=== PATIENT | female | born 1960 | race Caucasian/White ===

== ENCOUNTER 2023-03-02 07:18 | Outpatient (RCR) | payer OTHER, SELFPAY ==
--- NOTE | 2023-02-28 08:41 | CR1_ITS ---
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
== END 2023-03-11 09:07 | disposition home or self-care (01) ==
LOC: CR 07:18
DX: I50.22 Chronic systolic (congestive) heart failure (principal)
CPT/HCPCS: 93797; 93798

== ENCOUNTER 2023-06-19 10:45 | Outpatient (OUT) | payer OTHER, SELFPAY ==
--- OUTSIDE RECORDS SUMMARY | 2023-06-19 11:00 | XMS_ITS | CCD ---
Author Organization [facility] Care Team Providers Care Recycling Specialist Name Role Phone CARMEN EVANS Admitting Unavailable CARMEN EVANS Attending Unavailable Carmen Evans Unavailable Carmen Evans DO Primary Care Provider Emanuel Ledbetter MD Unavailable [phone] Carmen Evans DO Primary Care Provider [phone] Emanuel Ledbetter MD Unavailable Carmen Evans DO Primary Care Provider Emanuel Ledbetter MD Unavailable GRETCHEN Casiano Attending Provider Bev Casiano Attending Unavailable Bev Casiano Admitting Unavailable EMANUEL LEDBETTER Attending Unavailable EMANUEL LEDBETTER Referring Unavailable CARMEN EVANS Primary Care Unavailable EMANUEL LEDBETTER Referring Unavailable CARMEN EVANS Primary Care Unavailable EMANUEL LEDBETTER Referring Unavailable CARMEN EVANS Primary Care Unavailable EMANUEL LEDBETTER Attending Unavailable EMANUEL LEDBETTER Referring Unavailable CARMEN EVANS Primary Care Unavailable GERAIS-SONIDO, LUANNE Admitting LUANNE Medina Attending CARMEN Sweet Primary Care Unavailable EMANUEL LEDBETTER Referring Unavailable CARMEN EVANS Primary Care Unavailable EMANUEL LEDBETTER Referring Unavailable CARMEN EVANS Primary Care Unavailable EMANUEL LEDBETTER Referring Unavailable CARMEN EVANS Primary Care Unavailable EMANUEL LEDBETTER Referring Unavailable CARMEN EVANS Primary Care Unavailable EMANUEL LEDBETTER Referring Unavailable CARMEN EVANS Primary Care Unavailable EMANUEL LEDBETTER Attending Unavailable CARMEN EVANS Primary Care Unavailable LUANNE BANKS Attending EMANUEL Rosenthal Referring Unavailable CARMEN EVANS Primary Care Unavailable EMANUEL LEDBETTER Referring Unavailable CARMEN EVANS Primary Care Unavailable EMANUEL LEDBETTER Referring Unavailable CARMEN EVANS Primary Care Unavailable Allergies Allergy Classification Reported Allergen(s) Allergy Type Date of Onset Reaction(s) Facility (4 sources) Lisinopril Drug Allergy COUGH [employer] Other (9 sources) Angiotensin-con verting enzyme inhibitor agent; Translations: [LUISA INHIBITORS] Propensity to adverse reactions 6 Cough [facility] (1 source) Lisinopril Drug Allergy 4 [facility] Repository Medications Current Medications Medication Drug Class(es) Dates Sig (Normalized) Sig (Original) amoxicillin 875 mg / clavulanate 125 mg oral tablet (6 sources) Penicillin-class Antibacterial Start: 08-01-2021 take 1 tablet by mouth twice daily at mealtime Amoxicillin-Pot Clavulanate 875-125 MG 1 tablet Orally bid with food for 10 day(s) Jan, Active Fish Oils (4 sources) CO-Q 10 [place]-3 Fish Oil Active perflutren lipid microspheres 1.3 mL in NaCl (PF) 0.9% 10 mL injection (DEFINITY) (9 sources) Start: 07-03-2022 End: 10-02-2023 perflutren lipid microspheres 1.3 mL in NaCl (PF) 0.9% 10 mL injection (DEFINITY) Start: 08-10-2020 End: 11-09-2021 perflutren lipid microsphere s 1.3 mL in NaCl (PF) 0.9% 10 mL injection (DEFINITY) Start: 08-10-2020 End: 11-09-2021 perflutren lipid microsphere s 1.3 mL in NaCl (PF) 0.9% 10 mL injection (DEFINITY) Red Yeast Rice (4 sources) Red Yeast Rice A ctive 125 ml sodium chloride 9 mg/ ml prefilled syringe (9 sources) Start: 07-03-2022 End: 10-02-2023 sodium chloride 0.9 % (flush ) 10 mL (BD POSIFLUSH) Start: 08-10-2020 End: 11-09-2021 sodium chloride 0.9 % (flush ) 10 mL (BD POSIFLUSH) ubidecarenone 100 mg oral ca psule (2 sources) Start: 03-07-2019 Coenzyme Q10 ( Q-Sorb Co Q-10) 100 mg Capsule Active 50 MG PO Daily March 07, 2019 1:00am Vitamin D (4 sources) Vitamin D Active Completed/Discontinued Medications Medication Drug Class(es) Dates Sig (Normalized) Sig (Original) ascorbic acid 1000 mg extended release oral tablet (12 sources) Vitamin C Start: 03-07-2019 End: 06-05-2023 take 1 tablet by mouth once daily Ascorbic Acid (Vitamin C) (C Complex) 1,000 mg Tablet Extended Release Discontinued 1000 MG PO Daily March 07, 2019 1:00am June 05, 2023 1:20pm End: 06-14-2023 take 1 tablet by mouth once daily, then take 1 tablet by mouth once daily ascorbic acid (VITAMIN C ORAL) Take 1,000 mg by mouth once daily. Pt takes vitamin c complex 1000 mg one tablet daily by mouth. 0 06/14/2023 Discontinued (Discontinued by Patient) Comment on above: Take 1,000 mg by navi th once daily. Pt takes vitamin c complex 1000 mg one tablet daily by mouth. aspirin 81 mg delayed release oral tablet (4 sources) Platelet Aggregation Inhibitor, Nonsteroidal Anti-inflammatory Drug End: 4 take 1 tablet by mouth once daily aspirin, enteric coated (ASPIRIN, ENTERIC COATED) 81 mg EC tablet Take 81 mg by mouth once daily. 0 06/14/2023 Discontinued Comment on above: Take 81 mg by mouth once daily. biotin 10 mg oral capsule (4 sources) Start: 9 End: 4 take 1 capsule by mouth once daily Biotin (Robert Biotin) 10,000 mcg Capsule Discontinued 27000 MCG PO Daily March 07, 2019 1:00am June 05, 2023 1:20pm Start: 03-07-2019 End: 03-07-2019 Biotin (Robert Biotin) 10,000 mcg Capsule Discontinued March 07, 2019 1:00am March 07, 2019 5:32pm calcium carbonate 600 mg / cholecalciferol 0.01 mg oral tablet (2 sources) Vitamin D Start: 03-07-2019 End: 06-05-2023 take 1 tablet by mouth once daily Calcium Carbonate-Vit D3-Min (Calcium 600 + Minerals) 600 mg calcium- 400 unit Tablet Discontinued 1 TAB PO Daily March 07, 2019 1:00am June 05, 2023 1:20pm Calcium Carbonate / vitamin D3 (5 sources) End: 02-15-2023 calcium carbonate/vitamin D3 (CALCIUM 600 + D,3, ORAL) Take by mouth once daily. Pt takes one daily by mouth. 0 02/15/2023 Discontinued (Discontinued by Patient) calcium carbonat e/vitamin D3 (CALCIUM 600 + D,3, ORAL) Take by mouth once daily. Pt takes one daily by mouth. 0 Active Comment on above: Take by mouth once d aily. Pt takes one daily by mouth. cefTRIAXone (4 sources) Cephalosporin Antibacterial Start: 9 Rocephin 500 mg July, 1 g cephalexin 500 mg oral capsule (2 sources) Cephalosporin Antibacterial Start: 9 End: 4 take 500 mg by mouth every eight hours Cephalexin Discontinued 500 MG PO Q8H 15 5 March 10, 2019 1:00am June 05, 2023 1:20pm FLAXSEED OIL ORAL (5 sources) End: 3 FLAXSEED OIL ORAL Take by mouth once daily. 0 02/15/2023 Discontinued (Discontinued by Patient) FLAXSEED OIL ORA L Take by mouth once daily. 0 Active Comment on above: Take by mouth once d aily. fluorouracil 50 mg/ml topical cream (1 source) Nucleoside Metabolic Inhibitor End: 06-14-2023 Fluorouracil (EFUDEX) 5 % cream Apply to affected area two times a day. 0 06/14/2023 Discontinued Comment on above: Apply to affected ar ea two times a day. FOREIGN MEDICATION (10 sources) End: 02-15-2023 FOREIGN MEDICATION once daily. Pt takes robert B-100 timed release one daily by mouth 0 02/15/2023 Discontinued (Discontinued by Patient) End: 02-15-2023 FOREIGN MEDICATION 50 mg onc e daily. Pt takes Q-Sorb CO Q 10 50 mg By mouth daily 0 02/15/2023 Discontinued (Discontinued by Patient) FOREIGN MEDICATI ON once daily. Pt takes robert B-100 timed release one daily by mouth 0 Active FOREIGN MEDICATI ON 50 mg once daily. Pt takes Q-Sorb CO Q 10 50 mg By mouth daily 0 Active Comment on above: once daily. Pt takes robert B-100 timed release one daily by mouth 50 mg once daily. Pt takes Q-Sorb CO Q 10 50 mg By mouth daily lecithin 1200 mg oral capsule (5 sources) End: 3 take 1200 mg by mouth once daily LECITHIN ORAL Take 1,200 mg by mouth once daily. 0 02/15/2023 Discontinued (Discontinued by Patient) Comment on above: Take 1,200 mg by navi th once daily. Lecithin Ultra (2 sources) Start: 9 End: 4 take 1200 mg by mouth once daily Lecithin Ultra Discontinued 1200 MG PO Daily March 07, 2019 1:00am June 05, 2023 1:21pm linseed oil 1000 mg oral capsule (2 sources) Start: 9 End: 4 take 1000 mg by mouth once daily Flaxseed Oil Discontinued 1000 MG PO Daily March 07, 2019 1:00am June 05, 2023 1:21pm losartan potassium 25 mg oral tablet (17 sources) Angiotensin 2 Receptor Zeferino Start: 9 End: 3 take 1 tablet by mouth once daily losartan (COZAAR) 25 mg tablet TAKE 1 TABLET BY MOUTH EVERY DAY 90 tablet 3 11/07/2022 Active Comment on above: TAKE 1 TABLET BY NAVI TH EVERY DAY Take 1 tablet by navi th once daily. 24 hr metoprolol succinate 50 mg extended release oral tablet (17 sources) beta-Adrenergic Zeferino Start: 4 take 1 tablet by mouth twice daily metoprolol succinate ER (TOPROL XL) 50 mg 24 hr tablet Take 1 tablet by mouth two times a day. 180 tablet 3 06/14/2023 Active Start: 03-07-2019 End: 06-14-2023 take 1 tablet by mouth once daily metoprolol succinate ER (TOPROL XL) 50 mg 24 hr tablet TAKE 1 TABLET BY MOUTH EVERY DAY 90 tablet 3 10/18/2022 06/14/2023 Discontinued Comment on above: TAKE 1 TABLET BY NAVI TH EVERY DAY Take 1 tablet by navi th two times a day. Taedwbbclkmn-Fvd-G nicholas-Fa-Vit K (Multi For Her) 18 mg iron-600 mcg-40 mcg Capsule (2 sources) Start: 03-07-2019 End: 06-05-2023 take 1 capsule by mouth once daily Zedgyrfnhxgd-Zgv-Wdlz- Fa-Vit K (Multi For Her) 18 mg iron-600 mcg-40 mcg Capsule Discontinued 1 CAP PO Daily March 07, 2019 1:00am June 05, 2023 1:21pm multivitamin/iron/ folic acid (SENTRY ORAL) (5 sources) End: 02-15-2023 multivitamin/iron/foli c acid (SENTRY ORAL) Take by mouth once daily. Pt takes Sentry multivitamin vitamin one by mouth daily. 0 02/15/2023 Discontinued (Discontinued by Patient) multivitamin/iro n/folic acid (SENTRY ORAL) Take by mouth once daily. Pt takes Sentry multivitamin vitamin one by mouth daily. 0 Active Comment on above: Take by mouth once d aily. Pt takes Sentry multivitamin vitamin one by mouth daily. nitroglycerin 0.4 mg sublingual tablet (4 sources) Nitrate Vasodilator Start: 02-16-20 23 nitroglycerin sublingual (NITROQUICK) 0.4 mg SL tablet Dissolve 1 tablet under the tongue as needed for chest pain. If no pain relief call 911. 45 tablet 2 02/15/2023 Active Comment on above: Dissolve 1 tablet un gonzalo the tongue as needed for chest pain. If no pain relief call 911. [place] 7-Dhw-Psm-Fish Oil (Fish Oil) 1,000 mg (120 mg-180 mg) Capsule (2 sources) Start: 03-07-20 End: 06-05-19 24 take 1 capsule by mouth once daily [place] 2-Bcs-Gkx-Fish Oil (Fish Oil) 1,000 mg (120 mg-180 mg) Capsule Discontinued 1000 MG PO Daily March 07, 2019 1:00am June 05, 2023 1:21pm red yeast rice 600 mg / ubidecarenone 60 mg oral capsule (4 sources) take 1 capsule by mouth once daily ubidecarenone/red yeast rice (CO Q10-RED YEAST RICE) 60-600 mg cap Take 1 capsule by mouth once daily. 0 Active Comment on above: Take 1 capsule by [facility] once daily. rosuvastatin calcium 20 mg oral tablet (7 sources) HMG-CoA Reductase Inhibitor Start: 07-04-19 take 1 tablet by mouth once daily rosuvastatin (CRESTOR) 20 mg tablet Take 1 tablet by mouth once daily. 90 tablet 3 07/03/2022 Active Comment on above: [facility]. Selenium (2 sources) Start: 03-07-20 End: 06-05-19 take 200 ug by mouth once daily Selenium Discontinued 200 MCG PO Daily March 07, 2019 1:00am June 05, 2023 1:21pm selenium 200 mcg cap (5 sources) End: 02-16-20 take 1 capsule by mouth once daily selenium 200 mcg cap Take by mouth once daily. 0 02/15/2023 Discontinued (Discontinued by Patient) take 1 capsule by mouth once yayo ly selenium 200 mcg cap Take by mouth once daily. 0 Active Comment on above: Take by mouth once d aily. vitamin b12 1 mg extended release oral tablet (7 sources) Vitamin B12 Start: 03-07-2019 End: 06-05-2023 take 1 tablet by mouth once daily Cyanocobalamin (Vitamin B-12) (Vitamin B-12) 1,000 mcg Tablet Extended Release Discontinued 1000 MCG PO Daily March 07, 2019 1:00am June 05, 2023 1:21pm End: 02-15-2023 take 1 tablet by mouth once daily cyanocobalamin (VITAMIN B-12) 1,000 mcg tab Take 1,000 mcg by mouth once daily. 0 02/15/2023 Discontinued (Discontinued by Patient) Comment on above: Take 1,000 mcg by mo [facility] once daily. Vitamin C 1000 MG (2 sources) take 1 tablet by mouth once daily Vitamin C 1000 MG 1 tablet Orally Once a day Not-Taking vitamin e 180 mg oral capsule (2 sources) Start: 03-07-2019 End: 06-05-2023 take 400 [IU] by mouth once daily Vitamin E Discontinued 400 UNIT PO Daily March 07, 2019 1:00am June 05, 2023 1:21pm VITAMIN E ORAL (5 sources) End: 02-15-2023 take 400 [IU] by mouth once daily VITAMIN E ORAL Take 400 Units by mouth once daily. 0 02/15/2023 Discontinued (Discontinued by Patient) take 400 [IU] by mouth once sarath y VITAMIN E ORAL Take 400 Units by mouth once daily. 0 Active Comment on above: Take 400 Units by mo uth once daily. Problems Active Problems Problem Classification Problem Date Documented Da te Episodic/Chronic Cardiac dysrhythmias (3 sources) Multiple premature ventricular complexes; Translations: [Ventricular premature depolarization] 02-15-2023 Chronic Congestive heart failure; nonhypertensive (14 sources) Congestive heart failure; Translations: [Heart failure, unspecified] Onset: 03-24-2005 01-15-2017 Chronic Disorders of lipid metabolism (9 sources) Hyperlipidemia; Translations: [Hyperlipidemia, unspecified] Onset: 08-01-2021 Resolved: 08-01-2021 Chronic Esophageal disorders (4 sources) Acid reflux; Translations: [Gastro-esophageal reflux disease without esophagitis] Chronic Genitourinary symptoms and ill-defined conditions (1 source) Dysuria; Translations: [Dysuria] Onset: 06-05-2023 Episodic Nonspecific chest pain (1 source) Precordial pain; Translations: [Precordial pain] 02-15-2023 Episodic Other gastrointestinal disorders (4 sources) Dysphagia; Translations: [Dysphagia, unspecified] Episodic Other liver diseases (4 sources) Steatosis of liver; Translations: [Fatty (change of) liver, not elsewhere classified] Chronic Other liver diseases (1 source) Fatty (change of) liver, not elsewhere classified Onset: 08-01-2021 Resolved: 08-01-2021 Chronic Daaynara-; endo-; and myocarditis; cardiomyopathy (except that caused by tuberculosis or sexually transmitted disease) (12 sources) Cardiomyopathy, unspecified; Translations: [Cardiomyopathy] Onset: 02-12-2019 Resolved: 08-01-2021 Chronic Residual codes; unclassified (1 source) Other specified health status; Translations: [Other specified conditions influencing health status] 06-14-2023 Episodic Spondylosis; intervertebral disc disorders; other back problems (4 sources) Degeneration of cervical intervertebral disc; Translations: [Other cervical disc degeneration, unspecified cervical region] Chronic Past or Other Problems Problem Classification Problem Date Documented Date Episodic/Chronic Other lower respiratory disease (1 source) Shortness of breath; Translations: [SOB (shortness of breath)] Onset: 02-15-2023 Episodic Other screening for suspected conditions (not mental disorders or infectious disease) (1 source) Encounter for screening for cardiovascular disorders; Translations: [Encounter for screening for cardiovascular disorders] Onset: 02-15-2023 Episodic Skin and subcutaneous tissue infections (1 source) Cutaneous abscess, unspecified Onset: 08-01-2021 Resolved: 08-01-2021 Episodic Results Test Name Value Interpretation Reference Range Facility [facility] 06-14-2023 CNOV Office Visit (CARD C HF ANJALI) RICHIE HOPPER ([id number]) 1960 F Date Time Provider Department 06/14/23 11:45 AM EMANUEL LEDBETTER CARD CHF ANJALI During your visit today, we recorded the following information about you: Pulse Blood pressure Weight Height 88/minute 111/65 78.2 kg 1.689 m Emanuel Ledbetter MD 06/14/2023 5:19 PM Signed Heart and Vascular [facility] SECTION OF HEART FAILURE and CARDIAC TRANSPLANT MEDICINE OUTPATIENT VISIT DATE June 14, 2023 OUTPATIENT VISIT TYPE Established Patient PRIMARY CARE PHYSICIAN: Carmen Evans [address] [place] [address] CHIEF COMPLAINT: HF f/u NURSING INTAKE (Patient?s concerns and/or recent hospitalizations/ER visits): HF Nursing Assessment: Interim Hospitalizations and/or ER visits:02/16/2023 [facility] W/POSS PCI Chest Pain: no Skipping or irregular heartbeats: no Shortness of breath at rest: no Shortness of breath with activity: no Cough: no Waking up in the middle of the night gasping for air: no Lightheadedness or dizziness: no Feeling like you are going to pass out: no Actually passing out: no Poor energy level: yes Unintentional weight gain: no Unintentional weight loss: no Swelling in your legs,feet, abdomen: no Filling up quickly when you eat: no HISTORY OF PRESENT ILLNESS: Doing ok PAST MEDICAL HISTORY Diagnosis Date Bundle branch block, unspecified left bundle branch block Cardiomyopathy, nonischemic (HCC) 09/09/2004 Dyslipidemia 04/05/2015 Other primary cardiomyopathies Cardiomyopathy PAST SURGICAL HISTORY Procedure Laterality Date TOTAL ABDOMINAL HYSTERECT W/WO RMVL TUBE OVARY Hysterectomy, LEAH SOCIAL HISTORY Social History Tobacco Use Smoking status: Never Smokeless tobacco: Never Substance Use Topics Alcohol use: Yes Comment: twice per month Drug use: Never No family history on file. ALLERGIES: ALLERGIES Allergen Reactions Luisa Inhibitors Cough CURRENT MEDICATIONS: ubidecarenone/red yeast rice (CO Q10-RED YEAST RICE) 60-600 mg capTake 1 capsule by mouth once daily.Disp: Rfl: aspirin, enteric coated (ASPIRIN, ENTERIC COATED) 81 mg EC tabletTake 81 mg by mouth once daily.Disp: Rfl: nitroglycerin sublingual (NITROQUICK) 0.4 mg SL tabletDissolve 1 tablet under the tongue as needed for chest pain. If no pain relief call 911.Disp: 45 tabletRfl: 2 losartan (COZAAR) 25 mg tabletTAKE 1 TABLET BY MOUTH EVERY DAYDisp: 90 tabletRfl: 3 metoprolol succinate ER (TOPROL XL) 50 mg 24 hr tabletTAKE 1 TABLET BY MOUTH EVERY DAYDisp: 90 tabletRfl: 3 rosuvastatin (CRESTOR) 20 mg tabletTake 1 tablet by mouth once daily.Disp: 90 tabletRfl: 3 Fluorouracil (EFUDEX) 5 % creamApply to affected area two times a day.Disp: Rfl: (Patient not taking: Reported on 06/14/2023) REVIEW OF SYSTEMS: ROS HEART FAILURE PATIENT ENTERED DATA: 06/13/2023 KCCQ-12 Scores Physical Limitation Score 100 (Class I Heart Failure ) Symptom Frequency Score 79.17 (Class II Heart Failure ) Quality of Life Score 75 (Class II Heart Failure ) Social Limitation Score 91.67 (Class I Heart Failure) Overall Summary Score 86.46 (Class I Heart Failure ) 06/13/2023 PHQ-9 Score 6 06/13/2023 PROMIS Global Health - (T-Scores - the mean of general population = 50. Five points is a clinically meaningful difference.) Physical T-Score 47.7 Mental T-Score 53.3 PHYSICAL EXAMINATION: BP 111/65 (BP Site: Left Arm) Pulse 88 Ht 168.9 cm (5' 6.5 ) Wt 78.2 kg (172 lb 8 oz) SpO2 98% BMI 27.43 kg/m? BP 111/74 (BP Site: Left Arm) Pulse 69 Ht 170.2 cm (5' 7 ) Wt 81.5 kg (179 lb 11.2 oz) SpO2 97% BMI 28.14 kg/m? which is 7 lbs less than last visit. General appearance:Healthy appearing female breathing comfortable. Skin: No rashes or lesions. Head: Normal Eyes: Anicteric sclera. Neck: No JVD. Normal carotid upstroke. No carotid bruit. Cardiac: PMI laterally displaced. No right ventricular heave. No thrill. RRR with normal S1S2. No murmur,no S3, S4 Lungs: clear to auscultation, No wheezing or rhonchi. Abdomen: Flat, soft, non-tender. No hepatosplenomegaly. Extremities: No cyanosis, clubbing,edema Neuro: grossly intact. Labs on 12/20/18: Na 141, 4.2, BUN 11, Cr 0.84, AST 29, ALT 51, Alk phos 71, Tbili 0.6, TP 8.2, Alb 4.1, TC 220, HDL 39, Trig 80, LDL 165 Component Latest Ref Rng AND Units 08/10/2020 07/03/2022 02/14/2023 Protein, Total 6.3 - 8.0 g/dL 7.5 7.1 7.3 Albumin 3.9 - 4.9 g/dL 4.8 4.3 4.5 Calcium 8.5 - 10.2 mg/dL 9.4 9.3 9.9 Bilirubin, Total 0.2 - 1.3 mg/dL 0.6 0.5 0.6 Alkaline Phosphatase 34 - 123 U/L 78 66 73 AST 13 - 35 U/L 35 55 (H) 25 Glucose 74 - 99 mg/dL 78 86 104 (H) BUN 7 - 21 mg/dL 11 10 16 Creatinine 0.58 - 0.96 mg/dL 0.78 0.74 0.87 Sodium 136 - 144 mmol/L 140 138 144 Potassium 3.7 - 5.1 mmol/L 3. (more content not included)... Normal [facility] ECHOon 06-14-2023 Echocardiography Echocardiography Report: Transthoracic Echo [facility] [id number] Date of service: 06/14/2023 10:29:30 AM SALES ENGINEER Ordering physician: EMANUEL LEDBETTER Indication: CHF Technologist: Maranda Mckeon and Tamika Byrnes [facility] Interpreting physician: Salvatore Bowers DO PATIENT: Name: MRS. RICHIE HOPPER : 1960 Age: 63 years Gender: F Primary rhythm: sinus. Height: 170.20 cm BSA: 1.96 m Weight: 81.51 kg BMI: 28.1 kg/m Heart rate 77 bpm Blood pressure 111/65 mmHg Color Doppler was utilized to interrogate the cardiac valves assessed and spectral Doppler was utilized to determine the flow velocities and pressure gradients reported in this exam. MEASUREMENTS: Value Indexed Normal Max aortic dimension 3.5 cm Ao < 3.8 Left atrial volume 65 ml (biplane A-L) 33 ml/m Shlomo <= 34 LV ID (diastole) 5.9 cm (2D) 2.99 cm/m LV ID (systole) 5.2 cm (2D) 2.67 cm/m IVS, leaflet tips 1.1 cm (2D) Posterior wall thickness 0.9 cm (2D) Left ventricular mass 240 g (2D) 122 g/m LV stroke volume 46 ml (2D biplane) LV end diastolic volume 117 ml (2D biplane) 59.8 ml/m 29<=EDVi<62 LV end systolic volume 71 ml (2D biplane) 36.2 ml/m Ejection Fraction 39 % (2D biplane) EF > 54 FINDINGS: LEFT VENTRICLE The left ventricle is normal in size. Left ventricular systolic function is moderately decreased regionally. Grade I left ventricular diastolic dysfunction. Wall Motion: The entire septum, apical anterior segment, apical inferior segment, and apex are severely hypokinetic. The inferior wall is mildly hypokinetic. All remaining scored segments are normal. Wall Thickness: All scored segments are normal. RIGHT VENTRICLE The right ventricle is normal in size. Right ventricular systolic function is normal. RV systolic tissue Doppler velocity is 9.0 cm/s. Tricuspid annular displacement is 1.6 cm. Estimated right ventricular systolic pressure is not reported due to an insufficient tricuspid regurgitation signal. Estimated right atrial pressure is 3 mmHg based on IVC assessment. LEFT ATRIUM The left atrial cavity is normal in size. RIGHT ATRIUM The right atrial cavity is normal in size. Inferior Vena Cava: The inferior vena cava appears normal measuring 1.2 cm. The vessel decreases greater than 50 percent with inspiration. MITRAL VALVE The mitral valve leaflets are structurally normal. There is mild (1+) mitral valve regurgitation. There is mild thickening. TRICUSPID VALVE The tricuspid valve leaflets are structurally normal. There is trace tricuspid valve regurgitation. AORTIC VALVE The aortic valve cusps are structurally normal. There is trace aortic valve regurgitation. Tricuspid aortic valve. PULMONIC VALVE The pulmonic valve cusps are structurally normal. There is trace pulmonic valve regurgitation. AORTA The visualized aorta is normal in size. Measurements - Sinus: 3.5 cm. Mid ascending aorta 2.7 cm. PULMONARY ARTERIES The pulmonary arteries are unseen or not interrogated. INTERATRIAL SEPTUM There is no evidence of intracardiac shunting as detected by Doppler. INTERVENTRICULAR SEPTUM There is no flow through the interventricular septum as detected by Doppler. PERICARDIUM There is no pericardial effusion. There is an epicardial fat pad. CONCLUSIONS: - Exam indication: CHF - The left ventricle is normal in size. Left ventricular systolic function is moderately decreased. EF = 39 5% (2D biplane) Grade I left ventricular diastolic dysfunction. The abnormal regional wall motion pattern in conjunction with normal regional wall thickness is consistent with a LBBB abnormal conduction delay and LV intra ventricular mechanical dyssynchrony. LV strain not reported due to poor tracking. - The right ventricle is normal in size. Right ventricular systolic function is normal. - There are no significant valvular abnormalities. - Exam was compared with the prior echocardiographic exam performed on 07/03/2022. There is no significant change. * * * Final * * * [employer] : [id number] Normal [facility] Urine Cultureon 06-05-2023 Bacteria identified Cx Nom (U) 15,000 colonies/ml mixed bacterial skin contaminants 1 Day PERFORMED BY: [id number] [id number] PATHOLOGIST [employer] GLORIA ALMEIDA M.D. Normal St. [facility] Comment on above: Performed By: #### C UU #### [address] [place] [address] [facility] Vick 03-06-2023 CNPN Telephone (CARD [facility] ANJALI) RICHIE HOPPER ([id number]) 1960 F Date Time Provider Department 03/06/23 EMANUEL LEDBETTER CARD [facility] ANJALI During your visit today, we recorded the following information about you: Marcus FátimaKriss 03/06/2023 2:17 PM Signed Patient has a cold/flu x 2 days and wants to know what she can take. Please call her at [phone]. Thank you, kriss Allergies As of Date: 03/06/2023 Noted Allergy Reaction LUISA INHIBITORS 03/17/2005 3 - Cough Date Reviewed: 02/16/2023 Reviewed by: Lauren Holt, RN - Fully Assessed Reason for Visit: Follow Up [171] Prescriptions as of 03/06/2023 - ubidecarenone/red yeast rice (CO Q10-RED YEAST RICE) 60-600 mg cap Take 1 capsule by mouth once daily. - aspirin, enteric coated (ASPIRIN, ENTERIC COATED) 81 mg EC tablet Take 81 mg by mouth once daily. - nitroglycerin sublingual (NITROQUICK) 0.4 mg SL tablet Dissolve 1 tablet under the tongue as needed for chest pain. If no pain relief call 911. - losartan (COZAAR) 25 mg tablet TAKE 1 TABLET BY MOUTH EVERY DAY - metoprolol succinate ER (TOPROL XL) 50 mg 24 hr tablet TAKE 1 TABLET BY MOUTH EVERY DAY - rosuvastatin (CRESTOR) 20 mg tablet Take 1 tablet by mouth once daily. - ascorbic acid (VITAMIN C ORAL) Take 1,000 mg by mouth once daily. Pt takes vitamin c complex 1000 mg one tablet daily by mouth. Facility-Administered Medications as of 03/06/2023 - perflutren lipid microspheres 1.3 mL in NaCl (PF) 0.9% 10 mL injection (DEFINITY) - sodium chloride 0.9 % (flush) 10 mL (BD POSIFLUSH) Problem List As Of Date 03/06/2023 Noted Resolved Cardiomyopathy, nonischemic (HCC) [I42.8] CHF (congestive heart failure) (HCC) [I50.9] 03/24/2005 Encounter Status:Closed by SANTOS BLOUNT on 03/06/23 Normal [facility] CARD CATH DIAGNOSTICon 02-16 CARD CATH DIAGNOSTIC Site Id: [id number] Lab #: [id number] HVI Fancy Packer 2 Study Date: 02/16/2023 Start Time: 02/16/2023 11:33:29 AM End Time: Physician Name Debra Priest M.D., M.D. Nursing/Tech Nitesh Swan R.N., A. R.N. + + PATIENT INFORMATION + + Name: MRS. RICHIE HOPPER : 1960 Age: 63 years Gender: F Height: 67 in / 170 cm Weight: 179.70 lb / 81.51 kg BMI: 28.20 kg/m BSA: 1.93 m + ---------+ CLINICAL HISTORY/INDICATION(s) + ---------+ Re-evaluation of know cardiomyopathy with change in clinical status or on cardiac exam or to guide therapy; AUC score = 7. CAD Presentation: Symptoms Likely to be Ischemic Angina Classification (within 2 weeks): CCS II Heart Failure: NYHA Class III Richie Hopper is a 63 yoF with PMH HLD presenting for C +/- PCI for investigation of cardiomyopathy and exertional chest pain. Access Point Sheath Size Hemostasis Method Right Radial Artery 6F Short Radial TR band + + DIAGNOSTIC FINDINGS + + Coronary Anatomy: Right Dominant Injection Site(s): Coronary Artery and Aorta LMT: _ The LMT is normal. Additional Comment: Very short LMT gives rise to the LAD and LCx. LAD: _ The LAD has mild luminal irregularities. Additional Comment: The LAD is a large caliber vessel that supplies one primary diagonal branch before wrapping around the apex. There are mild luminal irregularities seen in the mid LAD and diagonal arteries. LCX: _ The Circumflex is normal. Additional Comment: The LCx is a large caliber vessel that supplies a large OM and LPL branche and then continues in the AV groove to supply more dimunitive LPL branches. RAMUS: _ Ramus Status: Not Applicable. RCA: _ RCA is normal. Additional Comment: The RCA is a medium caliber vessel that supplies a few small acute marginal branches before contributing to a PDA. + + HEMODYNAMICS + + + + IMPRESSION/PLAN + + Impression: - Mild luminal irregularities in the LAD; no obstructive coronary artery disease seen Recommended Treatment: Medical Therapy. Plan: - Ongoing treatment of heart failure - Ongoing workup for chest discomfort; no epicardial disease to explain symptoms + + ADVERSE OUTCOME(s)/COMPLICATIO N(s) + + None + ---------+ PROCEDURAL & TECHNICAL DETAILS + ---------+ PROCEDURE SEQUENCE: Time Procedure Performed 02/16/2023 11:55:47 AM Left Heart Cath PROCEDURE DETAILS: Contrast: Contrast Type Omnipaque 150ml Blood Loss: < 30ml Specimen: No Specimen Obtained RADIATION: Procedure performed under Fluoroscopic Guidance Total Dose Dose Area Product Total Exposure Time 251.77 mGy 18.56 Gy*cm 322.00 sec + + MEDICAL HISTORY + + Left Ventricle EF: 36 on 02/15/2023 by Echo. Physician Intra Service Procedure Start Time: 02/16/2023 11:47:58 AM Attending Physician Presence Attestation: Electronically submitted by: Luanne Greenfield MD On: 02/16/2023 at 2:26:17 PM Final CC [facility] Image : [id number] SISUID See Link below for Image Normal [facility] CNOVon 02-15-2023 CNOV Office Visit (JUNITO Castañeda HF ANJALI) RICHIE HOPPER ([id number]) 1960 F Date Time Provider Department 02/15/23 11:45 AM EMANUEL LEDBETTER CHF ANJALI During your visit today, we recorded the following information about you: Pulse Blood pressure Weight Height 69/minute 111/74 81.5 kg 1.702 m Emanuel Ledbetter MD 02/15/2023 5:05 PM Signed Heart and Vascular [facility] SECTION OF HEART FAILURE and CARDIAC TRANSPLANT MEDICINE OUTPATIENT VISIT DATE February 15, 2023 OUTPATIENT VISIT TYPE Established Patient PRIMARY CARE PHYSICIAN: Carmen Evans [address] [place] [address] CHIEF COMPLAINT: CP NURSING INTAKE (Patient?s concerns and/or recent hospitalizations/ER visits): HF Nursing Assessment: Interim Hospitalizations and/or ER visits:no Chest Pain: yes, last had tightness and made sick to stomach Skipping or irregular heartbeats: yes Shortness of breath at rest: no Shortness of breath with activity: no Cough: no Waking up in the middle of the night gasping for air: no Lightheadedness or dizziness: no Feeling like you are going to pass out: no Actually passing out: no Poor energy level: yes Unintentional weight gain: no Unintentional weight loss: no Swelling in your legs,feet, abdomen: no Filling up quickly when you eat: yes HISTORY OF PRESENT ILLNESS: Has had progressive shortness of breath and chest tightness much worse in last few months PAST MEDICAL HISTORY Diagnosis Date Bundle branch block, unspecified left bundle branch block Cardiomyopathy, nonischemic (HCC) 09/09/2004 Dyslipidemia 04/05/2015 Other primary cardiomyopathies Cardiomyopathy PAST SURGICAL HISTORY Procedure Laterality Date TOTAL ABDOM HYSTERECTOMY Hysterectomy, LEAH SOCIAL HISTORY Social History Tobacco Use Smoking status: Never Smokeless tobacco: Never Substance Use Topics Alcohol use: Yes Comment: twice per month Drug use: Not Currently No family history on file. ALLERGIES: ALLERGIES Allergen Reactions Luisa Inhibitors Cough CURRENT MEDICATIONS: ubidecarenone/red yeast rice (CO Q10-RED YEAST RICE) 60-600 mg capTake 1 capsule by mouth once daily.Disp: Rfl: aspirin, enteric coated (ASPIRIN, ENTERIC COATED) 81 mg EC tabletTake 81 mg by mouth once daily.Disp: Rfl: losartan (COZAAR) 25 mg tabletTAKE 1 TABLET BY MOUTH EVERY DAYDisp: 90 tabletRfl: 3 metoprolol succinate ER (TOPROL XL) 50 mg 24 hr tabletTAKE 1 TABLET BY MOUTH EVERY DAYDisp: 90 tabletRfl: 3 rosuvastatin (CRESTOR) 20 mg tabletTake 1 tablet by mouth once daily.Disp: 90 tabletRfl: 3 ascorbic acid (VITAMIN C ORAL)Take 1,000 mg by mouth once daily. Pt takes vitamin c complex 1000 mg one tablet daily by mouth.Disp: Rfl: REVIEW OF SYSTEMS: ROS HEART FAILURE PATIENT ENTERED DATA: No flowsheet data found. No flowsheet data found. No flowsheet data found. PHYSICAL EXAMINATION: BP 111/74 (BP Site: Left Arm) Pulse 69 Ht 170.2 cm (5' 7 ) Wt 81.5 kg (179 lb 11.2 oz) SpO2 97% BMI 28.14 kg/m? which is 7 lbs less than last visit. General appearance:Healthy appearing female breathing comfortable. Skin: No rashes or lesions. Head: Normal Eyes: Anicteric sclera. Neck: No JVD. Normal carotid upstroke. No carotid bruit. Cardiac: PMI laterally displaced. No right ventricular heave. No thrill. RRR with normal S1S2. No murmur,no S3, S4 Lungs: clear to auscultation, No wheezing or rhonchi. Abdomen: Flat, soft, non-tender. No hepatosplenomegaly. Extremities: No cyanosis, clubbing,edema Neuro: grossly intact. Labs on 12/20/18: Na 141, 4.2, BUN 11, Cr 0.84, AST 29, ALT 51, Alk phos 71, Tbili 0.6, TP 8.2, Alb 4.1, TC 220, HDL 39, Trig 80, LDL 165 Component Latest Ref Rng AND Units 08/10/2020 07/03/2022 02/14/2023 Protein, Total 6.3 - 8.0 g/dL 7.5 7.1 7.3 Albumin 3.9 - 4.9 g/dL 4.8 4.3 4.5 Calcium 8.5 - 10.2 mg/dL 9.4 9.3 9.9 Bilirubin, Total 0.2 - 1.3 mg/dL 0.6 0.5 0.6 Alkaline Phosphatase 34 - 123 U/L 78 66 73 AST 13 - 35 U/L 35 55 (H) 25 Glucose 74 - 99 mg/dL 78 86 104 (H) BUN 7 - 21 mg/dL 11 10 16 Creatinine 0.58 - 0.96 mg/dL 0.78 0.74 0.87 Sodium 136 - 144 mmol/L 140 138 144 Potassium 3.7 - 5.1 mmol/L 3.7 4.8 Chloride 97 - 105 mmol/L 104 105 108 (H) CO2 22 - 30 mmol/L 26 22 29 Anion Gap 9 - 18 mmol/L 10 11 7 (L) ALT 7 - 38 U/L 58 (H) 59 (H) 32 eGFR- >60 eGFR-All Other Races . >60 eGFR >=60 mL/min/1.73mA? 92 75 WBC 3.70 - 11.00 k/uL 6.83 6.60 6.74 RBC 3.90 - 5.20 m/uL 4.40 4.49 4.52 Hemoglobin 11.5 - 15.5 g/dL 13.9 13.9 14.3 Hematocrit 36.0 - 46.0 % 42.8 43.5 42.2 MCV 80.0 - 100.0 fL 97.3 96.9 93.4 MCH 26.0 - 34.0 pg 31.6 31.0 31.6 MCHC 30.5 - 36.0 g/dL 32.5 32.0 33.9 RDW-CV 11.5 - 15.0 % 12.6 12.5 12.4 Platelet Count 150 - 400 k/uL 240 160 226 MPV 9.0 - 12.7 fL (more content not included)... Normal [facility] CNPNon 02-15-2023 CNPN Telephone ([email or web address].comN) RICHIE HOPPER ([id number]) 1960 F Date Time Provider Department 02/15/23 LUANNE BANKS During your visit today, we recorded the following information about you: Debbie Salguero RN 02/15/2023 3:15 PM Signed CARDIOVASCULAR LAB INSTRUCTIONS: Readiness to Learn: Cognitive Ability: Alert and oriented Motivation To Learn: Interested Family/Significant Other Support: High - Very involved in pt care Instruction Provided To: Patient and family member Patient Learns Best By: Individual Instruction Factors Affecting Learning: None Physical Limitations Affecting Learning: None Learning Response: Procedure: Left Heart Diagnostic Pre procedure education topics: Arrival time/NPO Status/Medications/Tra joaquim Instructions/Restricti ons Patient/Family Response Evaluation: Verbalizes understanding Follow Up Plan and Medication: As directed by physician Instruction/Supplement al Material Given: Cardiac catheterization instructions, procedure information, hospital information, hotel information. Instructed By Nanda Salguero RN, RN. In Department of CARDIOLOGY. Allergies As of Date: 02/15/2023 Noted Allergy Reaction LUISA INHIBITORS 03/17/2005 3 - Cough Date Reviewed: 02/15/2023 Reviewed by: Cheryl Butler Ma - Fully Assessed Reason for Visit: Patient Education [91] Prescriptions as of 02/15/2023 - ubidecarenone/red yeast rice (CO Q10-RED YEAST RICE) 60-600 mg cap Take 1 capsule by mouth once daily. - aspirin, enteric coated (ASPIRIN, ENTERIC COATED) 81 mg EC tablet Take 81 mg by mouth once daily. - nitroglycerin sublingual (NITROQUICK) 0.4 mg SL tablet Dissolve 1 tablet under the tongue as needed for chest pain. If no pain relief call 911. - losartan (COZAAR) 25 mg tablet TAKE 1 TABLET BY MOUTH EVERY DAY - metoprolol succinate ER (TOPROL XL) 50 mg 24 hr tablet TAKE 1 TABLET BY MOUTH EVERY DAY - rosuvastatin (CRESTOR) 20 mg tablet Take 1 tablet by mouth once daily. - ascorbic acid (VITAMIN C ORAL) Take 1,000 mg by mouth once daily. Pt takes vitamin c complex 1000 mg one tablet daily by mouth. Facility-Administered Medications as of 02/15/2023 - perflutren lipid microspheres 1.3 mL in NaCl (PF) 0.9% 10 mL injection (DEFINITY) - sodium chloride 0.9 % (flush) 10 mL (BD POSIFLUSH) Problem List As Of Date 02/15/2023 Noted Resolved Cardiomyopathy, nonischemic (HCC) [I42.8] CHF (congestive heart failure) (HCC) [I50.9] 03/24/2005 Encounter Status:Closed by DEBBIE SALGUERO RN on 02/15/23 [facility] ECHOon 02-15-2023 Echocardiography Echocardiography Report: Transthoracic Echo [facility] J1-5 Date of service: 02/15/2023 7:58:30 AM [employer]ES ENGINE[employer] Ordering physician: EMANUEL LEDBETTER Indication: Diastolic CHF Technologist: Deandra Love Fellow: Caitlyn Coronado MD Interpreting physician: Tom Paz MD PATIENT: Name: MRS. RICHIE HOPPER : 1960 Age: 63 years Gender: F Primary rhythm: sinus. Height: 168.90 cm BSA: 1.99 m Weight: 84.64 kg BMI: 29.7 kg/m Heart rate 69 bpm Blood pressure 135/85 mmHg Technically difficult exam due to body habitus. Color Doppler was utilized to interrogate the cardiac valves assessed and spectral Doppler was utilized to determine the flow velocities and pressure gradients reported in this exam. Myocardial strain analysis was performed in this exam to aid in the assessment of cardiac function. MEASUREMENTS: Value Indexed Normal Max aortic dimension 3.4 cm Ao < 3.8 Left atrial volume 66 ml (biplane A-L) 33 ml/m Shlomo <= 34 Global peak long strain -9.8 % LV stroke volume 39 ml (2D biplane) LV end diastolic volume 108 ml (2D biplane) 54.4 ml/m 29<=EDVi<62 LV end systolic volume 69 ml (2D biplane) 34.6 ml/m Ejection Fraction 36 % (2D biplane) EF > 54 FINDINGS: LEFT VENTRICLE The left ventricle is normal in size. Left ventricular systolic function is moderately decreased. Global LV myocardial strain is abnormal. Grade I left ventricular diastolic dysfunction. Mitral annular lateral E/e': 6.9. Mitral annular septal E/e': 15.0. Wall Motion: The mid inferoseptal segment is dyskinetic. The entire anterior septum and basal inferoseptal segment are severely hypokinetic. The entire anterior wall, entire lateral wall, entire inferior wall, and apex are mildly hypokinetic. RIGHT VENTRICLE The right ventricle is normal in size. Right ventricular systolic function is normal globally. RV systolic tissue Doppler velocity is 10.9 cm/s. Tricuspid annular displacement is 1.5 cm. Estimated right ventricular systolic pressure is not reported due to an insufficient tricuspid regurgitation signal. Estimated right atrial pressure is 3 mmHg based on IVC assessment. LEFT ATRIUM The left atrial cavity is normal in size. RIGHT ATRIUM The right atrial cavity is normal in size. Inferior Vena Cava: The inferior vena cava appears normal measuring 1.7 cm. The vessel decreases greater than 50 percent with inspiration. MITRAL VALVE The mitral valve leaflets are structurally normal. There is trace (trace - 1+) mitral valve regurgitation. The pressure half time is 62 msec. The peak mitral E/A ratio is 0.67. The average mitral E/e' ratio is 10.9. The mitral flow deceleration time is 214 msec. TRICUSPID VALVE The tricuspid valve leaflets are structurally normal. There is trace tricuspid valve regurgitation. The hepatic venous pattern showed normal systolic flow. AORTIC VALVE The aortic valve cusps are structurally normal. There is trace aortic valve regurgitation. Tricuspid aortic valve. PULMONIC VALVE The pulmonic valve was not seen or not interrogated. There is trace pulmonic valve regurgitation. AORTA The visualized aorta is normal in size. Measurements - Mid ascending aorta 3.4 cm. INTERATRIAL SEPTUM There is no evidence of intracardiac shunting as detected by Doppler. INTERVENTRICULAR SEPTUM There is abnormal motion of the interventricular septum. There is no flow through the interventricular septum as detected by Doppler. PERICARDIUM There is no pericardial effusion. CONCLUSIONS: - Technically difficult exam due to body habitus. - Exam indication: Diastolic CHF - The abnormal regional wall motion pattern in conjunction with normal regional wall thickness is consistent with a LBBB abnormal conduction delay. - The left ventricle is normal in size. Left ventricular systolic function is moderately decreased. EF = 36 5% (2D biplane) Grade I left ventricular diastolic dysfunction. - The right ventricle is normal in size. Right ventricular systolic function is normal. - AV morphology difficult to visualize but likely tricuspid. - Exam was compared with the prior echocardiographic exam performed on 07/03/2022. Left ventricular function appears worse today, focal dyskinesis of inferoseptal segment more apparent today. * * * Final * * * [facility] : [id number] Normal [facility] CARDIAC PERF STRESS/PHARM on 02-15-2023 NM CARDIAC PERF STRESS/PHARM * * *Final Report* * * DATE OF EXAM: Feb 15 2023 11:34AM [facility] 0006 - NM CARDIAC PERF STRESS/PHARM / PROCEDURE REASON: Encounter for screening for cardiovascular disorders * * * * Physician Interpretation * * * * Stress [employer] Report: [facility] NORI-2 Date of service: 02/15/2023 9:49:58 AM Supervising physician: Sebastian Norris MD PATIENT: Name: MRS. RICHIE HOPPER Age: 63 years Gender: F The supervising physician was in the department and immediately available. * * * Final * * * ------ PATIENT: Name: MRS. RICHIE HOPPER Age: 63 years Gender: F CONCLUSIONS: 1. SPECT Perfusion Study: Abnormal. 2. There is no scintigraphic evidence for inducible ischemia. 3. There is a moderate (10-20%) fixed perfusion defect in the LAD territory. 4. Left ventricle is moderately dilated. The left ventricle systolic function is moderately decreased. 5. Right ventricle is normal in size. The right ventricle systolic function is normal. 6. Poor quality study due to artifact. 7. This is an intermediate risk scan. Gated Stress FBP Gated Rest FBP LVEF % 36 36 Prior Study Comparison No prior nuclear cardiology exam available for comparison. Nuclear Med Report:1-Day Gated SPECT Myocardial Perfusion with Regadenoson Stress: Myocardial perfusion imaging was performed at rest 30 minutes following the IV injection of the radiotracer. The patient received 0.4 mg of regadenoson, via rapid IV push, immediately followed by radiotracer IV. Gated post stress tomographic imaging was performed 30 to 60 minutes later. See administered radiotracer and doses below. [facility] Date of service: 02/15/2023 9:49:58 AM Ordering Physician: EMANUEL LEDBETTER. Requesting Physician: EMANUEL LEDBETTER Indication: CP - ECG uniterpretable OR unable to exercise Interpreting physician: Sebastian Norris MD Height: 166.37 cm BSA: 1.98 m? Weight: 84.60 kg BMI: 30.6 kg/m? Imaging Protocol Limitation Reason Diaphragmatic attenuation, Low count statistics and Breast attenuation. CT Dose-Length Product(DLP): 18.0 mGy * cm. CT Dose Reduction Employed: Yes. Exam Type: Rest Stress Radiopharm: Tc-99m Tetrofosmin Tc-99m Tetrofosmin Dosage(mCi): 11.9 32.1 Atten Correction: performed performed Stress Agent: Regadenoson 0.4mg Supply provided from [facility] Resting Blood Press: 132/82 mmHg Image Quality The overall study imaging quality was deemed to be poor. The following technical issues were noted: Diaphragmatic attenuation, Low count statistics and Breast attenuation. FINDINGS: Left Ventricle Wall Motion: Stress IR:3D - The apex is akinetic. The entire anterior wall, entire lateral wall, entire septum, and entire inferior wall are hypokinetic. Rest IR:3D:SC - Gated Stress FBP - Reversibility - Gated Rest FBP - Stress IR:3D Gated Stress FBP Gated Rest FBP LVEF: 36 % 36 % ED Volume: 143 ml 144 ml ES Volume: 92 ml 92 ml Perfusion Findings Stress IR:3D - Summed Score=13 There is a severe perfusion defect in the apex. There is a moderate perfusion defect in the mid inferoseptal segment, apical septal segment, apical anterior segment, and apical inferior segment. There is a mild perfusion defect in the apical lateral segment and mid anterior segment. All remaining scored segments show normal perfusion. Rest IR:3D:SC - Summed Score=13 There is a severe perfusion defect in the apex. There is a moderate perfusion defect in the mid inferoseptal segment, apical septal segment, apical anterior segment, and apical inferior segment. There is a mild perfusion defect in the apical lateral segment and mid anterior segment. All remaining scored segments show normal perfusion. Stress IR:3D Rest IR:3D:SC Summed Score=13 Summed Score=13 LEFT VENTRICLE The left ventricle is moderately dilated. Left ventricular systolic function is moderately decreased. Abnormal septal motion due to Left Bundle Branch Block. Right Ventricle The right ventricle is normal in size. Right ventricle systolic function is normal. Stress Test Findings: There is no scintigraphic evidence for inducible ischemia. * * * Final * * * ------ [facility] Report: [facility] Date of service: 02/15/2023 9:49:58 AM [facility] interpreting physician: Sebastian Norris MD PATIENT: Name: MRS. RICHIE HOPPER Age: 63 years Gender: F 1. Incidental Findings from limited non-diagnostic CTAC: - No distinct coronary calcifications. * * * Final * * * (more content not included)... Normal [facility] CBC panel Auto (Bld)on 02-14 Erythrocyte distribution width (RBC) [Ratio] 12.4 % Normal 11.5-15.0 [facility] Comment on above: Order Comment: Speci men Type: BLOOD SPECIMENOrdering Facility: [facility] Address: [address] [place] [address] Performed By: #### 5 8410-2 ####[facility] LABCLIA [id number] [place] [address] Hematocrit (Bld) [Volume fraction] 42.2 % Normal 36.0-46.0 [facility] Comment on above: Order Comment: Speci men Type: BLOOD SPECIMENOrdering Facility: [facility] Address: [address] [place] [address] Performed By: #### 5 8410-2 ####[facility] LABCLIA [id number] [place] [address] Hemoglobin (Bld) [Mass/Vol] 14.3 g/dL Normal 11.5-15.5 [facility] Comment on above: Order Comment: Speci men Type: BLOOD SPECIMENOrdering Facility: [facility] Address: [address] [place] [address] Performed By: #### 5 8410-2 ####[facility] LABIA [id number] [place] [address] MCH (RBC) [Entitic mass] 31.6 pg Normal 26.0-34.0 [facility] Comment on above: Order Comment: Speci men Type: BLOOD SPECIMENOrdering Facility: [facility] Address: [address] [place] [address] Performed By: #### 5 8410-2 ####[facility] LABCLIA [id number] [place] [address] MCHC (RBC) [Mass/Vol] 33.9 g/dL Normal 30.5-36.0 [facility] Comment on above: Order Comment: Speci men Type: BLOOD SPECIMENOrdering Facility: [facility] Address: [address] [place] [address] Performed By: #### 5 8410-2 ####[facility] LABCLIA [id number] [place] [address] MCV (RBC) [Entitic vol] 93.4 fL Normal 80.0-100.0 [facility] Comment on above: Order Comment: Speci men Type: BLOOD SPECIMENOrdering Facility: [facility] Address: [address] [place] [address] Performed By: #### 5 8410-2 ####[facility] LABCLIA [id number] [place] [address] Nucleated RBC (Bld) [#/Vol] 10*3/uL Normal <0.01 [facility] Comment on above: Order Comment: Speci men Type: BLOOD SPECIMENOrdering Facility: [facility] Address: [address] [place] [address] Performed By: #### 5 8410-2 ####[facility] LABCLIA [id number] [place] [address] Platelet mean volume (Bld) [Entitic vol] 9.6 fL Normal 9.0-12.7 [facility] Comment on above: Order Comment: Speci men Type: BLOOD SPECIMENOrdering Facility: [facility] Address: [address] [place] [address] Performed By: #### 5 8410-2 ####[facility] LABCLIA [id number] [place] [address] Platelets (Bld) [#/Vol] 226 10*3/uL Normal 150-400 [facility] Comment on above: Order Comment: Speci men Type: BLOOD SPECIMENOrdering Facility: [facility] [facility] Address: [address] [place] [address] Performed By: #### 5 8410-2 ####[facility] LABCLIA [id number] [place] [address] RBC (Bld) [#/Vol] 4.52 10*6/uL Normal 3.90-5.20 [facility] Comment on above: Order Comment: Speci men Type: BLOOD SPECIMENOrdering Facility: [facility] Address: [address] [place] [address] Performed By: #### 5 8410-2 ####[facility] LABIA [id number] [place] [address] WBC (Bld) [#/Vol] 6.74 10*3/uL Normal 3.70-11.00 [facility] Comment on above: Order Comment: Speci men Type: BLOOD SPECIMENOrdering Facility: [facility] Address: [address] [place] [address] Performed By: #### 5 8410-2 ####[facility] LABIA [id number] [place] [address] Comprehensive metabolic 2000 panelon 02-14-2023 Albumin [Mass/Vol] 4.5 g/dL Normal 3.9-4.9 [facility] Comment on above: Order Comment: Speci men Type: BLOOD SPECIMENOrdering Facility: [facility] Address: [address] [place] [address] Performed By: #### 2 4323-8 ####[facility] LABIA [id number] [place] [address] ALP [Catalytic activity/Vol] 73 U/L Normal 34-123 [facility] Comment on above: Order Comment: Speci men Type: BLOOD SPECIMENOrdering Facility: [facility] Address: [address] [place] [address] Performed By: #### 2 4323-8 ####[facility] LABCLIA [id number] [place] [address] ALT [Catalytic activity/Vol] 32 U/L Normal 7-38 [facility] Comment on above: Order Comment: Speci men Type: BLOOD SPECIMENOrdering Facility: [facility] Address: [address] [place] [address] Performed By: #### 2 4323-8 ####[facility] LABCLIA [id number] [place] [address] Anion gap [Moles/Vol] 7 mmol/L Low 9-18 [facility] Comment on above: Order Comment: Speci men Type: BLOOD SPECIMENOrdering Facility: [facility] Address: [address] [place] [address] Performed By: #### 2 4323-8 ####[facility] LABCLIA [id number] [place] [address] AST [Catalytic activity/Vol] 25 U/L Normal 13-35 [facility] Comment on above: Order Comment: Speci men Type: BLOOD SPECIMENOrdering Facility: [facility] Address: [address] [place] [address] Performed By: #### 2 4323-8 ####[facility] LABCLIA [id number] [place] [address] Bilirubin [Mass/Vol] 0.6 mg/dL Normal 0.2-1.3 [facility] Comment on above: Order Comment: Speci men Type: BLOOD SPECIMENOrdering Facility: [facility] Address: [address] [place] [address] Performed By: #### 2 4323-8 ####[facility] LABCLIA [id number] [place] [address] Calcium [Mass/Vol] 9.9 mg/dL Normal 8.5-10.2 [facility] Comment on above: Order Comment: Speci men Type: BLOOD SPECIMENOrdering Facility: [facility] Address: [address] [place] [address] Performed By: #### 2 4323-8 ####[facility] LABCLIA [id number] [place] [address] Chloride [Moles/Vol] 108 mmol/L High 97-105 [facility] Comment on above: Order Comment: Speci men Type: BLOOD SPECIMENOrdering Facility: [facility] Address: [address] [place] [address] Performed By: #### 2 4323-8 ####[facility] LABCLIA [id number] [place] [address] CO2 [Moles/Vol] 29 mmol/L Normal 22-30 [facility] Comment on above: Order Comment: Speci men Type: BLOOD SPECIMENOrdering Facility: [facility] Address: [address] [place] [address] Performed By: #### 2 4323-8 ####[facility] LABCLIA [id number] [place] [address] Creatinine [Mass/Vol] 0.87 mg/dL Normal 0.58-0.96 [facility] Comment on above: Order Comment: Speci men Type: BLOOD SPECIMENOrdering Facility: [facility] Address: [address] [place] [address] Performed By: #### 2 4323-8 ####[facility] LABCLIA [id number] [place] [address] Creatinine and Glomerular filtration rate.predicted panel (S/P/Bld) 75 mL/min/1.73m??? Normal >=60 [facility] Comment on above: Order Comment: Speci men Type: BLOOD SPECIMENOrdering Facility: [facility] Address: [address] [place] [address] Result Comment: Delilah mated Glomerular Filtration Rate (eGFR) is calculated using the 2020 CKD-EPI creatinine equation. This equation utilizes serum creatinine, sex, and age as parameters. The creatinine assay has traceable calibration to isotope dilution-mass spectrometry. Refer to KDIGO guidelines for clinical interpretation. In patients with unstable renal function, e.g. those with acute kidney injury, the eGFR may not accurately reflect actual GFR. Performed By: #### 2 4323-8 ####[facility] LABCLIA [id number] [place] [address] Glucose [Mass/Vol] 104 mg/dL High 74-99 [facility] Comment on above: Order Comment: Pat dumont Type: BLOOD SPECIMENOrdering Facility: [facility] Address: [address] [place] [address] Result Comment: The [place] Diabetes [employer] (ADA) provides guidance for cutoff values for fasting glucose and random glucose. The ADA defines fasting as no caloric intake for at least 8 hours. Fasting plasma glucose results between 100 to 125 mg/dL indicate increased risk for diabetes (prediabetes). Fasting plasma glucose results greater than or equal to 126 mg/dL meet the criteria for diagnosis of diabetes. In the absence of unequivocal hyperglycemia, results should be confirmed by repeat testing. In a patient with classic symptoms of hyperglycemia or hyperglycemic crisis, random plasma glucose results greater than or equal to 200 mg/dL meet the criteria for diagnosis of diabetes. Reference: Standards of Medical Care in Diabetes 2016, [place] [employer]. Diabetes Care. 2016.39(Suppl 1). Performed By: #### 2 4323-8 ####[facility] LABCLIA [id number] [place] [address] Potassium [Moles/Vol] 4.8 mmol/L Normal 3.7-5.1 [facility] Comment on above: Order Comment: Pat dumont Type: BLOOD SPECIMENOrdering Facility: [facility] Address: [address] [place] [address] Performed By: #### 2 4323-8 ####[facility] LABCLIA [id number] [place] [address] Protein [Mass/Vol] 7.3 g/dL Normal 6.3-8.0 [facility] Comment on above: Order Comment: Pat dumont Type: BLOOD SPECIMENOrdering Facility: [facility] Address: [address] [place] [address] Performed By: #### 2 4323-8 ####[facility] LABCLIA [id number] [place] [address] Sodium [Moles/Vol] 144 mmol/L Normal 136-144 [facility] Comment on above: Order Comment: Speci men Type: BLOOD SPECIMENOrdering Facility: [facility] Address: [address] [place] [address] Performed By: #### 2 4323-8 ####[facility] LABCLIA [id number] [place] [address] Urea nitrogen [Mass/Vol] 16 mg/dL Normal 7-21 [facility] Comment on above: Order Comment: Speci men Type: BLOOD SPECIMENOrdering Facility: [facility] Address: [address] [place] [address] Performed By: #### 2 4323-8 ####[facility] LABCLIA [id number] [place] [address] NT-proBNP [facility] 02-14 Natriuretic peptide.B prohormone N-Terminal [Mass/Vol] 181 pg/mL High <125 [facility] Comment on above: Order Comment: Speci men Type: BLOOD SPECIMENOrdering Facility: [facility] Address: [address] [place] [address] Performed By: #### 3 3762-6 ####[facility] LABCLIA [id number] [facility] [id number] [id number] [place] CBC panel Auto (Bld)on 07-03 Erythrocyte distribution width (RBC) [Ratio] 12.5 % Normal 11.5-15.0 [facility] Comment on above: Order Comment: Speci men Type: BLOOD SPECIMENOrdering Facility: [facility] Address: [address] [place] [id number] Performed By: #### 5 8410-2 ####[facility] LABCLIA [id number] [address] [place] Hematocrit (Bld) [Volume fraction] 43.5 % Normal 36.0-46.0 [facility] Comment on above: Order Comment: Speci men Type: BLOOD SPECIMENOrdering Facility: [facility] Address: [address] [place] [address] Performed By: #### 5 8410-2 ####[facility] LABIA [id number] [address] [place] Hemoglobin (Bld) [Mass/Vol] 13.9 g/dL Normal 11.5-15.5 [facility] Comment on above: Order Comment: Speci men Type: BLOOD SPECIMENOrdering Facility: [facility] Address: [address] [place] [address] Performed By: #### 5 8410-2 ####[facility] LABIA [id number] [address] STATES OF [facility] MCH (RBC) [Entitic mass] 31.0 pg Normal 26.0-34.0 [facility] Comment on above: Order Comment: Speci men Type: BLOOD SPECIMENOrdering Facility: [facility] Address: [address] [place] [address] Performed By: #### 5 8410-2 ####[facility] LABIA [id number] [place] [address] [place] MCHC (RBC) [Mass/Vol] 32.0 g/dL Normal 30.5-36.0 [facility] Comment on above: Order Comment: Speci men Type: BLOOD SPECIMENOrdering Facility: [facility] Address: [address] [place], [place] [address] Performed By: #### 5 8410-2 ####[facility] LABCLIA [id number] [place] [address] [place] MCV (RBC) [Entitic vol] 96.9 fL Normal 80.0-100.0 [facility] Comment on above: Order Comment: Speci men Type: BLOOD SPECIMENOrdering Facility: [facility] Address: [address] Performed By: #### 5 8410-2 ####[facility] LABIA [id number] [place] [address] [place] Nucleated RBC (Bld) [#/Vol] 10*3/uL Normal <0.01 [facility] Comment on above: Order Comment: Speci men Type: BLOOD SPECIMENOrdering Facility: [facility] Address: [address] Performed By: #### 5 8410-2 ####[facility] LABIA [id number] [place] [address] [place] Platelet mean volume (Bld) [Entitic vol] 10.9 fL Normal 9.0-12.7 [facility] Comment on above: Order Comment: Speci men Type: BLOOD SPECIMENOrdering Facility: [facility] Address: [address] [place], [place] [address] Performed By: #### 5 8410-2 ####[facility] LABIA [id number] [place] [address] [place] Platelets (Bld) [#/Vol] 160 10*3/uL Normal 150-400 [facility] Comment on above: Order Comment: Speci men Type: BLOOD SPECIMENOrdering Facility: [facility] Address: [address] [place] [address] Performed By: #### 5 8410-2 ####[facility] LABIA [id number] [place] [address] [place] RBC (Bld) [#/Vol] 4.49 10*6/uL Normal 3.90-5.20 [facility] Comment on above: Order Comment: Speci men Type: BLOOD SPECIMENOrdering Facility: [facility] Address: [address] [place] [address] Performed By: #### 5 8410-2 ####[facility] LABIA [id number] [place] [address] [place] WBC (Bld) [#/Vol] 6.60 10*3/uL Normal 3.70-11.00 [facility] Comment on above: Order Comment: Speci men Type: BLOOD SPECIMENOrdering Facility: [facility] Address: [place] [address] Performed By: #### 5 8410-2 ####[facility] LABIA [id number] [address] [place] CNOVon 07-03-2022 CNOV Office Visit (JUNITO Castañeda HF ANJALI) RICHIE HOPPER ([id number]) 1960 F Date Time Provider Department 07/03/22 2:15 PM EMANUEL LEDBETTER CHF ANJALI During your visit today, we recorded the following information about you: Pulse Blood pressure Weight Height 72/minute 135/85 84.6 kg 1.689 m Emanuel Ledbetter MD 07/03/2022 5:14 PM Signed [facility] SECTION OF HEART FAILURE and CARDIAC TRANSPLANT MEDICINE OUTPATIENT VISIT DATE July 03, 2022 OUTPATIENT VISIT TYPE Established Patient PRIMARY CARE PHYSICIAN: Carmen Evans [address] [place] [address] CHIEF COMPLAINT: HF F/u NURSING INTAKE (Patient?s concerns and/or recent hospitalizations/ER visits): HF Nursing Assessment: Interim Hospitalizations and/or ER visits: no Chest Pain: no Skipping or irregular heartbeats: yes Shortness of breath at rest: no Shortness of breath with activity: some, if starting off walking too fast, able to walk for an hour Cough: occasional cough Waking up in the middle of the night gasping for air: no Lightheadedness or dizziness: no Feeling like you are going to pass out: no Actually passing out: no Poor energy level: yes, super tired. 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 Had some palpitations which she thought may have been due to poor sleep. PAST MEDICAL HISTORY Diagnosis Date Bundle branch block, unspecified left bundle branch block Cardiomyopathy, nonischemic (HCC) 09/09/2004 Dyslipidemia 04/05/2015 Other primary cardiomyopathies Cardiomyopathy PAST SURGICAL HISTORY Procedure Laterality Date TOTAL ABDOM HYSTERECTOMY Hysterectomy, LEAH SOCIAL HISTORY Social History Tobacco Use Smoking status: Never Smokeless tobacco: Never Substance Use Topics Alcohol use: Yes Comment: twice per month Drug use: Not Currently No family history on file. ALLERGIES: ALLERGIES Allergen Reactions Luisa Inhibitors Cough CURRENT MEDICATIONS: losartan (COZAAR) 25 mg tabletTAKE 1 TABLET BY MOUTH EVERY DAYDisp: 90 tabletRfl: 3 metoprolol succinate ER (TOPROL XL) 50 mg 24 hr tabletTAKE 1 TABLET BY MOUTH EVERY DAYDisp: 90 tabletRfl: 3 VITAMIN E ORALTake 400 Units by mouth once daily.Disp: Rfl: selenium 200 mcg capTake by mouth once daily.Disp: Rfl: LECITHIN ORALTake 1,200 mg by mouth once daily.Disp: Rfl: cyanocobalamin (VITAMIN B-12) 1,000 mcg tabTake 1,000 mcg by mouth once daily.Disp: Rfl: FOREIGN MEDICATIONonce daily. Pt takes robert B-100 timed release one daily by mouthDisp: Rfl: ascorbic acid (VITAMIN C ORAL)Take 1,000 mg by mouth once daily. Pt takes vitamin c complex 1000 mg one tablet daily by mouth.Disp: Rfl: FOREIGN [id number] mg once daily. Pt takes Q-Sorb CO Q 10 50 mg By mouth dailyDisp: Rfl: FLAXSEED OIL ORALTake by mouth once daily.Disp: Rfl: calcium carbonate/vitamin D3 (CALCIUM 600 + D,3, ORAL)Take by mouth once daily. Pt takes one daily by mouth.Disp: Rfl: multivitamin/iron/foli c acid (SENTRY ORAL)Take by mouth once daily. Pt takes Sentry multivitamin vitamin one by mouth daily.Disp: Rfl: REVIEW OF SYSTEMS: ROS HEART FAILURE PATIENT ENTERED DATA: No flowsheet data found. No flowsheet data found. No flowsheet data found. PHYSICAL EXAMINATION: BP 135/85 (BP Site: Left Arm, BP Position: Sitting, BP Cuff Size: Regular Adult) Pulse 72 Ht 168.9 cm (5' 6.5 ) Wt 84.6 kg (186 lb 9.6 oz) SpO2 95% BMI 29.67 kg/m? BP 123/72 (BP Site: Left Arm) Pulse (!) 56 Ht 168.9 cm (5' 6.5 ) which is 1 lbs more than last visit. General appearance:Healthy appearing female breathing comfortable. Skin: No rashes or lesions. Head: Normal Eyes: Anicteric sclera. Neck: No JVD. Normal carotid upstroke. No carotid bruit. Cardiac: PMI laterally displaced. No right ventricular heave. No thrill. RRR with normal S1S2. No murmur,no S3, S4 Lungs: clear to auscultation, No wheezing or rhonchi. Abdomen: Flat, soft, non-tender. No hepatosplenomegaly. Extremities: No cyanosis, clubbing,edema Neuro: grossly intact. Labs on 12/20/18: Na 141, 4.2, BUN 11, Cr 0.84, AST 29, ALT 51, Alk phos 71, Tbili 0.6, TP 8.2, Alb 4.1, TC 220, HDL 39, Trig 80, LDL 165 Component Latest Ref Rng AND Units 08/10/2020 07/03/2022 Protein, Total 6.3 - 8.0 g/dL 7.5 7.1 Albumin 3.9 - 4.9 g/dL 4.8 4.3 Calcium 8.5 - 10.2 mg/dL 9.4 9.3 Bilirubin, Total 0.2 - 1.3 mg/dL 0.6 0.5 Alkaline Phosphatase 34 - 123 U/L 78 66 AST 13 - 35 U/L 35 55 (H) Glucose 74 - 99 mg/dL 78 86 BUN 7 - 21 mg/dL 11 10 Creatinine 0.58 - 0.96 mg/dL 0.78 0.74 Sodium 136 - (more content not included)... Normal [facility] Comprehensive metabolic 2000 panelon 07-03-2022 Albumin [Mass/Vol] 4.3 g/dL Normal 3.9-4.9 [facility] Comment on above: Order Comment: Speci men Type: BLOOD SPECIMENOrdering Facility: [facility] Address: [address] [place] [address] Performed By: #### 2 4323-8, LIPNF ####[facility] LABCLIA [id number] [place] [address] [place] ALP [Catalytic activity/Vol] 66 U/L Normal 34-123 [facility] Comment on above: Order Comment: Speci men Type: BLOOD SPECIMENOrdering Facility: [facility] Address: [address] [place] [address] Performed By: #### 2 4323-8, LIPNF ####[facility] LABIA [id number] [address] [place] ALT [Catalytic activity/Vol] 59 U/L High 7-38 [facility] Comment on above: Order Comment: Speci men Type: BLOOD SPECIMENOrdering Facility: [facility] Address: [address] [place] [address] Result Comment: Resu lts may be falsely increased due to interference from hemolysis. Suggest reorder as clinically indicated. Performed By: #### 2 4323-8, LIPNF ####[facility] LABCLIA [id number] [place] [address] [place] Anion gap [Moles/Vol] 11 mmol/L Normal 9-18 [facility] Comment on above: Order Comment: Speci men Type: BLOOD SPECIMENOrdering Facility: [facility] Address: [address] [place] [address] Performed By: #### 2 4323-8, LIPNF ####[facility] LABCLIA [id number] [place] [address] [place] AST [Catalytic activity/Vol] 55 U/L High 13-35 [facility] Comment on above: Order Comment: Speci men Type: BLOOD SPECIMENOrdering Facility: [facility] Address: [address] [place] [address] Result Comment: Resu lts may be falsely increased due to interference from hemolysis. Suggest reorder as clinically indicated. Performed By: #### 2 4323-8, LIPNF ####[facility] LABCLIA [id number] [place] [address] [place] Bilirubin [Mass/Vol] 0.5 mg/dL Normal 0.2-1.3 [facility] Comment on above: Order Comment: Speci men Type: BLOOD SPECIMENOrdering Facility: [facility] Address: [address] [place] [address] Performed By: #### 2 4323-8, LIPNF ####[facility] LABCLIA [id number] [place] [address] [place] Calcium [Mass/Vol] 9.3 mg/dL Normal 8.5-10.2 [facility] Comment on above: Order Comment: Speci men Type: BLOOD SPECIMENOrdering Facility: [facility] Address: [address] [place] [address] Performed By: #### 2 4323-8, LIPNF ####[facility] LABCLIA [id number] [place] [address] [place] Chloride [Moles/Vol] 105 mmol/L Normal 97-105 [facility] Comment on above: Order Comment: Speci men Type: BLOOD SPECIMENOrdering Facility: [facility] Address: [address] [place] [address] Performed By: #### 2 4323-8, LIPNF ####[facility] LABCLIA [id number] [place] [address] [place] CO2 [Moles/Vol] 22 mmol/L Normal 22-30 [facility] Comment on above: Order Comment: Speci men Type: BLOOD SPECIMENOrdering Facility: [facility] Address: [address] [place] [address] Performed By: #### 2 4323-8, LIPNF ####[facility] LABCLIA [id number] [place] [address] [place] Creatinine [Mass/Vol] 0.74 mg/dL Normal 0.58-0.96 [facility] Comment on above: Order Comment: Speci men Type: BLOOD SPECIMENOrdering Facility: [facility] Address: [address] [place] [address] Performed By: #### 2 4323-8, LIPNF ####[facility] LABCLIA [id number] [address] STATES OF [facility] ESTIMATED GLOMERULAR FILTRATION RATE 92 mL/min/1.73m??? Normal >=60 [facility] Comment on above: Order Comment: Speci men Type: BLOOD SPECIMENOrdering Facility: [facility] Address: [address] [place] [address] Result Comment: Delilah mated Glomerular Filtration Rate (eGFR) is calculated using the 2020 CKD-EPI creatinine equation. This equation utilizes serum creatinine, sex, and age as parameters. The creatinine assay has traceable calibration to isotope dilution-mass spectrometry. Refer to KDIGO guidelines for clinical interpretation. In patients with unstable renal function, e.g. those with acute kidney injury, the eGFR may not accurately reflect actual GFR. Performed By: #### 2 4323-8, LIPNF ####[facility] LABCLIA [id number] [place] [address] [place] Glucose [Mass/Vol] 86 mg/dL Normal 74-99 [facility] Comment on above: Order Comment: Speci men Type: BLOOD SPECIMENOrdering Facility: [facility] Address: [address] [place] [address] Result Comment: The [place] Diabetes [employer] (ADA) provides guidance for cutoff values for fasting glucose and random glucose. The ADA defines fasting as no caloric intake for at least 8 hours. Fasting plasma glucose results between 100 to 125 mg/dL indicate increased risk for diabetes (prediabetes). Fasting plasma glucose results greater than or equal to 126 mg/dL meet the criteria for diagnosis of diabetes. In the absence of unequivocal hyperglycemia, results should be confirmed by repeat testing. In a patient with classic symptoms of hyperglycemia or hyperglycemic crisis, random plasma glucose results greater than or equal to 200 mg/dL meet the criteria for diagnosis of diabetes. Reference: Standards of Medical Care in Diabetes 2016, [place] [employer]. Diabetes Care. 2016.39(Suppl 1). Performed By: #### 2 4323-8, LIPNF ####[facility] LABIA [id number] [place] [address] [place] Potassium [Moles/Vol] Normal [facility] Comment on above: Order Comment: Speci men Type: BLOOD SPECIMENOrdering Facility: [facility] Address: [address] [place] [address] Result Comment: Unab le to assay due to interference from hemolysis. Suggest reorder as clinically indicated. Performed By: #### 2 4323-8, LIPNF ####[facility] LABIA [id number] [place] [address] [place] Protein [Mass/Vol] 7.1 g/dL Normal 6.3-8.0 [facility] Comment on above: Order Comment: Speci men Type: BLOOD SPECIMENOrdering Facility: [facility] Address: [address] [place] [address] Performed By: #### 2 4323-8, LIPNF ####[facility] LABIA [id number] [place] [address] [place] Sodium [Moles/Vol] 138 mmol/L Normal 136-144 [facility] Comment on above: Order Comment: Speci men Type: BLOOD SPECIMENOrdering Facility: [facility] Address: [address] [place] [address] Performed By: #### 2 4323-8, LIPNF ####[facility] LABCLIA [id number] [address] [place] Urea nitrogen [Mass/Vol] 10 mg/dL Normal 7-21 [facility] Comment on above: Order Comment: Speci men Type: BLOOD SPECIMENOrdering Facility: [facility] Address: [address] [place] [address] Performed By: #### 2 4323-8, LIPNF ####[facility] LABCLIA [id number] [address] [place] ECG COMPLETEon 07-03-2022 ECG COMPLETE Ventricular Rate : 7 2 BPM Atrial Rate : 72 BPM P-R Interval : 144 ms QRS Duration : 144 ms Q-T Interval : 438 ms QTC Calculation(Bazett) : 479 ms Calculated P Hawthorne : 24 degrees Calculated R Hawthorne : -13 degrees Calculated T Hawthorne : 148 degrees NORMAL SINUS RHYTHM COMPLETE LEFT BUNDLE BRANCH BLOCK ABNORMAL ECG Confirmed by ARUN BARFIELD MD ([id number]) on 07/04/2022 12:58:06 PM NAME : RICHIE HOPPER PID : [id number] : 1960 Gender : Female Race : ORD : [id number] Procedure Date : Jul 03 2022 12:54:33 Edit Date : Jul 04 2022 12:58:07 Diagnosis: NORMAL SINUS RHYTHM COMPLETE LEFT BUNDLE BRANCH BLOCK ABNORMAL ECG Confirmed by ARUN BARFIELD MD ([id number]) on 07/04/2022 12:58:06 PM Test Reason : Location : 314 : J14 J1-4 Overread By : ARUN BARFIELD MD Edited By : ARUN BARFIELD MD Referred By : EMANUEL LEDBETTER Acquired by : MELIZA LOPEZ [facility] ECHOon 07-03-2022 Echocardiography Echocardiography Report: Transthoracic Echo [facility] J35 Date of service: 07/03/2022 3:47:48 PM 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 RICHIE HOPPER : 1960 Age: 62 years Gender: F Primary rhythm: sinus. Secondary rhythm: LBBB. Height: 168.90 cm BSA: 1.99 m Weight: 84.01 kg BMI: 29.4 kg/m Heart rate 67 bpm Blood pressure 133/65 mmHg Color Doppler was utilized to interrogate the cardiac valves assessed and spectral Doppler was utilized to determine the flow velocities and pressure gradients reported in this exam. MEASUREMENTS: Value Indexed Normal Max aortic dimension 3.1 cm Ao < 3.8 Left atrial volume 58 ml (biplane A-L) 29 ml/m Shlomo <= 34 LV ID (diastole) 4.8 cm (2D) 2.41 cm/m LV ID (systole) 4.0 cm (2D) 2.03 cm/m IVS, leaflet tips 0.8 cm (2D) Posterior wall thickness 0.9 cm (2D) Left ventricular mass 139 g (2D) 70 g/m LV stroke volume 67 ml (3D) LV end diastolic volume 141 ml (3D) 71.0 ml/m EDVi<=71 LV end systolic volume 74 ml (3D) 37.3 ml/m Ejection Fraction 48 % (3D) EF > 54 FINDINGS: LEFT VENTRICLE The left ventricle is dilated. Left ventricular systolic function is mildly decreased. Normal left ventricular diastolic function. Mitral annular lateral E/e': 7.9. Mitral annular septal E/e': 11.0. Wall Motion: The mid inferoseptal segment and apical septal segment are severely hypokinetic. The entire anterior wall, entire lateral wall, anterior septum, entire inferior wall, basal inferoseptal segment, and apex are mildly hypokinetic. 3D data was obtained and analyzed to provide quantitative left ventricle measurements and assist with ventricular assessment. RIGHT VENTRICLE The right ventricle is normal in size. Right ventricular systolic function is normal. RV systolic tissue Doppler velocity is 10.0 cm/s. Tricuspid annular displacement is 1.8 cm. Estimated right ventricular systolic pressure is 26 mmHg consistent with normal pulmonary artery pressures. Estimated right atrial pressure is 3 mmHg based on IVC assessment. LEFT ATRIUM The left atrial cavity is normal in size. RIGHT ATRIUM The right atrial cavity is normal in size. Inferior Vena Cava: The inferior vena cava appears normal measuring 1.5 cm. The vessel decreases greater than 50 percent with inspiration. MITRAL VALVE There is mild (1+) mitral valve regurgitation. There is mild thickening. The pressure half time is 67 msec. The peak mitral E/A ratio is 0.62. The average mitral E/e' ratio is 9.4. The mitral flow deceleration time is 230 msec. TRICUSPID VALVE The tricuspid valve leaflets are structurally normal. There is trace (trace - 1+) tricuspid valve regurgitation. The hepatic venous pattern showed normal systolic flow. AORTIC VALVE There is trace aortic valve regurgitation. Tricuspid aortic valve. There is mild thickening. The peak gradient is 7 mmHg (peak velocity = 128.4 cm/s). PULMONIC VALVE The pulmonic valve cusps are structurally normal. There is trace pulmonic valve regurgitation. AORTA The visualized aorta is normal in size. Measurements - Mid ascending aorta 3.1 cm. Mid arch 2.6 cm. INTERATRIAL SEPTUM There is no evidence of intracardiac shunting as detected by Doppler. INTERVENTRICULAR SEPTUM There is no flow through the interventricular septum as detected by Doppler. PERICARDIUM There is no pericardial effusion. There is an epicardial fat pad. CONCLUSIONS: - Exam indication: Diastolic CHF - The left ventricle is dilated. Left ventricular systolic function is mildly decreased. EF = 48 5% (3D) Normal left ventricular diastolic function. - The right ventricle is normal in size. Right ventricular systolic function is normal. - Exam was compared with the prior echocardiographic exam performed on 06/17/2018. There is no significant change. * * * Final * * * [employer] [facility] : [id number] [id number] Normal [facility] LIPID PANEL, NONFASTINGon Cholesterol [Mass/Vol] 249 mg/dL High <200 [facility] Comment on above: Order Comment: Speci men Type: BLOOD SPECIMENOrdering Facility: [facility] Address: [facility] [place] [address] Result Comment: <200 mg/dL, Desirable 200-239 mg/dL, Borderline high >239 mg/dL, High Performed By: #### 2 4323-8, LIPNF ####[facility] LABCLIA [id number] [address] OF [facility] HDL CHOLESTEROL, NF 43 mg/dL Normal >39 [facility] Comment on above: Order Comment: Pat julia Type: BLOOD SPECIMENOrdering Facility: [facility] Address: [address] [address] Result Comment: 40-5 9 mg/dL, Acceptable >59 mg/dL, High: Negative risk factor for coronary heart disease <40 mg/dL, Low: Positive risk factor for coronary heart disease Performed By: #### 2 4323-8, LIPNF ####[facility] LABCLIA [id number] [address] LDL CHOLESTEROL, NF 178 mg/dL High <100 [facility] Comment on above: Order Comment: Pat [facility] Type: BLOOD SPECIMENOrdering Facility: [facility] Address: [address] [address] Result Comment: <100 mg/dL, Optimal 100-129 mg/dL, Near optimal/above optimal 130-159 mg/dL, Borderline high 160-189 mg/dL, High >189 mg/dL, Very high Secondary prevention optimal LDL Cholesterol levels are recommended to be < 70 mg/dL Performed By: #### 2 4323-8, LIPNF ####[facility] LABCLIA [id number] [address] OF [facility] LDL/HDL RATIO, NF 4.14 mg/dL High <2.54 [facility] Comment on above: Order Comment: Stuartvickie [facility] Type: BLOOD SPECIMENOrdering Facility: [facility] Address: [address] [address] Result Comment: Skylar lee: 1. National Cholesterol Education Program ATP III Guideline At-A-Glance Quick Desk Reference: National Heart, Lung, and Blood [place]. National Institutes of Health. 2001: NIH Publication No. 01-3305. 2. An International Atherosclerosis Society position paper: global recommendations for the management of dyslipidemia: executive summary, Atherosclerosis. 2014: 232(2):410-413. Performed By: #### 2 4323-8, LIPNF ####[facility] LABCLIA [id number] [place] [address] [place] NON HDL CHOL, NF 206 mg/dL High <130 [facility] Comment on above: Order Comment: Speci men Type: BLOOD SPECIMENOrdering Facility: [facility] Address: [address] [place] [address] Result Comment: <130 mg/dL, Optimal 130-159 mg/dL, Near optimal/above optimal 160-189 mg/dL, Borderline high 190-219 mg/dL, High >219 mg/dL, Very high Secondary prevention optimal non HDL Cholesterol levels are recommended to be <100 mg/dL Performed By: #### 2 4323-8, LIPNF ####[facility] LABCLIA [id number] [place] [address] [place] T CHOL/HDL RATIO NF 5.79 mg/dL High <5.10 [facility] Comment on above: Order Comment: Speci men Type: BLOOD SPECIMENOrdering Facility: [facility] Address: [address] [address] Performed By: #### 2 4323-8, LIPNF ####[facility] LABCLIA [id number] [place] [address] [place] TRIGLYCERIDES, NF 138 mg/dL Normal <150 [facility] Comment on above: Order Comment: Speci men Type: BLOOD SPECIMENOrdering Facility: [facility] Address: [address] [address] Result Comment: <150 mg/dL, Normal 150-199 mg/dL, Borderline high 200-499 mg/dL, High >499 mg/dL, Very high Performed By: #### 2 4323-8, LIPNF ####[facility] LABCLIA [id number] [place] [address] [place] VLDL CHOLESTEROL, NF 28 mg/dL Normal <30 [facility] Comment on above: Order Comment: Speci men Type: BLOOD SPECIMENOrdering Facility: [facility] Address: [address] [id number] Performed By: #### 2 4323-8, LIPNF ####[facility] LABCLIA [id number] [facility] [id number] [address] [place] Vital Signs Date Time Vital Sign Value Performing Clinician Facility 06-14-2023 11:52-0400 Body height 168.9 cm Emanuel Ledbetter MD Work Phone: [facility] 06-14-2023 11:52-0400 Body weight 78.25 kg Emanuel Ledbetter MD Work Phone: [facility] 06-14-2023 11:52-0400 Diastolic blood pressure 65 mm[Hg] Emanuel Ledbetter MD Work Phone: [facility] 06-14-2023 11:52-0400 Heart rate 88 /min Emanuel Ledbetter MD Work Phone: [facility] 06-14-2023 11:52-0400 SaO2% (BldA) [Mass fraction] 98 % Emanuel Ledbetter MD Work Phone: [facility] 06-14-2023 11:52-0400 Systolic blood pressure 111 mm[Hg] Emanuel Ledbetter MD Work Phone: [facility] 06-05-2023 13:16-0400 Body height 168.91 cm [facility] 06-05-2023 13:16-0400 Body mass index (BMI) [Ratio] 28.5 kg/m2 [facility] 06-05-2023 13:16-0400 Body temperature 98 [degF] [facility] 06-05-2023 13:16-0400 Body weight 81.36 kg [facility] 06-05-2023 13:16-0400 Respiratory rate 18 /min [facility] 06-05-2023 13:16-0400 SaO2% (BldA) [Mass fraction] 98 % [facility] 02-15-2023 12:26-0500 Body height 170.2 cm Emanuel Ledbetter MD Work Phone: [facility] 02-15-2023 12:26-0500 Body weight 81.51 kg Emanuel Ledbetter MD Work Phone: [facility] 02-15-2023 12:26-0500 Diastolic blood pressure 74 mm[Hg] Emanuel Ledbetter MD Work Phone: [facility] 02-15-2023 12:26-0500 Heart rate 69 /min Emanuel Ledbetter MD Work Phone: [facility] 02-15-2023 12:26-0500 SaO2% (BldA) [Mass fraction] 97 % Emanuel Ledbetter MD Work Phone: [facility] 02-15-2023 12:26-0500 Systolic blood pressure 111 mm[Hg] Emanuel Ledbetter MD Work Phone: [facility] 07-03-2022 14:28-0400 Body height 168.9 cm Emanuel Ledbetter MD Work Phone: [facility] 07-03-2022 14:28-0400 Body weight 84.64 kg Emanuel Ledbetter MD Work Phone: [facility] 07-03-2022 14:28-0400 Diastolic blood pressure 85 mm[Hg] Emanuel Ledbetter MD Work Phone: [facility] 07-03-2022 14:28-0400 Heart rate 72 /min Emanuel Ledbetter MD Work Phone: [facility] 07-03-2022 14:28-0400 SaO2% (BldA) [Mass fraction] 95 % Emanuel Ledbetter MD Work Phone: [facility] 07-03-2022 14:28-0400 Systolic blood pressure 135 mm[Hg] Emanuel Ledbetter MD Work Phone: [facility] 08-01-2021 17:20-0400 Body height 168.91 cm Carmen Evans Other [employer] Other 08-01-2021 17:20-0400 Body mass index (BMI) [Ratio] 29.73 kg/m2 Carmen Evans Other [employer] Other 08-01-2021 17:20-0400 Body temperature 96.6 [degF] Carmen Evans Other [employer] Other 08-01-2021 17:20-0400 Body weight 84.82 kg Carmen Evans Other [employer] Other 08-01-2021 17:20-0400 Diastolic blood pressure 72 mm[Hg] Carmen Lizetteguille Other [employer] Other 08-01-2021 17:20-0400 SaO2% (BldA) [Mass fraction] 96 % Carmen Evans Other [employer] Other 08-01-2021 17:20-0400 Systolic blood pressure 106 mm[Hg] Carmen Evans Other [employer] Other Encounters Encounter Date Encounter Type Care Provider Facility Start: 06-14-2023 End: 06-14-2023 ambulatory EMANUEL LEDBETTER Facility:[facility] Start: 06-14-2023 End: 06-14-2023 Patient encounter procedure Emanuel Ledbetter MD Work Phone: Cardiology Comment on above: Chronic systolic (co ngestive) heart failure (HCC) (Primary Dx); PVC (premature ventricular contraction); Hyperlipidemia LDL goal <70; Cardiomyopathy, nonischemic (HCC); Complex medical condition Start: 06-05-2023 End: 06-05-2023 ambulatory Bev Casiano Facility:[facility] Start: 06-05-2023 End: 06-05-2023 Departed Referred TRANSFER IRON OPERATOR Bev Casiano Work Phone: [facility] [place] Work Phone: Start: 06-05-2023 End: 06-05-2023 ambulatory [facility] Work Phone: Start: 06-05-2023 End: 06-05-2023 Patient encounter procedure Pending Sale To [facility] Work Phone: Start: 02-16-2023 End: 02-16-2023 ambulatory [facility] Work Phone: Cardiology Comment on above: Holter Monitor Appli cation Start: 02-15-2023 Telephone encounter Luanne Banks MD Work Phone: Cardiology Comment on above: Patient Education Start: 02-15-2023 End: 02-15-2023 Patient encounter procedure Emanuel Ledbetter MD Work Phone: Cardiology Comment on above: Chronic systolic (co ngestive) heart failure (HCC) (Primary Dx); Precordial pain; PVC (premature ventricular contraction); Hyperlipidemia LDL goal <70 Start: 02-15-2023 End: 02-15-2023 ambulatory EMANUEL LEDBETTER Facility:[facility] Start: 02-14-2023 End: 02-14-2023 ambulatory EMANUEL LEDBETTER Facility:[facility] Start: 02-12-2023 End: 02-12-2023 ambulatory Carmen Evans Other [employer] Other Start: 02-12-2023 Telephone encounter Carmen Evans [facility] [place] Start: 11-04-2022 Refill Emanuel Ledbetter MD Work Phone: Cardiology Comment on above: Refill Request Start: 10-18-2022 Refill Emanuel Ledbetter MD Work Phone: Cardiology Comment on above: Refill Request Start: 07-03-2022 End: 07-03-2022 ambulatory EMANUEL LEDBETTER Facility:[facility] Start: 07-03-2022 End: 07-04-2022 ambulatory EMANUEL LEDBETTER Facility:[facility] Start: 07-03-2022 End: 07-03-2022 Patient encounter procedure Emanuel Ledbetter MD Work Phone: Cardiology Comment on above: Hyperlipidemia LDL g oal <70 (Primary Dx); Cardiomyopathy, nonischemic (HCC); Chronic systolic (congestive) heart failure (HCC) Start: 01-27-2022 End: 01-27-2022 ambulatory Carmen Evans Other [employer] Other Start: 01-27-2022 Telephone encounter Carmen Evans [facility] Start: 10-10-2021 Refill Emanuel Ledbetter MD Work Phone: Cardiology Comment on above: Refill Request Start: 08-16-2021 End: 08-16-2021 ambulatory Carmen Evans Other [employer] Other Start: 08-16-2021 Telephone encounter Carmen Evans [facility] Start: 08-01-2021 End: 08-01-2021 ambulatory Carmen Evans Other [employer] Other Start: 08-01-2021 Office outpatient vi sit 15 minutes Carmen Evans [facility] Start: 04-19-2019 Patient encounter procedure CARMEN EVANS Facility:[facility]1 Procedures Date Procedure Procedure Detail Performing Clinician Start: 07-03-2022 Lipid 1996 panel - S vikas or Plasma Luanne Banks MD Work Phone: Plan of Treatment Date Care Activity Detail Author Start: 07-04-2027 Lipid 1996 panel - S vikas or Plasma Lipid Screening [facility] Start: 07-04-2027 Lipid panel Lipid Screening [facility] Start: 07-04-2027 LIPID SCREEN LIPID SCREEN [facility] Start: 02-14-2026 Diabetes Screening Diabetes Screenin g [facility] Start: 08-10-2025 LIPID SCREEN LIPID SCREEN [facility] Start: 07-03-2025 DIABETES SCREEN DIABETES SCREEN [facility] Start: 11-11-2023 Influenza vaccination Influenz a Vaccine (Season Ended) [facility] Start: 08-11-2023 DIABETES SCREEN DIABETES SCREEN [facility] Start: 06-06-2023 Bacteria identified in Urine by Culture [facility] Start: 06-05-2023 Bacteria identified in Urine by Culture [facility] Start: 03-12-2023 Behavioral Health Screening Behavioral Health Screening [facility] Start: 11-10-2022 Covid-19 Vaccine ( season) Covid-19 Vaccine () [facility] Start: 11-10-2022 Influenza vaccination [facility] Start: 07-03-2022 End: 09-02-2022 Comprehensive metabolic 2000 panel - Serum or Plasma COMP METABOLIC PANEL Lab STAT Hyperlipidemia LDL goal <70 Expected: 07/03/2022, Expires: 09/02/2022 [facility] Work Phone: Comment on above: Expected: 07/03/2022 , Expires: 09/02/2022 Start: 07-03-2022 End: 09-02-2022 Lipid 1996 panel - Serum or Plasma LIPID PANEL BASIC Lab Routine Hyperlipidemia LDL goal <70 Expected: 07/03/2022, Expires: 09/02/2022 [facility] Work Phone: Comment on above: Expected: 07/03/2022 , Expires: 09/02/2022 Start: 03-12-2022 DEPRESSION ASSESSMENT DEPRESSION ASS ESSMENT [facility] Start: 11-10-2021 Influenza vaccination INFLUENZA (#1) [facility] Start: 2020 RSV Vaccine (1 - 1-d ose 60+ series) RSV Vaccine (1 - 1-dose 60+ series) [facility] Start: 03-18-2019 Screening for malign ant neoplasm of breast Mammogram Screening [facility] Start: 02-03-2010 SHINGRIX VACCINE (1 of 2) MARADIAGA GRIX VACCINE (1 of 2) [facility] Start: 02-03-2005 COLOGUARD (FIT-DNA) COLOGUARD (FIT-D NA) [facility] Start: 02-03-2005 Colonoscopy COLONOSCOPY [facility] Start: 02-03-2005 COLORECTAL CANCER SCREENING COLORECTAL CANCER SCREENING [facility] Start: 02-03-[address] COLONOGRAPHY [facility] Start: 02-03-2005 FECAL OCCULT BLOOD FECAL OCCULT BLOO D [facility] Start: 02-03-2005 Screening for malign ant neoplasm of colon [facility] Start: 02-03-2005 SIGMOIDOSCOPY SIGMOIDOSCOPY [facility] Start: 2000 Mammography [facility] Start: 02-03-1990 HPV TESTING HPV TESTING [facility] Start: 02-03-1990 Screening for malign ant neoplasm of cervix HPV Testing [facility] Start: 02-03-1981 PAP TESTING PAP TESTING [facility] Start: 02-03-1981 Screening for malign ant neoplasm of cervix Pap Testing [facility] Start: 02-03-1979 Urine microalbumin profile [facility] Start: 02-03-1978 ANNUAL PCP TEAM CONSTRUCTION PROJECT ASSISTANT AYUSH DISEASE VISIT ANNUAL PCP TEAM CHRONIC DISEASE VISIT [facility] Start: 02-03-1978 HEPATITIS C SCREENING HEPATITIS C [facility] Start: 02-03-1978 Hepatitis C screening Hepatitis C [facility] Start: 02-03-1978 HIV SCREENING HIV SCREENING [facility] Start: 02-03-1978 HIV screening HIV Screening [facility] Start: 1972 Adult depression scr eening assessment DEPRESSION SCREENING [facility] Start: 02-03-1966 PNEUMOCOCCAL (1 - PCV) PNEUMOCOCCAL (1 - PCV) [facility] Start: 02-03-1966 Pneumococcal vaccination [facility] Start: 1960 COVID-19 VACCINE (#1) COVID-19 VACCI NE (#1) [facility] End: 06-13-2024 ECG COMPLETE ECG COMPLETE ECG Routine Chronic systolic (congestive) heart failure (HCC) 1 Occurrences starting 06/14/2023 until 06/13/2024 [facility] Work Phone: Comment on above: 1 Occurrences starti ng 06/14/2023 until 06/13/2024 End: 02-16-2024 Echocardiography ECHO Cardiology Routine Chronic systolic (congestive) heart failure (HCC) 1 Occurrences starting 02/15/2023 until 02/16/2024 [facility] Work Phone: Comment on above: 1 Occurrences starti ng 02/15/2023 until 02/16/2024 End: 06-13-2024 Echocardiography ECHO Cardiology Routine Chronic systolic (congestive) heart failure (HCC) 1 Occurrences starting 06/14/2023 until 06/13/2024 [facility] Work Phone: Comment on above: 1 Occurrences starti ng 06/14/2023 until 06/13/2024 End: 02-16-2024 HOLTER MONITOR 48 HOUR HOLTER MONITOR 48 HOUR ECG Routine PVC (premature ventricular contraction) 1 Occurrences starting 02/15/2023 until 02/16/2024 [facility] Work Phone: Comment on above: 1 Occurrences starti ng 02/15/2023 until 02/16/2024 [facility] Immunizations Immunization Date Immunization Notes Care Provider Marci degroot NEGATED: Highlighted row has not occurred!12-20-2018 influenza, seasonal, injectable Patient Objection Carmen Evans Other [employer] Other Payers Date Payer Category Payer Private Health Insurance [id number] 2012 Private Health Insurance [facility] [employer] CHO[employer] PLUS [id number] 2012-Present [phone] [address] [address] [place] [address] O [id number] 2012 Private Health Insurance [facility] U[employer] CHOICE PLUS [id number] 2012-Present [phone] [address] [address] [place] [address] O [id number] 1960 Unknown [id number] 1959 Self-pay Unknown [id number] Social History Date Type Detail Facility Start: 02-12-2019 End: 02-15-2023 Sex Assigned At [facility] Start: 02-12-2019 End: 06-14-2023 Tobacco smoking status NHIS Never smoked tobacco [facility] Start: 02-12-2019 End: 06-14-2023 Alcohol intake Current drinker of alcohol (finding) [facility] Start: 1960 Sex Assigned At Not on file [facility] Start: 02-12-2019 End: 06-14-2023 Tobacco use and exposure Smokeless tobacco non-user [facility] Start: 02-12-2019 End: 02-15-2023 History of Social function [facility] National Score (1-10 0), lower number is lower risk 60 [facility] Start: 1960 Sex Assigned At Female [facility] Clinical Notes 08-07-2013 to 06-14-2023 Emanuel Ledbetter MD - 06/14/2023 11:45 AM Sandy Bal - 02/16/2023 4:24 PM ESTTelevilma Encounter - Debbie Salguero RN - 02/15/2023 3:15 PM Emanuel Abebe MD - 02/15/2023 12:04 PM EST Note Date & Type Note Facility 06-14-2023 Note HNO ID: [id number] Author: EMANUEL LEDBETTER MD Service: ? Author Type: Physician Type: Progress Notes Filed: 06/14/2023 17:19 Note Text: Heart and Vascular [place] [facility] SECTION OF HEART FAILURE and CARDIAC TRANSPLANT MEDICINE OUTPATIENT VISIT DATE June 14, 2023 OUTPATIENT VISIT TYPE Established Patient PRIMARY CARE PHYSICIAN: Carmen Evans [address] [place] [address] CHIEF COMPLAINT: HF f/u NURSING INTAKE (Patient?s concerns and/or recent hospitalizations/ER visits): HF Nursing Assessment: Interim Hospitalizations and/or ER visits:02/16/2023 [facility] W/POSS PCI Chest Pain: no Skipping or irregular heartbeats: no Shortness of breath at rest: no Shortness of breath with activity: no Cough: no Waking up in the middle of the night gasping for air: no Lightheadedness or dizziness: no Feeling like you are going to pass out: no Actually passing out: no Poor energy level: yes Unintentional weight gain: no Unintentional weight loss: no Swelling in your legs,feet, abdomen: no Filling up quickly when you eat: no HISTORY OF PRESENT ILLNESS: Doing ok PAST MEDICAL HISTORY Diagnosis Date Bundle branch block, unspecified left bundle branch block Cardiomyopathy, nonischemic (HCC) 09/09/2004 Dyslipidemia 04/05/2015 Other primary cardiomyopathies Cardiomyopathy PAST SURGICAL HISTORY Procedure Laterality Date TOTAL ABDOMINAL HYSTERECT W/WO RMVL TUBE OVARY Hysterectomy, LEAH SOCIAL HISTORY Social History Tobacco Use Smoking status: Never Smokeless tobacco: Never Substance Use Topics Alcohol use: Yes Comment: twice per month Drug use: Never No family history on file. ALLERGIES: ALLERGIES Allergen Reactions Luisa Inhibitors Cough CURRENT MEDICATIONS: ubidecarenone/red yeast rice (CO Q10-RED YEAST RICE) 60-600 mg capTake 1 capsule by mouth once daily.Disp: Rfl: aspirin, enteric coated (ASPIRIN, ENTERIC COATED) 81 mg EC tabletTake 81 mg by mouth once daily.Disp: Rfl: nitroglycerin sublingual (NITROQUICK) 0.4 mg SL tabletDissolve 1 tablet under the tongue as needed for chest pain. If no pain relief call 911.Disp: 45 tabletRfl: 2 losartan (COZAAR) 25 mg tabletTAKE 1 TABLET BY MOUTH EVERY DAYDisp: 90 tabletRfl: 3 metoprolol succinate ER (TOPROL XL) 50 mg 24 hr tabletTAKE 1 TABLET BY MOUTH EVERY DAYDisp: 90 tabletRfl: 3 rosuvastatin (CRESTOR) 20 mg tabletTake 1 tablet by mouth once daily.Disp: 90 tabletRfl: 3 Fluorouracil (EFUDEX) 5 % creamApply to affected area two times a day.Disp: Rfl: (Patient not taking: Reported on 06/14/2023) REVIEW OF SYSTEMS: ROS HEART FAILURE PATIENT ENTERED DATA: 06/13/2023 KCCQ-12 Scores Physical Limitation Score 100 (Class I Heart Failure ) Symptom Frequency Score 79.17 (Class II Heart Failure ) Quality of Life Score 75 (Class II Heart Failure ) Social Limitation Score 91.67 (Class I Heart Failure) Overall Summary Score 86.46 (Class I Heart Failure ) 06/13/2023 PHQ-9 Score 6 06/13/2023 PROMIS Global Health - (T-Scores - the mean of general population = 50. Five points is a clinically meaningful difference.) Physical T-Score 47.7 Mental T-Score 53.3 PHYSICAL EXAMINATION: BP 111/65 (BP Site: Left Arm) Pulse 88 Ht 168.9 cm (5' 6.5 ) Wt 78.2 kg (172 lb 8 oz) SpO2 98% BMI 27.43 kg/m? BP 111/74 (BP Site: Left Arm) Pulse 69 Ht 170.2 cm (5' 7 ) Wt 81.5 kg (179 lb 11.2 oz) SpO2 97% BMI 28.14 kg/m? which is 7 lbs less than last visit. General appearance:Healthy appearing female breathing comfortable. Skin: No rashes or lesions. Head: Normal Eyes: Anicteric sclera. Neck: No JVD. Normal carotid upstroke. No carotid bruit. Cardiac: PMI laterally displaced. No right ventricular heave. No thrill. RRR with normal S1S2. No murmur,no S3, S4 Lungs: clear to auscultation, No wheezing or rhonchi. Abdomen: Flat, soft, non-tender. No hepatosplenomegaly. Extremities: No cyanosis, clubbing,edema Neuro: grossly intact. Labs on 12/20/18: Na 141, 4.2, BUN 11, Cr 0.84, AST 29, ALT 51, Alk phos 71, Tbili 0.6, TP 8.2, Alb 4.1, TC 220, HDL 39, Trig 80, LDL 165 Component Latest Ref Rng AND Units 08/10/2020 07/03/2022 02/14/2023 Protein, Total 6.3 - 8.0 g/dL 7.5 7.1 7.3 Albumin 3.9 - 4.9 g/dL 4.8 4.3 4.5 Calcium 8.5 - 10.2 mg/dL 9.4 9.3 9.9 Bilirubin, Total 0.2 - 1.3 mg/dL 0.6 0.5 0.6 Alkaline Phosphatase 34 - 123 U/L 78 66 73 AST 13 - 35 U/L 35 55 (H) 25 Glucose 74 - 99 mg/dL 78 86 104 (H) BUN 7 - 21 mg/dL 11 10 16 Creatinine 0.58 - 0.96 mg/dL 0.78 0.74 0.87 Sodium 136 - 144 mmol/L 140 138 144 Potassium 3.7 - 5.1 mmol/L 3.7 4.8 Chloride 97 - 105 mmol/L 104 105 108 (H) CO2 22 - 30 mmol/L 26 22 29 Anion Gap 9 - 18 mmol/L 10 11 7 (L) ALT 7 - 38 U/L 58 (H) 59 (H) 32 eGFR- >60 eGFR-All Other Races . >60 eGFR >=60 mL/min/1.73mA? 92 75 WBC 3.70 - 11.00 k/uL 6.83 6.60 6.7 (more content not included)... [facility] 06-14-2023 History of Presen t illness Narrative Images from the original note were not included. Heart and Vascular [facility] SECTION OF HEART FAILURE and CARDIAC TRANSPLANT MEDICINE OUTPATIENT VISIT DATE June 14, 2023 OUTPATIENT VISIT TYPE Established Patient PRIMARY CARE PHYSICIAN: Carmen Evans [address] [place] [address] CHIEF COMPLAINT: HF f/u NURSING INTAKE (Patient s concerns and/or recent hospitalizations/ER visits): HF Nursing Assessment: Interim Hospitalizations and/or ER visits:02/16/2023 [facility] W/POSS PCI Chest Pain: no Skipping or irregular heartbeats: no Shortness of breath at rest: no Shortness of breath with activity: no Cough: no Waking up in the middle of the night gasping for air: no Lightheadedness or dizziness: no Feeling like you are going to pass out: no Actually passing out: no Poor energy level: yes Unintentional weight gain: no Unintentional weight loss: no Swelling in your legs,feet, abdomen: no Filling up quickly when you eat: no HISTORY OF PRESENT ILLNESS: Doing ok PAST MEDICAL HISTORY Diagnosis Date Bundle branch block, unspecified left bundle branch block Cardiomyopathy, nonischemic (HCC) 09/09/2004 Dyslipidemia 04/05/2015 Other primary cardiomyopathies Cardiomyopathy PAST SURGICAL HISTORY Procedure Laterality Date TOTAL ABDOMINAL HYSTERECT W/WO RMVL TUBE OVARY Hysterectomy, LEAH SOCIAL HISTORY Social History Tobacco Use Smoking status: Never Smokeless tobacco: Never Substance Use Topics Alcohol use: Yes Comment: twice per month Drug use: Never No family history on file. ALLERGIES: ALLERGIES Allergen Reactions Luisa Inhibitors Cough CURRENT MEDICATIONS: ubidecarenone/red yeast rice (CO Q10-RED YEAST RICE) 60-600 mg cap^Take 1 capsule by mouth once daily.^Disp: ^Rfl: aspirin, enteric coated (ASPIRIN, ENTERIC COATED) 81 mg EC tablet^Take 81 mg by mouth once daily.^Disp: ^Rfl: nitroglycerin sublingual (NITROQUICK) 0.4 mg SL tablet^Dissolve 1 tablet under the tongue as needed for chest pain. If no pain relief call 911.^Disp: 45 tablet^Rfl: 2 losartan (COZAAR) 25 mg tablet^TAKE 1 TABLET BY MOUTH EVERY DAY^Disp: 90 tablet^Rfl: 3 metoprolol succinate ER (TOPROL XL) 50 mg 24 hr tablet^TAKE 1 TABLET BY MOUTH EVERY DAY^Disp: 90 tablet^Rfl: 3 rosuvastatin (CRESTOR) 20 mg tablet^Take 1 tablet by mouth once daily.^Disp: 90 tablet^Rfl: 3 Fluorouracil (EFUDEX) 5 % cream^Apply to affected area two times a day.^Disp: ^Rfl: (Patient not taking: Reported on 06/14/2023) REVIEW OF SYSTEMS: ROS HEART FAILURE PATIENT ENTERED DATA: 06/13/2023 KCCQ-12 Scores Physical Limitation Score 100 (Class I Heart Failure ) Symptom Frequency Score 79.17 (Class II Heart Failure ) Quality of Life Score 75 (Class II Heart Failure ) Social Limitation Score 91.67 (Class I Heart Failure) Overall Summary Score 86.46 (Class I Heart Failure ) 06/13/2023 PHQ-9 Score 6 06/13/2023 PROMIS Global Health - (T-Scores - the mean of general population = 50. Five points is a clinically meaningful difference.) Physical T-Score 47.7 Mental T-Score 53.3 PHYSICAL EXAMINATION: BP 111/65 (BP Site: Left Arm) Pulse 88 Ht 168.9 cm (5' 6.5 ) Wt 78.2 kg (172 lb 8 oz) SpO2 98% BMI 27.43 kg/m BP 111/74 (BP Site: Left Arm) Pulse 69 Ht 170.2 cm (5' 7 ) Wt 81.5 kg (179 lb 11.2 oz) SpO2 97% BMI 28.14 kg/m which is 7 lbs less than last visit. General appearance:Healthy appearing female breathing comfortable. Skin: No rashes or lesions. Head: Normal Eyes: Anicteric sclera. Neck: No JVD. Normal carotid upstroke. No carotid bruit. Cardiac: PMI laterally displaced. No right ventricular heave. No thrill. RRR with normal S1S2. No murmur,no S3, S4 Lungs: clear to auscultation, No wheezing or rhonchi. Abdomen: Flat, soft, non-tender. No hepatosplenomegaly. Extremities: No cyanosis, clubbing,edema Neuro: grossly intact. Labs on 12/20/18: Na 141, 4.2, BUN 11, Cr 0.84, AST 29, ALT 51, Alk phos 71, Tbili 0.6, TP 8.2, Alb 4.1, TC 220, HDL 39, Trig 80, LDL 165 Component Latest Ref Rng & Units 08/10/2020 07/03/2022 02/14/2023 Protein, Total 6.3 - 8.0 g/dL 7.5 7.1 7.3 Albumin 3.9 - 4.9 g/dL 4.8 4.3 4.5 Calcium 8.5 - 10.2 mg/dL 9.4 9.3 9.9 Bilirubin, Total 0.2 - 1.3 mg/dL 0.6 0.5 0.6 Alkaline Phosphatase 34 - 123 U/L 78 66 73 AST 13 - 35 U/L 35 55 (H) 25 Glucose 74 - 99 mg/dL 78 86 104 (H) BUN 7 - 21 mg/dL 11 10 16 Creatinine 0.58 - 0.96 mg/dL 0.78 0.74 0.87 Sodium 136 - 144 mmol/L 140 138 144 Potassium 3.7 - 5.1 mmol/L 3.7 4.8 Chloride 97 - 105 mmol/L 104 105 108 (H) CO2 22 - 30 mmol/L 26 22 29 Anion Gap 9 - 18 mmol/L 10 11 7 (L) ALT 7 - 38 U/L 58 (H) 59 (H) 32 eGFR- >60 eGFR-All Other Races . >60 eGFR >=60 mL/min/1.73m 92 75 WBC 3.70 - 11.00 k/uL 6.83 6.60 6.74 RBC 3.90 - 5.20 m/uL 4.40 4.49 4.52 Hemoglobin 11.5 - 15.5 g/dL 13.9 13.9 14.3 Hematocrit 36.0 - 46.0 % 42.8 43.5 42.2 MCV 80.0 - 100.0 fL 97.3 96.9 93.4 MCH 26.0 - 34.0 pg 31.6 31.0 31.6 MCHC 30.5 - 36.0 g/dL 32.5 32.0 33.9 RDW-CV 11.5 - 15.0 % 12.6 12.5 12.4 Platelet Count 150 - 400 k/uL 240 160 226 MPV 9.0 - 12.7 fL 9.9 10.9 9.6 Absolute nRBC <0.01 k/uL <0.01 <0.01 <0.01 Total Cholesterol, Nonfasting <200 mg/dL 214 (H) 249 (H) Triglycerides, Nonfasting <150 mg/dL 107 138 HDL Cholesterol, Nonfasting >39 mg/dL 41 43 LDL Cholesterol, Nonfasting <100 mg/dL 152 (H) 178 (H) Non HDL Cholesterol, Nonfasting <130 mg/dL 173 (H) 206 (H) VLDL Cholesterol, Nonfasting <30 mg/dL 21 28 Total Chol/HDL Ratio, Nonfasting <5.10 mg/dL 5.22 (H) 5.79 (H) LDL/HDL Ratio, Nonfasting <2.54 mg/dL 3.71 (H) 4.14 (H) TSH 0.270 - 4.200 uU/mL 3.050 NT Pro BNP <125 pg/mL 181 (H) Catheterization 02/16/23: No significant CAD Holter 03/31/23:Underlying sinus rhythm/sinus arrhythmia with IVCD; frequent supraventricular ectopic beats were present. Periods of sinus tachycardia were present(11%). PAC burden is 16%. Heart rates maybe skewed due to excessive supraventricular ectopic beats. Maximum HR 132 bpm. Minimum HR 132 bpm. Average HR 79 bpm. Frequent supraventricular ectopy was seen as singles,couplets,triplet. Rare ventricular ectopy was seen as singles,and bigeminal cycles. Patient event marker/ Diary were activated; noted symptoms of (Fluttering,felt stronger beats,heart pound); correlated with sinus rhythm,sinus arrhythmia,tachycardia,SVE,PVC. Scanned on 02/21/2023.[place] [employer] [employer]. ECG today: Diagnosis: NORMAL SINUS RHYTHM COMPLETE LEFT BUNDLE BRANCH BLOCK ABNORMAL ECG QRS 144 ms Echocardiogram 04/05/15: The left ventricle is mildly dilated. LVEF = 49 5% (2D biplane) Echo 02/15/17: LVEF = 55 5% (2D biplane). Echo 06/17/18: LVEF = 50 5% (3D) Echo 07/03/22 The left ventricle is dilated. LVEF = 48 5% (3D) Echo 02/15/23: he left ventricle is normal in size. LVEF = 36 5% (2D biplane) Echo today: left ventricle is normal in size. LVEF = 39 5% (2D biplane) Grade I left ventricular diastolic dysfunction. The abnormal regional wall motion pattern in conjunction with normal regional wall thickness is consistent with a LBBB abnormal conduction delay and LV intra ventricular mechanical dyssynchrony. LV strain not reported due to poor tracking. - The right ventricle is normal in size. Right ventricular systolic function is normal. There are no significant valvular abnormalities. - Exam was compared with the prior echocardiographic exam performed on 07/03/2022. There is no significant change. IMPRESSION: 63 yo women who was diagnosed in September 2004 with a non-ischemic cardiomyopathy (LVEF 40%) when she was noted to have an irregular rhythm (+PVC's) during a routine physical examination. + LBBB since at least 2005. Holter notable for about 8% PACs. Over the years she had remained stable with intermittent palpitations and improvement in her LVEF to 55% on B-zeferino. Had slight decline in LVEF in June 2022. Due to chest pain she had LHC with no significant coronary artery disease. Holter showed higher frequency of PAC but not PVC. LBBB can lead to worsening cardiomyopathy and QRS is 144 ms. Is this the cause? Less likely since QRS is not >150 ms but still could contribute. Also was on topical Fluorouracil which is deemed safer than IV but cannot rule out. Currently euvolemic on examination. NYHA class II, stage B PLAN: 1. Increase Metoprol Succinate 50 mg one tablet twice daily 2 STOP usage of fluorouracil cream and aspirin 3. No other changes in medication but if dizzy, please reduce losartan to 1/2 tablet (12.5 mg daily) and can stop (but prefer you just reduce medication) 4. Follow-up with me in 3 mo with echo and ECG Emanuel M Hsich, MD June 14, 2023 1:04 PM CC: CARMEN EVANS documented in this encounter [facility] 02-16-2023 Note HNO ID: [id number] Author: Sandy Flower Service: ? Author Type: ? Type: Progress Notes Filed: 02/16/2023 4:24 PM Note Text: HOLTER MONITOR APPLICATION Patient Name: Richie Hopper [facility] Number: [id number] Chest is cleansed with alcohol Skin prep applied Electrodes place on chest and stress loops secured with tape Fresh battery inserted in monitor Holter monitor secured to patient with waist or shoulder straps Patient instructed 1.) Diary documentation 2.) Usage of event button 3.) Maintenance and care of monitor 4.) Safety issues with monitor 5.) Return unit in 24 hours or 48 hours 6.) Call with problems [phone] OR [phone] Patient expresses good verbal understanding of instructions Sandy Costa [facility] 02-16-2023 History of Presen t illness Narrative HOLTER MONITOR APPLICATION Patient Name: Richie Hopper [facility] Number: [id number] Chest is cleansed with alcohol Skin prep applied Electrodes place on chest and stress loops secured with tape Fresh battery inserted in monitor Holter monitor secured to patient with waist or shoulder straps Patient instructed 1.) Diary documentation 2.) Usage of event button 3.) Maintenance and care of monitor 4.) Safety issues with monitor 5.) Return unit in 24 hours or 48 hours 6.) Call with problems [phone] OR [phone] Patient expresses good verbal understanding of instructions Sandy Costa documented in this encounter [facility] 02-16-2023 Note Education (CARDM[facility]) RICHIE HOPPER ([id number]) 1960 F Date Time Provider Department 02/16/23 7:00 AM ARRHYTHMIA MONITORING LAB [facility] Reason for Visit: Holter Monitor Application [261] Visit Diagnosis:PVC (premature ventricular contraction) [I49.3] Order(s):HOLTER MONITOR 48 HOUR [[id number]] Order #: [id number] During your visit today, we recorded the following information about you: Allergies As of Date: 02/16/2023 Noted Allergy Reaction LUISA INHIBITORS 03/17/2005 3 - Cough Date Reviewed: 02/16/2023 Reviewed by: Lauren Holt RN - Fully Assessed Prescriptions as of 02/16/2023 - ubidecarenone/red yeast rice (CO Q10-RED YEAST RICE) 60-600 mg cap Take 1 capsule by mouth once daily. - aspirin, enteric coated (ASPIRIN, ENTERIC COATED) 81 mg EC tablet Take 81 mg by mouth once daily. - nitroglycerin sublingual (NITROQUICK) 0.4 mg SL tablet Dissolve 1 tablet under the tongue as needed for chest pain. If no pain relief call 911. - losartan (COZAAR) 25 mg tablet TAKE 1 TABLET BY MOUTH EVERY DAY - metoprolol succinate ER (TOPROL XL) 50 mg 24 hr tablet TAKE 1 TABLET BY MOUTH EVERY DAY - rosuvastatin (CRESTOR) 20 mg tablet Take 1 tablet by mouth once daily. - ascorbic acid (VITAMIN C ORAL) Take 1,000 mg by mouth once daily. Pt takes vitamin c complex 1000 mg one tablet daily by mouth. Facility-Administered Medications as of 02/16/2023 - perflutren lipid microspheres 1.3 mL in NaCl (PF) 0.9% 10 mL injection (DEFINITY) - sodium chloride 0.9 % (flush) 10 mL (BD POSIFLUSH) Encounter Status:Closed by SANDY FLOWER on 02/16/23 [facility] 02-15-2023 Miscellaneous Notes CARDIOVASCULAR LAB INSTRUCTIONS: Readiness to Learn: Cognitive Ability: Alert and oriented Motivation To Learn: Interested Family/Significant Other Support: High - Very involved in pt care Instruction Provided To: Patient and family member Patient Learns Best By: Individual Instruction Factors Affecting Learning: None Physical Limitations Affecting Learning: None Learning Response: Procedure: Left Heart Diagnostic Pre procedure education topics: Arrival time/NPO Status/Medications/Travel Instructions/Restrictions Patient/Family Response Evaluation: Verbalizes understanding Follow Up Plan and Medication: As directed by physician Instruction/Supplemental Material Given: Cardiac catheterization instructions, procedure information, hospital information, hotel information. Instructed By Nanda Salguero RN, RN. In Department of CARDIOLOGY. documented in this encounter [facility] 02-15-2023 Note HNO ID: [id number] Author: Emanuel Ledbetter MD Service: ? Author Type: Physician Type: Progress Notes Filed: 02/15/2023 5:05 PM Note Text: Heart and Vascular [facility] SECTION OF HEART FAILURE and CARDIAC TRANSPLANT MEDICINE OUTPATIENT VISIT DATE February 15, 2023 OUTPATIENT VISIT TYPE Established Patient PRIMARY CARE PHYSICIAN: Carmen Evans [address] [place] [address] CHIEF COMPLAINT: CP NURSING INTAKE (Patient?s concerns and/or recent hospitalizations/ER visits): HF Nursing Assessment: Interim Hospitalizations and/or ER visits:no Chest Pain: yes, last had tightness and made sick to stomach Skipping or irregular heartbeats: yes Shortness of breath at rest: no Shortness of breath with activity: no Cough: no Waking up in the middle of the night gasping for air: no Lightheadedness or dizziness: no Feeling like you are going to pass out: no Actually passing out: no Poor energy level: yes Unintentional weight gain: no Unintentional weight loss: no Swelling in your legs,feet, abdomen: no Filling up quickly when you eat: yes HISTORY OF PRESENT ILLNESS: Has had progressive shortness of breath and chest tightness much worse in last few months PAST MEDICAL HISTORY Diagnosis Date Bundle branch block, unspecified left bundle branch block Cardiomyopathy, nonischemic (HCC) 09/09/2004 Dyslipidemia 04/05/2015 Other primary cardiomyopathies Cardiomyopathy PAST SURGICAL HISTORY Procedure Laterality Date TOTAL ABDOM HYSTERECTOMY Hysterectomy, LEAH SOCIAL HISTORY Social History Tobacco Use Smoking status: Never Smokeless tobacco: Never Substance Use Topics Alcohol use: Yes Comment: twice per month Drug use: Not Currently No family history on file. ALLERGIES: ALLERGIES Allergen Reactions Luisa Inhibitors Cough CURRENT MEDICATIONS: ubidecarenone/red yeast rice (CO Q10-RED YEAST RICE) 60-600 mg capTake 1 capsule by mouth once daily.Disp: Rfl: aspirin, enteric coated (ASPIRIN, ENTERIC COATED) 81 mg EC tabletTake 81 mg by mouth once daily.Disp: Rfl: losartan (COZAAR) 25 mg tabletTAKE 1 TABLET BY MOUTH EVERY DAYDisp: 90 tabletRfl: 3 metoprolol succinate ER (TOPROL XL) 50 mg 24 hr tabletTAKE 1 TABLET BY MOUTH EVERY DAYDisp: 90 tabletRfl: 3 rosuvastatin (CRESTOR) 20 mg tabletTake 1 tablet by mouth once daily.Disp: 90 tabletRfl: 3 ascorbic acid (VITAMIN C ORAL)Take 1,000 mg by mouth once daily. Pt takes vitamin c complex 1000 mg one tablet daily by mouth.Disp: Rfl: REVIEW OF SYSTEMS: ROS HEART FAILURE PATIENT ENTERED DATA: No flowsheet data found. No flowsheet data found. No flowsheet data found. PHYSICAL EXAMINATION: BP 111/74 (BP Site: Left Arm) Pulse 69 Ht 170.2 cm (5' 7 ) Wt 81.5 kg (179 lb 11.2 oz) SpO2 97% BMI 28.14 kg/m? which is 7 lbs less than last visit. General appearance:Healthy appearing female breathing comfortable. Skin: No rashes or lesions. Head: Normal Eyes: Anicteric sclera. Neck: No JVD. Normal carotid upstroke. No carotid bruit. Cardiac: PMI laterally displaced. No right ventricular heave. No thrill. RRR with normal S1S2. No murmur,no S3, S4 Lungs: clear to auscultation, No wheezing or rhonchi. Abdomen: Flat, soft, non-tender. No hepatosplenomegaly. Extremities: No cyanosis, clubbing,edema Neuro: grossly intact. Labs on 12/20/18: Na 141, 4.2, BUN 11, Cr 0.84, AST 29, ALT 51, Alk phos 71, Tbili 0.6, TP 8.2, Alb 4.1, TC 220, HDL 39, Trig 80, LDL 165 Component Latest Ref Rng AND Units 08/10/2020 07/03/2022 02/14/2023 Protein, Total 6.3 - 8.0 g/dL 7.5 7.1 7.3 Albumin 3.9 - 4.9 g/dL 4.8 4.3 4.5 Calcium 8.5 - 10.2 mg/dL 9.4 9.3 9.9 Bilirubin, Total 0.2 - 1.3 mg/dL 0.6 0.5 0.6 Alkaline Phosphatase 34 - 123 U/L 78 66 73 AST 13 - 35 U/L 35 55 (H) 25 Glucose 74 - 99 mg/dL 78 86 104 (H) BUN 7 - 21 mg/dL 11 10 16 Creatinine 0.58 - 0.96 mg/dL 0.78 0.74 0.87 Sodium 136 - 144 mmol/L 140 138 144 Potassium 3.7 - 5.1 mmol/L 3.7 4.8 Chloride 97 - 105 mmol/L 104 105 108 (H) CO2 22 - 30 mmol/L 26 22 29 Anion Gap 9 - 18 mmol/L 10 11 7 (L) ALT 7 - 38 U/L 58 (H) 59 (H) 32 eGFR- >60 eGFR-All Other Races . >60 eGFR >=60 mL/min/1.73mA? 92 75 WBC 3.70 - 11.00 k/uL 6.83 6.60 6.74 RBC 3.90 - 5.20 m/uL 4.40 4.49 4.52 Hemoglobin 11.5 - 15.5 g/dL 13.9 13.9 14.3 Hematocrit 36.0 - 46.0 % 42.8 43.5 42.2 MCV 80.0 - 100.0 fL 97.3 96.9 93.4 MCH 26.0 - 34.0 pg 31.6 31.0 31.6 MCHC 30.5 - 36.0 g/dL 32.5 32.0 33.9 RDW-CV 11.5 - 15.0 % 12.6 12.5 12.4 Platelet Count 150 - 400 k/uL 240 160 226 MPV 9.0 - 12.7 fL 9.9 10.9 9.6 Absolute nRBC <0.01 k/uL <0.01 <0.01 <0.01 Total Cholesterol, Nonfasting <200 mg/dL 214 (H) 249 (H) Triglycerides, Nonfasting <150 mg/dL 107 138 HDL Cholesterol, Nonfasting >39 mg/dL 41 43 LDL Cholesterol, Nonfasting <100 mg/dL 152 (H) 178 (H) Non H (more content not included)... [facility] 02-15-2023 History of Presen t illness Narrative Images from the original note were not included. Heart and Vascular [facility] SECTION OF HEART FAILURE and CARDIAC TRANSPLANT MEDICINE OUTPATIENT VISIT DATE February 15, 2023 OUTPATIENT VISIT TYPE Established Patient PRIMARY CARE PHYSICIAN: Carmen Evans [address] [place] [address] CHIEF COMPLAINT: CP NURSING INTAKE (Patient s concerns and/or recent hospitalizations/ER visits): HF Nursing Assessment: Interim Hospitalizations and/or ER visits:no Chest Pain: yes, last had tightness and made sick to stomach Skipping or irregular heartbeats: yes Shortness of breath at rest: no Shortness of breath with activity: no Cough: no Waking up in the middle of the night gasping for air: no Lightheadedness or dizziness: no Feeling like you are going to pass out: no Actually passing out: no Poor energy level: yes Unintentional weight gain: no Unintentional weight loss: no Swelling in your legs,feet, abdomen: no Filling up quickly when you eat: yes HISTORY OF PRESENT ILLNESS: Has had progressive shortness of breath and chest tightness much worse in last few months PAST MEDICAL HISTORY Diagnosis Date Bundle branch block, unspecified left bundle branch block Cardiomyopathy, nonischemic (HCC) 09/09/2004 Dyslipidemia 04/05/2015 Other primary cardiomyopathies Cardiomyopathy PAST SURGICAL HISTORY Procedure Laterality Date TOTAL ABDOM HYSTERECTOMY Hysterectomy, LEAH SOCIAL HISTORY Social History Tobacco Use Smoking status: Never Smokeless tobacco: Never Substance Use Topics Alcohol use: Yes Comment: twice per month Drug use: Not Currently No family history on file. ALLERGIES: ALLERGIES Allergen Reactions Luisa Inhibitors Cough CURRENT MEDICATIONS: ubidecarenone/red yeast rice (CO Q10-RED YEAST RICE) 60-600 mg cap^Take 1 capsule by mouth once daily.^Disp: ^Rfl: aspirin, enteric coated (ASPIRIN, ENTERIC COATED) 81 mg EC tablet^Take 81 mg by mouth once daily.^Disp: ^Rfl: losartan (COZAAR) 25 mg tablet^TAKE 1 TABLET BY MOUTH EVERY DAY^Disp: 90 tablet^Rfl: 3 metoprolol succinate ER (TOPROL XL) 50 mg 24 hr tablet^TAKE 1 TABLET BY MOUTH EVERY DAY^Disp: 90 tablet^Rfl: 3 rosuvastatin (CRESTOR) 20 mg tablet^Take 1 tablet by mouth once daily.^Disp: 90 tablet^Rfl: 3 ascorbic acid (VITAMIN C ORAL)^Take 1,000 mg by mouth once daily. Pt takes vitamin c complex 1000 mg one tablet daily by mouth.^Disp: ^Rfl: REVIEW OF SYSTEMS: ROS HEART FAILURE PATIENT ENTERED DATA: No flowsheet data found. No flowsheet data found. No flowsheet data found. PHYSICAL EXAMINATION: BP 111/74 (BP Site: Left Arm) Pulse 69 Ht 170.2 cm (5' 7 ) Wt 81.5 kg (179 lb 11.2 oz) SpO2 97% BMI 28.14 kg/m which is 7 lbs less than last visit. General appearance:Healthy appearing female breathing comfortable. Skin: No rashes or lesions. Head: Normal Eyes: Anicteric sclera. Neck: No JVD. Normal carotid upstroke. No carotid bruit. Cardiac: PMI laterally displaced. No right ventricular heave. No thrill. RRR with normal S1S2. No murmur,no S3, S4 Lungs: clear to auscultation, No wheezing or rhonchi. Abdomen: Flat, soft, non-tender. No hepatosplenomegaly. Extremities: No cyanosis, clubbing,edema Neuro: grossly intact. Labs on 12/20/18: Na 141, 4.2, BUN 11, Cr 0.84, AST 29, ALT 51, Alk phos 71, Tbili 0.6, TP 8.2, Alb 4.1, TC 220, HDL 39, Trig 80, LDL 165 Component Latest Ref Rng & Units 08/10/2020 07/03/2022 02/14/2023 Protein, Total 6.3 - 8.0 g/dL 7.5 7.1 7.3 Albumin 3.9 - 4.9 g/dL 4.8 4.3 4.5 Calcium 8.5 - 10.2 mg/dL 9.4 9.3 9.9 Bilirubin, Total 0.2 - 1.3 mg/dL 0.6 0.5 0.6 Alkaline Phosphatase 34 - 123 U/L 78 66 73 AST 13 - 35 U/L 35 55 (H) 25 Glucose 74 - 99 mg/dL 78 86 104 (H) BUN 7 - 21 mg/dL 11 10 16 Creatinine 0.58 - 0.96 mg/dL 0.78 0.74 0.87 Sodium 136 - 144 mmol/L 140 138 144 Potassium 3.7 - 5.1 mmol/L 3.7 4.8 Chloride 97 - 105 mmol/L 104 105 108 (H) CO2 22 - 30 mmol/L 26 22 29 Anion Gap 9 - 18 mmol/L 10 11 7 (L) ALT 7 - 38 U/L 58 (H) 59 (H) 32 eGFR- >60 eGFR-All Other Races . >60 eGFR >=60 mL/min/1.73m 92 75 WBC 3.70 - 11.00 k/uL 6.83 6.60 6.74 RBC 3.90 - 5.20 m/uL 4.40 4.49 4.52 Hemoglobin 11.5 - 15.5 g/dL 13.9 13.9 14.3 Hematocrit 36.0 - 46.0 % 42.8 43.5 42.2 MCV 80.0 - 100.0 fL 97.3 96.9 93.4 MCH 26.0 - 34.0 pg 31.6 31.0 31.6 MCHC 30.5 - 36.0 g/dL 32.5 32.0 33.9 RDW-CV 11.5 - 15.0 % 12.6 12.5 12.4 Platelet Count 150 - 400 k/uL 240 160 226 MPV 9.0 - 12.7 fL 9.9 10.9 9.6 Absolute nRBC <0.01 k/uL <0.01 <0.01 <0.01 Total Cholesterol, Nonfasting <200 mg/dL 214 (H) 249 (H) Triglycerides, Nonfasting <150 mg/dL 107 138 HDL Cholesterol, Nonfasting >39 mg/dL 41 43 LDL Cholesterol, Nonfasting <100 mg/dL 152 (H) 178 (H) Non HDL Cholesterol, Nonfasting <130 mg/dL 173 (H) 206 (H) VLDL Cholesterol, Nonfasting <30 mg/dL 21 28 Total Chol/HDL Ratio, Nonfasting <5.10 mg/dL 5.22 (H) 5.79 (H) LDL/HDL Ratio, Nonfasting <2.54 mg/dL 3.71 (H) 4.14 (H) TSH 0.270 - 4.200 uU/mL 3.050 NT Pro BNP <125 pg/mL 181 (H) ECG today: Diagnosis: NORMAL SINUS RHYTHM COMPLETE LEFT BUNDLE BRANCH BLOCK ABNORMAL ECG Echocardiogram 04/05/15: The left ventricle is mildly dilated. LVEF = 49 5% (2D biplane) Echo 02/15/17: LVEF = 55 5% (2D biplane). Echo 06/17/18: LVEF = 50 5% (3D) Echo 07/03/22 The left ventricle is dilated. LVEF = 48 5% (3D) Echo today: he left ventricle is normal in size. LVEF = 36 5% (2D biplane) Grade I left ventricular diastolic dysfunction. The right ventricle is normal in size. Right ventricular systolic function is normal. - AV morphology difficult to visualize but likely tricuspid. - Exam was compared with the prior echocardiographic exam performed on 07/03/2022. Left ventricular function appears worse today, focal dyskinesis of inferoseptal segment more apparent today. IMPRESSION: 63 yo women who was diagnosed in September 2004 with a non-ischemic cardiomyopathy (LVEF 40%) when she was noted to have an irregular rhythm (+PVC's) during a routine physical examination. + LBBB since at least 2005. Holter notable for about 8% PACs. Over the years she had remained stable with intermittent palpitations and improvement in her LVEF to 55% on B-zeferino. Had slight decline in LVEF in June 2022 and here today for chest pain with minimal exertion. No significant shortness of breath. Palpitations present but unchanged. Echo today with significant decline in LVEF, abnormal stress test in LAD distribution but of poor quality due to GI uptake of tracer. Given known family history of coronary artery disease, will need to schedule LHC and reassess PVC burden with holter. Euvolemic on examination. Blood pressure low normal limiting uptitration of medication so interventional therapy is best if tests are abnormal. Patient did start an aspirin daily. NYHA class II, stage B PLAN: 1. Cardiac catheterization 2 Holter 3. Follow-up with me in 3 mo Emanuel Ledbetter MD February 15, 2023 12:58 PM CC: CARMEN EVANS documented in this encounter [facility] 02-15-2023 Note HNO ID: [id number] Author: Juliana Lozano RN Service: Radiology Author Type: Registered Nurse Type: Progress Notes Filed: 02/15/2023 10:45 AM Note Text: RADIOLOGY SERVICE PROGRESS NOTE SERVICE DATE: 02/15/2023 SERVICE TIME: 10:44 AM PATIENT IDENTITY VERIFICATION COMPLETED USING TWO (2) STANDARD IDENTIFIERS: Name and Date of confirmed by patient verbally and Name and Date of confirmed by identification band PATIENT GENDER DATA: female ALLERGIES: Reviewed and unchanged MEDICATIONS REVIEWED BY: Sandblaster Paint Sprayer PROCEDURE TYPE: NM STRESS: 0.4 mg of Lexiscan was administered IV at 1044 by Juliana Lozano RN. Reversal agent used: None. IV SITE: Ambulatory: A Saline lock was inserted per protocol POST EXAM PIV STATUS: Discontinued PATIENT DISCHARGED TO: Ambulatory patient, left NM department area. A Diagnostic radioactive procedure has taken place, with no further precautions necessary other than routine body substance precautions. More information regarding radiation safety can be found using this link: [email or web address] [email or web address] SIGNATURE: Juliana Lozano RN PATIENT NAME: Richie Hopper DATE: February 15, 2023 TIME: 10:44 AM PAGER/CONTACT #: [phone] [facility] 02-15-2023 Note HNO ID: [id number] Author: Mo Renteria Nuclear Tech Service: Nuclear Medicine Author Type: Web Development Director Type: Progress Notes Filed: 02/15/2023 10:44 AM Note Text: RADIOLOGY SERVICE PROGRESS NOTE SERVICE DATE: 02/15/2023 SERVICE TIME: 9:22 AM PATIENT IDENTITY VERIFICATION COMPLETED USING TWO (2) STANDARD IDENTIFIERS: Name and Date of confirmed by patient verbally FALL SCREENING: Has the patient had 2 falls in the last year or 1 fall with injury or currently using an Ambulatory Assistive Device (Walker, Cane, Wheelchair, Crutches, etc.)? No PATIENT GENDER DATA: .female : No ALLERGIES: Reviewed and unchanged MEDICATIONS REVIEWED: Yes IV SITE: Ambulatory: A peripheral IV was started in the Right antecubital site with a Angio cath: 22 gauge. POST EXAM PIV STATUS: Discontinued PROCEDURE TYPE: NM Stress: 11.9mCi Is54x-Bmuvrix was administered IV for Rest Imaging at 0921 by RT Demetria(R). 32.1 mCi Iv19m-Urswgeb was administered IV for Stress Imaging at 1044 by Mo Renteria [facility]. PATIENT DISCHARGED TO: Ambulatory patient, left NM department area. A Diagnostic radioactive procedure has taken place, with no further precautions necessary other than routine body substance precautions. More information regarding radiation safety can be found using this link: [email or web address] [email or web address] SIGNATURE: RT Demetria(R) PATIENT NAME: Richie Hopper DATE: February 15, 2023 TIME: 9:22 AM PAGER/CONTACT #: [phone] [facility] 07-03-2022 Note HNO ID: [id number] Author: Emanuel Ledbetter MD Service: ? Author Type: Physician Type: Progress Notes Filed: 07/03/2022 5:14 PM Note Text: Heart [facility] [place] [facility] SECTION OF HEART FAILURE and CARDIAC TRANSPLANT MEDICINE OUTPATIENT VISIT DATE July 03, 2022 OUTPATIENT VISIT TYPE Established Patient PRIMARY CARE PHYSICIAN: Carmen Evans [address] [place] [address] CHIEF COMPLAINT: HF F/u NURSING INTAKE (Patient?s concerns and/or recent hospitalizations/ER visits): HF Nursing Assessment: Interim Hospitalizations and/or ER visits: no Chest Pain: no Skipping or irregular heartbeats: yes Shortness of breath at rest: no Shortness of breath with activity: some, if starting off walking too fast, able to walk for an hour Cough: occasional cough Waking up in the middle of the night gasping for air: no Lightheadedness or dizziness: no Feeling like you are going to pass out: no Actually passing out: no Poor energy level: yes, super tired. 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 Had some palpitations which she thought may have been due to poor sleep. PAST MEDICAL HISTORY Diagnosis Date Bundle branch block, unspecified left bundle branch block Cardiomyopathy, nonischemic (HCC) 09/09/2004 Dyslipidemia 04/05/2015 Other primary cardiomyopathies Cardiomyopathy PAST SURGICAL HISTORY Procedure Laterality Date TOTAL ABDOM HYSTERECTOMY Hysterectomy, LEAH SOCIAL HISTORY Social History Tobacco Use Smoking status: Never Smokeless tobacco: Never Substance Use Topics Alcohol use: Yes Comment: twice per month Drug use: Not Currently No family history on file. ALLERGIES: ALLERGIES Allergen Reactions Luisa Inhibitors Cough CURRENT MEDICATIONS: losartan (COZAAR) 25 mg tabletTAKE 1 TABLET BY MOUTH EVERY DAYDisp: 90 tabletRfl: 3 metoprolol succinate ER (TOPROL XL) 50 mg 24 hr tabletTAKE 1 TABLET BY MOUTH EVERY DAYDisp: 90 tabletRfl: 3 VITAMIN E ORALTake 400 Units by mouth once daily.Disp: Rfl: selenium 200 mcg capTake by mouth once daily.Disp: Rfl: LECITHIN ORALTake 1,200 mg by mouth once daily.Disp: Rfl: cyanocobalamin (VITAMIN B-12) 1,000 mcg tabTake 1,000 mcg by mouth once daily.Disp: Rfl: FOREIGN MEDICATIONonce daily. Pt takes robert B-100 timed release one daily by mouthDisp: Rfl: ascorbic acid (VITAMIN C ORAL)Take 1,000 mg by mouth once daily. Pt takes vitamin c complex 1000 mg one tablet daily by mouth.Disp: Rfl: FOREIGN [id number] mg once daily. Pt takes Q-Sorb CO Q 10 50 mg By mouth dailyDisp: Rfl: FLAXSEED OIL ORALTake by mouth once daily.Disp: Rfl: calcium carbonate/vitamin D3 (CALCIUM 600 + D,3, ORAL)Take by mouth once daily. Pt takes one daily by mouth.Disp: Rfl: multivitamin/iron/folic acid (SENTRY ORAL)Take by mouth once daily. Pt takes Sentry multivitamin vitamin one by mouth daily.Disp: Rfl: REVIEW OF SYSTEMS: ROS HEART FAILURE PATIENT ENTERED DATA: No flowsheet data found. No flowsheet data found. No flowsheet data found. PHYSICAL EXAMINATION: BP 135/85 (BP Site: Left Arm, BP Position: Sitting, BP Cuff Size: Regular Adult) Pulse 72 Ht 168.9 cm (5' 6.5 ) Wt 84.6 kg (186 lb 9.6 oz) SpO2 95% BMI 29.67 kg/m? BP 123/72 (BP Site: Left Arm) Pulse (!) 56 Ht 168.9 cm (5' 6.5 ) which is 1 lbs more than last visit. General appearance:Healthy appearing female breathing comfortable. Skin: No rashes or lesions. Head: Normal Eyes: Anicteric sclera. Neck: No JVD. Normal carotid upstroke. No carotid bruit. Cardiac: PMI laterally displaced. No right ventricular heave. No thrill. RRR with normal S1S2. No murmur,no S3, S4 Lungs: clear to auscultation, No wheezing or rhonchi. Abdomen: Flat, soft, non-tender. No hepatosplenomegaly. Extremities: No cyanosis, clubbing,edema Neuro: grossly intact. Labs on 12/20/18: Na 141, 4.2, BUN 11, Cr 0.84, AST 29, ALT 51, Alk phos 71, Tbili 0.6, TP 8.2, Alb 4.1, TC 220, HDL 39, Trig 80, LDL 165 Component Latest Ref Rng AND Units 08/10/2020 07/03/2022 Protein, Total 6.3 - 8.0 g/dL 7.5 7.1 Albumin 3.9 - 4.9 g/dL 4.8 4.3 Calcium 8.5 - 10.2 mg/dL 9.4 9.3 Bilirubin, Total 0.2 - 1.3 mg/dL 0.6 0.5 Alkaline Phosphatase 34 - 123 U/L 78 66 AST 13 - 35 U/L 35 55 (H) Glucose 74 - 99 mg/dL 78 86 BUN 7 - 21 mg/dL 11 10 Creatinine 0.58 - 0.96 mg/dL 0.78 0.74 Sodium 136 - 144 mmol/L 140 138 Potassium 3.7 Chloride 97 - 105 mmol/L 104 105 CO2 22 - 30 mmol/L 26 22 Anion Gap 9 - 18 mmol/L 10 11 ALT 7 - 38 U/L 58 (H) 59 (H) eGFR- >60 eGFR-All Other Races . >60 eGFR >=60 mL/min/1.73mA? 92 WBC 3.70 - 11.00 k/uL 6. (more content not included)... [facility] 07-03-2022 History of Presen t illness Narrative Images from the original note were not included. [facility] [place] [facility] SECTION OF HEART FAILURE and CARDIAC TRANSPLANT MEDICINE OUTPATIENT VISIT DATE July 03, 2022 OUTPATIENT VISIT TYPE Established Patient PRIMARY CARE PHYSICIAN: Carmen Evans [address] [place] [address] CHIEF COMPLAINT: HF F/u NURSING INTAKE (Patient s concerns and/or recent hospitalizations/ER visits): HF Nursing Assessment: Interim Hospitalizations and/or ER visits: no Chest Pain: no Skipping or irregular heartbeats: yes Shortness of breath at rest: no Shortness of breath with activity: some, if starting off walking too fast, able to walk for an hour Cough: occasional cough Waking up in the middle of the night gasping for air: no Lightheadedness or dizziness: no Feeling like you are going to pass out: no Actually passing out: no Poor energy level: yes, super tired. 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 Had some palpitations which she thought may have been due to poor sleep. PAST MEDICAL HISTORY Diagnosis Date Bundle branch block, unspecified left bundle branch block Cardiomyopathy, nonischemic (HCC) 09/09/2004 Dyslipidemia 04/05/2015 Other primary cardiomyopathies Cardiomyopathy PAST SURGICAL HISTORY Procedure Laterality Date TOTAL ABDOM HYSTERECTOMY Hysterectomy, LEAH SOCIAL HISTORY Social History Tobacco Use Smoking status: Never Smokeless tobacco: Never Substance Use Topics Alcohol use: Yes Comment: twice per month Drug use: Not Currently No family history on file. ALLERGIES: ALLERGIES Allergen Reactions Luisa Inhibitors Cough CURRENT MEDICATIONS: losartan (COZAAR) 25 mg tablet^TAKE 1 TABLET BY MOUTH EVERY DAY^Disp: 90 tablet^Rfl: 3 metoprolol succinate ER (TOPROL XL) 50 mg 24 hr tablet^TAKE 1 TABLET BY MOUTH EVERY DAY^Disp: 90 tablet^Rfl: 3 VITAMIN E ORAL^Take 400 Units by mouth once daily.^Disp: ^Rfl: selenium 200 mcg cap^Take by mouth once daily.^Disp: ^Rfl: LECITHIN ORAL^Take 1,200 mg by mouth once daily.^Disp: ^Rfl: cyanocobalamin (VITAMIN B-12) 1,000 mcg tab^Take 1,000 mcg by mouth once daily.^Disp: ^Rfl: FOREIGN MEDICATION^once daily. Pt takes robert B-100 timed release one daily by mouth^Disp: ^Rfl: ascorbic acid (VITAMIN C ORAL)^Take 1,000 mg by mouth once daily. Pt takes vitamin c complex 1000 mg one tablet daily by mouth.^Disp: ^Rfl: FOREIGN MEDICATION^50 mg once daily. Pt takes Q-Sorb CO Q 10 50 mg By mouth daily^Disp: ^Rfl: FLAXSEED OIL ORAL^Take by mouth once daily.^Disp: ^Rfl: calcium carbonate/vitamin D3 (CALCIUM 600 + D,3, ORAL)^Take by mouth once daily. Pt takes one daily by mouth.^Disp: ^Rfl: multivitamin/iron/folic acid (SENTRY ORAL)^Take by mouth once daily. Pt takes Sentry multivitamin vitamin one by mouth daily.^Disp: ^Rfl: REVIEW OF SYSTEMS: ROS HEART FAILURE PATIENT ENTERED DATA: No flowsheet data found. No flowsheet data found. No flowsheet data found. PHYSICAL EXAMINATION: BP 135/85 (BP Site: Left Arm, BP Position: Sitting, BP Cuff Size: Regular Adult) Pulse 72 Ht 168.9 cm (5' 6.5 ) Wt 84.6 kg (186 lb 9.6 oz) SpO2 95% BMI 29.67 kg/m BP 123/72 (BP Site: Left Arm) Pulse (!) 56 Ht 168.9 cm (5' 6.5 ) which is 1 lbs more than last visit. General appearance:Healthy appearing female breathing comfortable. Skin: No rashes or lesions. Head: Normal Eyes: Anicteric sclera. Neck: No JVD. Normal carotid upstroke. No carotid bruit. Cardiac: PMI laterally displaced. No right ventricular heave. No thrill. RRR with normal S1S2. No murmur,no S3, S4 Lungs: clear to auscultation, No wheezing or rhonchi. Abdomen: Flat, soft, non-tender. No hepatosplenomegaly. Extremities: No cyanosis, clubbing,edema Neuro: grossly intact. Labs on 12/20/18: Na 141, 4.2, BUN 11, Cr 0.84, AST 29, ALT 51, Alk phos 71, Tbili 0.6, TP 8.2, Alb 4.1, TC 220, HDL 39, Trig 80, LDL 165 Component Latest Ref Rng & Units 08/10/2020 07/03/2022 Protein, Total 6.3 - 8.0 g/dL 7.5 7.1 Albumin 3.9 - 4.9 g/dL 4.8 4.3 Calcium 8.5 - 10.2 mg/dL 9.4 9.3 Bilirubin, Total 0.2 - 1.3 mg/dL 0.6 0.5 Alkaline Phosphatase 34 - 123 U/L 78 66 AST 13 - 35 U/L 35 55 (H) Glucose 74 - 99 mg/dL 78 86 BUN 7 - 21 mg/dL 11 10 Creatinine 0.58 - 0.96 mg/dL 0.78 0.74 Sodium 136 - 144 mmol/L 140 138 Potassium 3.7 Chloride 97 - 105 mmol/L 104 105 CO2 22 - 30 mmol/L 26 22 Anion Gap 9 - 18 mmol/L 10 11 ALT 7 - 38 U/L 58 (H) 59 (H) eGFR- >60 eGFR-All Other Races . >60 eGFR >=60 mL/min/1.73m 92 WBC 3.70 - 11.00 k/uL 6.83 6.60 RBC 3.90 - 5.20 m/uL 4.40 4.49 Hemoglobin 11.5 - 15.5 g/dL 13.9 13.9 Hematocrit 36.0 - 46.0 % 42.8 43.5 MCV 80.0 - 100.0 fL 97.3 96.9 MCH 26.0 - 34.0 pg 31.6 31.0 MCHC 30.5 - 36.0 g/dL 32.5 32.0 RDW-CV 11.5 - 15.0 % 12.6 12.5 Platelet Count 150 - 400 k/uL 240 160 MPV 9.0 - 12.7 fL 9.9 10.9 Absolute nRBC <0.01 k/uL <0.01 <0.01 Total Cholesterol, Nonfasting <200 mg/dL 214 (H) 249 (H) Triglycerides, Nonfasting <150 mg/dL 107 138 HDL Cholesterol, Nonfasting >39 mg/dL 41 43 LDL Cholesterol, Nonfasting <100 mg/dL 152 (H) 178 (H) Non HDL Cholesterol, Nonfasting <130 mg/dL 173 (H) 206 (H) VLDL Cholesterol, Nonfasting <30 mg/dL 21 28 Total Chol/HDL Ratio, Nonfasting <5.10 mg/dL 5.22 (H) 5.79 (H) LDL/HDL Ratio, Nonfasting <2.54 mg/dL 3.71 (H) 4.14 (H) TSH 0.270 - 4.200 uU/mL 3.050 ECG today: Diagnosis: NORMAL SINUS RHYTHM COMPLETE LEFT BUNDLE BRANCH BLOCK ABNORMAL ECG Echocardiogram 04/05/15: The left ventricle is mildly dilated. LVEF = 49 5% (2D biplane) Echo 02/15/17: LVEF = 55 5% (2D biplane). Echo 06/17/18: LVEF = 50 5% (3D) IMPRESSION: 60 yo women who was diagnosed in September 2004 with a non-ischemic cardiomyopathy (LVEF 40%) when she was noted to have an irregular rhythm (+PVC's) during a routine physical examination. + LBBB since at least 2005. Holter notable for about 8% PACs. Over the years she has remained stable with intermittent palpitations. She was not able to increase B-zeferino to prevent them because of hypotension. Other medical issue is hyperlipidemia which has gotten worse. She is NYHA class I, stage B PLAN: 1. Begin Crestor 20 mg daily. Otherwise continue current medications 2 Echo pending. 3. Follow-up with me in 6 mo for repeat lipid testing 4. weight loss counseling (2 lbs/mo) needed with low cholesterol diet to reduce cholesterol more. Emanuel Ledbetter MD July 03, 2022 4:48 PM CC: CARMEN EVANS Addendum: Echo today: The left ventricle is dilated. LVEF = 48 5% (3D) Normal left ventricular diastolic function. The right ventricle is normal in size. Right ventricular systolic function is normal. Exam was compared with the prior CC echocardiographic exam performed on 06/17/2018. There is no significant change. Emanuel Ledbetter MD July 03, 2022 5:13 PM documented in this encounter [facility] 08-01-2021 Evaluation note Encounter Date Diagnosis Assessment Notes July, Abscess (ICD-10 - L02.91) Yesterday she was able to express pus out of the area. Today the area is firm and she was not able to express anything else out. On exam I did advise her that she will need to be treated with an antibiotic. If this does not resolve then we may need to refer her to a general surgeon to have this removed. Guidance is given on how to take the medication. She should take the medication with plenty of food. She may get loose stools but if she develops severe diarrhea stop the medication and let me know. Avoid squeezing the area. She can use warm paper towel compresses and apply to the area until they turn cold as often as she would like throughout the day. She is to keep me posted with how she is doing. July, Cardiomyopathy, unspecified (ICD-10 - I42.9) She voices that she needs to schedule an appointment to see Dr. Ledbetter. Usually Dr. Ledbetter will order lab when she goes for evaluation. She has an order to do an echocardiogram done but does not know if the order is still good. She has not been exercising because her walking shameka moved away, so she is unsure if her exercise tolerance has changed. She is going to call and make an appointment to be seen by Dr. Ledbetter. July, Hyperlipidemia (ICD-10 - E78.5) She has recently restarted Red Yeast Rice which she had been told by Dr. Ledbetter was a good product to use to help lower the cholesterol. July, Fatty infiltration of liver (ICD-10 - K76.0) We discussed her seeing Dr. Thao to have a FibroSure scan done to evaluate fatty liver further. She voices that when her deductible is met for the year she will consider seeing Dr. Thao, she will call me for a referral once her deductible is met. Until then I encouraged her to cut out processed foods. Avoid processed sugars, sweets, high fructose corn syrup and carbs. Eat a low carb diet. Work on weight loss. Eat more dark green vegetables and proteins. [employer] Other [id number] History general Narrative - Reported* Type Description Date Medical History HEART-CARDIAL MYOPATHY Medical History Refuses Colonoscopy 08-07-13 Surgical History hysterectomy 2001 Surgical History colonoscopy [facility] [place] [place] [address] [place] cleared left ear 2015 Surgical History Hemorrhoidectomy 02/2019 [employer] Other Evaluation noteNo [employer] Other evalubzuky note* Diagnosis Hyperlipidemia LDL goal <70- Primary Other and unspecified hyperlipidemia Cardiomyopathy, nonischemic (HCC) Other primary cardiomyopathies Chronic systolic (congestive) heart failure (HCC) documented in this encounter [facility] note* Diagnosis Chronic systolic (congestive) heart failure (HCC)- Primary Precordial pain PVC (premature ventricular contraction) Other premature beats Hyperlipidemia LDL goal <70 Other and unspecified hyperlipidemia documented in this encounter [facility] note* Diagnosis PVC (premature ventricular contraction) Other premature beats documented in this encounter [facility] noteNo assessment information [facility] Work Phone: Evaluation note* Diagnosis Chronic systolic (congestive) heart failure (HCC)- Primary PVC (premature ventricular contraction) Other premature beats Hyperlipidemia LDL goal <70 Other and unspecified hyperlipidemia Cardiomyopathy, nonischemic (HCC) Other primary cardiomyopathies Complex medical condition documented in this encounter [facility] for referral (narrative)* Outpatient Procedure (Routine) - Pending Review Specialty Diagnoses / Procedures Referred By Contac t Referred To [facility] Diagnoses Chronic systolic (congestive) heart failure (HCC) Procedures ECHO ECHO TTC R-T 2D W/WOM-MODE COMPL SPEC&COLR D Emanuel Ledbetter MD [address] [place] [address] [facility] [place] [address] [place] [address] Referral ID Status Reason Start Date Expiration Date Visits Requested Visits Authorized [id number] Pending Review Auto-Generat ed Referral 02/15/2023 02/15/2024 1 1 * Transition of Care (Routine) - Ref Not Required Specialty Diagnoses / Procedures Referred By Contac t Referred To Contact Procedures CARDIOVASCULAR MEDICINE OP FOLLOW UP APPT ORDER Emanuel Ledbetter MD [address] [place] [address] Referral ID Status Reason Start Date Expiration Date Visits Requested Visits Authorized [id number] Ref Not Required PCP Requested Referral 05/17/2023 02/15/2024 1 1 [facility] for referral (narrative)* Outpatient Procedure (Routine) - Pending Review Specialty Diagnoses / Procedures Referred By Contac t Referred To Contact [facility] [place] Diagnoses Chronic systolic (congestive) heart failure (HCC) Procedures ECHO ECHO TTHRC R-T 2D W/WOM-MODE COMPL SPEC&COLR D Emanuel Ledbetter MD [address] [place] [address] [facility] [address] [address] Referral ID Status Reason Start Date Expiration Date Visits Requested Visits Authorized [id number] Pending Review Auto-Generat ed Referral 06/14/2023 06/13/2024 1 1 * Outpatient Procedure (Routine) - Authorized Specialty Diagnoses / Procedures Referred By Contac t Referred To Contact [facility] [place] Diagnoses Chronic systolic (congestive) heart failure (HCC) Procedures ECG COMPLETE ECG ROUTINE ECG W/LEAST 12 LDS W/I&R Emanuel Ledbetter MD [address] [place] [address] [facility] [address] [address] Referral ID Status Reason Start Date Expiration Date Visits Requested Visits Authorized [id number] Authorized Auto-Generat ed Referral 06/14/2023 06/13/2024 1 1 * Transition of Care (Routine) - Ref Not Required Specialty Diagnoses / Procedures Referred By Indy alfredo Referred To Contact [facility] [place] Procedures CARDIOVASCULAR MEDICINE OP FOLLOW UP APPT ORDER Emanuel Ledbetter MD [address] [place] [address] [facility] [address] [address] Referral ID Status Reason Start Date Expiration Date Visits Requested Visits Authorized [id number] Ref Not Required PCP Requested Referral 09/13/2023 06/13/2024 1 1 [facility] Summary Purpose Family History No Family History Records Found Relationship Condition Age at Onset Recorded Date/T bayron Not Specified Pulmonary emphysema Unknown brother Coronary artery disease Unknown History of coronary artery bypass surgery Unknown brother Heart disease Unknown Rheumatoid arthritis Unknown father Unknown Not Specified Unknown sister Rheumatoid arthritis Unknown Advance Directives No Advanced Directives Records Found Advance Directive Response Recorded Date/ Time Advance Directives No February 12:17pm Chief Complaint and Reason for Visit Chief Complaint Poss uti Chief Complaint Poss uti Dysuria r30.0 Additional Source Comments INFORMATION SOURCE (unrecogn ized section and content) DATE CREATED AUTHOR 12/23/2019 [facility] DATE CREATED AUTHOR AUTHOR'S ORGANIZ ATION 06/07/2023 [facility] DATE CREATED AUTHOR AUTHOR'S ORGANIZ ATION 06/15/2023 [facility] REASON FOR VISIT (unrecogniz ed section and content) Reason Comments Refill Request Reason Comments Follow Up Reason Comments Patient Education Reason Comments Follow Up Reason Comments Holter Monitor Application Specialty Diagnoses / Procedures Referred By Indy alfredo Referred To Contact Diagnoses Combined systolic and diastolic heart failure, unspecified HF chronicity (HCC) LHC W/POSS PCI Procedures CATH PLMT L HRT & ARTS W/NJX & ANGIO IMG S&I PRQ TRLUML CORONARY STENT W/ANGIO ONE ART/BRNCH CORONARY ANGIO W CATH PLACE W IMAGE INJECT & INTERP W LT HEART CATH W INJECT LT VENTRGRAPHY INSERT INTRACORONARY STENT-PER MAJOR VESSEL OR BRANCH [facility] [employer] [address] [place] [address] Referral ID Status Reason Start Date Expiration Date Visits Re quested Visits Authorized [id number] 1 1 Reason Comments Follow Up Source Comments (unrecognize d section and content) In the event this informatio n is protected by the Federal Confidentiality of Alcohol and Drug Abuse Patient Records regulations: The Federal rules restrict any use of the information to criminally investigate or prosecute any alcohol or drug abuse patient.[facility] the event this information is protected by the Federal Confidentiality of Alcohol and Drug Abuse Patient Records regulations: The Federal rules restrict any use of the information to criminally investigate or prosecute any alcohol or drug abuse patient.[facility] the event this information is protected by the Federal Confidentiality of Alcohol and Drug Abuse Patient Records regulations: The Federal rules restrict any use of the information to criminally investigate or prosecute any alcohol or drug abuse patient.[facility] the event this information is protected by the Federal Confidentiality of Alcohol and Drug Abuse Patient Records regulations: The Federal rules restrict any use of the information to criminally investigate or prosecute any alcohol or drug abuse patient.[facility] the event this information is protected by the Federal Confidentiality of Alcohol and Drug Abuse Patient Records regulations: The Federal rules restrict any use of the information to criminally investigate or prosecute any alcohol or drug abuse patient.[facility] the event this information is protected by the Federal Confidentiality of Alcohol and Drug Abuse Patient Records regulations: The Federal rules restrict any use of the information to criminally investigate or prosecute any alcohol or drug abuse patient.[facility] the event this information is protected by the Federal Confidentiality of Alcohol and Drug Abuse Patient Records regulations: The Federal rules restrict any use of the information to criminally investigate or prosecute any alcohol or drug abuse patient.[facility] the event this information is protected by the Federal Confidentiality of Alcohol and Drug Abuse Patient Records regulations: The Federal rules restrict any use of the information to criminally investigate or prosecute any alcohol or drug abuse patient.[facility] Teams (unrecognized sec tion and content) Recycling Specialist Relationship Specialty Start Date End Date Carmen Evans, DO [address] [place] [address] PCP - General 03/17/05 Emanuel Ledbetter MD [address] [place], [place] [id number] Primary Staff Physician Cardiology 05/28/18 Recycling Specialist Relationship Specialty Start Date End Date Carmen Evans DO [address] [place] [address] PCP - General 03/17/05 Emanuel Ledbetter MD [address] [place], [place] [id number] Primary Staff Physician Cardiology 05/28/18 Recycling Specialist Relationship Specialty Start Date End Date Carmen Evans DO [address] [place] [address] PCP - General 03/17/05 Emanuel Ledbetter MD [address] [place], [place] [id number] Primary Staff Physician Cardiology 05/28/18 Recycling Specialist Relationship Specialty Start Date End Date Carmen Evans DO [address] [place] [address] PCP - General 03/17/05 Emanuel Ledbetter MD [address] [place] [address] Primary Staff Physician Cardiology 05/28/18 Team Status: Active Member Role Status Dates Carmen Evans DO Primary Care Provider Active Team Status: Inactive Member Role Status Dates Carmen Evans DO Primary Care Provider Active S tart: June 05, 2023 End: June 05, 2023 Bev Casiano APRN Attending Provider Active Start: June 05, 2023 End: June 05, 2023 Team Status: Inactive Member Role Status Dates Bev Casiano APRN Attending Provider Active Start: June 05, 2023 End: June 05, 2023 Recycling Specialist Relationship Specialty Start Date End Date Carmen Evans DO [address] [place] [id number] PCP - General 03/17/05 Emanuel Ledbetter MD [address] [place] [address] Primary Staff Physician Cardiology 05/28/18 Goals (unrecognized section and content) Goals may be documented in a n alternate section FOR RECORDS PERTAINING TO PATIENTS WHO ARE OR HAVE BEEN ENROLLED IN A CHEMICAL DEPENDENCY/SUBSTANCEABUSE PROGRAM, SOME INFORMATION MAY BE OMITTED. This clinical summary was aggregated from multiple sources. Caution should be exercised in using it in the provision of clinical care. This summary normalizes information from multiple sources, and as a consequence, information in this document may materially change the coding, format and clinical context of patient data. In addition, data may be omitted in some cases. CLINICAL DECISIONS SHOULD BE BASED ON THE PRIMARY CLINICAL RECORDS. [employer] [facility]. provides no warranty or guarantee of the accuracy or completeness of information in this document.
[2023-06-19 11:42] LABS: Hematocrit 39.2 % (36.0-48.0); Hemoglobin 12.5 g/dL (12.0-16.0); Mean Corpuscular HGB Conc 31.9 g/dL (29.9-35.2); Mean Corpuscular Hemoglobin 30.9 pg (26.7-34.0); Mean Corpuscular Volume 96.8 fL (81.0-99.0); Mean Platelet Volume 10.4 fL (9.5-13.5); Platelet Count 192 10^3/uL (150-450); Red Blood Count 4.05 10^6/uL (4.20-5.40); Red Cell Distribution Width 13.3 % (11.0-15.0); White Blood Count 7.7 10^3/uL (4.0-11.0)
[2023-06-19 12:51] LABS: Atypical Lymphocytes Abs Man 0.15; Band Neutrophils Absolute 0.2 10^3/uL (0.0-0.3); Eosinophils Absolute Manual 0.23 10^3/uL (0.00-0.70); Lymphocytes Absolute Manual 3.77 10^3/uL (1.20-3.80); Monocytes Absolute Manual 0.38 10^3/uL (0.30-0.80); Myelocytes Absolute Manual 0.07; Segmented Neut Absolute Manual 2.84 10^3/uL (1.4-6.5)
[2023-06-19 13:26] LABS: Alanine Aminotransferase 54 U/L (14-59); Albumin Globulin Ratio 0.7; Albumin Level 2.9 g/dL (3.4-5.0); Alkaline Phosphatase 75 U/L (46-116); Anion Gap 11.8; Aspartate Amino Transferase 43 U/L (15-37); BUN Creatinine Ratio 11.3; Bilirubin Total 0.6 mg/dL (0.2-1.0); Calcium 8.6 mg/dL (8.5-10.1); Carbon Dioxide 28.4 mmol/L (21.0-32.0); Chloride 102 mmol/L (98-107); Chol HDL Ratio 7.2; Cholesterol 143 mg/dL (<=200); Estimated GFR (African America >60 (>=60); Estimated GFR (Non-African Ame 52 (>=60); Globulin 3.9 g/dL; Glucose 109 mg/dL (74-106); HDL Cholesterol 20 mg/dL (40-60); Potassium 4.2 mmol/L (3.5-5.1); Sodium 138 mmol/L (136-145); Total Protein 6.8 g/dL (6.4-8.2); Triglycerides 221 mg/dL (<=150); VLDL CHOLESTEROL 44.2 mg/dL
== END 2023-06-19 10:46 | disposition home or self-care (01) ==
LOC: LAB 10:49
PROVIDERS: PCP Family Medicine; Visit Provider Family Medicine
DX: Z00.00 Encounter for general adult medical examination without abnormal findings (principal)
CPT/HCPCS: 36415; 80053; 80061; 84443; 85007; 85027

== ENCOUNTER 2023-06-20 07:30 | Emergency (ER) | payer OTHER, SELFPAY ==
[2023-06-20] VITALS (9 sets, daily range): BP systolic 96–109; BP diastolic 51–67; PULSE 90–117; TEMP 37.3; O2SAT 91–95; BMI 28.4
--- OUTSIDE RECORDS SUMMARY | 2023-06-20 07:42 | XMS_ITS | CCD ---
Author Organization [facility] Care Team Providers Care Siebel Solution Architect Name Role Phone CARMEN EVANS Admitting Unavailable CARMEN EVANS Attending Unavailable Carmen Evans Unavailable Carmen Evans DO Primary Care Provider Emanuel Ledbetter MD Unavailable [phone] Carmen Evans DO Primary Care Provider Emanuel Ledbetter MD Unavailable [phone] Carmen Evans DO Primary Care Provider Emanuel Ledbetter MD Unavailable GRETCHEN Casiano Attending Provider [phone] Bev Casiano Attending Unavailable Bev Casiano Admitting Unavailable EMANUEL LEDBETTER Attending Unavailable EMANUEL LEDBETTER Referring Unavailable CARMEN EVANS Primary Care Unavailable EMANUEL LEDBETTER Referring Unavailable CARMEN EVANS Primary Care Unavailable EMANUEL LEDBETTER Referring Unavailable CARMEN EVANS Primary Care Unavailable EMANUEL LEDBETTER Attending Unavailable EMANUEL LEDBETTER Referring Unavailable CARMEN EVANS Primary Care Unavailable GERAIS-SONIDO, LUANNE Admitting UnaLUANNE Keenan Attending CARMEN Sweet Primary Care Unavailable EMANUEL [...] Facility (4 sources) Lisinopril Drug Allergy [employer] Other (9 sources) Angiotensin-con verting enzyme inhibitor agent; Translations: [LUISA INHIBITORS] Propensity to adverse reactions 6 [facility] (1 source) Lisinopril Drug Allergy 4 [facility] Repository Medications Current Medications Medication Drug Class(es) Dates Sig (Normalized) Sig (Original) amoxicillin 875 mg / clavulanate 125 mg oral tablet (6 sources) Penicillin-class Antibacterial Start: 08-01-2021 take 1 tablet by mouth twice daily at mealtime Amoxicillin-Pot Clavulanate 875-125 MG 1 tablet Orally bid with food for 10 day(s) Jan, Active Fish Oils (4 sources) CO-Q 10 [place]-3 Fish Oil Active perflutren lipid microspheres 1.3 [...] Biotin (Robert Biotin) 10,000 mcg Capsule Discontinued 71575 MCG PO Daily March 07, 2019 1:00am [...] by navi th two times a day. Sdazcgmuvntb-Lci-O nicholas-Fa-Vit K (Multi For Her) 18 mg iron-600 mcg-40 mcg Capsule (2 sources) Start: 03-07-2019 End: 06-05-2023 take 1 capsule by mouth once daily Semqogsbfqhc-Fes-Vppd- Fa-Vit K (Multi For Her) 18 mg [...] pain. If no pain relief call 911. [place] 0-Wun-Vme-Fish Oil (Fish Oil) 1,000 mg (120 mg-180 mg) Capsule (2 sources) Start: 03-07-20 End: 06-05-19 24 take 1 capsule by mouth once daily [place] 3-[employer]td-Fish Oil (Fish Oil) 1,000 mg (120 mg-180 [...] Comment on above: Take 1 capsule by [facility] once daily. rosuvastatin calcium 20 mg oral tablet (7 sources) HMG-CoA Reductase Inhibitor Start: 07-04-19 take 1 tablet by mouth once daily rosuvastatin (CRESTOR) 20 mg tablet Take 1 tablet by mouth once daily. 90 tablet 3 07/03/2022 Active Comment on above: [facility] Selenium (2 sources) Start: [...] on above: Take 1,000 mcg by mo [facility] once daily. Vitamin C 1000 MG (2 [...] elsewhere classified Onset: 08-01-2021 Resolved: 08-01-2021 Chronic Dayanara-; endo-; and myocarditis; cardiomyopathy (except that caused [...] Test Name Value Interpretation Reference Range Facility [facility] 06-14-2023 CNOV Office Visit (CARD C HF ANJALI) RICHIE HOPPER ([id number]) 1960 F Date Time Provider Department 06/14/23 11:45 AM EMANUEL LEDBETTER CARD CHF ANJALI During your visit today, we recorded the following information about you: Pulse Blood pressure Weight Height 88/minute 111/65 78.2 kg 1.689 m Emanuel Ledbetter MD 06/14/2023 5:19 PM Signed [facility] SECTION OF HEART FAILURE and CARDIAC TRANSPLANT MEDICINE OUTPATIENT VISIT DATE June 14, 2023 OUTPATIENT VISIT TYPE Established Patient PRIMARY CARE PHYSICIAN: Carmen Evans [address] [place] [address] CHIEF COMPLAINT: HF f/u NURSING INTAKE (Patient?s concerns and/or recent hospitalizations/ER visits): HF Nursing Assessment: Interim Hospitalizations and/or ER visits:02/16/2023 [facility] W/POSS PCI Chest Pain: no Skipping or [...] mmol/L 3. (more content not included)... Normal [facility] ECHOon 06-14-2023 Echocardiography Echocardiography Report: Transthoracic Echo [facility] J1-5 Date of service: 06/14/2023 10:29:30 AM SCIENCE TAXONOMIST Ordering physician: EMANUEL LEDBETTER Indication: CHF Technologist: Maranda Mckeon and Tamika Byrnes RUST Interpreting physician: Salvatore Bowers DO PATIENT: Name: [...] * * * Final * * * AddressHealth Medical Image : [id number] sSISUID Normal [facility] Urine Cultureon 06-05-2023 Bacteria identified Cx Nom (U) 15,000 colonies/ml mixed bacterial skin contaminants 1 Day PERFORMED BY: [address] [address] PATHOLOGIST ROADSIDE MECHANIC GLORIA ALMEIDA M.D. Normal [facility] Comment on above: Performed By: #### C UU #### [address] [place] [address] [facility] Vick 03-06-2023 CNPN Telephone (CARD [facility] ANJALI) RICHIE HOPPER ([id number]) 1960 F Date Time Provider Department 03/06/23 EMANUEL LEDBETTER CARD [facility] ANJALI During your visit today, we recorded the following information about you: Marcus FátimaKriss 03/06/2023 2:17 PM Signed Patient has a cold/flu x 2 days and wants to know what she can take. Please call her at [phone]. Thank you, kriss Allergies As of Date: [...] Status:Closed by SANTOS BLOUNT on 03/06/23 Normal [facility] CARD CATH DIAGNOSTICon 02-16 CARD CATH DIAGNOSTIC Site Id: [facility] Lab #: [id number] [place] 2 Study Date: 02/16/2023 Start Time: 02/16/2023 [...] On: 02/16/2023 at 2:26:17 PM Final CC AddressHealth Medical Image : [id number] SISUID See Link below for Image Normal [facility] CNOVon 02-15-2023 CNOV Office Visit (JUNITO Castañeda HF ANJALI) RICHIE HOPPER ([id number]) 1960 F Date Time Provider Department 02/15/23 11:45 AM EMANUEL LEDBETTER CHF ANJALI During your visit today, we recorded the following information about you: Pulse Blood pressure Weight Height 69/minute 111/74 81.5 kg 1.702 m Emanuel Ledbetter MD 02/15/2023 5:05 PM Signed [facility] SECTION OF HEART FAILURE and CARDIAC TRANSPLANT MEDICINE OUTPATIENT VISIT DATE February 15, 2023 OUTPATIENT VISIT TYPE Established Patient PRIMARY CARE PHYSICIAN: Carmen Evans [address] [place] [address] CHIEF COMPLAINT: CP NURSING INTAKE (Patient?s concerns [...] 12.7 fL (more content not included)... Normal [facility] CNPNon 02-15-2023 CNPN Telephone (CATskyrockitN) RICHIE HOPPER ([id number]) 1960 F Date Time Provider Department 02/15/23 [...] Status:Closed by DEBBIE SALGUERO RN on 02/15/23 [facility] ECHOon 02-15-2023 Echocardiography Echocardiography Report: Transthoracic Echo [facility] J1-5 Date of service: 02/15/2023 7:58:30 AM SCIENCE TAXONOMIST Ordering physician: EMANUEL LEDBETTER Indication: Diastolic CHF [...] * * * Final * * * AddressHealth Medical Image : [id number] sSISUID Normal [facility] CARDIAC PERF STRESS/PHARM on 02-15-2023 NM CARDIAC PERF STRESS/PHARM * * *Final Report* * * DATE OF EXAM: Feb 15 2023 11:34AM [facility] 0006 - NM CARDIAC PERF STRESS/PHARM / PROCEDURE REASON: Encounter for screening for cardiovascular disorders * * * * Physician Interpretation * * * * Stress Radiator Repairer Report: [facility] NORI-2 Date of service: 02/15/2023 9:49:58 [...] later. See administered radiotracer and doses below. [facility] Date of service: 02/15/2023 9:49:58 AM [...] * * Final * * * ------ [facility] Report: [facility] Date of service: 02/15/2023 9:49:58 AM [facility] interpreting physician: Sebastian Norris MD PATIENT: Name: MRS. RICHIE HOPPER Age: 63 years Gender: F 1. Incidental Findings from limited non-diagnostic CTAC: - No distinct coronary calcifications. * * * Final * * * (more content not included)... Normal [facility] CBC panel Auto (Bld)on 02-14 Erythrocyte distribution width (RBC) [Ratio] 12.4 % Normal 11.5-15.0 [facility] Comment on above: Order Comment: Speci men Type: BLOOD SPECIMENOrdering Facility: [facility] Address: [address] [place] [address] Performed By: #### 5 8410-2 ####[facility] LABCLIA [id number] [place] [address] Hematocrit (Bld) [Volume fraction] 42.2 % Normal 36.0-46.0 [facility] Comment on above: Order Comment: Speci men Type: BLOOD SPECIMENOrdering Facility: [facility] Address: [address] [place] [address] Performed By: #### 5 8410-2 ####[facility] LABCLIA [id number] [place] [address] Hemoglobin (Bld) [Mass/Vol] 14.3 g/dL Normal 11.5-15.5 [facility] Comment on above: Order Comment: Speci men Type: BLOOD SPECIMENOrdering Facility: [facility] Address: [address] [place] [address] Performed By: #### 5 8410-2 ####[facility] LABIA [id number] [place] [address] MCH (RBC) [Entitic mass] 31.6 pg Normal 26.0-34.0 [facility] Comment on above: Order Comment: Speci men Type: BLOOD SPECIMENOrdering Facility: [facility] Address: [address] [place] [address] Performed By: #### 5 8410-2 ####[facility] LABCLIA [id number] [place] [address] MCHC (RBC) [Mass/Vol] 33.9 g/dL Normal 30.5-36.0 [facility] Comment on above: Order Comment: Speci men Type: BLOOD SPECIMENOrdering Facility: [facility] Address: [address] [place] [address] Performed By: #### 5 8410-2 ####[facility] LABCLIA [id number] [place] [address] MCV (RBC) [Entitic vol] 93.4 fL Normal 80.0-100.0 [facility] Comment on above: Order Comment: Speci men Type: BLOOD SPECIMENOrdering Facility: [facility] Address: [address] [place] [address] Performed By: #### 5 8410-2 ####[facility] LABCLIA [id number] [place] [address] Nucleated RBC (Bld) [#/Vol] 10*3/uL Normal <0.01 [facility] Comment on above: Order Comment: Speci men Type: BLOOD SPECIMENOrdering Facility: [facility] Address: [address] [place] [address] Performed By: #### 5 8410-2 ####[facility] LABCLIA [id number] [place] [address] Platelet mean volume (Bld) [Entitic vol] 9.6 fL Normal 9.0-12.7 [facility] Comment on above: Order Comment: Speci men Type: BLOOD SPECIMENOrdering Facility: [facility] Address: [address] [place] [address] Performed By: #### 5 8410-2 ####[facility] LABCLIA [id number] [place] [address] Platelets (Bld) [#/Vol] 226 10*3/uL Normal 150-400 [facility] Comment on above: Order Comment: Speci men Type: BLOOD SPECIMENOrdering Facility: [facility] Address: [address] [place] [address] Performed By: #### 5 8410-2 ####[facility] LABCLIA [id number] [place] [address] RBC (Bld) [#/Vol] 4.52 10*6/uL Normal 3.90-5.20 [facility] Comment on above: Order Comment: Speci men Type: BLOOD SPECIMENOrdering Facility: [facility] Address: [address] [place] [address] Performed By: #### 5 8410-2 ####[facility] LABIA [id number] [place] [address] WBC (Bld) [#/Vol] 6.74 10*3/uL Normal 3.70-11.00 [facility] Comment on above: Order Comment: Speci men Type: BLOOD SPECIMENOrdering Facility: [facility] Address: [address] [place] [address] Performed By: #### 5 8410-2 ####[facility] LABIA [id number] [place] [address] Comprehensive metabolic 2000 panelon 02-14-2023 Albumin [Mass/Vol] 4.5 g/dL Normal 3.9-4.9 [facility] Comment on above: Order Comment: Speci men Type: BLOOD SPECIMENOrdering Facility: [facility] Address: [address] [place] [address] Performed By: #### 2 4323-8 ####[facility] LABIA [id number] [place] [address] ALP [Catalytic activity/Vol] 73 U/L Normal 34-123 [facility] Comment on above: Order Comment: Speci men Type: BLOOD SPECIMENOrdering Facility: [facility] Address: [address] [place] [address] Performed By: #### 2 4323-8 ####[facility] LABCLIA [id number] [place] [address] ALT [Catalytic activity/Vol] 32 U/L Normal 7-38 [facility] Comment on above: Order Comment: Speci men Type: BLOOD SPECIMENOrdering Facility: [facility] Address: [address] [place] [address] Performed By: #### 2 4323-8 ####[facility] LABCLIA [id number] [place] [address] Anion gap [Moles/Vol] 7 mmol/L Low 9-18 [facility] Comment on above: Order Comment: Speci men Type: BLOOD SPECIMENOrdering Facility: [facility] Address: [address] [place] [address] Performed By: #### 2 4323-8 ####[facility] LABCLIA [id number] [place] [address] AST [Catalytic activity/Vol] 25 U/L Normal 13-35 [facility] Comment on above: Order Comment: Speci men Type: BLOOD SPECIMENOrdering Facility: [facility] Address: [address] [place] [address] Performed By: #### 2 4323-8 ####[facility] LABCLIA [id number] [place] [address] Bilirubin [Mass/Vol] 0.6 mg/dL Normal 0.2-1.3 [facility] Comment on above: Order Comment: Speci men Type: BLOOD SPECIMENOrdering Facility: [facility] Address: [address] [place] [address] Performed By: #### 2 4323-8 ####[facility] LABCLIA [id number] [place] [address] Calcium [Mass/Vol] 9.9 mg/dL Normal 8.5-10.2 [facility] Comment on above: Order Comment: Speci men Type: BLOOD SPECIMENOrdering Facility: [facility] Address: [address] [place] [address] Performed By: #### 2 4323-8 ####[facility] LABCLIA [id number] [place] [address] Chloride [Moles/Vol] 108 mmol/L High 97-105 [facility] Comment on above: Order Comment: Speci men Type: BLOOD SPECIMENOrdering Facility: [facility] Address: [address] [place] [address] Performed By: #### 2 4323-8 ####[facility] LABCLIA [id number] [place] [address] CO2 [Moles/Vol] 29 mmol/L Normal 22-30 [facility] Comment on above: Order Comment: Speci men Type: BLOOD SPECIMENOrdering Facility: [facility] Address: [address] [place] [address] Performed By: #### 2 4323-8 ####[facility] LABCLIA [id number] [place] [address] Creatinine [Mass/Vol] 0.87 mg/dL Normal 0.58-0.96 [facility] Comment on above: Order Comment: Speci men Type: BLOOD SPECIMENOrdering Facility: [facility] Address: [address] [place] [address] Performed By: #### 2 4323-8 ####[facility] LABCLIA [id number] [place] [address] Creatinine and Glomerular filtration rate.predicted panel (S/P/Bld) 75 mL/min/1.73m??? Normal >=60 [facility] Comment on above: Order Comment: Speci men Type: BLOOD SPECIMENOrdering Facility: [facility] Address: [address] [place] [address] Result Comment: Delilah mated Glomerular Filtration Rate [...] actual GFR. Performed By: #### 2 4323-8 ####[facility] LABCLIA [id number] [place] [address] Glucose [Mass/Vol] 104 mg/dL High 74-99 [facility] Comment on above: Order Comment: Pat dumont Type: BLOOD SPECIMENOrdering Facility: [facility] Address: [address] [place] [address] Result Comment: The [place] Diabetes Association (ADA) provides guidance for cutoff [...] Standards of Medical Care in Diabetes 2016, [place] [employer]. Diabetes Care. 2016.39(Suppl 1). Performed By: #### 2 4323-8 ####[facility] LABCLIA [id number] [place] [address] Potassium [Moles/Vol] 4.8 mmol/L Normal 3.7-5.1 [facility] Comment on above: Order Comment: Pat dumont Type: BLOOD SPECIMENOrdering Facility: [facility] Address: [address] [place] [address] Performed By: #### 2 4323-8 ####[facility] LABCLIA [id number] [place] [address] Protein [Mass/Vol] 7.3 g/dL Normal 6.3-8.0 [facility] Comment on above: Order Comment: Pat dumont Type: BLOOD SPECIMENOrdering Facility: [facility] Address: [address] [place] [address] Performed By: #### 2 4323-8 ####[facility] LABCLIA [id number] [place] [address] Sodium [Moles/Vol] 144 mmol/L Normal 136-144 [facility] Comment on above: Order Comment: Speci men Type: BLOOD SPECIMENOrdering Facility: [facility] Address: [address] [place] [address] Performed By: #### 2 4323-8 ####[facility] LABCLIA [id number] [place] [address] Urea nitrogen [Mass/Vol] 16 mg/dL Normal 7-21 [facility] Comment on above: Order Comment: Speci men Type: BLOOD SPECIMENOrdering Facility: [facility] Address: [address] [place] [address] Performed By: #### 2 4323-8 ####[facility] LABCLIA [id number] [place] [address] NT-proBNP [facility] 02-14 Natriuretic peptide.B prohormone N-Terminal [Mass/Vol] 181 pg/mL High <125 [facility] Comment on above: Order Comment: Speci men Type: BLOOD SPECIMENOrdering Facility: [facility] Address: [address] [place] [address] Performed By: #### 3 3762-6 ####[facility] LABCLIA [id number] [facility] [id number] [id number] [place] CBC panel Auto (Bld)on 07-03 Erythrocyte distribution width (RBC) [Ratio] 12.5 % Normal 11.5-15.0 [facility] Comment on above: Order Comment: Speci men Type: BLOOD SPECIMENOrdering Facility: [facility] Address: [address] [place] [id number] Performed By: #### 5 8410-2 ####[facility] LABCLIA [id number] [address] [place] Hematocrit (Bld) [Volume fraction] 43.5 % Normal 36.0-46.0 [facility] Comment on above: Order Comment: Speci men Type: BLOOD SPECIMENOrdering Facility: [facility] Address: [address] [place] [address] Performed By: #### 5 8410-2 ####[facility] LABIA [id number] [address] [place] Hemoglobin (Bld) [Mass/Vol] 13.9 g/dL Normal 11.5-15.5 [facility] Comment on above: Order Comment: Speci men Type: BLOOD SPECIMENOrdering Facility: [facility] Address: [address] [place] [address] Performed By: #### 5 8410-2 ####[facility] LABIA [id number] [address] [place] OF [place] [facility] MCH (RBC) [Entitic mass] 31.0 pg Normal 26.0-34.0 [facility] Comment on above: Order Comment: Speci men Type: BLOOD SPECIMENOrdering Facility: [facility] Address: [address] [place] [address] Performed By: #### 5 8410-2 ####[facility] LABIA [id number] [place] [address] [place] MCHC (RBC) [Mass/Vol] 32.0 g/dL Normal 30.5-36.0 [facility] Comment on above: Order Comment: Speci men Type: BLOOD SPECIMENOrdering Facility: [facility] Address: [address] [place], [place] [address] Performed By: #### 5 8410-2 ####[facility] LABCLIA [id number] [place] [address] [place] MCV (RBC) [Entitic vol] 96.9 fL Normal 80.0-100.0 [facility] Comment on above: Order Comment: Speci men Type: BLOOD SPECIMENOrdering Facility: [facility] Address: [address] Performed By: #### 5 8410-2 ####[facility] LABIA [id number] [place] [address] [place] Nucleated RBC (Bld) [#/Vol] 10*3/uL Normal <0.01 [facility] Comment on above: Order Comment: Speci men Type: BLOOD SPECIMENOrdering Facility: [facility] Address: [address] Performed By: #### 5 8410-2 ####[facility] LABIA [id number] [place] [address] [place] Platelet mean volume (Bld) [Entitic vol] 10.9 fL Normal 9.0-12.7 [facility] Comment on above: Order Comment: Speci men Type: BLOOD SPECIMENOrdering Facility: [facility] Address: [address] [place], [place] [address] Performed By: #### 5 8410-2 ####[facility] LABIA [id number] [place] [address] [place] Platelets (Bld) [#/Vol] 160 10*3/uL Normal 150-400 [facility] Comment on above: Order Comment: Speci men Type: BLOOD SPECIMENOrdering Facility: [facility] Address: [address] [place] [address] Performed By: #### 5 8410-2 ####[facility] LABIA [id number] [place] [address] [place] RBC (Bld) [#/Vol] 4.49 10*6/uL Normal 3.90-5.20 [facility] Comment on above: Order Comment: Speci men Type: BLOOD SPECIMENOrdering Facility: [facility] Address: [address] [place] [address] Performed By: #### 5 8410-2 ####[facility] LABIA [id number] [place] [address] [place] WBC (Bld) [#/Vol] 6.60 10*3/uL Normal 3.70-11.00 [facility] Comment on above: Order Comment: Speci men Type: BLOOD SPECIMENOrdering Facility: [facility] Address: [place] [address] Performed By: #### 5 8410-2 ####[facility] LABIA [id number] [address] [place] CNOVon 07-03-2022 CNOV Office Visit (JUNITO Castañeda HF ANJALI) RICHIE HOPPER ([id number]) 1960 F Date Time Provider Department 07/03/22 2:15 PM EMANUEL LEDBETTER CHF ANJALI During your visit today, we recorded the following information about you: Pulse Blood pressure Weight Height 72/minute 135/85 84.6 kg 1.689 m Emanuel Ledbetter MD 07/03/2022 5:14 PM Signed [facility] SECTION OF HEART FAILURE and CARDIAC TRANSPLANT MEDICINE OUTPATIENT VISIT DATE July 03, 2022 OUTPATIENT VISIT TYPE Established Patient PRIMARY CARE PHYSICIAN: Carmen Evans [address] [place] [address] CHIEF COMPLAINT: HF F/u NURSING INTAKE (Patient?s [...] level: yes, super tired. Happened when medication foreman/project manager changed Unintentional weight gain: fluctuates 3 lbs [...] one tablet daily by mouth.Disp: Rfl: FOREIGN [id number] mg once daily. Pt takes Q-Sorb CO [...] 136 - (more content not included)... Normal [facility] Comprehensive metabolic 2000 panelon 07-03-2022 Albumin [Mass/Vol] 4.3 g/dL Normal 3.9-4.9 [facility] Comment on above: Order Comment: Speci men Type: BLOOD SPECIMENOrdering Facility: [facility] Address: [address] [place] [address] Performed By: #### 2 4323-8, LIPNF ####[facility] LABCLIA [id number] [place] [address] [place] ALP [Catalytic activity/Vol] 66 U/L Normal 34-123 [facility] Comment on above: Order Comment: Speci men Type: BLOOD SPECIMENOrdering Facility: [facility] Address: [address] [place], [place] [address] Performed By: #### 2 4323-8, LIPNF ####[facility] LABIA [id number] [address] [place] ALT [Catalytic activity/Vol] 59 U/L High 7-38 [facility] Comment on above: Order Comment: Speci men Type: BLOOD SPECIMENOrdering Facility: [facility] Address: [address] [place] [address] Result Comment: Resu lts may be falsely increased due to interference from hemolysis. Suggest reorder as clinically indicated. Performed By: #### 2 4323-8, LIPNF ####[facility] LABCLIA [id number] [place] [address] [place] Anion gap [Moles/Vol] 11 mmol/L Normal 9-18 [facility] Comment on above: Order Comment: Speci men Type: BLOOD SPECIMENOrdering Facility: [facility] Address: [address] [place] [address] Performed By: #### 2 4323-8, LIPNF ####[facility] LABCLIA [id number] [place] [address] [place] AST [Catalytic activity/Vol] 55 U/L High 13-35 [facility] Comment on above: Order Comment: Speci men Type: BLOOD SPECIMENOrdering Facility: [facility] Address: [address] [place] [address] Result Comment: Resu lts may be falsely increased due to interference from hemolysis. Suggest reorder as clinically indicated. Performed By: #### 2 4323-8, LIPNF ####[facility] LABCLIA [id number] [place] [address] [place] Bilirubin [Mass/Vol] 0.5 mg/dL Normal 0.2-1.3 [facility] Comment on above: Order Comment: Speci men Type: BLOOD SPECIMENOrdering Facility: [facility] Address: [address] [place] [address] Performed By: #### 2 4323-8, LIPNF ####[facility] LABCLIA [id number] [place] [address] [place] Calcium [Mass/Vol] 9.3 mg/dL Normal 8.5-10.2 [facility] Comment on above: Order Comment: Speci men Type: BLOOD SPECIMENOrdering Facility: [facility] Address: [address] [place] [address] Performed By: #### 2 4323-8, LIPNF ####[facility] LABCLIA [id number] [place] [address] [place] Chloride [Moles/Vol] 105 mmol/L Normal 97-105 [facility] Comment on above: Order Comment: Speci men Type: BLOOD SPECIMENOrdering Facility: [facility] Address: [address] [place] [address] Performed By: #### 2 4323-8, LIPNF ####[facility] LABCLIA [id number] [place] [address] [place] CO2 [Moles/Vol] 22 mmol/L Normal 22-30 [facility] Comment on above: Order Comment: Speci men Type: BLOOD SPECIMENOrdering Facility: [facility] Address: [address] [address] Performed By: #### 2 4323-8, LIPNF ####[facility] LABCLIA [id number] [place] [address] [place] Creatinine [Mass/Vol] 0.74 mg/dL Normal 0.58-0.96 [facility] Comment on above: Order Comment: Speci men Type: BLOOD SPECIMENOrdering Facility: [facility] Address: [address] [place] [address] Performed By: #### 2 4323-8, LIPNF ####[facility] LABCLIA [id number] [address] STATES OF [facility] ESTIMATED GLOMERULAR FILTRATION RATE 92 mL/min/1.73m??? Normal >=60 [facility] Comment on above: Order Comment: Speci men Type: BLOOD SPECIMENOrdering Facility: [facility] Address: [address] [place] [address] Result Comment: Delilah mated Glomerular Filtration Rate [...] GFR. Performed By: #### 2 4323-8, LIPNF ####[facility] LABCLIA [id number] [place] [address] [place] Glucose [Mass/Vol] 86 mg/dL Normal 74-99 [facility] Comment on above: Order Comment: Speci men Type: BLOOD SPECIMENOrdering Facility: [facility] Address: [address] [place] [address] Result Comment: The [place] Diabetes Association (ADA) provides guidance for cutoff [...] Standards of Medical Care in Diabetes 2016, [place] [employer] Association. Diabetes Care. 2016.39(Suppl 1). Performed By: #### 2 4323-8, LIPNF ####[facility] LABIA [id number] [place] [address] [place] Potassium [Moles/Vol] Normal [facility] Comment on above: Order Comment: Speci men Type: BLOOD SPECIMENOrdering Facility: [facility] Address: [address] [address] Result Comment: Unab le to assay due to interference from hemolysis. Suggest reorder as clinically indicated. Performed By: #### 2 4323-8, LIPNF ####[facility] LABIA [id number] [place] [address] [place] Protein [Mass/Vol] 7.1 g/dL Normal 6.3-8.0 [facility] Comment on above: Order Comment: Speci men Type: BLOOD SPECIMENOrdering Facility: [facility] Address: [address] [address] Performed By: #### 2 4323-8, LIPNF ####[facility] LABIA [id number] [place] [address] [place] Sodium [Moles/Vol] 138 mmol/L Normal 136-144 [facility] Comment on above: Order Comment: Speci men Type: BLOOD SPECIMENOrdering Facility: [facility] Address: [address] [address] Performed By: #### 2 4323-8, LIPNF ####[facility] LABCLIA [id number] [address] [place] Urea nitrogen [Mass/Vol] 10 mg/dL Normal 7-21 [facility] Comment on above: Order Comment: Speci men Type: BLOOD SPECIMENOrdering Facility: [facility] Address: [address] [place] [address] Performed By: #### 2 4323-8, LIPNF ####[facility] LABCLIA [id number] [address] [place] ECG COMPLETEon 07-03-2022 ECG COMPLETE Ventricular Rate : 7 2 BPM Atrial Rate : 72 BPM P-R Interval : 144 ms QRS Duration : 144 ms Q-T Interval : 438 ms QTC Calculation(Bazett) : 479 ms Calculated P [place] : 24 degrees Calculated R [place] : -13 degrees Calculated T [place] : 148 degrees NORMAL SINUS RHYTHM COMPLETE LEFT BUNDLE BRANCH BLOCK ABNORMAL ECG Confirmed by ARUN ABRFIELD MD ([id number]) on 07/04/2022 12:58:06 PM NAME : RICHIE HOPPER PID : [id number] : 1960 Gender : Female Race : ORD : [id number] Procedure Date : Jul 03 2022 12:54:33 Edit Date : Jul 04 2022 12:58:07 Diagnosis: NORMAL SINUS RHYTHM COMPLETE LEFT BUNDLE BRANCH BLOCK ABNORMAL ECG Confirmed by ARUN BARFIELD MD ([id number]) on 07/04/2022 12:58:06 PM Test Reason : Location : 314 : J14 J1-4 Overread By : ARUN BARFIELD MD Edited By : ARUN BARFIELD MD Referred By : EMANUEL LEDBETTER Acquired by : MELIZA LOPEZ [facility] ECHOon 07-03-2022 Echocardiography Echocardiography Report: Transthoracic Echo [facility] J35 Date of service: 07/03/2022 3:47:48 PM SCIENCE TAXONOMIST Ordering physician: EMANUEL LEDBETTER Indication: Diastolic CHF Technologist: Cheryl Reynolds RUST Interpreting physician: Yasmin Calvillo MD PATIENT: Name: [...] * * * Final * * * [facility] : [id number] Normal [facility] LIPID PANEL, NONFASTINGon Cholesterol [Mass/Vol] 249 mg/dL High <200 [facility] Comment on above: Order Comment: Speci men Type: BLOOD SPECIMENOrdering Facility: [facility] Address: [facility] [place] [address] Result Comment: <200 mg/dL, Desirable 200-239 mg/dL, Borderline high >239 mg/dL, High Performed By: #### 2 4323-8, LIPNF ####[facility] LABCLIA [id number] [address] OF [facility] HDL CHOLESTEROL, NF 43 mg/dL Normal >39 [facility] Comment on above: Order Comment: Pat julia Type: BLOOD SPECIMENOrdering Facility: [facility] Address: [address] [address] Result Comment: 40-5 9 mg/dL, Acceptable >59 mg/dL, High: Negative risk factor for coronary heart disease <40 mg/dL, Low: Positive risk factor for coronary heart disease Performed By: #### 2 4323-8, LIPNF ####[facility] LABCLIA [id number] [address] LDL CHOLESTEROL, NF 178 mg/dL High <100 [facility] Comment on above: Order Comment: Pat [facility] Type: BLOOD SPECIMENOrdering Facility: [facility] Address: [address] [address] Result Comment: <100 mg/dL, Optimal 100-129 mg/dL, Near optimal/above optimal 130-159 mg/dL, Borderline high 160-189 mg/dL, High >189 mg/dL, Very high Secondary prevention optimal LDL Cholesterol levels are recommended to be < 70 mg/dL Performed By: #### 2 4323-8, LIPNF ####[facility] LABCLIA [id number] [address] OF [facility] LDL/HDL RATIO, NF 4.14 mg/dL High <2.54 [facility] Comment on above: Order Comment: [facility] Type: BLOOD SPECIMENOrdering Facility: [facility] Address: [address] [address] Result Comment: Skylar lee: 1. National Cholesterol Education Program ATP III Guideline At-A-Glance Quick Desk Reference: National Heart, Lung, and Blood [place]. National Institutes of Health. 2001: NIH Publication No. 01-3305. 2. An International Atherosclerosis Society position paper: global recommendations for the management of dyslipidemia: executive summary, Atherosclerosis. 2014: 232(2):410-413. Performed By: #### 2 4323-8, LIPNF ####[facility] LABCLIA [id number] [place] [address] [place] NON HDL CHOL, NF 206 mg/dL High <130 [facility] Comment on above: Order Comment: Speci men Type: BLOOD SPECIMENOrdering Facility: [facility] Address: [address] [place] [address] Result Comment: <130 mg/dL, Optimal 130-159 mg/dL, Near optimal/above optimal 160-189 mg/dL, Borderline high 190-219 mg/dL, High >219 mg/dL, Very high Secondary prevention optimal non HDL Cholesterol levels are recommended to be <100 mg/dL Performed By: #### 2 4323-8, LIPNF ####[facility] LABCLIA [id number] [place] [address] [place] T CHOL/HDL RATIO NF 5.79 mg/dL High <5.10 [facility] Comment on above: Order Comment: Speci men Type: BLOOD SPECIMENOrdering Facility: [facility] Address: [address] [address] Performed By: #### 2 4323-8, LIPNF ####[facility] LABCLIA [id number] [place] [address] [place] TRIGLYCERIDES, NF 138 mg/dL Normal <150 [facility] Comment on above: Order Comment: Speci men Type: BLOOD SPECIMENOrdering Facility: [facility] Address: [address] [address] Result Comment: <150 mg/dL, Normal 150-199 mg/dL, Borderline high 200-499 mg/dL, High >499 mg/dL, Very high Performed By: #### 2 4323-8, LIPNF ####[facility] LABCLIA [id number] [place] [address] [place] VLDL CHOLESTEROL, NF 28 mg/dL Normal <30 [facility] Comment on above: Order Comment: Speci men Type: BLOOD SPECIMENOrdering Facility: [facility] Address: [address] [id number] Performed By: #### 2 4323-8, LIPNF ####[facility] LABCLIA [id number] [facility] [id number] [address] [place] Vital Signs Date Time Vital Sign Value Performing Clinician Facility 06-14-2023 11:52-0400 Body height 168.9 cm Emanuel Ledbetter MD Work Phone: [facility] 06-14-2023 11:52-0400 Body weight 78.25 kg Emanuel Ledbetter MD Work Phone: [facility] 06-14-2023 11:52-0400 Diastolic blood pressure 65 mm[Hg] Emanuel Ledbetter MD Work Phone: [facility] 06-14-2023 11:52-0400 Heart rate 88 /min Emanuel Ledbetter MD Work Phone: [facility] 06-14-2023 11:52-0400 SaO2% (BldA) [Mass fraction] 98 % Emanuel Ledbetter MD Work Phone: [facility] 06-14-2023 11:52-0400 Systolic blood pressure 111 mm[Hg] Emanuel Ledbetter MD Work Phone: [facility] 06-05-2023 13:16-0400 Body height 168.91 cm [facility] 06-05-2023 13:16-0400 Body mass index (BMI) [Ratio] 28.5 kg/m2 [facility] 06-05-2023 13:16-0400 Body temperature 98 [degF] [facility] 06-05-2023 13:16-0400 Body weight 81.36 kg [facility] 06-05-2023 13:16-0400 Respiratory rate 18 /min [facility] 06-05-2023 13:16-0400 SaO2% (BldA) [Mass fraction] 98 % [facility] 02-15-2023 12:26-0500 Body height 170.2 cm Emanuel Ledbetter MD Work Phone: [facility] 02-15-2023 12:26-0500 Body weight 81.51 kg Emanuel Ledbetter MD Work Phone: [facility] 02-15-2023 12:26-0500 Diastolic blood pressure 74 mm[Hg] Emanuel Ledbetter MD Work Phone: [facility] 02-15-2023 12:26-0500 Heart rate 69 /min Emanuel Ledbetter MD Work Phone: [facility] 02-15-2023 12:26-0500 SaO2% (BldA) [Mass fraction] 97 % Emanuel Ledbetter MD Work Phone: [facility] 02-15-2023 12:26-0500 Systolic blood pressure 111 mm[Hg] Emanuel Ledbetter MD Work Phone: [facility] 07-03-2022 14:28-0400 Body height 168.9 cm Emanuel Ledbetter MD Work Phone: [facility] 07-03-2022 14:28-0400 Body weight 84.64 kg Emanuel Ledbetter MD Work Phone: [facility] 07-03-2022 14:28-0400 Diastolic blood pressure 85 mm[Hg] Emanuel Ledbetter MD Work Phone: [facility] 07-03-2022 14:28-0400 Heart rate 72 /min Emanuel Ledbetter MD Work Phone: [facility] 07-03-2022 14:28-0400 SaO2% (BldA) [Mass fraction] 95 % Emanuel Ledbetter MD Work Phone: [facility] 07-03-2022 14:28-0400 Systolic blood pressure 135 mm[Hg] Emanuel Ledbetter MD Work Phone: [facility] 08-01-2021 17:20-0400 Body height 168.91 cm Carmen Evans Other [employer] Other 08-01-2021 17:20-0400 Body mass index (BMI) [Ratio] 29.73 kg/m2 Carmen Evans Other [employer] Other 08-01-2021 17:20-0400 Body temperature 96.6 [degF] Carmen Evans Other [employer] Other 08-01-2021 17:20-0400 Body weight 84.82 kg Carmen Evans Other [employer] Other 08-01-2021 17:20-0400 Diastolic blood pressure 72 mm[Hg] Carmen Lizetteguille Other [employer] Other 08-01-2021 17:20-0400 SaO2% (BldA) [Mass fraction] 96 % Carmen Evans Other [employer] Other 08-01-2021 17:20-0400 Systolic blood pressure 106 mm[Hg] Carmen Evans Other [employer] Other Encounters Encounter Date Encounter Type Care Provider Facility Start: 06-14-2023 End: 06-14-2023 ambulatory EMANUEL LEDBETTER Facility:[facility] Start: 06-14-2023 End: 06-14-2023 Patient encounter procedure Emanuel Ledbetter MD Work Phone: Cardiology Comment on above: Chronic systolic (co ngestive) heart failure (HCC) (Primary Dx); PVC (premature ventricular contraction); Hyperlipidemia LDL goal <70; Cardiomyopathy, nonischemic (HCC); Complex medical condition Start: 06-05-2023 End: 06-05-2023 ambulatory Bev Casiano Facility:[facility] Start: 06-05-2023 End: 06-05-2023 Departed Referred DIP UNIT OPERATOR Bev Casiano Work Phone: [facility] [place] Work Phone: Start: 06-05-2023 End: 06-05-2023 ambulatory [facility] Work Phone: Start: 06-05-2023 End: 06-05-2023 Patient encounter procedure [facility] Work Phone: Start: 02-16-2023 [...] Start: 02-15-2023 End: 02-15-2023 ambulatory EMANUEL LEDBETTER Facility:[facility] Start: 02-14-2023 End: 02-14-2023 ambulatory EMANUEL LEDBETTER Facility:[facility] Start: 02-12-2023 End: 02-12-2023 ambulatory Carmen Evans Other [employer] Other Start: 02-12-2023 Telephone encounter Carmen Evans [facility] [place] Start: 11-04-2022 Refill Emanuel Ledbetter MD Work Phone: Cardiology Comment on above: Refill Request Start: 10-18-2022 Refill Emanuel Ledbetter MD Work Phone: Cardiology Comment on above: Refill Request Start: 07-03-2022 End: 07-03-2022 ambulatory EMANUEL LEDBETTER Facility:[facility] Start: 07-03-2022 End: 07-04-2022 ambulatory EMANUEL LEDBETTER Facility:[facility] Start: 07-03-2022 End: 07-03-2022 Patient encounter procedure Emanuel Ledbetter MD Work Phone: Cardiology Comment on above: Hyperlipidemia LDL g oal <70 (Primary Dx); Cardiomyopathy, nonischemic (HCC); Chronic systolic (congestive) heart failure (HCC) Start: 01-27-2022 End: 01-27-2022 ambulatory Carmen Evans Other [employer] Other Start: 01-27-2022 Telephone encounter Carmen Evans [facility] Start: 10-10-2021 Refill Emanuel Ledbetter MD Work Phone: Cardiology Comment on above: Refill Request Start: 08-16-2021 End: 08-16-2021 ambulatory Carmen Evans Other [employer] Other Start: 08-16-2021 Telephone encounter Carmen Evans [facility] Start: 08-01-2021 End: 08-01-2021 ambulatory Carmen Evans Other [employer] Other Start: 08-01-2021 Office outpatient vi sit 15 minutes Carmen Evans [facility] Start: 04-19-2019 Patient encounter procedure CARMEN EVANS Facility:[facility] Procedures Date Procedure Procedure Detail Performing Clinician Start: 07-03-2022 Lipid 1996 panel - S vikas or Plasma Luanne Banks MD Work Phone: Plan of Treatment Date Care Activity Detail Author Start: 07-04-2027 Lipid 1996 panel - S vikas or Plasma Lipid Screening [facility] Start: 07-04-2027 Lipid panel Lipid Screening [facility] Start: 07-04-2027 LIPID SCREEN LIPID SCREEN [facility] Start: 02-14-2026 Diabetes Screening Diabetes Screenin g [facility] Start: 08-10-2025 LIPID SCREEN LIPID SCREEN [facility] Start: 07-03-2025 DIABETES SCREEN DIABETES SCREEN [facility] Start: 11-11-2023 Influenza vaccination Influenz a Vaccine (Season Ended) [facility] Start: 08-11-2023 DIABETES SCREEN DIABETES SCREEN [facility] Start: 06-06-2023 Bacteria identified in Urine by Culture [facility] Start: 06-05-2023 Bacteria identified in Urine by Culture [facility] Start: 03-12-2023 Behavioral Health Screening Behavioral Health Screening [facility] Start: 11-10-2022 Covid-19 Vaccine ( season) Covid-19 Vaccine () [facility] Start: 11-10-2022 Influenza vaccination C [facility] Start: 07-03-2022 End: 09-02-2022 Comprehensive metabolic 2000 panel - Serum or Plasma COMP METABOLIC PANEL Lab STAT Hyperlipidemia LDL goal <70 Expected: 07/03/2022, Expires: 09/02/2022 [facility] Work Phone: Comment on above: Expected: 07/03/2022 , Expires: 09/02/2022 Start: 07-03-2022 End: 09-02-2022 Lipid 1996 panel - Serum or Plasma LIPID PANEL BASIC Lab Routine Hyperlipidemia LDL goal <70 Expected: 07/03/2022, Expires: 09/02/2022 [facility] Work Phone: Comment on above: Expected: 07/03/2022 , Expires: 09/02/2022 Start: 03-12-2022 DEPRESSION ASSESSMENT DEPRESSION ASS ESSMENT [facility] Start: 11-10-2021 Influenza vaccination INFLUENZA (#1) [facility] Start: 2020 RSV Vaccine (1 - 1-d ose 60+ series) RSV Vaccine (1 - 1-dose 60+ series) [facility] Start: 03-18-2019 Screening for malign ant neoplasm of breast Mammogram Screening [facility] Start: 02-03-2010 SHINGRIX VACCINE (1 of 2) MARADIAGA GRIX VACCINE (1 of 2) [facility] Start: 02-03-2005 COLOGUARD (FIT-DNA) COLOGUARD (FIT-D NA) [facility] Start: 02-03-2005 Colonoscopy COLONOSCOPY [facility] Start: 02-03-2005 COLORECTAL CANCER SCREENING COLORECTAL CANCER SCREENING [facility] Start: 02-03-[address] COLONOGRAPHY [facility] Start: 02-03-2005 FECAL OCCULT BLOOD FECAL OCCULT BLOO D [facility] Start: 02-03-2005 Screening for malign ant neoplasm of colon [facility] Start: 02-03-2005 SIGMOIDOSCOPY SIGMOIDOSCOPY [facility] Start: 2000 Mammography [facility] Start: 02-03-1990 HPV TESTING HPV TESTING [facility] Start: 02-03-1990 Screening for malign ant neoplasm of cervix HPV Testing [facility] Start: 02-03-1981 PAP TESTING PAP TESTING [facility] Start: 02-03-1981 Screening for malign ant neoplasm of cervix Pap Testing [facility] Start: 02-03-1979 Urine microalbumin profile [facility] Start: 02-03-1978 ANNUAL PCP TEAM [employer] ATTENDANT AYUSH DISEASE VISIT ANNUAL PCP TEAM CHRONIC DISEASE VISIT [facility] Start: 02-03-1978 HEPATITIS C SCREENING HEPATITIS C [facility] Start: 02-03-1978 Hepatitis C screening Hepatitis C [facility] Start: 02-03-1978 HIV SCREENING HIV SCREENING [facility] Start: 02-03-1978 HIV screening HIV Screening [facility] Start: 1972 Adult depression scr eening assessment DEPRESSION SCREENING [facility] Start: 02-03-1966 PNEUMOCOCCAL (1 - PCV) PNEUMOCOCCAL (1 - PCV) [facility] Start: 02-03-1966 Pneumococcal vaccination [facility] Start: 1960 COVID-19 VACCINE (#1) COVID-19 VACCI NE (#1) [facility] End: 06-13-2024 ECG COMPLETE ECG COMPLETE ECG Routine Chronic systolic (congestive) heart failure (HCC) 1 Occurrences starting 06/14/2023 until 06/13/2024 [facility] Work Phone: Comment on above: 1 Occurrences starti ng 06/14/2023 until 06/13/2024 End: 02-16-2024 Echocardiography ECHO Cardiology Routine Chronic systolic (congestive) heart failure (HCC) 1 Occurrences starting 02/15/2023 until 02/16/2024 [facility] Work Phone: Comment on above: 1 Occurrences starti ng 02/15/2023 until 02/16/2024 End: 06-13-2024 Echocardiography ECHO Cardiology Routine Chronic systolic (congestive) heart failure (HCC) 1 Occurrences starting 06/14/2023 until 06/13/2024 [facility] Work Phone: Comment on above: 1 Occurrences starti ng 06/14/2023 until 06/13/2024 End: 02-16-2024 HOLTER MONITOR 48 HOUR HOLTER MONITOR 48 HOUR ECG Routine PVC (premature ventricular contraction) 1 Occurrences starting 02/15/2023 until 02/16/2024 [facility] Work Phone: Comment on above: 1 Occurrences starti ng 02/15/2023 until 02/16/2024 [facility] Immunizations Immunization Date Immunization Notes Care Provider Marci degroot NEGATED: Highlighted row has not occurred!12-20-2018 influenza, seasonal, injectable Patient Objection Carmen Evans Other [employer] Other Payers Date Payer Category Payer Private Health Insurance [id number] 2012 Private Health Insurance [facility] [employer] CHOICE PLUS [id number] 2012-Present [phone] [address] [address] [place] [address] O [id number] 2012 Private Health Insurance [facility] [employer] CHOICE PLUS [id number] 2012-Present [phone] [address] [address] [place] [address] O [id number] 1960 Unknown [id number] 1959 Self-pay Unknown [id number] Social History Date Type Detail Facility Start: 02-12-2019 End: 02-15-2023 Sex Assigned At [facility] Start: 02-12-2019 End: 06-14-2023 Tobacco smoking status NHIS Never smoked tobacco [facility] Start: 02-12-2019 End: 06-14-2023 Alcohol intake Current drinker of alcohol (finding) [facility] Start: 1960 Sex Assigned At Not on file [facility] Start: 02-12-2019 End: 06-14-2023 Tobacco use and exposure Smokeless tobacco non-user [facility] Start: 02-12-2019 End: 02-15-2023 History of Social function [facility] National Score (1-10 0), lower number is lower risk 60 [facility] Start: 1960 Sex Assigned At Female C [facility] Clinical Notes 08-07-2013 to 06-14-2023 Emanuel Ledbetter MD - 06/14/2023 11:45 AM Sandy Bal - 02/16/2023 4:24 PM ESTTelevilma Encounter - Debbie Salguero RN - 02/15/2023 3:15 PM Emanuel Abebe MD - 02/15/2023 12:04 PM EST Note Date & Type Note Facility 06-14-2023 Note HNO ID: [id number] Author: EMANUEL LEDBETTER MD Service: ? Author Type: Physician Type: Progress Notes Filed: 06/14/2023 17:19 Note Text: [facility] SECTION OF HEART FAILURE and CARDIAC TRANSPLANT MEDICINE OUTPATIENT VISIT DATE June 14, 2023 OUTPATIENT VISIT TYPE Established Patient PRIMARY CARE PHYSICIAN: Carmen Evans [address] [place] [address] CHIEF COMPLAINT: HF f/u NURSING INTAKE (Patient?s [...] 6.83 6.60 6.7 (more content not included)... [facility] 06-14-2023 History of Presen t illness Narrative Images from the original note were not included. [facility] SECTION OF HEART FAILURE and CARDIAC TRANSPLANT MEDICINE OUTPATIENT VISIT DATE June 14, 2023 OUTPATIENT VISIT TYPE Established Patient PRIMARY CARE PHYSICIAN: Carmen Evans [address] [place] [address] CHIEF COMPLAINT: HF f/u NURSING INTAKE (Patient s concerns and/or recent hospitalizations/ER visits): HF Nursing Assessment: Interim Hospitalizations and/or ER visits:02/16/2023 [facility] W/POSS PCI Chest Pain: no Skipping or [...] sinus rhythm,sinus arrhythmia,tachycardia,SVE,PVC. Scanned on 02/21/2023.Rome [employer]. ECG today: Diagnosis: NORMAL SINUS RHYTHM COMPLETE [...] CC: CARMEN EVANS documented in this encounter [facility] 02-16-2023 Note HNO ID: [id number] Author: Sandy Flower Service: ? Author Type: ? Type: Progress Notes Filed: 02/16/2023 4:24 PM Note Text: HOLTER MONITOR APPLICATION Patient Name: Richie Hopper [facility] Number: [id number] Chest is cleansed with alcohol Skin prep [...] or 48 hours 6.) Call with problems [phone] OR Ext.[phone] Patient expresses good verbal understanding of instructions Sandy Costa [facility] 02-16-2023 History of Presen t illness Narrative HOLTER MONITOR APPLICATION Patient Name: Richie Hopper [facility] Number: [id number] Chest is cleansed with alcohol Skin prep [...] or 48 hours 6.) Call with problems [phone] OR [phone] Patient expresses good verbal understanding of instructions Sandy Costa documented in this encounter [facility] 02-16-2023 Note Education (CARDMN) RICHIE HOPPER ([id number]) 1960 F Date Time Provider Department 02/16/23 7:00 AM ARRHYTHMIA MONITORING LAB CARDMN Reason for Visit: Holter Monitor Application [261] Visit Diagnosis:PVC (premature ventricular contraction) [I49.3] Order(s):HOLTER MONITOR 48 HOUR [0614372] Order #: [id number] During your visit today, we recorded the [...] Encounter Status:Closed by SANDY FLOWER on 02/16/23 [facility] 02-15-2023 Miscellaneous Notes CARDIOVASCULAR LAB INSTRUCTIONS: Readiness [...] Department of CARDIOLOGY. documented in this encounter [facility] 02-15-2023 Note HNO ID: [id number] Author: Emanuel Ledbetter MD Service: ? Author Type: Physician Type: Progress Notes Filed: 02/15/2023 5:05 PM Note Text: [facility] SECTION OF HEART FAILURE and CARDIAC TRANSPLANT MEDICINE OUTPATIENT VISIT DATE February 15, 2023 OUTPATIENT VISIT TYPE Established Patient PRIMARY CARE PHYSICIAN: Carmen Evans [address] [place] [address] CHIEF COMPLAINT: CP NURSING INTAKE (Patient?s concerns [...] (H) Non H (more content not included)... [facility] 02-15-2023 History of Presen t illness Narrative Images from the original note were not included. [facility] SECTION OF HEART FAILURE and CARDIAC TRANSPLANT MEDICINE OUTPATIENT VISIT DATE February 15, 2023 OUTPATIENT VISIT TYPE Established Patient PRIMARY CARE PHYSICIAN: Carmen Evans [address] [place] [address] CHIEF COMPLAINT: CP NURSING INTAKE (Patient s [...] CC: CARMEN EVANS documented in this encounter [facility] 02-15-2023 Note HNO ID: [id number] Author: Juliana Lozano RN Service: Radiology Author [...] ALLERGIES: Reviewed and unchanged MEDICATIONS REVIEWED BY: Horticultural Farmworker PROCEDURE TYPE: NM STRESS: 0.4 mg of [...] 15, 2023 TIME: 10:44 AM PAGER/CONTACT #: [phone] [facility] 02-15-2023 Note HNO ID: [id number] Author: Mo Renteria Nuclear Tech Service: Nuclear Medicine Author Type: Housekeeping Lead Type: Progress Notes Filed: 02/15/2023 10:44 AM [...] STATUS: Discontinued PROCEDURE TYPE: NM Stress: 11.9mCi [id number] was administered IV for Rest Imaging at 0921 by RT Demetria(R). 32.1 mCi [id number] was administered IV for Stress Imaging at 1044 by Mo Renteria [facility]. PATIENT DISCHARGED TO: Ambulatory patient, left NM department area. A Diagnostic radioactive procedure has taken place, with no further precautions necessary other than routine body substance precautions. More information regarding radiation safety can be found using this link: [email or web address] [email or web address] SIGNATURE: RT Demetria(R) PATIENT NAME: Richie Hopper DATE: February 15, 2023 TIME: 9:22 AM PAGER/CONTACT #: [phone] [facility] 07-03-2022 Note HNO ID: [id number] Author: Emanuel Ledbetter MD Service: ? Author Type: Physician Type: Progress Notes Filed: 07/03/2022 5:14 PM Note Text: [facility] SECTION OF HEART FAILURE and CARDIAC TRANSPLANT MEDICINE OUTPATIENT VISIT DATE July 03, 2022 OUTPATIENT VISIT TYPE Established Patient PRIMARY CARE PHYSICIAN: Carmen Evans [address] [place] [address] CHIEF COMPLAINT: HF F/u NURSING INTAKE (Patient?s [...] level: yes, super tired. Happened when medication foreman/project manager changed Unintentional weight gain: fluctuates 3 lbs [...] one tablet daily by mouth.Disp: Rfl: FOREIGN [id number] mg once daily. Pt takes Q-Sorb CO [...] 11.00 k/uL 6. (more content not included)... [facility] 07-03-2022 History of Presen t illness Narrative Images from the original note were not included. [facility] SECTION OF HEART FAILURE and CARDIAC TRANSPLANT MEDICINE OUTPATIENT VISIT DATE July 03, 2022 OUTPATIENT VISIT TYPE Established Patient PRIMARY CARE PHYSICIAN: Carmen Evans [address] [place] [address] CHIEF COMPLAINT: HF F/u NURSING INTAKE (Patient [...] level: yes, super tired. Happened when medication foreman/project manager changed Unintentional weight gain: fluctuates 3 lbs [...] 2022 5:13 PM documented in this encounter [facility] 08-01-2021 Evaluation note Encounter Date Diagnosis Assessment [...] Eat more dark green vegetables and proteins. [employer] Other [id number] History general Narrative - Reported* Type Description Date Medical History HEART-CARDIAL MYOPATHY Medical History Refuses Colonoscopy 08-07-13 Surgical History hysterectomy 2001 Surgical History colonoscopy [facility] [address] [place] cleared left ear 2015 Surgical History Hemorrhoidectomy 02/2019 [employer] Other Evaluation noteNo InformationNort FeedHenry Other evalujbcjk note* Diagnosis Hyperlipidemia LDL goal <70- Primary Other and unspecified hyperlipidemia Cardiomyopathy, nonischemic (HCC) Other primary cardiomyopathies Chronic systolic (congestive) heart failure (HCC) documented in this encounter [facility] note* Diagnosis Chronic systolic (congestive) heart failure (HCC)- Primary Precordial pain PVC (premature ventricular contraction) Other premature beats Hyperlipidemia LDL goal <70 Other and unspecified hyperlipidemia documented in this encounter [facility] note* Diagnosis PVC (premature ventricular contraction) Other premature beats documented in this encounter [facility] noteNo assessment information [facility] Work Phone: Evaluation note* Diagnosis Chronic systolic (congestive) heart failure (HCC)- Primary PVC (premature ventricular contraction) Other premature beats Hyperlipidemia LDL goal <70 Other and unspecified hyperlipidemia Cardiomyopathy, nonischemic (HCC) Other primary cardiomyopathies Complex medical condition documented in this encounter [facility] for referral (narrative)* Outpatient Procedure (Routine) - Pending Review Specialty Diagnoses / Procedures Referred By Contac t Referred To [facility] Diagnoses Chronic systolic (congestive) heart failure (HCC) Procedures ECHO ECHO TTC R-T 2D W/WOM-MODE COMPL SPEC&COLR D Emanuel Ledbetter MD [address] [place] [address] [facility] [address] [place] [address] Referral ID Status Reason Start Date Expiration Date Visits Requested Visits Authorized [id number] Pending Review Auto-Generat ed Referral 02/15/2023 02/15/2024 1 1 * Transition of Care (Routine) - Ref Not Required Specialty Diagnoses / Procedures Referred By Contac t Referred To Contact Procedures CARDIOVASCULAR MEDICINE OP FOLLOW UP APPT ORDER Emanuel Ledbetter MD [address] [place] [address] Referral ID Status Reason Start Date Expiration Date Visits Requested Visits Authorized [id number] Ref Not Required PCP Requested Referral 05/17/2023 02/15/2024 1 1 [facility] for referral (narrative)* Outpatient Procedure (Routine) - Pending Review Specialty Diagnoses / Procedures Referred By Contac t Referred To Contact [facility] Diagnoses Chronic systolic (congestive) heart failure (HCC) Procedures ECHO ECHO TTHRC R-T 2D W/WOM-MODE COMPL SPEC&COLR D Emanuel Ledbetter MD [address] [place] [address] [facility] [address] [address] Referral ID Status Reason Start Date Expiration Date Visits Requested Visits Authorized [id number] Pending Review Auto-Generat ed Referral 06/14/2023 06/13/2024 1 1 * Outpatient Procedure (Routine) - Authorized Specialty Diagnoses / Procedures Referred By Contac t Referred To Contact [facility] Diagnoses Chronic systolic (congestive) heart failure (HCC) Procedures ECG COMPLETE ECG ROUTINE ECG W/LEAST 12 LDS W/I&R Emanuel Ledbetter MD [address] [place] [address] [facility] [address] [address] Referral ID Status Reason Start Date Expiration Date Visits Requested Visits Authorized [id number] Authorized Auto-Generat ed Referral 06/14/2023 06/13/2024 1 1 * Transition of Care (Routine) - Ref Not Required Specialty Diagnoses / Procedures Referred By Indy alfredo Referred To Contact [facility] Procedures CARDIOVASCULAR MEDICINE OP FOLLOW UP APPT ORDER Emanuel Ledbetter MD [address] [place] [address] [facility] [address] [address] Referral ID Status Reason Start Date Expiration Date Visits Requested Visits Authorized [id number] Ref Not Required PCP Requested Referral 09/13/2023 06/13/2024 1 1 [facility] Summary Purpose Family History No Family History [...] and content) DATE CREATED AUTHOR 12/23/2019 [facility] DATE CREATED AUTHOR AUTHOR'S ORGANIZ ATION 06/07/2023 [facility] DATE CREATED AUTHOR AUTHOR'S ORGANIZ ATION 06/15/2023 [facility] REASON FOR VISIT (unrecogniz ed section and [...] INSERT INTRACORONARY STENT-PER MAJOR VESSEL OR BRANCH [facility] [employer] [address] [place] [address] Referral ID Status Reason Start Date Expiration Date Visits Re quested Visits Authorized [id number] 1 1 Reason Comments Follow Up Source Comments (unrecognize d section and content) In the event this informatio n is protected by the Federal Confidentiality of Alcohol and Drug Abuse Patient Records regulations: The Federal rules restrict any use of the information to criminally investigate or prosecute any alcohol or drug abuse patient.[facility] the event this information is protected by the Federal Confidentiality of Alcohol and Drug Abuse Patient Records regulations: The Federal rules restrict any use of the information to criminally investigate or prosecute any alcohol or drug abuse patient.[facility] the event this information is protected by the Federal Confidentiality of Alcohol and Drug Abuse Patient Records regulations: The Federal rules restrict any use of the information to criminally investigate or prosecute any alcohol or drug abuse patient.[facility] the event this information is protected by the Federal Confidentiality of Alcohol and Drug Abuse Patient Records regulations: The Federal rules restrict any use of the information to criminally investigate or prosecute any alcohol or drug abuse patient.[facility] the event this information is protected by the Federal Confidentiality of Alcohol and Drug Abuse Patient Records regulations: The Federal rules restrict any use of the information to criminally investigate or prosecute any alcohol or drug abuse patient.[facility] the event this information is protected by the Federal Confidentiality of Alcohol and Drug Abuse Patient Records regulations: The Federal rules restrict any use of the information to criminally investigate or prosecute any alcohol or drug abuse patient.[facility] the event this information is protected by the Federal Confidentiality of Alcohol and Drug Abuse Patient Records regulations: The Federal rules restrict any use of the information to criminally investigate or prosecute any alcohol or drug abuse patient.[facility] the event this information is protected by the Federal Confidentiality of Alcohol and Drug Abuse Patient Records regulations: The Federal rules restrict any use of the information to criminally investigate or prosecute any alcohol or drug abuse patient.[facility] Teams (unrecognized sec tion and content) [employer] Relationship Specialty Start Date End Date Carmen Evans, DO [address] [place] [address] PCP - General 03/17/05 Emanuel Ledbetter MD [address] [place], [place] [id number] Primary Staff Physician Cardiology 05/28/18 [employer] Relationship Specialty Start Date End Date Carmen Evans DO [address] [place] [address] PCP - General 03/17/05 Emanuel Ledbetter MD [address] [place], [place] [id number] Primary Staff Physician Cardiology 05/28/18 [employer] Relationship Specialty Start Date End Date Carmen Evans DO [address] [place] [address] PCP - General 03/17/05 Emanuel Ledbetter MD [address] [place], [place] [id number] Primary Staff Physician Cardiology 05/28/18 [employer] Relationship Specialty Start Date End Date Carmen Evans DO [address] [place] [address] PCP - General 03/17/05 Emanuel Ledbetter MD [address] [place] [address] Primary Staff Physician Cardiology 05/28/18 Team Status: [...] June 05, 2023 End: June 05, 2023 [employer] Relationship Specialty Start Date End Date Carmen Evans DO [address] [place] [id number] PCP - General 03/17/05 Emanuel Ledbetter MD [address] [place] [address] Primary Staff Physician Cardiology 05/28/18 Goals (unrecognized [...] BE BASED ON THE PRIMARY CLINICAL RECORDS. [employer] [facility]. provides no warranty or guarantee of the accuracy or completeness of information in this document.
--- NOTE | 2023-06-20 07:52 | ED.GENADUL1 ---
HPI HPI - General Adult General Chief complaint: Chest Pain Stated complaint: CHEST PAIN Time Seen by Provider: 06/20/23 07:41 Source: patient Mode of arrival: walk-in Limitations: no limitations History of Present Illness HPI narrative: Patient is a 63-year-old female who is presenting to the ER today with chief complaint of coming in complaining of left upper shoulder pain rating down the left upper lateral aspect of her arm. Patient had some mild shortness of breath going up and down the stairs today. Patient says she woke up this morning around 3-3 30 this morning having the pain, has been constant. Patient has been on antibiotics for urinary tract infection for the past 3 days, Macrobid. Patient said that she gave a urine sample over 2 weeks ago at urgent care, initially they told her the urine was negative, culture is negative, then they called on Sunday and told her it was positive and she needed an antibiotic. Patient has not seen Dr. Evans in the past week, her PCP. Patient's client advisor is at the [facility] in [place]. Patient has no heavy chest tightness, pressure. No fever or chills. Patient says that overall she does not feel good, she is relating it to the urinary tract infection. Patient had a echocardiogram last week in [place], stating that her ejection fraction is back again around the 30s. Patient said this happened approximate 18 to 20 years ago, her ejection fraction was in the 30s, for unknown reason. It corrected itself, and now it is lower again. Patient was told by the client advisor that she does not be any type of aspirin or antibiotic. Patient has no other acute complaints at this time. Patient has no abdominal pain, nausea, vomiting, diarrhea. No recent traveling. No hormone therapy that she takes, no smoking. No history of DVT or PE. All systems are negative except as noted/marked. All systems reviewed and otherwise negative. Nurses note and vital signs reviewed and patient is not hypoxic. General: The patient appears well and in no apparent distress. Patient is resting comfortably on cart. Patient is not toxic, lethargic, or listless Skin: Warm, dry, no pallor noted. There is no rash noted. No petechiae, purpura. Head: Normocephalic, atraumatic Eye: Normal conjunctiva, no drainage, EOMI. PERRL Ears, Nose, Mouth, and Throat: oral mucosa is moist. Nares patent. Mouth without vesicles. Cardiovascular: Regular Rate and Rhythm, no murmur, gallop, rub Respiratory: Patient is in no distress, no accessory muscle use, lungs are clear to auscultation, no wheezing, rales or rhonchi Back: non-tender, no CVA tenderness bilaterally to percussion. No CT LS midline pain GI: no tenderness to palpation, no masses appreciated. No rebound, guarding, or rigidity noted. No distention Musculoskeletal: Patient has full range of motion of all of the extremities, no motor, sensory, or focal neurological deficits. With range of motion of her left shoulder, she will slightly feel more ache through left upper shoulder, left upper arm, lateral aspect ache with range of motion, but no severe pain. Neurological: A&O x4, normal speech Psychiatric: Cooperative Related Data Home Medications ?Medication ?Instructions ?Recorded ?Confirmed losartan 25 mg tablet 25 mg PO DAILY 06/20/23 06/20/23 metoprolol succinate 50 mg 50 mg PO DAILY 06/20/23 06/20/23 tablet,extended release 24 hr nitroglycerin 0.4 mg sublingual 0.4 mg sublingual Q5M 06/20/23 06/20/23 tablet Allergies Allergy/AdvReac Type Severity Reaction Status Date / Time lisinopril Allergy Mild Rash Verified 06/20/23 07:42 Opioid HPI Opioid Management Most Recent Opioid Data: Last Pain Scale 7 06/20/23 08:01 Last ED Pain Assessment 06/20/23 08:01 [facility] Medical History (Updated 06/20/23 @ 11:50 by Aleks Damon MD) Hypertension ?I10 - Essential (primary) hypertension (ICD-10) Exam Constitutional Vital Signs, click to edit/add: Last Vital Signs Temp 99.1 F 06/20/23 07:45 Pulse 90 06/20/23 09:30 Resp 15 06/20/23 07:45 BP 109/67 06/20/23 09:30 Pulse Ox 95 06/20/23 09:30 O2 Del Method Room Air 06/20/23 08:01 Course Vital Signs Vital signs: Vital Signs Pulse Rate 117 H 06/20/23 07:38 Temperature 99.1 F 06/20/23 07:45 Pulse Rate 90 06/20/23 09:30 Respiratory Rate 15 06/20/23 07:45 Blood Pressure 109/67 06/20/23 09:30 Pulse Oximetry 95 06/20/23 09:30 Oxygen Delivery Method Room Air 06/20/23 08:01 Medical Decision Making MDM Narrative Medical decision making narrative: 1150 lengthy amount of time 7-10min was done at discharge with education with patient and son-in-law at bedside. CT report was discussed at length, including groundglass infiltrate, shared decision making of treating atypical pneumonia versus pulmonary edema versus groundglass infiltrate with no acute etiology. Education on hepatic steatosis was done as well. Urine shows no acute infection, Patient has been on Macrobid for 3 days, she will continue Macrobid for 2 more days and then it was recommended that she stop taking Macrobid unless urine culture comes back with greater than 100,000 CFU of a bacteria and patient should be on additional treatment. Urine culture is pending at this time. Patient will increase fluids, patient does feel better after 1 L of IV fluid. Patient will follow-up with PCP, no other acute recommendations at this time. Shared decision making was done with patient and son-in-law at bedside, patient agrees no treatment for edema or atypical pneumonia, she will follow-up with PCP. Lab Data Labs: Lab Results 06/20/23 06/20/23 Range/Units 07:50 10:35 WBC 8.5 (4.0-11.0) 10^3/uL RBC 3.98 L (4.20-5.40) 10^6/uL Hgb 12.3 (12.0-16.0) g/dL Hct 38.3 (36.0-48.0) % MCV 96.2 (81.0-99.0) fL MCH 30.9 (26.7-34.0) pg MCHC 32.1 (29.9-35.2) g/dL RDW 13.3 (11.0-15.0) % Plt Count 198 (150-450) 10^3/uL MPV 10.4 (9.5-13.5) fL Seg Neuts % (Manual) 35.0 Band Neutrophils % 5.0 (0-5) % Lymphocytes % (Manual) 36.0 (20.5-60.0) % Atypical Lymphs % (Man) 7.0 % Monocytes % (Manual) 16.0 H (1.7-12.0) % Eosinophils % (Manual) 0.0 L (0.9-7.0) % Basophils % (Manual) 0.0 L (0.2-2.0) % Metamyelocytes % 1.0 Neutrophils # (Manual) 2.97 (1.4-6.5) 10^3/uL Band Neutrophils # 0.4 H (0.0-0.3) 10^3/uL Lymphocytes # (Manual) 3.06 (1.20-3.80) 10^3/uL Abs Atypical Lymphs Man 0.59 Monocytes # (Manual) 1.36 H (0.30-0.80) 10^3/uL Eosinophils # (Manual) 0.00 (0.00-0.70) 10^3/uL Basophils # (Manual) 0.00 (0.00-0.10) 10^3/uL Metamyelocytes # 0.08 D-Dimer 2.33 H* (<=0.59) mg/L FEU Sodium 138 (136-145) mmol/L Potassium 4.2 (3.5-5.1) mmol/L Chloride 103 (98-107) mmol/L Carbon Dioxide 27.0 (21.0-32.0) mmol/L Anion Gap 12.2 BUN 11.0 (7.0-18.0) mg/dL Creatinine 1.03 H (0.55-1.02) mg/dL Est GFR ( Amer) >60 (>=60) Est GFR (Non-Af Amer) 54 L (>=60) BUN/Creatinine Ratio 10.7 Glucose 117 H (74-106) mg/dL Calcium 8.6 (8.5-10.1) mg/dL Total Bilirubin 0.6 (0.2-1.0) mg/dL AST 44 H (15-37) U/L ALT 52 (14-59) U/L Alkaline Phosphatase 75 (46-116) U/L Troponin I High Sens 8.6 (4.0-51.3) pg/mL NT-Pro-B Natriuret Pep 224.0 (<=900.0) pg/mL Total Protein 6.8 (6.4-8.2) g/dL Albumin 2.9 L (3.4-5.0) g/dL Globulin 3.9 g/dL Albumin/Globulin Ratio 0.7 Lipase 42.0 (16.0-77.0) U/L Urine Color Yellow (YELLOW) Urine Clarity Clear (CLEAR) Urine pH 5.5 (5.0-9.0) Ur Specific [place] <=1.005 A (1.005-1.025) Urine Protein Negative (NEG/TRACE) mg/dL Urine Glucose (UA) Negative (NEGATIVE) mg/dL Urine Ketones Negative (NEGATIVE) mg/dL Urine Occult Blood Negative (NEGATIVE) Urine Nitrite Negative (NEGATIVE) Urine Bilirubin Negative (NEGATIVE) Urine Urobilinogen 0.2 (0.2-1.0) EU/dL Ur Leukocyte Esterase Negative (NEGATIVE) Urine RBC 0-2 (0-2) #/HPF Urine WBC None seen (NONE SEEN) #/HPF Ur Squamous Epith Cells Moderate A (NONE/RARE) #/LPF Urine Crystals None seen (None Seen) #/HPF Urine Bacteria Trace A (NONE SEEN) #/HPF Urine Casts None seen (NONE SEEN) #/LPF Urine Mucus None seen (NONE SEEN) ECG Data Attestation: I personally reviewed and interpreted this ECG as follows: (Patient EKG interpretation shows normal sinus rhythm at 99 beats a minute. Left axis deviation. Left bundle branch block noted. We have no old EKG to compare this to, but patient is aware of left bundle branch block in the past. QTc of 447. Artifact noted) Discharge Plan Discharge Stand Alone Forms: Portal Instructions Chief Complaint: Chest Pain Clinical Impression: Left shoulder pain Patient Disposition: Home, Self-Care Time of Disposition Decision: 11:49 Condition: Fair Prescriptions / Home Meds: No Action metoprolol succinate 50 mg tablet extended release 24 hr 50 mg PO DAILY losartan 25 mg tablet 25 mg PO DAILY nitroglycerin 0.4 mg tablet, sublingual 0.4 mg sublingual Q5M Print Language: Lithuanian Instructions: Non-Alcoholic Fatty Liver Disease (ED), Shoulder Pain (ED), Arm Pain (ED) Additional Instructions: Alternate Tylenol Motrin every 4 hours as needed for help with pain for the next 5 to 7 days if needed. Ice 20 minutes on, 20 minutes off, do not use heat. A copy of your CT report was given to you, fatty liver disease, groundglass infiltrates were discussed. If chest pain or shortness of breath worsens, follow-up with PCP for further outpatient testing or return back to the ER. Take 2 more days of your Macrobid, urine culture is pending. You have no signs of urinary tract infection at this time Referrals: CARMEN EVANS [Primary Care Provider] - 1 week
--- NOTE | 2023-06-20 07:58 | ECG_ITS ---
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
[2023-06-20 08:09] LABS: Hematocrit 38.3 % (36.0-48.0); Hemoglobin 12.3 g/dL (12.0-16.0); Mean Corpuscular HGB Conc 32.1 g/dL (29.9-35.2); Mean Corpuscular Hemoglobin 30.9 pg (26.7-34.0); Mean Corpuscular Volume 96.2 fL (81.0-99.0); Mean Platelet Volume 10.4 fL (9.5-13.5); Platelet Count 198 10^3/uL (150-450); Red Blood Count 3.98 10^6/uL (4.20-5.40); Red Cell Distribution Width 13.3 % (11.0-15.0); White Blood Count 8.5 10^3/uL (4.0-11.0)
[2023-06-20] MEDS: ASPIRIN 81 MG TAB.CHEW 162 MG PO (08:12)
[2023-06-20 08:24] LABS: Alanine Aminotransferase 52 U/L (14-59); Albumin Globulin Ratio 0.7; Albumin Level 2.9 g/dL (3.4-5.0); Alkaline Phosphatase 75 U/L (46-116); Anion Gap 12.2; Aspartate Amino Transferase 44 U/L (15-37); BUN Creatinine Ratio 10.7; Bilirubin Total 0.6 mg/dL (0.2-1.0); Calcium 8.6 mg/dL (8.5-10.1); Chloride 103 mmol/L (98-107); Estimated GFR (African America >60 (>=60); Estimated GFR (Non-African Ame 54 (>=60); Globulin 3.9 g/dL; Glucose 117 mg/dL (74-106); Potassium 4.2 mmol/L (3.5-5.1); Sodium 138 mmol/L (136-145); Total Protein 6.8 g/dL (6.4-8.2)
--- NOTE | 2023-06-20 08:25 | XR_ITS ---
The [address] [address] Patient Name: RICHIE HOPPER MRN: [id number] date: 1960 Sex: F Assigned Patient Location: ER Current Patient Location: Accession/Order Number: [id number] Exam Date: 06/20/2023 08:18 Report Date: 06/20/2023 08:39 At the request of: RADHA HANDLEY Procedure: XR chest 2V EXAM: XR chest 2V HISTORY: Chest pain; technologist notes state chest pain and posterior left scapular pain. COMPARISON: None. TECHNIQUE: Frontal and lateral views of the chest performed. FINDINGS: The trachea is unremarkable. There is mild prominence/magnification of the cardiac silhouette which is partially obscured. There are low lung volumes. There are linear densities at both lung bases suggesting atelectasis. There is additional patchy density at the left lung base suggesting atelectasis and/or infiltrate. There is no pleural effusion or pulmonary vascular congestion. There is no pneumothorax or acute osseous abnormality. XR/XR chest 2V IMPRESSION: There are low lung volumes. There are linear densities at both lung bases suggesting atelectasis. There is additional patchy density at the left lung base suggesting atelectasis and/or infiltrate. Electronically authenticated by: EDY TRINIDAD Date: 06/20/2023 08:39
[2023-06-20] MEDS: 0.9 % SODIUM CHLORIDE 1,000 ML 1000 ML IV (08:26)
[2023-06-20 08:32] LABS: Troponin I High Sensitivity 8.6 pg/mL (4.0-51.3)
[2023-06-20 08:34] LABS: Atypical Lymphocytes Abs Man 0.59; Band Neutrophils Absolute 0.4 10^3/uL (0.0-0.3); Lymphocytes Absolute Manual 3.06 10^3/uL (1.20-3.80); Metamyelocytes Absolute Manual 0.08; Monocytes Absolute Manual 1.36 10^3/uL (0.30-0.80); Segmented Neut Absolute Manual 2.97 10^3/uL (1.4-6.5)
[2023-06-20 08:49] LABS: D Dimer 2.33 mg/L FEU (<=0.59)
--- NOTE | 2023-06-20 08:59 | CT_ITS ---
The [address] [address] Patient Name: RICHIE HOPPER MRN: [id number] date: 1960 Sex: F Assigned Patient Location: ER Current Patient Location: ER Accession/Order Number: [id number] Exam Date: 06/20/2023 09:10 Report Date: 06/20/2023 09:54 At the request of: RADHA HANDLEY Procedure: CT angio chest EXAMINATION: CT angio chest HISTORY: cp, sob COMPARISON: No relevant comparison available. TECHNIQUE: Multi-planar CT images were created with IV contrast. Axial, Coronal, and Sagittal images. Dose reduction techniques were achieved by using automated exposure control and/or adjustment of mA and/or kV according to patient size and/or use of iterative reconstruction technique. FINDINGS: LUNGS: Mild patchy groundglass infiltrates with a mid to lower lung predominance. PLEURA: No mass, effusion, or pneumothorax. VASCULATURE: Normal postcontrast opacification of the central pulmonary arterial tree with no filling defect to suggest a pulmonary embolus AUDELIA: No mass or adenopathy. MEDIASTINUM: No mass or adenopathy. CARDIAC: No enlargement, pericardial thickening, or significant calcification. AORTA: No aneurysm or dissection. CHEST WALL: No mass or axillary adenopathy. BONES: No bone lesion or fracture. LIMITED ABDOMEN: Diffuse hypoattenuation the liver suggesting hepatic steatosis OTHER: Negative. CT/CT angio chest IMPRESSION: No central pulmonary embolic disease Groundglass attenuation of the lungs, consider pulmonary edema versus atypical pneumonia Electronically authenticated by: CARMEN GAGE Date: 06/20/2023 09:54
[2023-06-20 11:00] LABS: Bilirubin Urine NEGATIVE (NEGATIVE); Blood Urine NEGATIVE (NEGATIVE); Clarity Urine CLEAR (CLEAR); Color Urine YELLOW (YELLOW); Glucose Urine UA NEGATIVE (NEGATIVE); Ketones Urine NEGATIVE (NEGATIVE); Leukocyte Esterase Urine NEGATIVE (NEGATIVE); Nitrite Urine NEGATIVE (NEGATIVE); Protein Urine NEGATIVE (NEG/TRACE); Specific Gravity Urine <=1.005 (1.005-1.025); Urobilinogen Urine 0.2 EU/dL (0.2-1.0); pH Urine 5.5 (5.0-9.0)
[2023-06-20 11:53] LABS: Bacteria Urine TRACE #/HPF (NONE SEEN); Cast Seen? NONE SEEN #/LPF (NONE SEEN); Crystals Seen? None Seen #/HPF (None Seen); Mucus Urine NONE SEEN (NONE SEEN); RBC Urine 0-2 #/HPF (0-2); Squamous Epithelial Cell Urine MODERATE #/LPF (NONE/RARE); WBC Urine NONE SEEN #/HPF (NONE SEEN)
== END 2023-06-20 12:09 | disposition home or self-care (01) ==
PROVIDERS: Emergency Provider Emergency Medicine; PCP Family Medicine
DX: M25.512 Pain in left shoulder (principal); I10 Essential (primary) hypertension; Z79.899 Other long term (current) drug therapy; Z87.440 Personal history of urinary (tract) infections
CPT/HCPCS: 36415; 71046; 71275; 80053; 81001; 83690; 83880; 84484; 85007; 85027; 85378; 87086; 93005; 99285; Q9967

== ENCOUNTER 2023-07-04 07:13 | Outpatient (RCR) | payer OTHER, SELFPAY ==
--- NOTE | 2023-03-30 13:07 | CR1_ITS ---
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
--- NOTE | 2023-04-30 | CR1_ITS ---
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
--- NOTE | 2023-05-28 09:45 | CR1_ITS ---
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
--- NOTE | 2023-06-25 13:05 | CR1_ITS ---
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
--- NOTE | 2023-07-05 10:12 | CR1_ITS ---
The [facility] Test Date: 2023-07-05 Pat Name: RICHIE HOPPER Department: Room: - Gender: Female Digester Hand: : 1960 Requested By: CARLOS MÉNDEZ Order Number: [id number] Reading MD: CARLOS MÉNDEZ Interpretive Statements Session Date: Electronically Signed On 07-06-2023 6:59:01 EDT by CARLOS MÉNDEZ
== END 2023-07-05 10:16 | disposition home or self-care (01) ==
LOC: CR 07:13
DX: I50.22 Chronic systolic (congestive) heart failure (principal); R07.9 Chest pain, unspecified; M25.512 Pain in left shoulder; Z79.899 Other long term (current) drug therapy; Z87.440 Personal history of urinary (tract) infections; I11.0 Hypertensive heart disease with heart failure; I50.9 Heart failure, unspecified
CPT/HCPCS: 93798

== ENCOUNTER 2023-07-20 09:16 | Outpatient (OUT) | payer OTHER, SELFPAY ==
--- OUTSIDE RECORDS SUMMARY | 2023-07-20 09:32 | XMS_ITS | CCD ---
Author Organization [facility] Care Team Providers Care Jackscrew Man Name Role Phone CARMEN EVANS Admitting Unavailable CARMEN EVANS Attending Unavailable Carmen Evans Unavailable Carmen Evans DO Primary Care Provider Emanuel Ledbetter MD Unavailable [phone] Carmen Evans DO Primary Care Provider [phone] Emanuel Ledbetter MD Unavailable [phone] Carmen Evans DO Primary Care Provider Emanuel Ledbetter MD Unavailable [phone] GRETCHEN Casiano Attending Provider Bev Casiano Attending Unavailable Bev Casiano Admitting Unavailable EMANUEL LEDBETTER Attending Unavailable EMANUEL LEDBETTER Referring Unavailable CARMEN EVANS Primary Care Unavailable EMANUEL LEDBETTER Referring Unavailable CARMNE EVANS Primary Care Unavailable EMANUEL LEDBETTER Referring Unavailable CARMEN EVANS Primary Care Unavailable EMANUEL LEDBETTER Referring Unavailable EMANUEL LEDBETTER Attending Unavailable CARMEN EVANS Primary Care Unavailable SHASHI-LUANNE HEAD Admitting LAUNNE Medina Attending CARMEN Sweet Primary Care Unavailable EMANUEL LEDBETTER Referring Unavailable CARMEN EVANS Primary Care Unavailable EMANUEL LEDBETTER Referring Unavailable CARMEN EVANS Primary Care Unavailable EMANUEL LEDBETTER Referring Unavailable CARMEN EVANS Primary Care Unavailable CARMEN EVANS Primary Care Unavailable EMANUEL LEDBETTER Referring Unavailable CARMEN EVANS Primary Care Unavailable HSEMANUEL VAZQUEZ Referring Unavailable CARMEN EVANS Primary Care Unavailable EMANUEL LEDBETTER Attending Unavailable EMANUEL LEDBETTER Referring Unavailable LUANNE BANKS Attending CARMEN Sweet Primary Care Unavailable EMANUEL LEDBETTER Referring Unavailable CARMEN EVANS Primary Care Unavailable EMANUEL LEDBETTER Referring Unavailable CARMEN EVANS Primary Care Unavailable Allergies Allergy Classification Reported Allergen(s) Allergy Type Date of Onset Reaction(s) Facility (4 sources) Lisinopril Drug Allergy COUGH [employer] Other (11 sources) Angiotensin-con verting enzyme inhibitor agent; Translations: [LUISA INHIBITORS] Propensity to adverse reactions 6 Cough [facility] (1 source) Lisinopril Drug Allergy 4 [facility] Repository Medications Current Medications Medication Drug Class(es) Dates Sig (Normalized) Sig (Original) amoxicillin 875 mg / clavulanate 125 mg oral tablet (6 sources) Penicillin-class Antibacterial Start: 08-01-2021 take 1 tablet by mouth twice daily at mealtime Amoxicillin-Pot Clavulanate 875-125 MG 1 tablet Orally bid with food for 10 day(s) Jan, Active Fish Oils (4 sources) CO-Q 10 [place]-3 Fish Oil Active perflutren lipid microspheres 1.3 mL in NaCl (PF) 0.9% 10 mL injection (DEFINITY) (11 sources) Start: 07-03-2022 End: 10-02-2023 perflutren lipid [...] sodium chloride 9 mg/ ml prefilled syringe (11 sources) Start: 07-03-2022 End: 10-02-2023 sodium chloride [...] Biotin (Robert Biotin) 10,000 mcg Capsule Discontinued 24040 MCG PO Daily March 07, 2019 1:00am [...] 1:21pm losartan potassium 25 mg oral tablet (19 sources) Angiotensin 2 Receptor Zeferino Start: 9 [...] by navi th two times a day. Eptrighjqmaw-Cgz-K nicholas-Fa-Vit K (Multi For Her) 18 mg iron-600 mcg-40 mcg Capsule (2 sources) Start: 03-07-2019 End: 06-05-2023 take 1 capsule by mouth once daily Dsaoahvpexyt-Iib-Ezsj- Fa-Vit K (Multi For Her) 18 mg [...] mouth daily. nitroglycerin 0.4 mg sublingual tablet (5 sources) Nitrate Vasodilator Start: 02-16-20 23 nitroglycerin sublingual (NITROQUICK) 0.4 mg SL tablet Dissolve 1 tablet under the tongue as needed for chest pain. If no pain relief call 911. 45 tablet 2 02/15/2023 Active Comment on above: Dissolve 1 tablet un gonzalo the tongue as needed for chest pain. If no pain relief call 911. [place] 7-Gbe-Vcj-Fish Oil (Fish Oil) 1,000 mg (120 mg-180 mg) Capsule (2 sources) Start: 03-07-20 End: 06-05-19 24 take 1 capsule by mouth once daily [place] 7-Rdz-Zur-Fish Oil (Fish Oil) 1,000 mg (120 mg-180 mg) Capsule Discontinued 1000 MG PO Daily March 07, 2019 1:00am June 05, 2023 1:21pm red yeast rice 600 mg / ubidecarenone 60 mg oral capsule (5 sources) take 1 capsule by mouth once daily ubidecarenone/red yeast rice (CO Q10-RED YEAST RICE) 60-600 mg cap Take 1 capsule by mouth once daily. 0 Active Comment on above: Take [address] [facility] once daily. rosuvastatin calcium 20 mg oral tablet (9 sources) HMG-CoA Reductase Inhibitor Start: 07-04-19 take 1 tablet by mouth once daily rosuvastatin (CRESTOR) 20 mg tablet Take 1 tablet by mouth once daily. 90 tablet 3 07/03/2022 Active Comment on above: [facility]. Selenium (2 sources) Start: 03-07-20 [...] above: Take 1,000 mcg by mo [facility] once daily. Vitamin C 1000 MG (2 [...] depolarization] 02-15-2023 Chronic Congestive heart failure; nonhypertensive (16 sources) Congestive heart failure; Translations: [Heart failure, [...] caused by tuberculosis or sexually transmitted disease) (14 sources) Cardiomyopathy, unspecified; Translations: [Cardiomyopathy] Onset: 02-12-2019 [...] Test Name Value Interpretation Reference Range Facility [facility] 06-14-2023 CNOV Office Visit (CARD C HF ANJALI) RICHIE HOPPER ([id number]) 1960 F Date Time Provider Department 06/14/23 11:45 AM EMANUEL LEDBETTER CARD CHF ANJALI During your visit today, we recorded the following information about you: Pulse Blood pressure Weight Height 88/minute 111/65 78.2 kg 1.689 m Emanuel Ledbetter MD 06/14/2023 5:19 PM Signed Heart [facility] SECTION OF HEART FAILURE and CARDIAC TRANSPLANT MEDICINE OUTPATIENT VISIT DATE June 14, 2023 OUTPATIENT VISIT TYPE Established Patient PRIMARY CARE PHYSICIAN: Carmen Evans [address] [place] [address] CHIEF COMPLAINT: HF f/u NURSING INTAKE (Patient?s concerns and/or recent hospitalizations/ER visits): HF Nursing Assessment: Interim Hospitalizations and/or ER visits:02/16/2023 [facility] W/POSS PCI Chest Pain: no Skipping [...] mmol/L 3. (more content not included)... Normal [facility] ECHOon 06-14-2023 Echocardiography Echocardiography Report: Transthoracic Echo [facility] J1-5 Date of service: 06/14/2023 10:29:30 AM GEM PRESS OPERATOR Ordering physician: EMANUEL LEDBETTER Indication: CHF Technologist: Maranda Mckeon and Tamika Byrnes [facility] Interpreting physician: Salvatore Bowers DO PATIENT: Name: [...] * * * Final * * * [employer] Medical Image : [id number] sSISUID Normal [facility] Urine Cultureon 06-05-2023 Bacteria identified Cx Nom (U) 15,000 colonies/ml mixed bacterial skin contaminants 1 Day PERFORMED BY: [address] [address] PATHOLOGIST ANIMAL SHELTER MANAGER GLORIA ALMEIDA M.D. Normal [facility] Comment on above: Performed By: #### C UU #### [address] [place] [address] [facility] Vick 03-06-2023 CNPN Telephone (CARD [facility] ANJALI) RICHIE HOPPER ([id number]) 1960 F Date Time Provider Department 03/06/23 EMANUEL LEDBETTER CARD [facility] ANJALI During your visit today, we recorded the following information about you: Marcus FátimaKriss 03/06/2023 2:17 PM Signed Patient has a cold/flu x 2 days and wants to know what she can take. Please call her at [phone]. Thank you, kriss Allergies As of Date: [...] failure) (HCC) [I50.9] 03/24/2005 Encounter Status:Closed by ROSSANA BLOUNT on 03/06/23 [facility] CNPHailey 02-19-2023 CNPN Telephone (CARD CHF ANJALI) RICHIE HOPPER ([id number]) 1960 F Date Time Provider Department 02/19/23 EMANUEL LEDBETTER CARD CHF ANJALI During your visit today, we recorded the following information about you: Damaris Cuellar 02/19/2023 3:11 PM Signed February 19, 2023 Name: Richie Hopper Patient Contact Number: [phone] (home) [phone] (cell) Date of last office visit: 02/15/2023 Reason For Call: Pt called stating that she has done a lot of test. She is ready to start exercising again, She want to know if Dr. Ledbetter could order cardiac rehab for her so that it can be monitored. Physician: Emanuel Ledbetter MD Patient was informed that non-urgent calls may be returned within the next three business days. Yes Damaris Cuellar Allergies As of Date: 02/19/2023 Noted Allergy Reaction LUISA INHIBITORS 03/17/2005 3 - Cough Date Reviewed: 02/16/2023 Reviewed by: Lauren Holt, CHRISSIE - Fully Assessed Reason for Visit: Advice Only [[id number]] Prescriptions as of 06/22/2023 - metoprolol succinate ER (TOPROL XL) 50 mg 24 hr tablet Take 1 tablet by mouth two times a day. - ubidecarenone/red yeast rice (CO Q10-RED YEAST RICE) 60-600 mg cap Take 1 capsule by mouth once daily. - nitroglycerin sublingual (NITROQUICK) 0.4 mg SL tablet Dissolve 1 tablet under the tongue as needed for chest pain. If no pain relief call 911. - losartan (COZAAR) 25 mg tablet TAKE 1 TABLET BY MOUTH EVERY DAY - rosuvastatin (CRESTOR) 20 mg tablet Take 1 tablet by mouth once daily. Facility-Administered Medications as of 06/22/2023 - perflutren lipid microspheres 1.3 mL in NaCl (PF) 0.9% 10 mL injection (DEFINITY) - sodium chloride 0.9 % (flush) 10 mL (BD POSIFLUSH) Problem List As Of Date 02/19/2023 Noted Resolved Cardiomyopathy, nonischemic (HCC) [I42.8] CHF (congestive heart failure) (HCC) [I50.9] 03/24/2005 Encounter Status:Closed by DAMARIS CUELLAR on 06/22/23 Normal [facility] CARD CATH DIAGNOSTICon 02-16 CARD CATH DIAGNOSTIC Site Id: [facility] Lab #: [id number] HVI Dip [place] 2 Study Date: 02/16/2023 Start Time: 02/16/2023 11:33:29 AM End Time: Physician Name Debra Priest M.D., M.D. Nursing/Nitesh Che R.N., A. R.N. + + PATIENT INFORMATION [...] On: 02/16/2023 at 2:26:17 PM Final CC [employer] Medical Image : [id number] SISUID See Link below for Image Normal [facility] CNOVon 02-15-2023 CNOV Office Visit (JUNITO KOCH MAI) RICHIE HOPPER ([id number]) 1960 F Date Time Provider Department 02/15/23 11:45 AM EMANUEL LEDBETTER MAI During your visit today, we recorded the following information about you: Pulse Blood pressure Weight Height 69/minute 111/74 81.5 kg 1.702 m Emanuel Ledbetter MD 02/15/2023 5:05 PM Signed Heart [facility] SECTION OF HEART FAILURE and CARDIAC TRANSPLANT MEDICINE OUTPATIENT VISIT DATE February 15, 2023 OUTPATIENT VISIT TYPE Established Patient PRIMARY CARE PHYSICIAN: Carmen Evans [address] [place] [address] CHIEF COMPLAINT: CP NURSING INTAKE (Patient?s concerns [...] 12.7 fL (more content not included)... Normal [facility] IRCHIE HOPPER ([id number]) 1960 F Date Time Provider Department 02/15/23 LUANNE BANKS During your visit today, we recorded the following information about you: Debbie Salguero, CHRISSIE 02/15/2023 3:15 PM Signed CARDIOVASCULAR LAB INSTRUCTIONS: [...] Cough Date Reviewed: 02/15/2023 Reviewed by: Cheryl Cuellar Ma - Fully Assessed Reason for Visit: [...] Status:Closed by DEBBIE SALGUERO RN on 02/15/23 [facility] ECHOon 02-15-2023 Echocardiography Echocardiography Report: Transthoracic Echo [facility] J1-5 Date of service: 02/15/2023 7:58:30 AM GEM PRESS OPERATOR Ordering physician: EMANUEL LEDBETTER Indication: Diastolic CHF [...] * * * Final * * * [employer] Medical Image : [id number] sSISUID Normal [facility] CARDIAC PERF STRESS/PHARM on 02-15-2023 NM CARDIAC PERF STRESS/PHARM * * *Final Report* * * DATE OF EXAM: Feb 15 2023 11:34AM N 0006 - NM CARDIAC PERF STRESS/PHARM / PROCEDURE REASON: Encounter for screening for cardiovascular disorders * * * * Physician Interpretation * * * * Stress Automatic Glove Turner And Former Report: [facility] NORI-2 Date of service: [...] * * Final * * * ------ NM CTAC Report: [facility] Date of service: 02/15/2023 9:49:58 AM CTAC interpreting physician: Sebastian Norris MD PATIENT: Name: MRS. RICHIE HOPPER Age: 63 years Gender: F 1. Incidental Findings from limited non-diagnostic CTAC: - No distinct coronary calcifications. * * * Final * * * (more content not included)... Normal [facility] CBC panel Auto (Bld)on 02-14 Erythrocyte distribution width (RBC) [Ratio] 12.4 % Normal 11.5-15.0 [facility] Comment on above: Order Comment: Pat dumont Type: BLOOD SPECIMENOrdering Facility: [facility] Address: [address] [place] [address] Performed By: #### 5 8410-2 ####[facility] LABCLIA [id number] [place] [address] Hematocrit (Bld) [Volume fraction] 42.2 % Normal 36.0-46.0 [facility] Comment on above: Order Comment: Pat dumont Type: BLOOD SPECIMENOrdering Facility: [facility] Address: [address] [place] [address] Performed By: #### 5 8410-2 ####[facility] LABCLIA [id number] [place] [address] Hemoglobin (Bld) [Mass/Vol] 14.3 g/dL Normal 11.5-15.5 [facility] Comment on above: Order Comment: Pat dumont Type: BLOOD SPECIMENOrdering Facility: [facility] Address: [address] [place] [address] Performed By: #### 5 8410-2 ####[facility] LABCLIA [id number] [place] [address] MCH (RBC) [Entitic mass] 31.6 pg Normal 26.0-34.0 [facility] Comment on above: Order Comment: Speci men Type: BLOOD SPECIMENOrdering Facility: [facility] Address: [address] [place] [address] Performed By: #### 5 8410-2 ####[facility] LABCLIA [id number] [place] [address] MCHC (RBC) [Mass/Vol] 33.9 g/dL Normal 30.5-36.0 [facility] Comment on above: Order Comment: Speci men Type: BLOOD SPECIMENOrdering Facility: [facility] Address: [address] [place] [address] Performed By: #### 5 8410-2 ####[facility] LABCLIA [id number] [place] [address] MCV (RBC) [Entitic vol] 93.4 fL Normal 80.0-100.0 [facility] Comment on above: Order Comment: Speci men Type: BLOOD SPECIMENOrdering Facility: [facility] Address: [address] [place] [address] Performed By: #### 5 8410-2 ####[facility] LABCLIA [id number] [place] [address] Nucleated RBC (Bld) [#/Vol] 10*3/uL Normal <0.01 [facility] Comment on above: Order Comment: Speci men Type: BLOOD SPECIMENOrdering Facility: [facility] Address: [address] [place] [address] Performed By: #### 5 8410-2 ####[facility] LABCLIA [id number] [place] [address] Platelet mean volume (Bld) [Entitic vol] 9.6 fL Normal 9.0-12.7 [facility] Comment on above: Order Comment: Speci men Type: BLOOD SPECIMENOrdering Facility: [facility] Address: [address] [place] [address] Performed By: #### 5 8410-2 ####[facility] LABCLIA [id number] [place] [address] Platelets (Bld) [#/Vol] 226 10*3/uL Normal 150-400 [facility] Comment on above: Order Comment: Speci men Type: BLOOD SPECIMENOrdering Facility: [facility] Address: [address] [place] [address] Performed By: #### 5 8410-2 ####[facility] LABCLIA [id number] [place] [address] RBC (Bld) [#/Vol] 4.52 10*6/uL Normal 3.90-5.20 [facility] Comment on above: Order Comment: Speci men Type: BLOOD SPECIMENOrdering Facility: [facility] Address: [address] [place] [address] Performed By: #### 5 8410-2 ####[facility] LABCLIA [id number] [place] [address] WBC (Bld) [#/Vol] 6.74 10*3/uL Normal 3.70-11.00 [facility] Comment on above: Order Comment: Speci men Type: BLOOD SPECIMENOrdering Facility: [facility] Address: [address] [place] [address] Performed By: #### 5 8410-2 ####[facility] LABIA [id number] [place] [address] Comprehensive metabolic 2000 panelon 02-14-2023 Albumin [Mass/Vol] 4.5 g/dL Normal 3.9-4.9 [facility] Comment on above: Order Comment: Speci men Type: BLOOD SPECIMENOrdering Facility: [facility] Address: [address] [place] [address] Performed By: #### 2 4323-8 ####[facility] LABCLIA [id number] [place] [address] ALP [Catalytic activity/Vol] 73 U/L Normal 34-123 [facility] Comment on above: Order Comment: Speci men Type: BLOOD SPECIMENOrdering Facility: [facility] Address: [address] [place] [address] Performed By: #### 2 4323-8 ####[facility] LABCLIA [id number] [place] [address] ALT [Catalytic activity/Vol] 32 U/L Normal 7-38 [facility] Comment on above: Order Comment: Speci men Type: BLOOD SPECIMENOrdering Facility: [facility] Address: [address] [place] [address] Performed By: #### 2 4323-8 ####[facility] LABCLIA [id number] [place] [address] Anion gap [Moles/Vol] 7 mmol/L Low 9-18 [facility] Comment on above: Order Comment: Speci men Type: BLOOD SPECIMENOrdering Facility: [facility] Address: [address] [place] [address] Performed By: #### 2 4323-8 ####[facility] LABCLIA [id number] [place] [address] AST [Catalytic activity/Vol] 25 U/L Normal 13-35 [facility] Comment on above: Order Comment: Speci men Type: BLOOD SPECIMENOrdering Facility: [facility] Address: [address] [place] [address] Performed By: #### 2 4323-8 ####[facility] LABCLIA [id number] [place] [address] Bilirubin [Mass/Vol] 0.6 mg/dL Normal 0.2-1.3 [facility] Comment on above: Order Comment: Speci men Type: BLOOD SPECIMENOrdering Facility: [facility] Address: [address] [place] [address] Performed By: #### 2 4323-8 ####[facility] LABCLIA [id number] [place] [address] Calcium [Mass/Vol] 9.9 mg/dL Normal 8.5-10.2 [facility] Comment on above: Order Comment: Speci men Type: BLOOD SPECIMENOrdering Facility: [facility] Address: [address] [place] [address] Performed By: #### 2 4323-8 ####[facility] LABCLIA [id number] [place] [address] Chloride [Moles/Vol] 108 mmol/L High 97-105 [facility] Comment on above: Order Comment: Speci men Type: BLOOD SPECIMENOrdering Facility: [facility] Address: [address] [place] [address] Performed By: #### 2 4323-8 ####[facility] LABCLIA [id number] [place] [address] CO2 [Moles/Vol] 29 mmol/L Normal 22-30 [facility] Comment on above: Order Comment: Speci men Type: BLOOD SPECIMENOrdering Facility: [facility] Address: [address] [place] [address] Performed By: #### 2 4323-8 ####[facility] LABCLIA [id number] [place] [address] Creatinine [Mass/Vol] 0.87 mg/dL Normal 0.58-0.96 [facility] Comment on above: Order Comment: Speci men Type: BLOOD SPECIMENOrdering Facility: [facility] Address: [address] [place] [address] Performed By: #### 2 4323-8 ####[facility] LABCLIA [id number] [place] [address] Creatinine and Glomerular filtration rate.predicted panel (S/P/Bld) 75 mL/min/1.73m??? Normal >=60 [facility] Comment on above: Order Comment: Pat dumont Type: BLOOD SPECIMENOrdering Facility: [facility] Address: [address] [place] [address] Result Comment: Delilah mated Glomerular Filtration Rate [...] actual GFR. Performed By: #### 2 4323-8 ####[facility] LABCLIA [id number] [place] [address] Glucose [Mass/Vol] 104 mg/dL High 74-99 [facility] Comment on above: Order Comment: Pat dumont Type: BLOOD SPECIMENOrdering Facility: [facility] Address: [address] [place] [address] Result Comment: The [place] Diabetes Association (ADA) provides guidance for cutoff [...] Standards of Medical Care in Diabetes 2016, [employer]. Diabetes Care. 2016.39(Suppl 1). Performed By: #### 2 4323-8 ####[facility] LABCLIA [id number] [place] [address] Potassium [Moles/Vol] 4.8 mmol/L Normal 3.7-5.1 [facility] Comment on above: Order Comment: Speci men Type: BLOOD SPECIMENOrdering Facility: [facility] Address: [address] [place] [address] Performed By: #### 2 4323-8 ####[facility] LABCLIA [id number] [place] [address] Protein [Mass/Vol] 7.3 g/dL Normal 6.3-8.0 [facility] Comment on above: Order Comment: Speci men Type: BLOOD SPECIMENOrdering Facility: [facility] Address: [address] [place] [address] Performed By: #### 2 4323-8 ####[facility] LABCLIA [id number] [place] [address] Sodium [Moles/Vol] 144 mmol/L Normal 136-144 [facility] Comment on above: Order Comment: Speci men Type: BLOOD SPECIMENOrdering Facility: [facility] Address: [address] [place] [address] Performed By: #### 2 4323-8 ####[facility] LABCLIA [id number] [place] [address] Urea nitrogen [Mass/Vol] 16 mg/dL Normal 7-21 [facility] Comment on above: Order Comment: Speci men Type: BLOOD SPECIMENOrdering Facility: [facility] Address: [address] [place] [address] Performed By: #### 2 4323-8 ####[facility] LABCLIA [id number] [place] [address] NT-proBNP [facility] 02-14 Natriuretic peptide.B prohormone N-Terminal [Mass/Vol] 181 pg/mL High <125 [facility] Comment on above: Order Comment: Speci men Type: BLOOD SPECIMENOrdering Facility: [facility] Address: [address] [place] [address] Performed By: #### 3 3762-6 ####[facility] LABCLIA [id number] [place] [id number] [facility] Vick 02-12-2023 CNPN Telephone (CARD CHF ANJALI) RICHIE HOPPER ([id number]) 1960 F Date Time Provider Department 02/12/23 EMANUEL LEDBETTER [facility] ANJALI During your visit today, we recorded the following information about you: Damaris Cuellar 02/12/2023 1:20 PM Signed February 12, 2023 Name: Richie Hopper Patient Contact Number: [phone] (home) [phone] (cell) Date of last office visit: 07/03/2022 Reason For Call: Pt called stating that she is experiencing more symptoms from Cardiomyopathy. She would like to know if Dr. Ledbetter could order more test. She is not able to walk short distance it gives her chest tightness and she throws up. Physician: Emanuel Ledbetter MD Patient was informed that non-urgent calls may be returned within the next three business days. Yes Damaris Buchanan 02/14/2023 10:24 AM Signed Spoke to patient got her schedule with for appointment. Allergies As of Date: 02/12/2023 Noted Allergy Reaction LUISA INHIBITORS 03/17/2005 3 - Cough Date Reviewed: 07/03/2022 Reviewed by: Rossana Blount, RN - Fully Assessed Reason for Visit: Advice Only [[id number]] Prescriptions as of 06/22/2023 - metoprolol succinate ER (TOPROL XL) 50 mg 24 hr tablet Take 1 tablet by mouth two times a day. - ubidecarenone/red yeast rice (CO Q10-RED YEAST RICE) 60-600 mg cap Take 1 capsule by mouth once daily. - nitroglycerin sublingual (NITROQUICK) 0.4 mg SL tablet Dissolve 1 tablet under the tongue as needed for chest pain. If no pain relief call 911. - losartan (COZAAR) 25 mg tablet TAKE 1 TABLET BY MOUTH EVERY DAY - rosuvastatin (CRESTOR) 20 mg tablet Take 1 tablet by mouth once daily. Facility-Administered Medications as of 06/22/2023 - perflutren lipid microspheres 1.3 mL in NaCl (PF) 0.9% 10 mL injection (DEFINITY) - sodium chloride 0.9 % (flush) 10 mL (BD POSIFLUSH) Problem List As Of Date 02/12/2023 Noted Resolved Cardiomyopathy, nonischemic (HCC) [I42.8] CHF (congestive heart failure) (HCC) [I50.9] 03/24/2005 Encounter Status:Closed by DAMARIS CUELLAR on 06/22/23 Normal [facility] CBC panel Auto (Bld)on 07-03 Erythrocyte distribution width (RBC) [Ratio] 12.5 % Normal 11.5-15.0 [facility] Comment on above: Order Comment: Speci men Type: BLOOD SPECIMENOrdering Facility: [facility] Address: [address] [place] [address] Performed By: #### 5 8410-2 ####[facility] LABIA [id number] [place] [address] [place] Hematocrit (Bld) [Volume fraction] 43.5 % Normal 36.0-46.0 [facility] Comment on above: Order Comment: Speci men Type: BLOOD SPECIMENOrdering Facility: [facility] Address: [address] [place] [address] Performed By: #### 5 8410-2 ####[facility] LABCLIA [id number] [place] [address] [place] Hemoglobin (Bld) [Mass/Vol] 13.9 g/dL Normal 11.5-15.5 [facility] Comment on above: Order Comment: Speci men Type: BLOOD SPECIMENOrdering Facility: [facility] Address: [address] [place] [address] Performed By: #### 5 8410-2 ####[facility] LABCLIA [id number] [place] [address] [place] MCH (RBC) [Entitic mass] 31.0 pg Normal 26.0-34.0 [facility] Comment on above: Order Comment: Speci men Type: BLOOD SPECIMENOrdering Facility: [facility] Address: [address] [place] [address] Performed By: #### 5 8410-2 ####[facility] [id number] [address] [place] [facility] MCHC (RBC) [Mass/Vol] 32.0 g/dL Normal 30.5-36.0 [facility] Comment on above: Order Comment: Speci men Type: BLOOD SPECIMENOrdering Facility: [facility] Address: [address] [place] [address] Performed By: #### 5 8410-2 ####[facility] [id number] [address] [place] MCV (RBC) [Entitic vol] 96.9 fL Normal 80.0-100.0 [facility] Comment on above: Order Comment: Speci men Type: BLOOD SPECIMENOrdering Facility: [facility] Address: [address] [place] [address] Performed By: #### 5 8410-2 ####[facility] [id number] [address] [place] Nucleated RBC (Bld) [#/Vol] 10*3/uL Normal <0.01 [facility] Comment on above: Order Comment: Speci men Type: BLOOD SPECIMENOrdering Facility: [facility] Address: [address] [place], [place] [address] Performed By: #### 5 8410-2 ####[facility] [id number] [address] [place] Platelet mean volume (Bld) [Entitic vol] 10.9 fL Normal 9.0-12.7 [facility] Comment on above: Order Comment: Speci men Type: BLOOD SPECIMENOrdering Facility: [facility] Address: [address] [place], [place] [address] Performed By: #### 5 8410-2 ####[facility] LABCLIA [id number] [place] [address] [place] Platelets (Bld) [#/Vol] 160 10*3/uL Normal 150-400 [facility] Comment on above: Order Comment: Speci men Type: BLOOD SPECIMENOrdering Facility: [facility] Address: [address] [place], [place] [address] Performed By: #### 5 8410-2 ####[facility] LABIA [id number] [place] [address] [place] RBC (Bld) [#/Vol] 4.49 10*6/uL Normal 3.90-5.20 [facility] Comment on above: Order Comment: Speci men Type: BLOOD SPECIMENOrdering Facility: [facility] Address: [address] [place], [place] [address] Performed By: #### 5 8410-2 ####[facility] LABIA [id number] [place] [address] [place] WBC (Bld) [#/Vol] 6.60 10*3/uL Normal 3.70-11.00 [facility] Comment on above: Order Comment: Speci men Type: BLOOD SPECIMENOrdering Facility: [facility] Address: [address] [place], [place] [address] Performed By: #### 5 8410-2 ####[facility] LABCLIA [id number] [place] [address] [place] CNOVon 07-03-2022 CNOV Office Visit (JUNITO KOCH MAI) RICHIE HOPPER ([id number]) 1960 F Date Time Provider Department 07/03/22 2:15 PM EMANUEL LEDBETTER CARD CHF ANJALI During your visit today, we recorded the following information about you: Pulse Blood pressure Weight Height 72/minute 135/85 84.6 kg 1.689 m Emanuel Ledbetter MD 07/03/2022 5:14 PM Signed [facility] SECTION OF HEART FAILURE and CARDIAC TRANSPLANT MEDICINE OUTPATIENT VISIT DATE July 03, 2022 OUTPATIENT VISIT TYPE Established Patient PRIMARY CARE PHYSICIAN: Carmen Evans [address] [place] [address] CHIEF COMPLAINT: HF F/u NURSING INTAKE (Patient?s [...] level: yes, super tired. Happened when medication floor covering layer changed Unintentional weight gain: fluctuates 3 lbs [...] one tablet daily by mouth.Disp: Rfl: FOREIGN GITPCOINUC72 mg once daily. Pt takes Q-Sorb CO [...] 136 - (more content not included)... Normal [facility] Comprehensive metabolic 2000 panelon 07-03-2022 Albumin [Mass/Vol] 4.3 g/dL Normal 3.9-4.9 [facility] Comment on above: Order Comment: Speci men Type: BLOOD SPECIMENOrdering Facility: [facility] Address: [address] [address] Performed By: #### 2 4323-8, LIPNF ####[facility] LABCLIA [id number] [address] [place] ALP [Catalytic activity/Vol] 66 U/L Normal 34-123 [facility] Comment on above: Order Comment: Speci men Type: BLOOD SPECIMENOrdering Facility: [facility] Address: [address] [place] [address] Performed By: #### 2 4323-8, LIPNF ####[facility] LABCLIA [id number] [place] [address] [place] ALT [Catalytic activity/Vol] 59 U/L High 7-38 [facility] Comment on above: Order Comment: Speci men Type: BLOOD SPECIMENOrdering Facility: [facility] Address: [address] [place] [address] Result Comment: Resu lts may be falsely increased due to interference from hemolysis. Suggest reorder as clinically indicated. Performed By: #### 2 4323-8, LIPNF ####[facility] LABIA [id number] [address] [place] Anion gap [Moles/Vol] 11 mmol/L Normal 9-18 [facility] Comment on above: Order Comment: Speci men Type: BLOOD SPECIMENOrdering Facility: [facility] Address: [address] [place] [address] Performed By: #### 2 4323-8, LIPNF ####[facility] LABIA [id number] [address] [place] [facility] AST [Catalytic activity/Vol] 55 U/L High 13-35 [facility] Comment on above: Order Comment: Speci men Type: BLOOD SPECIMENOrdering Facility: [facility] Address: [address] [place] [address] Result Comment: Resu lts may be falsely increased due to interference from hemolysis. Suggest reorder as clinically indicated. Performed By: #### 2 4323-8, LIPNF ####[facility] LABIA [id number] [place] [address] [place] Bilirubin [Mass/Vol] 0.5 mg/dL Normal 0.2-1.3 [facility] Comment on above: Order Comment: Speci men Type: BLOOD SPECIMENOrdering Facility: [facility] Address: [address] [place] [address] Performed By: #### 2 4323-8, LIPNF ####[facility] LABCLIA [id number] [place] [address] [place] Calcium [Mass/Vol] 9.3 mg/dL Normal 8.5-10.2 [facility] Comment on above: Order Comment: Speci men Type: BLOOD SPECIMENOrdering Facility: [facility] Address: [address] [place], [place] [address] Performed By: #### 2 4323-8, LIPNF ####[facility] LABCLIA [id number] [place] [address] [place] Chloride [Moles/Vol] 105 mmol/L Normal 97-105 [facility] Comment on above: Order Comment: Speci men Type: BLOOD SPECIMENOrdering Facility: [facility] Address: [address] [place] [address] Performed By: #### 2 4323-8, LIPNF ####[facility] LABCLIA [id number] [place] [address] [place] CO2 [Moles/Vol] 22 mmol/L Normal 22-30 [facility] Comment on above: Order Comment: Speci men Type: BLOOD SPECIMENOrdering Facility: [facility] Address: [address] [place], [place] [address] Performed By: #### 2 4323-8, LIPNF ####[facility] LABCLIA [id number] [place] [address] [place] Creatinine [Mass/Vol] 0.74 mg/dL Normal 0.58-0.96 [facility] Comment on above: Order Comment: Speci men Type: BLOOD SPECIMENOrdering Facility: [facility] Address: [address] [place], [place] [address] Performed By: #### 2 4323-8, LIPNF ####[facility] LABCLIA [id number] [place] [address] [place] ESTIMATED GLOMERULAR FILTRATION RATE 92 mL/min/1.73m??? Normal >=60 [facility] Comment on above: Order Comment: Pat dumont Type: BLOOD SPECIMENOrdering Facility: [facility] Address: [address] [place] [address] Result Comment: Delilah mated Glomerular Filtration Rate [...] actual GFR. Performed By: #### 2 4323-8, ISMAEL ####[facility] LABCLIA [id number] [place] [address] [place] Glucose [Mass/Vol] 86 mg/dL Normal 74-99 [facility] Comment on above: Order Comment: Pat dumont Type: BLOOD SPECIMENOrdering Facility: [facility] Address: [address] [place] [address] Result Comment: The [place] Diabetes Association (ADA) provides guidance for cutoff [...] Standards of Medical Care in Diabetes 2016, [place] Diabetes Association. Diabetes Care. 2016.39(Suppl 1). Performed By: #### 2 4323-8, LIPNF ####[facility] LABCLIA [id number] [place] [address] [place] Potassium [Moles/Vol] Normal [facility] Comment on above: Order Comment: Pat dumont Type: BLOOD SPECIMENOrdering Facility: [facility] Address: [address] [address] Result Comment: Unab le to assay due to interference from hemolysis. Suggest reorder as clinically indicated. Performed By: #### 2 4323-8, LIPNF ####[facility] LABCLIA [id number] [place] [address] [place] Protein [Mass/Vol] 7.1 g/dL Normal 6.3-8.0 [facility] Comment on above: Order Comment: Speci men Type: BLOOD SPECIMENOrdering Facility: [facility] Address: [address] [address] Performed By: #### 2 4323-8, LIPNF ####[facility] LABCLIA [id number] [place] [address] [place] Sodium [Moles/Vol] 138 mmol/L Normal 136-144 [facility] Comment on above: Order Comment: Speci men Type: BLOOD SPECIMENOrdering Facility: [facility] Address: [address] [address] Performed By: #### 2 4323-8, LIPNF ####[facility] LABIA [id number] [place] [address] [place] Urea nitrogen [Mass/Vol] 10 mg/dL Normal 7-21 [facility] Comment on above: Order Comment: Speci men Type: BLOOD SPECIMENOrdering Facility: [facility] Address: [address] [address] Performed By: #### 2 4323-8, LIPNF ####[facility] LABCLIA [id number] [place] [address] [place] ECG COMPLETEon 07-03-2022 ECG COMPLETE Ventricular Rate : 7 2 BPM Atrial Rate : 72 BPM P-R Interval : 144 ms QRS Duration : 144 ms Q-T Interval : 438 ms QTC Calculation(Bazett) : 479 ms Calculated P Rangely : 24 degrees Calculated R Rangely : -13 degrees Calculated T Rangely : 148 degrees NORMAL SINUS RHYTHM COMPLETE LEFT BUNDLE BRANCH BLOCK ABNORMAL ECG Confirmed by ARUN BARFIELD MD ([id number]) on 07/04/2022 12:58:06 PM NAME : RICHIE HOPPER PID : [id number] : 1960 Gender : Female Race : ORD : [id number] Procedure Date : Jul 03 2022 12:54:33 Edit Date : Jul 04 2022 12:58:07 Diagnosis: NORMAL SINUS RHYTHM COMPLETE LEFT BUNDLE BRANCH BLOCK ABNORMAL ECG Confirmed by ARUN BARFIELD MD ([id number]) on 07/04/2022 12:58:06 PM Test Reason : Location : 314 : 14 J1-4 Overread By : ARUN BARFIELD MD Edited By : ARUN BARFIELD MD Referred By : EMANUEL LEDBETTER Acquired by : MELIZA LOPEZ [facility] ECHOon 07-03-2022 Echocardiography Echocardiography Report: Transthoracic Echo [facility] J Date of service: 07/03/2022 3:47:48 PM [employer] Ordering physician: EMANUEL LEDBETTER Indication: Diastolic CHF Technologist: Cheryl Reynolds [facility] Interpreting physician: Yasmin Calvillo MD PATIENT: Name: [...] * * * Final * * * [employer] Image : [id number] [id number] Normal [facility] LIPID PANEL, NONFASTINGon Cholesterol [Mass/Vol] 249 mg/dL High <200 [facility] Comment on above: Order Comment: Pat dumont Type: BLOOD SPECIMENOrdering Facility: [facility] Address: [address] [place] [address] Result Comment: <200 mg/dL, Desirable 200-239 mg/dL, Borderline high >239 mg/dL, High Performed By: #### 2 4323-8, LIPNF ####[facility] LABCLIA [id number] [address] [place] [facility] HDL CHOLESTEROL, NF 43 mg/dL Normal >39 [facility] Comment on above: Order Comment: Pat dumont Type: BLOOD SPECIMENOrdering Facility: [facility] Address: [address] [place] [address] Result Comment: 40-5 9 mg/dL, Acceptable >59 mg/dL, High: Negative risk factor for coronary heart disease <40 mg/dL, Low: Positive risk factor for coronary heart disease Performed By: #### 2 4323-8, LIPNF ####[facility] LABCLIA [id number] [address] [place] [facility] LDL CHOLESTEROL, NF 178 mg/dL High <100 [facility] Comment on above: Order Comment: Pat dumont Type: BLOOD SPECIMENOrdering Facility: [facility] Address: [address] [place] [address] Result Comment: <100 mg/dL, Optimal 100-129 mg/dL, Near optimal/above optimal 130-159 mg/dL, Borderline high 160-189 mg/dL, High >189 mg/dL, Very high Secondary prevention optimal LDL Cholesterol levels are recommended to be < 70 mg/dL Performed By: #### 2 4323-8, LIPNF ####[facility] LABCLIA [id number] [address] LDL/HDL RATIO, NF 4.14 mg/dL High <2.54 [facility] Comment on above: Order Comment: Pat dumont Type: BLOOD SPECIMENOrdering Facility: [facility] Address: [address] [place] [address] Result Comment: Refe rence: 1. National Cholesterol Education Program ATP III Guideline At-A-Glance Quick Desk Reference: National Heart, Lung, and Blood [place]. National Institutes of Health. 2001: NIH Publication No. 01-3305. 2. An International Atherosclerosis Society position paper: global recommendations for the management of dyslipidemia: executive summary, Atherosclerosis. 2014: 232(2):410-413. Performed By: #### 2 4323-8, LIPNF ####[facility] LABCLIA [id number] [address] NON HDL CHOL, NF 206 mg/dL High <130 [facility] Comment on above: Order Comment: Pat dumont Type: BLOOD SPECIMENOrdering Facility: [facility] Address: [address] [address] Result Comment: <130 mg/dL, Optimal 130-159 mg/dL, Near optimal/above optimal 160-189 mg/dL, Borderline high 190-219 mg/dL, High >219 mg/dL, Very high Secondary prevention optimal non HDL Cholesterol levels are recommended to be <100 mg/dL Performed By: #### 2 4323-8, LIPNF ####[facility] LABCLIA [id number] [address] [facility] T CHOL/HDL RATIO NF 5.79 mg/dL High <5.10 [facility] Comment on above: Order Comment: Speci men Type: BLOOD SPECIMENOrdering Facility: [facility] Address: [address] [place] [address] Performed By: #### 2 4323-8, LIPNF ####[facility] LABCLIA [id number] [address] OF [facility] TRIGLYCERIDES, NF 138 mg/dL Normal <150 [facility] Comment on above: Order Comment: Speci men Type: BLOOD SPECIMENOrdering Facility: [facility] Address: [address] [place] [address] Result Comment: <150 mg/dL, Normal 150-199 mg/dL, Borderline high 200-499 mg/dL, High >499 mg/dL, Very high Performed By: #### 2 4323-8, LIPNF ####[facility] LABCLIA [id number] [address] STATES [facility] VLDL CHOLESTEROL, NF 28 mg/dL Normal <30 [facility] Comment on above: Order Comment: Speci men Type: BLOOD SPECIMENOrdering Facility: [facility] Address: [address] [place] [address] Performed By: #### 2 4323-8, LIPNF ####[facility] LABCLIA [id number] [address] [place] Vital Signs Date Time Vital Sign Value Performing Clinician Facility 06-14-2023 11:52-0400 Body height 168.9 cm Emanuel Ledbetter MD Work Phone: [facility] 06-14-2023 11:52-0400 Body weight 78.25 kg Emanuel Ledbetter MD Work Phone: [facility] 06-14-2023 11:52-0400 Diastolic blood pressure 65 mm[Hg] Emanuel Ledbetter MD Work Phone: [facility] 06-14-2023 11:52-0400 Heart rate 88 /min Emanuel Ledbetter MD Work Phone: [facility] 06-14-2023 11:52-0400 SaO2% (BldA) [Mass fraction] 98 % Emanuel Ledbetter MD Work Phone: [facility] 06-14-2023 11:52-0400 Systolic blood pressure 111 mm[Hg] Emanuel Ledbetter MD Work Phone: [facility] 06-05-2023 13:16-0400 Body height 168.91 cm [facility] 06-05-2023 13:16-0400 Body mass index (BMI) [Ratio] 28.5 kg/m2 [facility] 06-05-2023 13:16-0400 Body temperature 98 [degF] [facility] 06-05-2023 13:16-0400 Body weight 81.36 kg [facility] 06-05-2023 13:16-0400 Respiratory rate 18 /min [facility] 06-05-2023 13:16-0400 SaO2% (BldA) [Mass fraction] 98 % [facility] 02-15-2023 12:26-0500 Body height 170.2 cm Emanuel Ledbetter MD Work Phone: [facility] 02-15-2023 12:26-0500 Body weight 81.51 kg Emanuel Ledbetter MD Work Phone: [facility] 02-15-2023 12:26-0500 Diastolic blood pressure 74 mm[Hg] Emanuel Ledbetter MD Work Phone: [facility] 02-15-2023 12:26-0500 Heart rate 69 /min Emanuel Ledbetter MD Work Phone: [facility] 02-15-2023 12:26-0500 SaO2% (BldA) [Mass fraction] 97 % Emanuel Ledbetter MD Work Phone: [facility] 02-15-2023 12:26-0500 Systolic blood pressure 111 mm[Hg] Emanuel Ledbetter MD Work Phone: [facility] 07-03-2022 14:28-0400 Body height 168.9 cm Emanuel Ledbetter MD Work Phone: [facility] 07-03-2022 14:28-0400 Body weight 84.64 kg Emanuel Ledbetter MD Work Phone: [facility] 07-03-2022 14:28-0400 Diastolic blood pressure 85 mm[Hg] Emanuel Ledbetter MD Work Phone: [facility] 07-03-2022 14:28-0400 Heart rate 72 /min Emanuel Ledbetter MD Work Phone: [facility] 07-03-2022 14:28-0400 SaO2% (BldA) [Mass fraction] 95 % Emanuel Ledbetter MD Work Phone: [facility] 07-03-2022 14:28-0400 Systolic blood pressure 135 mm[Hg] Emanuel Ledbetter MD Work Phone: [facility] 08-01-2021 17:20-0400 Body height 168.91 cm Carmen Evans Other [employer] Other 08-01-2021 17:20-0400 Body mass index (BMI) [Ratio] 29.73 kg/m2 Carmen Evans Other [employer] Other 08-01-2021 17:20-0400 Body temperature 96.6 [degF] Carmen Evans Other [employer] Other 08-01-2021 17:20-0400 Body weight 84.82 kg Carmen Evans Other [employer] Other 08-01-2021 17:20-0400 Diastolic blood pressure 72 mm[Hg] Carmen Evans Other [employer] Other 08-01-2021 17:20-0400 SaO2% (BldA) [Mass fraction] 96 % Carmen Evans Other [employer] Other 08-01-2021 17:20-0400 Systolic blood pressure 106 mm[Hg] Carmen Evans Other [employer] Other Encounters Encounter Date Encounter Type Care Provider Facility Start: 06-14-2023 End: 06-14-2023 ambulatory EMANUEL LEDBETTER Facility:[facility] Start: 06-14-2023 End: 06-14-2023 Patient encounter procedure Emanuel Ledbetter MD Work Phone: Cardiology Comment on above: Chronic systolic (co ngestive) heart failure (HCC) (Primary Dx); PVC (premature ventricular contraction); Hyperlipidemia LDL goal <70; Cardiomyopathy, nonischemic (HCC); Complex medical condition Start: 06-05-2023 End: 06-05-2023 ambulatory Bev Casiano Facility:[facility] Start: 06-05-2023 End: 06-05-2023 Departed Referred CONCRETE MIXER Bev Casiano Work Phone: [facility] [place] Work Phone: Start: 06-05-2023 End: 06-05-2023 ambulatory [facility] Work Phone: Start: 06-05-2023 End: 06-05-2023 Patient encounter procedure [facility] Work Phone: Start: 02-19-2023 Telephone encounter Emanuel dash MD Work Phone: Cardiology Comment on above: Advice Only Start: 02-16-2023 End: 02-16-2023 ambulatory Arrhythmia Monitoring [...] goal <70 Start: 02-15-2023 End: 02-15-2023 ambulatory CARMEN EVANS Facility:[facility] Start: 02-14-2023 End: 02-14-2023 ambulatory EMANUEL LEDBETTER Facility:[facility] Start: 02-12-2023 End: 02-12-2023 ambulatory Carmen Evans Other [employer] Other Start: 02-12-2023 Telephone encounter Carmen Evans [facility] Comment on above: Advice Only Start: 11-04-2022 Refill Emanuel Ledbetter MD Work Phone: Cardiology Comment on above: Refill Request Start: 10-18-2022 Refill Emanuel Ledbetter MD Work Phone: Cardiology Comment on above: Refill Request Start: 07-03-2022 End: 07-03-2022 ambulatory EMANUEL LEDBETTER Facility:[facility] Start: 07-03-2022 End: 07-04-2022 ambulatory EMANUEL LEDBETTER Facility:[facility] Start: 07-03-2022 End: 07-03-2022 Patient encounter procedure Emanuel Ledbetter MD Work Phone: Cardiology Comment on above: Hyperlipidemia LDL g oal <70 (Primary Dx); Cardiomyopathy, nonischemic (HCC); Chronic systolic (congestive) heart failure (HCC) Start: 01-27-2022 End: 01-27-2022 ambulatory Carmen Evans Other [employer] Other Start: 01-27-2022 Telephone encounter Carmen Evans [facility] Start: 10-10-2021 Reffelix Ledbetter MD Work Phone: Cardiology Comment on above: Refill Request Start: 08-16-2021 End: 08-16-2021 ambulatory Carmen Evans Other [employer] Other Start: 08-16-2021 Telephone encounter Carmen Evans [facility] Start: 08-01-2021 End: 08-01-2021 ambulatory Carmen Evans Other [employer] Other Start: 08-01-2021 Office outpatient vi sit 15 minutes Carmen Bauerguille [facility] Start: 04-19-2019 Patient encounter procedure CARMEN EVANS Facility: Procedures Date Procedure Procedure Detail Performing Clinician Start: 07-03-2022 Lipid 1996 panel - S vikas or Plasma Luanne Banks MD Work Phone: Plan of Treatment Date Care Activity Detail Author Start: 07-04-2027 Lipid 1996 panel - S vikas or Plasma Lipid Screening [facility] Start: 07-04-2027 Lipid panel Lipid Screening [facility] Start: 07-04-2027 LIPID SCREEN LIPID SCREEN [facility] Start: 02-14-2026 Diabetes Screening Diabetes Screenin g [facility] Start: 08-10-2025 LIPID SCREEN LIPID SCREEN [facility] Start: 07-03-2025 DIABETES SCREEN DIABETES SCREEN [facility] Start: 11-11-2023 Influenza vaccination Influenz a Vaccine (Season Ended) [facility] Start: 08-11-2023 DIABETES SCREEN DIABETES SCREEN [facility] Start: 06-06-2023 Bacteria identified in Urine by [facility] Start: 06-05-2023 Bacteria identified in Urine by [facility] Start: 03-12-2023 Behavioral Health Screening Behavioral Health Screening [facility] Start: 11-10-2022 Covid-19 Vaccine ( season) Covid-19 Vaccine ( season) [facility] Start: 11-10-2022 Influenza vaccination C [facility] Start: 07-03-2022 End: 09-02-2022 Comprehensive metabolic 2000 panel - Serum or Plasma COMP METABOLIC PANEL Lab STAT Hyperlipidemia LDL goal <70 Expected: 07/03/2022, Expires: 09/02/2022 [facility] Work Phone: Comment on above: Expected: 07/03/2022 , Expires: 09/02/2022 Start: 07-03-2022 End: 09-02-2022 Lipid 1996 panel - Serum or Plasma LIPID PANEL BASIC Lab Routine Hyperlipidemia LDL goal <70 Expected: 07/03/2022, Expires: 09/02/2022 [facility] Work Phone: Comment on above: Expected: 07/03/2022 , Expires: 09/02/2022 Start: 03-12-2022 DEPRESSION ASSESSMENT DEPRESSION ASS ESSMENT [facility] Start: 11-10-2021 Influenza vaccination INFLUENZA (#1) [facility] Start: 2020 RSV Vaccine (1 - 1-d ose 60+ series) RSV Vaccine (1 - 1-dose 60+ series) [facility] Start: 03-18-2019 Screening for malign ant neoplasm of breast Mammogram Screening [facility] Start: 02-03-2010 SHINGRIX VACCINE (1 of 2) MARADIAGA GRIX VACCINE (1 of 2) [facility] Start: 02-03-2005 COLOGUARD (FIT-DNA) COLOGUARD (FIT-D NA) [facility] Start: 02-03-2005 Colonoscopy COLONOSCOPY [facility] Start: 02-03-2005 COLORECTAL CANCER SCREENING COLORECTAL CANCER SCREENING [facility] Start: 02-03-[address] COLONOGRAPHY [facility] Start: 02-03-2005 FECAL OCCULT BLOOD FECAL OCCULT BLOO D [facility] Start: 02-03-2005 Screening for malign ant neoplasm of colon [facility] Start: 02-03-2005 SIGMOIDOSCOPY SIGMOIDOSCOPY [facility] Start: 2000 Mammography [facility] Start: 02-03-1990 HPV TESTING HPV TESTING [facility] Start: 02-03-1990 Screening for malign ant neoplasm of cervix HPV Testing [facility] Start: 02-03-1981 PAP TESTING PAP TESTING [facility] Start: 02-03-1981 Screening for malign ant neoplasm of cervix Pap Testing [facility] Start: 02-03-1979 Urine microalbumin profile [facility] Start: 02-03-1978 ANNUAL PCP TEAM YOUTH LEADER AYUSH DISEASE VISIT ANNUAL PCP TEAM CHRONIC DISEASE VISIT [facility] Start: 02-03-1978 HEPATITIS C SCREENING HEPATITIS C [facility] Start: 02-03-1978 Hepatitis C screening Hepatitis C [facility] Start: 02-03-1978 HIV SCREENING HIV SCREENING [facility] Start: 02-03-1978 HIV screening HIV Screening [facility] Start: 1972 Adult depression scr eening assessment DEPRESSION SCREENING [facility] Start: 02-03-1966 PNEUMOCOCCAL (1 - PCV) PNEUMOCOCCAL (1 - PCV) [facility] Start: 02-03-1966 Pneumococcal vaccination [facility] Start: 1960 COVID-19 VACCINE (#1) COVID-19 VACCI NE (#1) [facility] End: 06-13-2024 ECG COMPLETE ECG COMPLETE ECG Routine Chronic systolic (congestive) heart failure (HCC) 1 Occurrences starting 06/14/2023 until 06/13/2024 [facility] Work Phone: Comment on above: 1 Occurrences starti ng 06/14/2023 until 06/13/2024 End: 02-16-2024 Echocardiography ECHO Cardiology Routine Chronic systolic (congestive) heart failure (HCC) 1 Occurrences starting 02/15/2023 until 02/16/2024 [facility] Work Phone: Comment on above: 1 Occurrences starti ng 02/15/2023 until 02/16/2024 End: 06-13-2024 Echocardiography ECHO Cardiology Routine Chronic systolic (congestive) heart failure (HCC) 1 Occurrences starting 06/14/2023 until 06/13/2024 [facility] Work Phone: Comment on above: 1 Occurrences starti ng 06/14/2023 until 06/13/2024 End: 02-16-2024 HOLTER MONITOR 48 HOUR HOLTER MONITOR 48 HOUR ECG Routine PVC (premature ventricular contraction) 1 Occurrences starting 02/15/2023 until 02/16/2024 [facility] Work Phone: Comment on above: 1 Occurrences starti ng 02/15/2023 until 02/16/2024 [facility] Immunizations Immunization Date Immunization Notes Care Provider Marci degroot NEGATED: Highlighted row has not occurred!12-20-2018 influenza, seasonal, injectable Patient Objection Carmen Evans Other [employer] Other Payers Date Payer Category Payer Private Health Insurance [id number] 2012 Private Health Insurance [facility] UMR CHOICE PLUS [id number] 2012-Present [phone] [address] [address] [place] [address] HMO [id number] 2012 Private Health Insurance [facility] UMR CHOICE PLUS [id number] 2012-Present [phone] [address] [address] [place] [address] HMO [id number] 1960 Unknown [id number] 1959 Self-pay Unknown [id number] Social History Date Type Detail Facility Start: 02-12-2019 End: 02-15-2023 Sex Assigned At [facility] Start: 02-12-2019 End: 06-14-2023 Tobacco smoking status NHIS Never smoked tobacco [facility] Start: 02-12-2019 End: 06-14-2023 Alcohol intake Current drinker of alcohol (finding) [facility] Start: 1960 Sex Assigned At Not on file C [facility] Start: 02-12-2019 End: 06-14-2023 Tobacco use and exposure Smokeless tobacco non-user [facility] Start: 02-12-2019 End: 02-15-2023 History of Social function [facility] National Score (1-10 0), lower number is lower risk 60 [facility] Start: 1960 Sex Assigned At Female C [facility] Clinical Notes 08-07-2013 to 06-14-2023 Emanuel Ledbetter MD - 06/14/2023 11:45 AM EDTTelephone Encounter - Damaris Cuellar - 02/19/2023 3:08 PM Keren Lewisse - 02/16/2023 4:24 PM Emanuel Abebe MD - 02/15/2023 12:04 PM EST Note Date & Type Note Facility 06-14-2023 Note HNO ID: [id number] Author: EMANUEL LEDBETTER MD Service: ? Author Type: Physician Type: Progress Notes Filed: 06/14/2023 17:19 Note Text: [facility] SECTION OF HEART FAILURE and CARDIAC TRANSPLANT MEDICINE OUTPATIENT VISIT DATE June 14, 2023 OUTPATIENT VISIT TYPE Established Patient PRIMARY CARE PHYSICIAN: Carmen Evans [address] [place] [address] CHIEF COMPLAINT: HF f/u NURSING INTAKE (Patient?s concerns and/or recent hospitalizations/ER visits): HF Nursing Assessment: Interim Hospitalizations and/or ER visits:02/16/2023 [facility] W/POSS PCI Chest Pain: no Skipping [...] 6.83 6.60 6.7 (more content not included)... [facility] 06-14-2023 History of Presen t illness Narrative Images from the original note were not included. [facility] SECTION OF HEART FAILURE and CARDIAC TRANSPLANT MEDICINE OUTPATIENT VISIT DATE June 14, 2023 OUTPATIENT VISIT TYPE Established Patient PRIMARY CARE PHYSICIAN: Carmen Evans [address] [place] [address] CHIEF COMPLAINT: HF f/u NURSING INTAKE (Patient [...] correlated with sinus rhythm,sinus arrhythmia,tachycardia,SVE,PVC. Scanned on 02/21/2023.[employer] customer insight. ECG today: Diagnosis: NORMAL SINUS RHYTHM COMPLETE [...] 3 mo with echo and ECG Emanuel Ledbetter MD June 14, 2023 1:04 PM CC: CARMEN EVANS documented in this encounter [facility] 02-19-2023 Miscellaneous Notes February 19, 2023 Name: Richie Hopper Patient Contact Number: [phone] (home) [phone] (cell) Date of last office visit: 02/15/2023 Reason For Call: Pt called stating that she has done a lot of test. She is ready to start exercising again, She want to know if Dr. Ledbetter could order cardiac rehab for her so that it can be monitored. Physician: Emanuel Ledbetter MD Patient was informed that non-urgent calls may be returned within the next three business days. Yes Damaris Cuellar documented in this encounter [facility] 02-16-2023 Note HNO ID: [id number] Author: Sandy Flower Service: ? Author Type: ? Type: Progress Notes Filed: 02/16/2023 4:24 PM Note Text: HOLTER MONITOR APPLICATION Patient Name: Richie Hopper [facility] Number: [id number] Chest is cleansed with alcohol Skin prep [...] or 48 hours 6.) Call with problems [phone] OR [phone] Patient expresses good verbal understanding of instructions Sandy Costa [facility] 02-16-2023 History of Presen t illness Narrative HOLTER MONITOR APPLICATION Patient Name: Richie Hopper [facility] Number: [id number] Chest is cleansed with alcohol Skin prep [...] or 48 hours 6.) Call with problems [phone] OR [phone] Patient expresses good verbal understanding of instructions Sandy Costa documented in this encounter [facility] 02-16-2023 Note Education (CARDMN) HOPPERRICHIE J ([id number]) 1960 F Date Time Provider Department 02/16/23 7:00 AM ARRHYTHMIA MONITORING LAB CARDMN Reason for Visit: Holter Monitor Application [261] Visit Diagnosis:PVC (premature ventricular contraction) [I49.3] Order(s):HOLTER MONITOR 48 HOUR [[id number]] Order #: [id number] During your visit today, we recorded the [...] Encounter Status:Closed by SANDY FLOWER on 02/16/23 [facility] 02-15-2023 Miscellaneous Notes CARDIOVASCULAR LAB INSTRUCTIONS: [...] Department of CARDIOLOGY. documented in this encounter [facility] 02-15-2023 Note HNO ID: [id number] Author: Emanuel Ledbetter MD Service: ? Author Type: Physician Type: Progress Notes Filed: 02/15/2023 5:05 PM Note Text: [facility] SECTION OF HEART FAILURE and CARDIAC TRANSPLANT MEDICINE OUTPATIENT VISIT DATE February 15, 2023 OUTPATIENT VISIT TYPE Established Patient PRIMARY CARE PHYSICIAN: Carmen Evans [address] [place] [address] CHIEF COMPLAINT: CP NURSING INTAKE (Patient?s concerns [...] (H) Non H (more content not included)... [facility] 02-15-2023 History of Presen t illness Narrative Images from the original note were not included. [facility] SECTION OF HEART FAILURE and CARDIAC TRANSPLANT MEDICINE OUTPATIENT VISIT DATE February 15, 2023 OUTPATIENT VISIT TYPE Established Patient PRIMARY CARE PHYSICIAN: Carmen Evans [address] [place] [address] CHIEF COMPLAINT: CP NURSING INTAKE (Patient s [...] - Exam was compared with the prior CC echocardiographic exam performed on 07/03/2022. Left ventricular [...] CC: CARMEN EVANS documented in this encounter [facility] 02-15-2023 Note HNO ID: [id number] Author: Juliana Lozano RN Service: Radiology Author [...] ALLERGIES: Reviewed and unchanged MEDICATIONS REVIEWED BY: Soil Chemist PROCEDURE TYPE: NM STRESS: 0.4 mg of [...] 15, 2023 TIME: 10:44 AM PAGER/CONTACT #: [phone] [facility] 02-15-2023 Note HNO ID: [id number] Author: Mo Renteria Nuclear Tech Service: Nuclear Medicine Author Type: Beam Builder Helper Type: Progress Notes Filed: 02/15/2023 10:44 AM [...] STATUS: Discontinued PROCEDURE TYPE: NM Stress: 11.9mCi [id number] was administered IV for Rest Imaging at 0921 by RT Demetria(R). 32.1 mCi [id number] was administered IV for Stress Imaging at 1044 by Mo Renteria [facility]. PATIENT DISCHARGED TO: Ambulatory patient, left [place] department area. A Diagnostic radioactive procedure has taken place, with no further precautions necessary other than routine body substance precautions. More information regarding radiation safety can be found using this link: [email or web address] [email or web address] SIGNATURE: RT Demetria(R) PATIENT NAME: Richie Hopper DATE: February 15, 2023 TIME: 9:22 AM PAGER/CONTACT #: [phone] [facility] 02-14-2023 Miscellaneous Notes Spoke to patient got her schedule with for appointment. February 12, 2023 Name: Richie Hopper Patient Contact Number: [phone] (home) [phone] (cell) Date of last office visit: 07/03/2022 Reason For Call: Pt called stating that she is experiencing more symptoms from Cardiomyopathy. She would like to know if Dr. Ledbetter could order more test. She is not able to walk short distance it gives her chest tightness and she throws up. Physician: Emanuel Ledbetter MD Patient was informed that non-urgent calls may be returned within the next three business days. Yes Damaris Cuellar documented in this encounter [facility] 07-03-2022 Note HNO ID: [id number] Author: Emanuel Ledbetter MD Service: ? Author Type: Physician Type: Progress Notes Filed: 07/03/2022 5:14 PM Note Text: [facility] SECTION OF HEART FAILURE and CARDIAC TRANSPLANT MEDICINE OUTPATIENT VISIT DATE July 03, 2022 OUTPATIENT VISIT TYPE Established Patient PRIMARY CARE PHYSICIAN: Carmen Evans [address] [place] [address] CHIEF COMPLAINT: HF F/u NURSING INTAKE (Patient?s [...] level: yes, super tired. Happened when medication floor covering layer changed Unintentional weight gain: fluctuates 3 lbs [...] one tablet daily by mouth.Disp: Rfl: FOREIGN [id number] mg once daily. Pt takes Q-Sorb CO [...] 11.00 k/uL 6. (more content not included)... [facility] 07-03-2022 History of Presen t illness Narrative Images from the original note were not included. [facility] SECTION OF HEART FAILURE and CARDIAC TRANSPLANT MEDICINE OUTPATIENT VISIT DATE July 03, 2022 OUTPATIENT VISIT TYPE Established Patient PRIMARY CARE PHYSICIAN: Carmen Evans [address] [place] [address] CHIEF COMPLAINT: HF F/u NURSING INTAKE (Patient [...] level: yes, super tired. Happened when medication floor covering layer changed Unintentional weight gain: fluctuates 3 lbs [...] normal. Exam was compared with the prior echocardiographic exam performed on 06/17/2018. There is no significant change. Emanuel Ledbetter MD July 03, 2022 5:13 PM documented in this encounter [facility] 08-01-2021 Evaluation note Encounter Date Diagnosis [...] Eat more dark green vegetables and proteins. [employer] Other 05-29-2014 History general Narrative - Reported* Type Description Date Medical History HEART-CARDIAL MYOPATHY Medical History Refuses Colonoscopy 08-07-13 Surgical History hysterectomy 2001 Surgical History colonoscopy [facility] [address] [place] cleared left ear 2015 Surgical History Hemorrhoidectomy 02/2019 [employer] Other Evaluation noteNo InformationNort [employer] Other Evaluation note* Diagnosis Hyperlipidemia LDL goal <70- Primary Other and unspecified hyperlipidemia Cardiomyopathy, nonischemic (HCC) Other primary cardiomyopathies Chronic systolic (congestive) heart failure (HCC) documented in this encounter [facility] note* Diagnosis Chronic systolic (congestive) heart failure (HCC)- Primary Precordial pain PVC (premature ventricular contraction) Other premature beats Hyperlipidemia LDL goal <70 Other and unspecified hyperlipidemia documented in this encounter [facility] note* Diagnosis PVC (premature ventricular contraction) Other premature beats documented in this encounter [facility] noteNo assessment information [facility] Work Phone: Evaluation note* Diagnosis Chronic systolic (congestive) heart failure (HCC)- Primary PVC (premature ventricular contraction) Other premature beats Hyperlipidemia LDL goal <70 Other and unspecified hyperlipidemia Cardiomyopathy, nonischemic (HCC) Other primary cardiomyopathies Complex medical condition documented in this encounter [facility] for referral (narrative)* Outpatient Procedure (Routine) - Pending Review Specialty Diagnoses / Procedures Referred By Contac t Referred To [facility] Diagnoses Chronic systolic (congestive) heart failure (HCC) Procedures ECHO ECHO TTHRC R-T 2D W/WOM-MODE COMPL SPEC&COLR D Emanuel Ledbetter MD [address] [place] [address] [facility] [address] [address] Referral ID Status Reason Start Date Expiration Date Visits Requested Visits Authorized [id number] Pending Review Auto-Generat ed Referral 02/15/2023 02/15/2024 1 1 * Transition of Care (Routine) - Ref Not Required Specialty Diagnoses / Procedures Referred By Contac t Referred To Contact Procedures CARDIOVASCULAR MEDICINE OP FOLLOW UP APPT ORDER Emanuel Ledbetter MD [address] [place] [address] Referral ID Status Reason Start Date Expiration Date Visits Requested Visits Authorized [id number] Ref Not Required PCP Requested Referral 05/17/2023 02/15/2024 1 1 [facility] for referral (narrative)* Outpatient Procedure (Routine) - Pending Review Specialty Diagnoses / Procedures Referred By Contac t Referred To Contact [facility] Diagnoses Chronic systolic (congestive) heart failure (HCC) Procedures ECHO ECHO TTHRC R-T 2D W/WOM-MODE COMPL SPEC&COLR Emanuel Martinez MD [address] [place] [address] [facility] [address] [address] Referral ID Status Reason Start Date Expiration Date Visits Requested Visits Authorized [id number] Pending Review Auto-Generat ed Referral 06/14/2023 06/13/2024 1 1 * Outpatient Procedure (Routine) - Authorized Specialty Diagnoses / Procedures Referred By Contac t Referred To Contact [facility] [place] Diagnoses Chronic systolic (congestive) heart failure (HCC) Procedures ECG COMPLETE ECG ROUTINE ECG W/LEAST 12 LDS W/I&R Emanuel Ledbetter MD [address] [place] [address] [address] Referral ID Status Reason Start Date Expiration Date Visits Requested Visits Authorized [id number] Authorized Auto-Generat ed Referral 06/14/2023 06/13/2024 1 1 * Transition of Care (Routine) - Ref Not Required Specialty Diagnoses / Procedures Referred By Contac t Referred To Contact [facility] Procedures CARDIOVASCULAR MEDICINE OP FOLLOW UP APPT ORDER Emanuel Ledbetter MD [address] [place] [address] [address] Referral ID Status Reason Start Date Expiration Date Visits Requested Visits Authorized [id number] Ref Not Required PCP Requested Referral 09/13/2023 06/13/2024 1 1 [facility] Summary Purpose Family History No Family [...] content) DATE CREATED AUTHOR 12/23/2019 [employer] DATE CREATED AUTHOR AUTHOR'S ORGANIZ ATION 06/07/2023 [facility] DATE CREATED AUTHOR AUTHOR'S ORGANIZ ATION 06/23/2023 [facility] REASON FOR VISIT (unrecogniz ed section and content) Reason Comments Refill Request Reason Comments Follow Up Reason Comments Patient Education Reason Comments Follow Up Reason Comments Holter Monitor Application Specialty Diagnoses / Procedures Referred By Contac t Referred To Contact Diagnoses Combined systolic and diastolic heart failure, unspecified HF chronicity (HCC) LHC W/POSS PCI Procedures CATH PLMT L HRT & ARTS W/NJX & ANGIO IMG S&I PRQ TRLUML CORONARY STENT W/ANGIO ONE ART/BRNCH CORONARY ANGIO W CATH PLACE W IMAGE INJECT & INTERP W LT HEART CATH W INJECT LT VENTRGRAPHY INSERT INTRACORONARY STENT-PER MAJOR VESSEL OR BRANCH [facility] Dip [address] [place] [address] Referral ID Status Reason Start Date Expiration Date Visits Re quested Visits Authorized [id number] 1 1 Reason Comments Follow Up Reason Comments Advice Only Source Comments (unrecognize d section and content) In the event this informatio n is protected by the Federal Confidentiality of Alcohol and Drug Abuse Patient Records regulations: The Federal rules restrict any use of the information to criminally investigate or prosecute any alcohol or drug abuse patient.[facility] the event this information is protected by the Federal Confidentiality of Alcohol and Drug Abuse Patient Records regulations: The Federal rules restrict any use of the information to criminally investigate or prosecute any alcohol or drug abuse patient.[facility] the event this information is protected by the Federal Confidentiality of Alcohol and Drug Abuse Patient Records regulations: The Federal rules restrict any use of the information to criminally investigate or prosecute any alcohol or drug abuse patient.[facility] the event this information is protected by the Federal Confidentiality of Alcohol and Drug Abuse Patient Records regulations: The Federal rules restrict any use of the information to criminally investigate or prosecute any alcohol or drug abuse patient.[facility] the event this information is protected by the Federal Confidentiality of Alcohol and Drug Abuse Patient Records regulations: The Federal rules restrict any use of the information to criminally investigate or prosecute any alcohol or drug abuse patient.[facility] the event this information is protected by the Federal Confidentiality of Alcohol and Drug Abuse Patient Records regulations: The Federal rules restrict any use of the information to criminally investigate or prosecute any alcohol or drug abuse patient.[facility] Hospital[facility] the event this information is protected by the Federal Confidentiality of Alcohol and Drug Abuse Patient Records regulations: The Federal rules restrict any use of the information to criminally investigate or prosecute any alcohol or drug abuse patient.[facility] the event this information is protected by the Federal Confidentiality of Alcohol and Drug Abuse Patient Records regulations: The Federal rules restrict any use of the information to criminally investigate or prosecute any alcohol or drug abuse patient.[facility] Hospital[facility] the event this information is protected by the Federal Confidentiality of Alcohol and Drug Abuse Patient Records regulations: The Federal rules restrict any use of the information to criminally investigate or prosecute any alcohol or drug abuse patient.[facility] Hospital[facility] the event this information is protected by the Federal Confidentiality of Alcohol and Drug Abuse Patient Records regulations: The Federal rules restrict any use of the information to criminally investigate or prosecute any alcohol or drug abuse patient.[facility] Care Teams (unrecognized sec tion and content) Jackscrew Man Relationship Specialty Start Date End Date Carmen Evans, DO [address] [place] [address] PCP - General 03/17/05 Emanuel Ledbetter MD [address] [place] [address] Primary Staff Physician Cardiology 05/28/18 Jackscrew Man Relationship Specialty Start Date End Date Carmen Evans, [address] [place] [address] PCP - General 03/17/05 Emanuel Ledbetter MD [address] [place], [place] [id number] Primary Staff Physician Cardiology 05/28/18 Jackscrew Man Relationship Specialty Start Date End Date Carmen Evans DO [address] [place] [address] PCP - General 03/17/05 Emanuel Ledbetter MD [address] [place], [place] [id number] Primary Staff Physician Cardiology 05/28/18 Jackscrew Man Relationship Specialty Start Date End Date Carmen Evans DO [address] [place] [address] PCP - General 03/17/05 Emanuel Ledbetter MD [address] [place] [address] Primary Staff Physician Cardiology 05/28/18 Team Status: [...] June 05, 2023 End: June 05, 2023 Jackscrew Man Relationship Specialty Start Date End Date Carmen Evans DO [address] [place] [id number] PCP - General 03/17/05 Emanuel Ledbetter MD [address] [place] [address] Primary Staff Physician Cardiology 05/28/18 Jackscrew Man Relationship Specialty Start Date End Date Carmen Evans DO [address] [place] [address] PCP - General 03/17/05 Emanuel Ledbetter MD [address] [place] [address] Primary Staff Physician Cardiology 05/28/18 Jackscrew Man Relationship Specialty Start Date End Date Carmen Evans DO [address] [place] [address] PCP - General 03/17/05 Emanuel Ledbetter MD [address] [place] [address] Primary Staff Physician Cardiology 05/28/18 Goals (unrecognized [...] BE BASED ON THE PRIMARY CLINICAL RECORDS. [employer] provides no warranty or guarantee of the accuracy or completeness of information in this document.
[2023-07-20 11:15] LABS: Alanine Aminotransferase 68 U/L (14-59); Albumin Globulin Ratio 0.9; Albumin Level 3.8 g/dL (3.4-5.0); Alkaline Phosphatase 79 U/L (46-116); Anion Gap 12.5; Aspartate Amino Transferase 32 U/L (15-37); BUN Creatinine Ratio 16.9; Bilirubin Total 0.5 mg/dL (0.2-1.0); Calcium 9.2 mg/dL (8.5-10.1); Carbon Dioxide 27.9 mmol/L (21.0-32.0); Chloride 106 mmol/L (98-107); Estimated GFR (African America >60 (>=60); Estimated GFR (Non-African Ame >60 (>=60); Glucose 99 mg/dL (74-106); Potassium 4.4 mmol/L (3.5-5.1); Sodium 142 mmol/L (136-145); Total Protein 7.8 g/dL (6.4-8.2)
== END 2023-07-20 09:17 | disposition home or self-care (01) ==
PROVIDERS: PCP Family Medicine; Visit Provider Family Medicine
DX: R79.89 Other specified abnormal findings of blood chemistry (principal)
CPT/HCPCS: 36415; 80053

== ENCOUNTER 2023-12-31 08:52 | Outpatient (OUT) | payer OTHER, SELFPAY ==
--- NOTE | 2023-12-31 09:10 | CT_ITS ---
The [address] [address] Patient Name: RICHIE HOPPER MRN: [id number] date: 1960 Sex: F Assigned Patient Location: CT Current Patient Location: Accession/Order Number: [id number] Exam Date: 12/31/2023 09:00 Report Date: 01/02/2024 05:41 At the request of: AMBROCIO SMITH Procedure: CT chest high res EXAMINATION: CT chest high res HISTORY: Abnormal Findings Of Lung Field COMPARISON: CTA chest 06/20/2023 TECHNIQUE: Axial images were obtained at 10 mm intervals during inspiration and expiration in the supine and prone positions. No IV contrast given. Dose reduction techniques were achieved by using automated exposure control and/or adjustment of mA and/or kV according to patient size and/or use of iterative reconstruction technique. FINDINGS: LUNGS: No infiltrates or edema. No air trapping, significant chronic interstitial changes, fibrosis. No significant bronchiectasis. PLEURA: No mass, effusion, or pneumothorax. AUDELIA: No mass or adenopathy. MEDIASTINUM: No mass or adenopathy. HEART: No significant enlargement or pericardial effusion.. Coronary arteries: AORTA: No aneurysm.. CHEST WALL: No mass or axillary adenopathy LIMITED ABDOMEN: Small cysts versus hemangioma within posterior right hepatic lobe, stable. No suspicious findings. Limited images of the upper abdomen. OTHER: Negative. CT/CT chest high res IMPRESSION: 1. Clearing of previously seen pulmonary infiltrates versus atelectasis. 2. No significant chronic interstitial changes. Electronically authenticated by: YVES TRIPP Date: 01/02/2024 05:41
--- OUTSIDE RECORDS SUMMARY | 2023-12-31 09:11 | XMS_ITS | CCD ---
Author Organization [facility] Care Team Providers Care Production Foreman Name Role Phone CARMEN EVANS Admitting Unavailable CARMEN EVANS Attending Unavailable Carmen Evans Unavailable Carmen Evans DO Primary Care Provider [phone] Emanuel Ledbetter MD Unavailable Carmen Evans DO Primary Care Provider [phone] Emanuel Ledbetter MD Unavailable Carmen Evans DO Primary Care Provider [phone] Emanuel Ledbetter MD Unavailable GRETCHEN Casiano Attending Provider [phone] Bev Casiano Attending Unavailable Bev Casiano Admitting Unavailable EMANUEL LEDBETTER Attending Unavailable EMANUEL LEDBETTER Referring Unavailable CARMEN EVANS Primary Care Unavailable EMANUEL LEDBETTER Referring Unavailable CARMEN EVANS Primary Care Unavailable EMANUEL LEDBETTER Referring Unavailable CARMEN EVANS Primary Care Unavailable EMANUEL LEDBETTER Referring Unavailable EMANUEL LEDBETTER Attending Unavailable CARMEN EVANS Primary Care Unavailable LUANNE BANKS Admitting LUANNE Medina Attending CARMEN Sweet Primary [...] Referring Unavailable CARMEN EVANS Primary Care Unavailable Carmen Evans DO Primary Care Provider [phone] Allergies Allergy Classification Reported Allergen(s) Allergy Type Date of Onset Reaction(s) Facility (4 sources) Lisinopril Drug Allergy COUGH [facility] Other (12 sources) Angiotensin-con verting enzyme inhibitor agent; Translations: [LUISA INHIBITORS] Propensity to adverse reactions 6 Cough [facility] (1 source) Lisinopril Drug Allergy 4 [facility] Repository Medications Current Medications Medication Drug Class(es) Dates Sig (Normalized) Sig (Original) amoxicillin 875 mg / clavulanate 125 mg oral tablet (6 sources) Penicillin-class Antibacterial Start: 08-01-2021 take 1 tablet by mouth twice daily at mealtime Amoxicillin-Pot Clavulanate 875-125 MG 1 tablet Orally bid with food for 10 day(s) Jan, Active Fish Oils (4 sources) CO-Q 10 [place]-3 Fish Oil Active losartan potassium 25 mg oral tablet (20 sources) Angiotensin 2 Receptor Zeferino Start: 03-07-2019 End: 11-30-2023 take 1 tablet by mouth once daily losartan (COZAAR) 25 mg tablet take 1 tablet by mouth every day 90 tablet 3 11/30/2023 Active Comment on above: TAKE 1 TABLET BY NAVI TH EVERY DAY Take 1 tablet by navi th once daily. 24 hr metoprolol succinate 50 mg extended release oral tablet (18 sources) beta-Adrenergic Zeferino Start: 06-14-2023 take 1 tablet by mouth twice daily [...] EVERY DAY Take 1 tablet by navi two times a day. nitroglycerin 0.4 mg sublingual tablet (6 sources) Nitrate Vasodilator Start: 02-15-2023 nitroglycerin sublingual (NITROQUICK) 0.4 mg SL tablet Dissolve 1 tablet under the tongue as needed for chest pain. If no pain relief call 911. 45 tablet 2 02/15/2023 Active Comment on above: Dissolve 1 tablet un gonzalo the tongue as needed for chest pain. If no pain relief call 911. perflutren lipid microspheres 1.3 mL in NaCl [...] Yeast Rice (4 sources) Red Yeast Rice Active red yeast rice 600 mg / ubidecarenone 60 mg oral capsule (6 sources) take 1 capsule by mouth once daily ubidecarenone/red yeast rice (CO Q10-RED YEAST RICE) 60-600 mg cap Take 1 capsule by mouth once daily. Active Comment on above: Take 1 capsule by mo [facility] once daily. rosuvastatin calcium 20 mg oral tablet (10 sources) HMG-CoA Reductase Inhibitor Start: 3 take 1 tablet by mouth once daily rosuvastatin (CRESTOR) 20 mg tablet Take 1 tablet by mouth once daily. 90 tablet 3 07/03/2022 Active Comment on above: Take 1 tablet by navi once daily. 125 ml sodium chloride 9 mg/ml prefilled syringe (11 sources) Start: End: sodium chloride 0.9 % (flush) 10 mL (BD POSIFLUSH) Start: 08-10-2020 End: [...] Biotin (Robert Biotin) 10,000 mcg Capsule Discontinued 36871 MCG PO Daily March 07, 2019 1:00am [...] 1200 mg oral capsule (5 sources) End: 02-15-2023 take 1200 mg by mouth once daily LECITHIN ORAL Take 1,200 mg by mouth once daily. 0 02/15/2023 Discontinued (Discontinued by Patient) Comment on above: Take 1,200 mg by navi th once daily. Lecithin Ultra (2 sources) Start: 03-07-2019 End: 06-05-2023 take 1200 mg by mouth once daily Lecithin Ultra Discontinued 1200 MG PO Daily March 07, 2019 1:00am June 05, 2023 1:21pm linseed oil 1000 mg oral capsule (2 sources) Start: 03-07-2019 End: 06-05-2023 take 1000 mg by mouth once daily Flaxseed Oil Discontinued 1000 MG PO Daily March 07, 2019 1:00am June 05, 2023 1:21pm Ixgpoppkglwf-Jpa-Ld on-Fa-Vit K (Multi For Her) 18 mg iron-600 mcg-40 mcg Capsule (2 sources) Start: 03-07-2019 End: 06-05-2023 take 1 capsule by mouth once daily Ccnxbbzzsnkh-Ccw-Usqf- Fa-Vit K (Multi For Her) 18 mg iron-600 mcg-40 mcg Capsule Discontinued 1 CAP PO Daily March 07, 2019 1:00am June 05, 2023 1:21pm multivitamin/iron/f olic acid (SENTRY ORAL) (5 sources) End: 02-15-2023 [...] Sentry multivitamin vitamin one by mouth daily. [place] 3-Lrq-Yfs-Fish Oil (Fish Oil) 1,000 mg (120 mg-180 mg) Capsule (2 sources) Start: 9 End: 4 take 1 capsule by mouth once daily [place] 9-Dxw-Ijl-Fish Oil (Fish Oil) 1,000 mg (120 mg-180 mg) Capsule Discontinued 1000 MG PO Daily March 07, 2019 1:00am June 05, 2023 1:21pm Selenium (2 sources) Start: 9 End: 4 take 200 ug by mouth once daily Selenium Discontinued 200 MCG PO Daily March 07, 2019 1:00am June 05, 2023 1:21pm selenium 200 mcg cap (5 sources) End: 3 take 1 capsule by mouth once daily [...] Comment on above: Take 1,000 mcg by [facility] once daily. Vitamin C 1000 MG (2 [...] on above: Take 400 Units by mo [facility] once daily. Problems Active Problems Problem Classification Problem Date Documented Da te Episodic/Chronic Cardiac dysrhythmias (3 sources) Multiple premature ventricular complexes; Translations: [Ventricular premature depolarization] 02-15-2023 Chronic Congestive heart failure; nonhypertensive (17 sources) Congestive heart failure; Translations: [Heart failure, [...] caused by tuberculosis or sexually transmitted disease) (15 sources) Cardiomyopathy, unspecified; Translations: [Cardiomyopathy] Onset: 02-12-2019 [...] Test Name Value Interpretation Reference Range Facility [facility] 06-14-2023 CNOV Office Visit (CARD C HF ANJALI) RICHIE HOPPER ([id number]) 1960 F Date Time Provider Department 06/14/23 11:45 AM EMANUEL LEDBETTER CARD CHF ANJALI During your visit today, we recorded the following information about you: Pulse Blood pressure Weight Height 88/minute 111/65 78.2 kg 1.689 m Emanuel Ledbetter MD 06/14/2023 5:19 PM Signed Heart and Vascular Mobile [facility] SECTION OF HEART FAILURE and CARDIAC TRANSPLANT MEDICINE OUTPATIENT VISIT DATE June 14, 2023 OUTPATIENT VISIT TYPE Established Patient PRIMARY CARE PHYSICIAN: Carmen Evans [address] [place] [address] CHIEF COMPLAINT: HF f/u NURSING INTAKE (Patient?s concerns and/or recent hospitalizations/ER visits): HF Nursing Assessment: Interim Hospitalizations and/or ER visits:02/16/2023 [facility] W/POSS PCI Chest Pain: no Skipping [...] mmol/L 3. (more content not included)... Normal [facility] ECHOon 06-14-2023 Echocardiography Echocardiography Report: Transthoracic Echo [facility] J1-5 Date of service: 06/14/2023 10:29:30 AM TRAINER Ordering physician: EMANUEL LEDBETTER Indication: CHF Technologist: Maranda Mckeon and Tamika Byrnes [facility] Interpreting physician: Salvatore Bowers DO PATIENT: [...] prior CC echocardiographic exam performed on 07/03/2022. There is no significant change. * * * Final * * * Cloud Content Medical Image : [id number] sSISUID Normal [facility] Urine Cultureon 06-05-2023 Bacteria identified Cx Nom (U) 15,000 colonies/ml mixed bacterial skin contaminants 1 Day PERFORMED BY: [address] [place] [address] PATHOLOGIST [employer] GLORIA ALMEIDA M.D. Normal [facility] Comment on above: Performed By: #### C UU #### [address] Vick 03-06-2023 CNPN Telephone (CARD [facility] ANJALI) RICHIE HOPPER ([id number]) 1960 F Date Time Provider Department 03/06/23 EMANUEL LEDBETTER CARD [facility] ANJALI During your visit today, we recorded the following information about you: Marcus FátimaKriss 03/06/2023 2:17 PM Signed Patient has a cold/flu x 2 days and wants to know what she can take. Please call her at [phone]. Thank you, kriss Allergies As of Date: 03/06/2023 Noted Allergy Reaction LUISA INHIBITORS 03/17/2005 3 - Cough Date Reviewed: 02/16/2023 Reviewed by: Lauren Holt RN - Fully Assessed Reason for Visit: [...] Encounter Status:Closed by ROSSANA BLOUNT on 03/06/23 [facility] Vick 02-19-2023 CNPN Telephone (CARD CHF ANJALI) RICHIE HOPPER ([id number]) 1960 F Date Time Provider Department 02/19/23 EMANUEL LEDBETTER CARD [facility] ANJALI During your visit today, we recorded the following information about you: Damaris Cuellar 02/19/2023 3:11 PM Signed February 19, 2023 Name: Richie Hopper Patient Contact Number: [phone] (home) [phone] (cell) Date of last office visit: 02/15/2023 [...] Fully Assessed Reason for Visit: Advice Only [[id number]] Prescriptions as of 06/22/2023 - metoprolol succinate [...] Status:Closed by DAMARIS CUELLAR on 06/22/23 Normal [facility] CARD CATH DIAGNOSTICon 02-16 CARD CATH DIAGNOSTIC Site Id: [facility] Lab #: [facility] HVI Toe Stripper 2 Study Date: 02/16/2023 Start Time: 02/16/2023 [...] On: 02/16/2023 at 2:26:17 PM Final CC [employer] Medical Image : [id number] SISUID See Link below for Image Normal [facility] CNOVon 02-15-2023 CNOV Office Visit (JUNITO KOCH MAI) RICHIE HOPPER ([id number]) 1960 F Date Time Provider Department 02/15/23 11:45 AM EMANUEL LEDBETTER MAI During your visit today, we recorded the following information about you: Pulse Blood pressure Weight Height 69/minute 111/74 81.5 kg 1.702 m Emanuel Ledbetter MD 02/15/2023 5:05 PM Signed [facility] V[facility] Mobile [facility] SECTION OF HEART FAILURE and CARDIAC TRANSPLANT MEDICINE OUTPATIENT VISIT DATE February 15, 2023 OUTPATIENT VISIT TYPE Established Patient PRIMARY CARE PHYSICIAN: Carmen Evans [address] [place] [address] CHIEF COMPLAINT: CP NURSING INTAKE (Patient?s concerns [...] 12.7 fL (more content not included)... Normal [facility] CNPNon 02-15-2023 HUSEYINN Telephone (MARIAM) RICHIE HOPPER ([id number]) 1960 F Date Time Provider Department 02/15/23 [...] hospital information, hotel information. Instructed By Nanda Salguero, RN, RN. In Department of CARDIOLOGY. Allergies [...] Status:Closed by DEBBIE SALGUERO RN on 02/15/23 Normal [facility] ECHOon 02-15-2023 Echocardiography Echocardiography Report: Transthoracic Echo [facility] J1-5 Date of service: 02/15/2023 7:58:30 AM TRAINER Ordering physician: EMANUEL LEDBETTER Indication: Diastolic CHF [...] * * * Final * * * Cloud Content Medical Image : [id number] sSISUID Normal [facility] CARDIAC PERF STRESS/PHARM on 02-15-2023 NM CARDIAC PERF STRESS/PHARM * * *Final Report* * * DATE OF EXAM: Feb 15 2023 11:34AM [facility] 0006 - NM CARDIAC PERF STRESS/PHARM / PROCEDURE REASON: Encounter for screening for cardiovascular disorders * * * * Physician Interpretation * * * * Stress Mural Artist Report: [facility] NORI-2 Date of service: 02/15/2023 9:49:58 [...] later. See administered radiotracer and doses below. [facility] Date of service: 02/15/2023 9:49:58 AM Ordering Physician: EMANUEL M HSICH. Requesting Physician: EMANUEL LEDBETTER Indication: CP - [...] * * Final * * * ------ [place] CTAC Report: [facility] Date of service: 02/15/2023 9:49:58 AM CTAC interpreting physician: Sebastian Norris MD PATIENT: Name: MRS. RICHIE HOPPER Age: 63 years Gender: F 1. Incidental Findings from limited non-diagnostic CTAC: - No distinct coronary calcifications. * * * Final * * * (more content not included)... Normal [facility] CBC panel Auto (Bld)on 02-14 Erythrocyte distribution width (RBC) [Ratio] 12.4 % Normal 11.5-15.0 [facility] Comment on above: Order Comment: Pat dumont Type: BLOOD SPECIMENOrdering Facility: [facility] Address: [address] [place] [address] Performed By: #### 5 8410-2 ####[facility] LABCLIA [id number] [place] [address] Hematocrit (Bld) [Volume fraction] 42.2 % Normal 36.0-46.0 [facility] Comment on above: Order Comment: Pat dumont Type: BLOOD SPECIMENOrdering Facility: [facility] Address: [address] [place] [address] Performed By: #### 5 8410-2 ####[facility] LABCLIA [id number] [place] [address] Hemoglobin (Bld) [Mass/Vol] 14.3 g/dL Normal 11.5-15.5 [facility] Comment on above: Order Comment: Speci men Type: BLOOD SPECIMENOrdering Facility: [facility] Address: [address] [place] [address] Performed By: #### 5 8410-2 ####[facility] LABCLIA [id number] [place] [address] MCH (RBC) [Entitic mass] 31.6 pg Normal 26.0-34.0 [facility] Comment on above: Order Comment: Speci men Type: BLOOD SPECIMENOrdering Facility: [facility] Address: [address] [place] [address] Performed By: #### 5 8410-2 ####[facility] LABIA [id number] [place] [address] MCHC (RBC) [Mass/Vol] 33.9 g/dL Normal 30.5-36.0 [facility] Comment on above: Order Comment: Speci men Type: BLOOD SPECIMENOrdering Facility: [facility] Address: [address] [place] [address] Performed By: #### 5 8410-2 ####[facility] LABIA [id number] [place] [address] MCV (RBC) [Entitic vol] 93.4 fL Normal 80.0-100.0 [facility] Comment on above: Order Comment: Speci men Type: BLOOD SPECIMENOrdering Facility: [facility] Address: [address] [place] [address] Performed By: #### 5 8410-2 ####[facility] LABCLIA [id number] [place] [address] Nucleated RBC (Bld) [#/Vol] 10*3/uL Normal <0.01 [facility] Comment on above: Order Comment: Speci men Type: BLOOD SPECIMENOrdering Facility: [facility] Address: [address] [place] [address] Performed By: #### 5 8410-2 ####[facility] LABCLIA [id number] [place] [address] Platelet mean volume (Bld) [Entitic vol] 9.6 fL Normal 9.0-12.7 [facility] Comment on above: Order Comment: Speci men Type: BLOOD SPECIMENOrdering Facility: [facility] Address: [address] [place] [address] Performed By: #### 5 8410-2 ####[facility] LABCLIA [id number] [place] [address] Platelets (Bld) [#/Vol] 226 10*3/uL Normal 150-400 [facility] Comment on above: Order Comment: Speci men Type: BLOOD SPECIMENOrdering Facility: [facility] Address: [address] [place] [address] Performed By: #### 5 8410-2 ####[facility] LABIA [id number] [place] [address] RBC (Bld) [#/Vol] 4.52 10*6/uL Normal 3.90-5.20 [facility] Comment on above: Order Comment: Speci men Type: BLOOD SPECIMENOrdering Facility: [facility] Address: [address] [place] [address] Performed By: #### 5 8410-2 ####[facility] LABCLIA [id number] [place] [address] WBC (Bld) [#/Vol] 6.74 10*3/uL Normal 3.70-11.00 [facility] Comment on above: Order Comment: Speci men Type: BLOOD SPECIMENOrdering Facility: [facility] Address: [address] [place] [address] Performed By: #### 5 8410-2 ####[facility] LABCLIA [id number] [place] [address] Comprehensive metabolic 2000 panelon 02-14-2023 Albumin [Mass/Vol] 4.5 g/dL Normal 3.9-4.9 [facility] Comment on above: Order Comment: Speci men Type: BLOOD SPECIMENOrdering Facility: [facility] Address: [address] [place] [address] Performed By: #### 2 4323-8 ####[facility] LABCLIA [id number] [place] [address] ALP [Catalytic activity/Vol] 73 U/L Normal 34-123 [facility] Comment on above: Order Comment: Speci men Type: BLOOD SPECIMENOrdering Facility: [facility] Address: [address] [place] [address] Performed By: #### 2 4323-8 ####[facility] LABCLIA [id number] [place] [address] ALT [Catalytic activity/Vol] 32 U/L Normal 7-38 [facility] Comment on above: Order Comment: Speci men Type: BLOOD SPECIMENOrdering Facility: [facility] Address: [address] [place] [address] Performed By: #### 2 4323-8 ####[facility] LABCLIA [id number] [place] [address] Anion gap [Moles/Vol] 7 mmol/L Low 9-18 [facility] Comment on above: Order Comment: Speci men Type: BLOOD SPECIMENOrdering Facility: [facility] Address: [address] [place] [address] Performed By: #### 2 4323-8 ####[facility] LABCLIA [id number] [place] [address] AST [Catalytic activity/Vol] 25 U/L Normal 13-35 [facility] Comment on above: Order Comment: Speci men Type: BLOOD SPECIMENOrdering Facility: [facility] Address: [address] [place] [address] Performed By: #### 2 4323-8 ####[facility] LABCLIA [id number] [place] [address] Bilirubin [Mass/Vol] 0.6 mg/dL Normal 0.2-1.3 [facility] Comment on above: Order Comment: Speci men Type: BLOOD SPECIMENOrdering Facility: [facility] Address: [address] [place] [address] Performed By: #### 2 4323-8 ####[facility] LABCLIA [id number] [place] [address] Calcium [Mass/Vol] 9.9 mg/dL Normal 8.5-10.2 [facility] Comment on above: Order Comment: Speci men Type: BLOOD SPECIMENOrdering Facility: [facility] Address: [address] [place] [address] Performed By: #### 2 4323-8 ####[facility] LABCLIA [id number] [place] [address] Chloride [Moles/Vol] 108 mmol/L High 97-105 [facility] Comment on above: Order Comment: Speci men Type: BLOOD SPECIMENOrdering Facility: [facility] Address: [address] [place] [address] Performed By: #### 2 4323-8 ####[facility] LABCLIA [id number] [place] [address] CO2 [Moles/Vol] 29 mmol/L Normal 22-30 [facility] Comment on above: Order Comment: Speci men Type: BLOOD SPECIMENOrdering Facility: [facility] Address: [address] [place] [address] Performed By: #### 2 4323-8 ####[facility] LABCLIA [id number] [place] [address] Creatinine [Mass/Vol] 0.87 mg/dL Normal 0.58-0.96 [facility] Comment on above: Order Comment: Speci men Type: BLOOD SPECIMENOrdering Facility: [facility] Address: [address] [place] [address] Performed By: #### 2 4323-8 ####[facility] LABCLIA [id number] [place] [address] Creatinine and Glomerular filtration rate.predicted panel (S/P/Bld) 75 mL/min/1.73m??? Normal >=60 [facility] Comment on above: Order Comment: Pat dumont Type: BLOOD SPECIMENOrdering Facility: [facility] Address: [address] [place] [address] Result Comment: Delilah mated Glomerular Filtration Rate [...] actual GFR. Performed By: #### 2 4323-8 ####[facility] LABIA [id number] [place] [address] Glucose [Mass/Vol] 104 mg/dL High 74-99 [facility] Comment on above: Order Comment: Pat dumont Type: BLOOD SPECIMENOrdering Facility: [facility] Address: [address] [place] [address] Result Comment: The [place] Diabetes Association (ADA) provides guidance for cutoff [...] Standards of Medical Care in Diabetes 2016, [place] [employer]. Diabetes Care. 2016.39(Suppl 1). Performed By: #### 2 4323-8 ####[facility] LABCLIA [id number] [place] [address] Potassium [Moles/Vol] 4.8 mmol/L Normal 3.7-5.1 [facility] Comment on above: Order Comment: Speci men Type: BLOOD SPECIMENOrdering Facility: [facility] Address: [address] [place] [address] Performed By: #### 2 4323-8 ####[facility] LABCLIA [id number] [place] [address] Protein [Mass/Vol] 7.3 g/dL Normal 6.3-8.0 [facility] Comment on above: Order Comment: Speci men Type: BLOOD SPECIMENOrdering Facility: [facility] Address: [address] [place] [address] Performed By: #### 2 4323-8 ####[facility] LABCLIA [id number] [place] [address] Sodium [Moles/Vol] 144 mmol/L Normal 136-144 [facility] Comment on above: Order Comment: Speci men Type: BLOOD SPECIMENOrdering Facility: [facility] Address: [address] [place] [address] Performed By: #### 2 4323-8 ####[facility] LABIA [id number] [place] [address] Urea nitrogen [Mass/Vol] 16 mg/dL Normal 7-21 [facility] Comment on above: Order Comment: Speci men Type: BLOOD SPECIMENOrdering Facility: [facility] Address: [address] [place] [address] Performed By: #### 2 4323-8 ####[facility] LABCLIA [id number] [place] [address] NT-proBNP [facility] 02-14 Natriuretic peptide.B prohormone N-Terminal [Mass/Vol] 181 pg/mL High <125 [facility] Comment on above: Order Comment: Speci men Type: BLOOD SPECIMENOrdering Facility: [facility] Address: [address] [place] [address] Performed By: #### 3 3762-6 ####[facility] LABHAILEY [id number] [address] [place] Vick 02-12-2023 CNPN Telephone (CARD [facility] ANJALI) RICHIE HOPPER ([id number]) 1960 F Date Time Provider Department 02/12/23 EMANUEL LEDBETTER CARD [facility] ANJALI During your visit today, we recorded the following information about you: Damaris Cuellar 02/12/2023 1:20 PM Signed February 12, 2023 Name: Richie Hopper Patient Contact Number: [phone] (home) [phone] (cell) Date of last office visit: 07/03/2022 [...] Date Reviewed: 07/03/2022 Reviewed by: Rossana Blount, CHRISSIE - Fully Assessed Reason for Visit: Advice Only [[id number]] Prescriptions as of 06/22/2023 - metoprolol succinate [...] Status:Closed by DAMARIS CUELLAR on 06/22/23 Normal [facility] CBC panel Auto (Bld)on 07-03 Erythrocyte distribution width (RBC) [Ratio] 12.5 % Normal 11.5-15.0 [facility] Comment on above: Order Comment: Speci men Type: BLOOD SPECIMENOrdering Facility: [facility] Address: [address] [place] [address] Performed By: #### 5 8410-2 ####[facility] [id number] [place] [address] [place] Hematocrit (Bld) [Volume fraction] 43.5 % Normal 36.0-46.0 [facility] Comment on above: Order Comment: Speci men Type: BLOOD SPECIMENOrdering Facility: [facility] Address: [address] [place] [address] Performed By: #### 5 8410-2 ####[facility] [id number] [place] [address] [place] Hemoglobin (Bld) [Mass/Vol] 13.9 g/dL Normal 11.5-15.5 [facility] Comment on above: Order Comment: Speci men Type: BLOOD SPECIMENOrdering Facility: [facility] Address: [address] [place] [address] Performed By: #### 5 8410-2 ####[facility] LABIA [id number] [address] [place] MCH (RBC) [Entitic mass] 31.0 pg Normal 26.0-34.0 [facility] Comment on above: Order Comment: Speci men Type: BLOOD SPECIMENOrdering Facility: [facility] Address: [address] [place], [place] [address] Performed By: #### 5 8410-2 ####[facility] [id number] [place] [address] [place] MCHC (RBC) [Mass/Vol] 32.0 g/dL Normal 30.5-36.0 [facility] Comment on above: Order Comment: Speci men Type: BLOOD SPECIMENOrdering Facility: [facility] Address: [address] [place], [place] [address] Performed By: #### 5 8410-2 ####[facility] [id number] [place] [address] [place] MCV (RBC) [Entitic vol] 96.9 fL Normal 80.0-100.0 [facility] Comment on above: Order Comment: Speci men Type: BLOOD SPECIMENOrdering Facility: [facility] Address: [address] [place], [place] [address] Performed By: #### 5 8410-2 ####[facility] [id number] [address] [place] Nucleated RBC (Bld) [#/Vol] 10*3/uL Normal <0.01 [facility] Comment on above: Order Comment: Speci men Type: BLOOD SPECIMENOrdering Facility: [facility] Address: [address] [place], [place] [address] Performed By: #### 5 8410-2 ####[facility] [id number] [place] [address] [place] Platelet mean volume (Bld) [Entitic vol] 10.9 fL Normal 9.0-12.7 [facility] Comment on above: Order Comment: Speci men Type: BLOOD SPECIMENOrdering Facility: [facility] Address: [address] [place] [address] Performed By: #### 5 8410-2 ####[facility] LABIA [id number] [place] [address] [place] Platelets (Bld) [#/Vol] 160 10*3/uL Normal 150-400 [facility] Comment on above: Order Comment: Speci men Type: BLOOD SPECIMENOrdering Facility: [facility] Address: [address] [place] [address] Performed By: #### 5 8410-2 ####[facility] LABIA [id number] [place] [address] [place] RBC (Bld) [#/Vol] 4.49 10*6/uL Normal 3.90-5.20 [facility] Comment on above: Order Comment: Speci men Type: BLOOD SPECIMENOrdering Facility: [facility] Address: [address] [place], [place] [address] Performed By: #### 5 8410-2 ####[facility] LABIA [id number] [place] [address] [place] WBC (Bld) [#/Vol] 6.60 10*3/uL Normal 3.70-11.00 [facility] Comment on above: Order Comment: Speci men Type: BLOOD SPECIMENOrdering Facility: [facility] Address: [address] [place], [place] [address] Performed By: #### 5 8410-2 ####[facility] LABIA [id number] [place] [address] [place] CNOVon 07-03-2022 CNOV Office Visit (CARD C HF ANJALI) RICHIE HOPPER ([id number]) 1960 F Date Time Provider Department 07/03/22 2:15 PM EMANUEL LEDBETTER CHF ANJALI During your visit today, we recorded the following information about you: Pulse Blood pressure Weight Height 72/minute 135/85 84.6 kg 1.689 m Emanuel Ledbetter MD 07/03/2022 5:14 PM Signed [facility] SECTION OF HEART FAILURE and CARDIAC TRANSPLANT MEDICINE OUTPATIENT VISIT DATE July 03, 2022 OUTPATIENT VISIT TYPE Established Patient PRIMARY CARE PHYSICIAN: Carmen Evans [address] [place] [address] CHIEF COMPLAINT: HF F/u NURSING INTAKE (Patient?s [...] level: yes, super tired. Happened when medication laboratory aide changed Unintentional weight gain: fluctuates 3 lbs [...] one tablet daily by mouth.Disp: Rfl: FOREIGN [id number] mg once daily. Pt takes Q-Sorb CO [...] 136 - (more content not included)... Normal [facility] Comprehensive metabolic 2000 panelon 07-03-2022 Albumin [Mass/Vol] 4.3 g/dL Normal 3.9-4.9 [facility] Comment on above: Order Comment: Speci men Type: BLOOD SPECIMENOrdering Facility: [facility] Address: [address] [place] [address] Performed By: #### 2 4323-8, LIPNF ####[facility] LABCLIA [id number] [place] [address] [place] ALP [Catalytic activity/Vol] 66 U/L Normal 34-123 [facility] Comment on above: Order Comment: Speci men Type: BLOOD SPECIMENOrdering Facility: [facility] Address: [address] [place] [address] Performed By: #### 2 4323-8, LIPNF ####[facility] LABIA [id number] [place] [address] [place] ALT [Catalytic activity/Vol] 59 U/L High 7-38 [facility] Comment on above: Order Comment: Speci men Type: BLOOD SPECIMENOrdering Facility: [facility] Address: [address] [place] [address] Result Comment: Resu lts may be falsely increased due to interference from hemolysis. Suggest reorder as clinically indicated. Performed By: #### 2 4323-8, LIPNF ####[facility] [id number] [place] [address] [place] Anion gap [Moles/Vol] 11 mmol/L Normal 9-18 [facility] Comment on above: Order Comment: Speci men Type: BLOOD SPECIMENOrdering Facility: [facility] Address: [address] [place] [address] Performed By: #### 2 4323-8, LIPNF ####[facility] [id number] [address] [place] AST [Catalytic activity/Vol] 55 U/L High 13-35 [facility] Comment on above: Order Comment: Speci men Type: BLOOD SPECIMENOrdering Facility: [facility] Address: [address] [place] [address] Result Comment: Resu lts may be falsely increased due to interference from hemolysis. Suggest reorder as clinically indicated. Performed By: #### 2 4323-8, LIPNF ####[facility] LABIA [id number] [place] [address] [place] Bilirubin [Mass/Vol] 0.5 mg/dL Normal 0.2-1.3 [facility] Comment on above: Order Comment: Speci men Type: BLOOD SPECIMENOrdering Facility: [facility] Address: [address] Performed By: #### 2 4323-8, LIPNF ####[facility] LABCLIA [id number] [place] [address] [place] Calcium [Mass/Vol] 9.3 mg/dL Normal 8.5-10.2 [facility] Comment on above: Order Comment: Speci men Type: BLOOD SPECIMENOrdering Facility: [facility] Address: [address] Performed By: #### 2 4323-8, LIPNF ####[facility] LABCLIA [id number] [place] [address] [place] Chloride [Moles/Vol] 105 mmol/L Normal 97-105 [facility] Comment on above: Order Comment: Speci men Type: BLOOD SPECIMENOrdering Facility: [facility] Address: [address] Performed By: #### 2 4323-8, LIPNF ####[facility] LABCLIA [id number] [place] [address] [place] CO2 [Moles/Vol] 22 mmol/L Normal 22-30 [facility] Comment on above: Order Comment: Speci men Type: BLOOD SPECIMENOrdering Facility: [facility] Address: [address] Performed By: #### 2 4323-8, LIPNF ####[facility] LABCLIA [id number] [place] [address] [place] Creatinine [Mass/Vol] 0.74 mg/dL Normal 0.58-0.96 [facility] Comment on above: Order Comment: Speci men Type: BLOOD SPECIMENOrdering Facility: [facility] Address: [address] Performed By: #### 2 4323-8, LIPNF ####[facility] LABCLIA [id number] [place] [address] [place] ESTIMATED GLOMERULAR FILTRATION RATE 92 mL/min/1.73m??? Normal >=60 [facility] Comment on above: Order Comment: Pat julia Type: BLOOD SPECIMENOrdering Facility: [facility] Address: [address] [place] [address] Result Comment: Delilah mated Glomerular Filtration Rate [...] GFR. Performed By: #### 2 4323-8, LIPNF ####[facility] LABIA [id number] [place] [address] [place] Glucose [Mass/Vol] 86 mg/dL Normal 74-99 [facility] Comment on above: Order Comment: Pat dumont Type: BLOOD SPECIMENOrdering Facility: [facility] Address: [address] [place] [address] Result Comment: The [place] Diabetes Association (ADA) provides guidance for cutoff [...] Standards of Medical Care in Diabetes 2016, [place] [employer] Association. Diabetes Care. 2016.39(Suppl 1). Performed By: #### 2 4323-8, LIPNF ####[facility] LABIA [id number] [place] [address] [place] Potassium [Moles/Vol] Normal [facility] Comment on above: Order Comment: Speci men Type: BLOOD SPECIMENOrdering Facility: [facility] Address: [address] [place] [address] Result Comment: Unab le to assay due to interference from hemolysis. Suggest reorder as clinically indicated. Performed By: #### 2 4323-8, LIPNF ####[facility] LABCLIA [id number] [place] [address] [place] Protein [Mass/Vol] 7.1 g/dL Normal 6.3-8.0 [facility] Comment on above: Order Comment: Speci men Type: BLOOD SPECIMENOrdering Facility: [facility] Address: [address] [place] [address] Performed By: #### 2 4323-8, LIPNF ####[facility] LABCLIA [id number] [place] [address] [place] Sodium [Moles/Vol] 138 mmol/L Normal 136-144 [facility] Comment on above: Order Comment: Speci men Type: BLOOD SPECIMENOrdering Facility: [facility] Address: [address] [place] [address] Performed By: #### 2 4323-8, LIPNF ####[facility] LABCLIA [id number] [place] [address] [place] Urea nitrogen [Mass/Vol] 10 mg/dL Normal 7-21 [facility] Comment on above: Order Comment: Speci men Type: BLOOD SPECIMENOrdering Facility: [facility] Address: [address] [place] [place] [address] Performed By: #### 2 4323-8, LIPNF ####[facility] LABCLIA [id number] [place] [address] [place] ECG COMPLETEon 07-03-2022 ECG COMPLETE Ventricular Rate : 7 2 BPM Atrial Rate : 72 BPM P-R Interval : 144 ms QRS Duration : 144 ms Q-T Interval : 438 ms QTC Calculation(Bazett) : 479 ms Calculated P [place] : 24 degrees Calculated R [place] : -13 degrees Calculated T [place] : 148 degrees NORMAL SINUS RHYTHM COMPLETE LEFT BUNDLE BRANCH BLOCK ABNORMAL ECG Confirmed by ARUN BARFIELD MD ([id number]) on 07/04/2022 12:58:06 PM NAME : RICHIE HOPPER PID : [id number] : 1960 Gender : Female Race : ORD : [id number] Procedure Date : Jul 03 2022 12:54:33 Edit Date : Jul 04 2022 12:58:07 Diagnosis: NORMAL SINUS RHYTHM COMPLETE LEFT BUNDLE BRANCH BLOCK ABNORMAL ECG Confirmed by ARUN BARFIELD MD ([id number]) on 07/04/2022 12:58:06 PM Test Reason : Location : 314 : J14 J1-4 Overread By : ARUN BARFIELD MD Edited By : ARUN BARFIELD MD Referred By : EMANUEL LEDBETTER Acquired by : MELIZA LOPEZ [facility] ECHOon 07-03-2022 Echocardiography Echocardiography Report: Transthoracic Echo [facility] J35 Date of service: 07/03/2022 3:47:48 PM TRAINER Ordering physician: EMANUEL LEDBETTER Indication: Diastolic CHF Technologist: Cheryl Reynolds [facility] Interpreting physician: Yasmin Calvillo MD PATIENT: [...] * * * Final * * * Cloud Content Medical Image : [id number] [id number] Normal [facility] LIPID PANEL, NONFASTINGon Cholesterol [Mass/Vol] 249 mg/dL High <200 [facility] Comment on above: Order Comment: Speci men Type: BLOOD SPECIMENOrdering Facility: [facility] Address: [address] [place] [address] Result Comment: <200 mg/dL, Desirable 200-239 mg/dL, Borderline high >239 mg/dL, High Performed By: #### 2 4323-8, LIPNF ####[facility] LABIA [id number] [address] STATES OF [facility] HDL CHOLESTEROL, NF 43 mg/dL Normal >39 [facility] Comment on above: Order Comment: Pat dumont Type: BLOOD SPECIMENOrdering Facility: [facility] Address: [address] [place] [address] Result Comment: 40-5 9 mg/dL, Acceptable >59 mg/dL, High: Negative risk factor for coronary heart disease <40 mg/dL, Low: Positive risk factor for coronary heart disease Performed By: #### 2 4323-8, LIPNF ####[facility] LABCLIA [id number] [place] [address] [place] LDL CHOLESTEROL, NF 178 mg/dL High <100 [facility] Comment on above: Order Comment: Speci julia Type: BLOOD SPECIMENOrdering Facility: [facility] Address: [address] [place] [place] [address] Result Comment: <100 mg/dL, Optimal 100-129 mg/dL, Near optimal/above optimal 130-159 mg/dL, Borderline high 160-189 mg/dL, High >189 mg/dL, Very high Secondary prevention optimal LDL Cholesterol levels are recommended to be < 70 mg/dL Performed By: #### 2 4323-8, LIPNF ####[facility] LABCLIA [id number] [address] LDL/HDL RATIO, NF 4.14 mg/dL High <2.54 [facility] Comment on above: Order Comment: Pat julia Type: BLOOD SPECIMENOrdering Facility: [facility] Address: [address] [place] [address] Result Comment: Refe rence: 1. National Cholesterol Education Program ATP III Guideline At-A-Glance Quick Desk Reference: National Heart, Lung, and Blood Mobile. National Institutes of Health. 2001: NIH Publication No. 01-3305. 2. An International Atherosclerosis Society position paper: global recommendations for the management of dyslipidemia: executive summary, Atherosclerosis. 2014: 232(2):410-413. Performed By: #### 2 4323-8, LIPNF ####[facility] LABCLIA [id number] [address] OF [facility] NON HDL CHOL, NF 206 mg/dL High <130 [facility] Comment on above: Order Comment: Pat julia Type: BLOOD SPECIMENOrdering Facility: [facility] Address: [address] [place] [address] Result Comment: <130 mg/dL, Optimal 130-159 mg/dL, Near optimal/above optimal 160-189 mg/dL, Borderline high 190-219 mg/dL, High >219 mg/dL, Very high Secondary prevention optimal non HDL Cholesterol levels are recommended to be <100 mg/dL Performed By: #### 2 4323-8, LIPNF ####[facility] LABCLIA [id number] [place] [address] [place] T CHOL/HDL RATIO NF 5.79 mg/dL High <5.10 [facility] Comment on above: Order Comment: Speci men Type: BLOOD SPECIMENOrdering Facility: [facility] Address: [address] [place] [address] Performed By: #### 2 4323-8, LIPNF ####[facility] LABCLIA [id number] [place] [address] [place] TRIGLYCERIDES, NF 138 mg/dL Normal <150 [facility] Comment on above: Order Comment: Speci men Type: BLOOD SPECIMENOrdering Facility: [facility] Address: [address] [place] [address] Result Comment: <150 mg/dL, Normal 150-199 mg/dL, Borderline high 200-499 mg/dL, High >499 mg/dL, Very high Performed By: #### 2 4323-8, LIPNF ####[facility] LABCLIA [id number] [place] [address] [place] VLDL CHOLESTEROL, NF 28 mg/dL Normal <30 [facility] Comment on above: Order Comment: Speci men Type: BLOOD SPECIMENOrdering Facility: [facility] Address: [address] [place] [address] Performed By: #### 2 4323-8, LIPNF ####[facility] LABCLIA [id number] [place] [address] [facility] [place] Vital Signs Date Time Vital Sign Value Performing Clinician Facility 06-14-2023 11:52-0400 Body height 168.9 cm Emanuel Ledbetter MD Work Phone: [facility] 06-14-2023 11:52-0400 Body weight 78.25 kg Emanuel Ledbetter MD Work Phone: [facility] 06-14-2023 11:52-0400 Diastolic blood pressure 65 mm[Hg] Emanuel Ledbetter MD Work Phone: [facility] 06-14-2023 11:52-0400 Heart rate 88 /min Emanuel Ledbetter MD Work Phone: [facility] 06-14-2023 11:52-0400 SaO2% (BldA) [Mass fraction] 98 % Emanuel Ledbetter MD Work Phone: [facility] 06-14-2023 11:52-0400 Systolic blood pressure 111 mm[Hg] Emanuel Ledbetter MD Work Phone: [facility] 06-05-2023 13:16-0400 Body height 168.91 cm [facility] 06-05-2023 13:16-0400 Body mass index (BMI) [Ratio] 28.5 kg/m2 [facility] 06-05-2023 13:16-0400 Body temperature 98 [degF] [facility] 06-05-2023 13:16-0400 Body weight 81.36 kg [facility] 06-05-2023 13:16-0400 Respiratory rate 18 /min [facility] 06-05-2023 13:16-0400 SaO2% (BldA) [Mass fraction] 98 % [facility] 02-15-2023 12:26-0500 Body height 170.2 cm Emanuel Ledbetter MD Work Phone: [facility] 02-15-2023 12:26-0500 Body weight 81.51 kg Emanuel Ledbetter MD Work Phone: [facility] 02-15-2023 12:26-0500 Diastolic blood pressure 74 mm[Hg] Emanuel Ledbetter MD Work Phone: [facility] 02-15-2023 12:26-0500 Heart rate 69 /min Emanuel Ledbetter MD Work Phone: [facility] 02-15-2023 12:26-0500 SaO2% (BldA) [Mass fraction] 97 % Emanuel Ledbetter MD Work Phone: [facility] 02-15-2023 12:26-0500 Systolic blood pressure 111 mm[Hg] Emanuel Ledbetter MD Work Phone: [facility] 07-03-2022 14:28-0400 Body height 168.9 cm Emanuel Ledbetter MD Work Phone: [facility] 07-03-2022 14:28-0400 Body weight 84.64 kg Emanuel Ledbetter MD Work Phone: [facility] 07-03-2022 14:28-0400 Diastolic blood pressure 85 mm[Hg] Emanuel Ledbetter MD Work Phone: [facility] 07-03-2022 14:28-0400 Heart rate 72 /min Emanuel Ledbetter MD Work Phone: [facility] 07-03-2022 14:28-0400 SaO2% (BldA) [Mass fraction] 95 % Emanuel Ledbetter MD Work Phone: [facility] 07-03-2022 14:28-0400 Systolic blood pressure 135 mm[Hg] Emanuel Ledbetter MD Work Phone: [facility] 08-01-2021 17:20-0400 Body height 168.91 cm Carmen Evans Other [facility] Other 08-01-2021 17:20-0400 Body mass index (BMI) [Ratio] 29.73 kg/m2 Carmen Evans Other [facility] Other 08-01-2021 17:20-0400 Body temperature 96.6 [degF] Carmen Evans Other [facility] Other 08-01-2021 17:20-0400 Body weight 84.82 kg Carmen Evans Other [facility] Other 08-01-2021 17:20-0400 Diastolic blood pressure 72 mm[Hg] Carmen Evans Other [facility] Other 08-01-2021 17:20-0400 SaO2% (BldA) [Mass fraction] 96 % Carmen Evans Other [facility] Other 08-01-2021 17:20-0400 Systolic blood pressure 106 mm[Hg] Carmen Evans Other [facility] Other Encounters Encounter Date Encounter Type Care Provider Facility Start: 11-30-2023 End: 11-30-2023 Refill Emanuel Ledbetter MD Work Phone: Cardiology Comment on above: Refill Request Start: 06-14-2023 End: 06-14-2023 ambulatory EMANUEL LEDBETTER Facility:[facility] Start: 06-14-2023 End: 06-14-2023 Patient encounter procedure Emanuel Ledbetter MD Work Phone: Cardiology Comment on above: Chronic systolic (co ngestive) heart failure (HCC) (Primary Dx); PVC (premature ventricular contraction); Hyperlipidemia LDL goal <70; Cardiomyopathy, nonischemic (HCC); Complex medical condition Start: 06-05-2023 End: 06-05-2023 ambulatory Bev Casiano Facility:[facility] Start: 06-05-2023 End: 06-05-2023 Departed Referred DISCHARGE SPECIALIST Bev Casiano Work Phone: [facility] [place] Work Phone: Start: 06-05-2023 End: 06-05-2023 ambulatory [facility] Work Phone: Start: 06-05-2023 End: 06-05-2023 Patient encounter procedure [facility] Work Phone: Start: 02-19-2023 [...] Start: 02-15-2023 End: 02-15-2023 ambulatory CARMEN EVANS Facility:[facility] Start: 02-14-2023 End: 02-14-2023 ambulatory EMANUEL LEDBETTER Facility:[facility] Start: 02-12-2023 End: 02-12-2023 ambulatory Carmen Evans Other [facility] Other Start: 02-12-2023 Telephone encounter Carmen Evans [facility] Comment on above: Advice Only Start: 11-04-2022 Refill Emanuel Ledbetter MD Work Phone: Cardiology Comment on above: Refill Request Start: 10-18-2022 Refill Emanuel Ledbetter MD Work Phone: Cardiology Comment on above: Refill Request Start: 07-03-2022 End: 07-03-2022 ambulatory EMANUEL LEDBETTER Facility:[facility] Start: 07-03-2022 End: 07-04-2022 ambulatory EMANUEL LEDBETTER Facility:[facility] Start: 07-03-2022 End: 07-03-2022 Patient encounter procedure Emanuel Ledbetter MD Work Phone: Cardiology Comment on above: Hyperlipidemia LDL g oal <70 (Primary Dx); Cardiomyopathy, nonischemic (HCC); Chronic systolic (congestive) heart failure (HCC) Start: 01-27-2022 End: 01-27-2022 ambulatory Carmen Evans Other [facility] Other Start: 01-27-2022 Telephone encounter Carmen Evans [facility] Start: 10-10-2021 Refill Emanuel Ledbetter MD Work Phone: Cardiology Comment on above: Refill Request Start: 08-16-2021 End: 08-16-2021 ambulatory Carmen Evans Other [facility] Other Start: 08-16-2021 Telephone encounter Carmen Evans [facility] Start: 08-01-2021 End: 08-01-2021 ambulatory Carmen Evans Other [facility] Other Start: 08-01-2021 Office outpatient vi sit 15 minutes Carmen Evans [facility] Start: 04-19-2019 Patient encounter procedure CARMEN EVANS Facility: Procedures Date Procedure Procedure Detail Performing Clinician Start: 07-03-2022 Lipid 1996 panel - S viaks or Plasma Luanne Banks MD Work Phone: Plan of Treatment Date Care Activity Detail Author Start: 07-04-2027 Lipid 1996 panel - S vikas or Plasma Lipid Screening [facility] Start: 07-04-2027 Lipid panel Lipid Screening [facility] Start: 07-04-2027 LIPID SCREEN LIPID SCREEN [facility] Start: 02-14-2026 Diabetes Screening Diabetes Screenin g [facility] Start: 08-10-2025 LIPID SCREEN LIPID SCREEN [facility] Start: 07-03-2025 DIABETES SCREEN DIABETES SCREEN [facility] Start: 01-17-2024 End: 01-17-2024 Patient encounter procedure [facility] Medicine Comment on above: DX: Chronic diastoli c (congestive) heart failure Start: 01-17-2024 End: 01-17-2024 ambulatory 01/17/2024 8:15 AM EST Results Only Cardiology [address] [place] [address] DX: Chronic diastolic (congestive) heart failure Cardiology Comment on above: DX: Chronic diastoli c (congestive) heart failure Start: 11-11-2023 Covid-19 Vaccine () Covid-19 Vaccine () [facility] Start: 11-11-2023 Influenza vaccination C [facility] Start: 08-11-2023 DIABETES SCREEN DIABETES SCREEN [facility] Start: 06-06-2023 Bacteria identified in Urine by Culture [facility] Start: 06-05-2023 Bacteria identified in Urine by Culture [facility] Start: 03-12-2023 Behavioral Health Screening Behavioral Health Screening [facility] Start: 11-10-2022 Covid-19 Vaccine () Covid-19 Vaccine () [facility] Start: 11-10-2022 Influenza vaccination C [facility] Start: 07-03-2022 End: 09-02-2022 Comprehensive metabolic 2000 panel - Serum or Plasma COMP METABOLIC PANEL Lab STAT Hyperlipidemia LDL goal <70 Expected: 07/03/2022, Expires: 09/02/2022 [facility] Work Phone: Comment on above: Expected: 07/03/2022 , Expires: 09/02/2022 Start: 07-03-2022 End: 09-02-2022 Lipid 1996 panel - Serum or Plasma LIPID PANEL BASIC Lab Routine Hyperlipidemia LDL goal <70 Expected: 07/03/2022, Expires: 09/02/2022 [facility] Work Phone: Comment on above: Expected: 07/03/2022 , Expires: 09/02/2022 Start: 03-12-2022 DEPRESSION ASSESSMENT DEPRESSION ASS ESSMENT [facility] Start: 11-10-2021 Influenza vaccination INFLUENZA (#1) [facility] Start: 2020 RSV Vaccine (1 - 1-d ose 60+ series) RSV Vaccine (1 - 1-dose 60+ series) [facility] Start: 03-18-2019 Screening for malign ant neoplasm of breast Mammogram Screening [facility] Start: 02-03-2010 [facility] VACCINE (1 of 2) MARADIAGA GRIX VACCINE (1 of 2) [facility] Start: 02-03-2005 COLOGUARD (FIT-DNA) COLOGUARD (FIT-D NA) [facility] Start: 02-03-2005 Colonoscopy COLONOSCOPY [facility] Start: 02-03-2005 COLORECTAL CANCER SCREENING COLORECTAL CANCER SCREENING [facility] Start: 02-03-[address] COLONOGRAPHY [facility] Start: 02-03-2005 FECAL OCCULT BLOOD FECAL OCCULT BLOO D [facility] Start: 02-03-2005 Screening for malign ant neoplasm of colon [facility] Start: 02-03-2005 SIGMOIDOSCOPY SIGMOIDOSCOPY [facility] Start: 2000 Mammography [facility] Start: 02-03-1990 HPV TESTING HPV TESTING [facility] Start: 02-03-1990 Screening for malign ant neoplasm of cervix HPV Testing [facility] Start: 02-03-1981 PAP TESTING PAP TESTING [facility] Start: 02-03-1981 Screening for malign ant neoplasm of cervix [facility] Start: 02-03-1979 Urine microalbumin profile [facility] Start: 02-03-1978 ANNUAL PCP TEAM WHITEWASHER AYUSH DISEASE VISIT ANNUAL PCP TEAM CHRONIC DISEASE VISIT [facility] Start: 02-03-1978 Anxiety Screening Anxiety Screening [facility] Start: 02-03-1978 Depression Screening Depression Scre [facility] Start: 02-03-1978 HEPATITIS C SCREENING HEPATITIS C [facility] Start: 02-03-1978 Hepatitis C screening Hepatitis C Sc [facility] Start: 02-03-1978 HIV SCREENING HIV SCREENING [facility] Start: 02-03-1978 HIV screening HIV Screening [facility] Start: 1972 Adult depression scr eening assessment DEPRESSION SCREENING [facility] Start: 02-03-1966 PNEUMOCOCCAL (1 - PCV) PNEUMOCOCCAL (1 - PCV) [facility] Start: 02-03-1966 Pneumococcal vaccination [facility] Start: 1960 COVID-19 VACCINE (#1) COVID-19 VACCI NE (#1) [facility] End: 06-13-2024 ECG COMPLETE ECG COMPLETE ECG Routine Chronic systolic (congestive) heart failure (HCC) 1 Occurrences starting 06/14/2023 until 06/13/2024 [facility] Work Phone: Comment on above: 1 Occurrences starti ng 06/14/2023 until 06/13/2024 End: 02-16-2024 Echocardiography ECHO Cardiology Routine Chronic systolic (congestive) heart failure (HCC) 1 Occurrences starting 02/15/2023 until 02/16/2024 [facility] Work Phone: Comment on above: 1 Occurrences starti ng 02/15/2023 until 02/16/2024 End: 06-13-2024 Echocardiography ECHO Cardiology Routine Chronic systolic (congestive) heart failure (HCC) 1 Occurrences starting 06/14/2023 until 06/13/2024 [facility] Work Phone: Comment on above: 1 Occurrences starti ng 06/14/2023 until 06/13/2024 End: 02-16-2024 HOLTER MONITOR 48 HOUR HOLTER MONITOR 48 HOUR ECG Routine PVC (premature ventricular contraction) 1 Occurrences starting 02/15/2023 until 02/16/2024 [facility] Work Phone: Comment on above: 1 Occurrences starti ng 02/15/2023 until 02/16/2024 [facility] Immunizations Immunization Date Immunization Notes Care Provider Marci degroot NEGATED: Highlighted row has not occurred!12-20-2018 influenza, seasonal, injectable Patient Objection Carmen Evans Other [employer] Other Payers Date Payer Category Payer Private Health Insurance [id number] 2012 Private Health Insurance [facility] [employer] CHOICE PLUS [id number] 2012-Present [phone] [address] [address] [place] [address] O [id number] 2012 Private Health Insurance [facility] U[employer] CHOICE PLUS [id number] 2012-Present [phone] [address] [address] [place] [address] O [id number] 1960 Unknown [id number] 1959 Self-pay Unknown [id number] Social History Date Type Detail Facility Start: 02-12-2019 End: 02-15-2023 Sex Assigned At [facility] Start: 02-12-2019 End: 06-14-2023 Tobacco smoking status NHIS Never smoked tobacco [facility] Start: 02-12-2019 End: 06-14-2023 Alcohol intake Current drinker of alcohol (finding) [facility] Start: 1960 Sex Assigned At Not on file C [facility] Start: 02-12-2019 End: 06-14-2023 Tobacco use and exposure Smokeless tobacco non-user [facility] Start: 02-12-2019 End: 02-15-2023 History of Social function [facility] National Score (1-10 0), lower number is lower risk 60 [facility] Start: 1960 Sex Assigned At [facility] Goals Date Patient Goal Desired Activity /State Personal health goal Clinical Notes 08-07-2013 to 06-14-2023 Emanuel Ledbetter MD - 06/14/2023 11:45 AM EDTTeleDamaris Martinez - 02/19/2023 3:08 PM Sandy Lewis - 02/16/2023 4:24 PM Emanuel Abebe MD - 02/15/2023 12:04 PM EST Note Date & Type Note Facility 06-14-2023 Note HNO ID: [id number] Author: EMANUEL LEDBETTER MD Service: ? Author Type: Physician Type: Progress Notes Filed: 06/14/2023 17:19 Note Text: [facility] SECTION OF HEART FAILURE and CARDIAC TRANSPLANT MEDICINE OUTPATIENT VISIT DATE June 14, 2023 OUTPATIENT VISIT TYPE Established Patient PRIMARY CARE PHYSICIAN: Carmen Evans [address] [place] [address] CHIEF COMPLAINT: HF f/u NURSING INTAKE (Patient?s concerns and/or recent hospitalizations/ER visits): HF Nursing Assessment: Interim Hospitalizations and/or ER visits:02/16/2023 [facility] W/POSS PCI Chest Pain: no Skipping or [...] 6.83 6.60 6.7 (more content not included)... [facility] 06-14-2023 History of Presen t illness Narrative Images from the original note were not included. [facility] SECTION OF HEART FAILURE and CARDIAC TRANSPLANT MEDICINE OUTPATIENT VISIT DATE June 14, 2023 OUTPATIENT VISIT TYPE Established Patient PRIMARY CARE PHYSICIAN: Carmen Evans [address] [place] [address] CHIEF COMPLAINT: HF f/u NURSING INTAKE (Patient s concerns and/or recent hospitalizations/ER visits): HF Nursing Assessment: Interim Hospitalizations and/or ER visits:02/16/2023 [facility] W/POSS PCI Chest Pain: no Skipping [...] correlated with sinus rhythm,sinus arrhythmia,tachycardia,SVE,PVC. Scanned on 02/21/2023.Alt[employer] Apps. ECG today: Diagnosis: NORMAL SINUS RHYTHM COMPLETE [...] CC: CARMEN EVANS documented in this encounter [facility] 02-19-2023 Miscellaneous Notes February 19, 2023 Name: Richie Hopper Patient Contact Number: [phone] (home) [phone] (cell) Date of last office visit: 02/15/2023 [...] Yes Damaris Cuellar documented in this encounter [facility] 02-16-2023 Note HNO ID: [id number] Author: Sandy Flower Service: ? Author Type: ? Type: Progress Notes Filed: 02/16/2023 4:24 PM Note Text: HOLTER MONITOR APPLICATION Patient Name: Richie Hopper Clinic Number: [id number] Chest is cleansed with alcohol Skin prep [...] or 48 hours 6.) Call with problems [phone] OR Ext.[phone] Patient expresses good verbal understanding of instructions Sandyse Timo Costa [facility] 02-16-2023 History of Presen t illness Narrative HOLTER MONITOR APPLICATION Patient Name: Richie Hopper Clinic Number: [id number] Chest is cleansed with alcohol Skin prep [...] or 48 hours 6.) Call with problems [phone] OR [phone] Patient expresses good verbal understanding of instructions Sandy Costa documented in this encounter [facility] 02-16-2023 Note Education (CARDMN) WARDRICHIE J ([id number]) 1960 F Date Time Provider Department 02/16/23 7:00 AM ARRHYTHMIA MONITORING LAB [facility]DM[facility] Reason for Visit: Holter Monitor Application [261] Visit Diagnosis:PVC (premature ventricular contraction) [I49.3] Order(s):HOLTER MONITOR 48 HOUR [1077211] Order #: [id number] During your visit today, we recorded the following information about you: Allergies As of Date: 02/16/2023 Noted Allergy Reaction LUISA INHIBITORS 03/17/2005 3 - Cough Date Reviewed: 02/16/2023 Reviewed by: Lauren Holt, CHRISSIE - Fully Assessed Prescriptions as of 02/16/2023 [...] Encounter Status:Closed by SANDY FLOWER on 02/16/23 [facility] 02-15-2023 Miscellaneous Notes CARDIOVASCULAR LAB INSTRUCTIONS: Readiness [...] Department of CARDIOLOGY. documented in this encounter [facility] 02-15-2023 Note HNO ID: [id number] Author: Emanuel Ledbetter MD Service: ? Author Type: Physician Type: Progress Notes Filed: 02/15/2023 5:05 PM Note Text: [facility] SECTION OF HEART FAILURE and CARDIAC TRANSPLANT MEDICINE OUTPATIENT VISIT DATE February 15, 2023 OUTPATIENT VISIT TYPE Established Patient PRIMARY CARE PHYSICIAN: Carmen Evans [address] [place] [address] CHIEF COMPLAINT: CP NURSING INTAKE (Patient?s concerns [...] (H) Non H (more content not included)... [facility] 02-15-2023 History of Presen t illness Narrative Images from the original note were not included. [facility] SECTION OF HEART FAILURE and CARDIAC TRANSPLANT MEDICINE OUTPATIENT VISIT DATE February 15, 2023 OUTPATIENT VISIT TYPE Established Patient PRIMARY CARE PHYSICIAN: Carmen Evans [address] [place] [address] CHIEF COMPLAINT: CP NURSING INTAKE (Patient s [...] CC: CARMEN EVANS documented in this encounter [facility] 02-15-2023 Note HNO ID: [id number] Author: Juliana Lozano RN Service: Radiology Author [...] ALLERGIES: Reviewed and unchanged MEDICATIONS REVIEWED BY: Ophthalmic Lens Inspector PROCEDURE TYPE: NM STRESS: 0.4 mg of Lexiscan was administered IV at 1044 by Juliana Lozano RN. Reversal agent used: None. IV SITE: Ambulatory: A Saline lock was inserted per protocol POST EXAM PIV STATUS: Discontinued PATIENT DISCHARGED TO: Ambulatory patient, left [place] department area. A Diagnostic radioactive procedure has taken place, with no further precautions necessary other than routine body substance precautions. More information regarding radiation safety can be found using this link: [email or web address] 0Protection %[email or web address]-%20Diagnostic%20Nuclear%20Me dicine%[email or web address] SIGNATURE: Juliana Lozano RN PATIENT NAME: Richie Hopper DATE: February 15, 2023 TIME: 10:44 AM PAGER/CONTACT #: [phone] [facility] 02-15-2023 Note HNO ID: [id number] Author: Mo Renteria [employer] [place] [employer] Service: Nuclear Medicine Author Type: Groundskeeper Porter Type: Progress Notes Filed: 02/15/2023 10:44 AM [...] POST EXAM PIV STATUS: Discontinued PROCEDURE TYPE: OK Stress: 11.9mCi [id number] was administered IV for Rest Imaging at 0921 by RT Demetria(R). 32.1 mCi Pn25q-Bsbhgwm was administered IV for Stress Imaging at 1044 by Mo Renteria [facility]. PATIENT DISCHARGED TO: Ambulatory patient, left [place] department area. A Diagnostic radioactive procedure has taken place, with no further precautions necessary other than routine body substance precautions. More information regarding radiation safety can be found using this link: [email or web address] 0Protection %20-%20Diagnostic%20Nuclear%20Me dicine%20Procedures.pdf SIGNATURE: RT Demetria(R) PATIENT NAME: Richie Hopper DATE: February 15, 2023 TIME: 9:22 AM PAGER/CONTACT #: [phone] [facility] 02-14-2023 Miscellaneous Notes Spoke to patient got her schedule with for appointment. February 12, 2023 Name: Richie Hopper Patient Contact Number: [phone] (home) [phone] (cell) Date of last office visit: 07/03/2022 [...] Yes Damaris Cuellar documented in this encounter [facility] 07-03-2022 Note HNO ID: [id number] Author: Emanuel Ledbetter MD Service: ? Author Type: Physician Type: Progress Notes Filed: 07/03/2022 5:14 PM Note Text: [facility] SECTION OF HEART FAILURE and CARDIAC TRANSPLANT MEDICINE OUTPATIENT VISIT DATE July 03, 2022 OUTPATIENT VISIT TYPE Established Patient PRIMARY CARE PHYSICIAN: Carmen Evans [address] [place] [address] CHIEF COMPLAINT: HF F/u NURSING INTAKE (Patient?s [...] level: yes, super tired. Happened when medication laboratory aide changed Unintentional weight gain: fluctuates 3 lbs [...] one tablet daily by mouth.Disp: Rfl: FOREIGN [id number] mg once daily. Pt takes Q-Sorb CO [...] 11.00 k/uL 6. (more content not included)... [facility] 07-03-2022 History of Presen t illness Narrative Images from the original note were not included. [facility] SECTION OF HEART FAILURE and CARDIAC TRANSPLANT MEDICINE OUTPATIENT VISIT DATE July 03, 2022 OUTPATIENT VISIT TYPE Established Patient PRIMARY CARE PHYSICIAN: Carmen Evans [address] [place] [address] CHIEF COMPLAINT: HF F/u NURSING INTAKE (Patient [...] level: yes, super tired. Happened when medication laboratory aide changed Unintentional weight gain: fluctuates 3 lbs [...] 2022 5:13 PM documented in this encounter [facility] 08-01-2021 Evaluation note Encounter [...] Eat more dark green vegetables and proteins. [employer] Other 05-29-2014 History general Narrative - Reported* Type Description Date Medical History HEART-CARDIAL MYOPATHY Medical History Refuses Colonoscopy 08-07-13 Surgical History hysterectomy 2001 Surgical History colonoscopy [facility] [address] [place] cleared left ear 2015 Surgical History Hemorrhoidectomy 02/2019 [employer] Other Evaluation noteNo InformationNort [employer] Other Evaluation note* Diagnosis Hyperlipidemia LDL goal <70- Primary Other and unspecified hyperlipidemia Cardiomyopathy, nonischemic (HCC) Other primary cardiomyopathies Chronic systolic (congestive) heart failure (HCC) documented in this encounter [facility] note* Diagnosis Chronic systolic (congestive) heart failure (HCC)- Primary Precordial pain PVC (premature ventricular contraction) Other premature beats Hyperlipidemia LDL goal <70 Other and unspecified hyperlipidemia [facility]* Diagnosis PVC (premature ventricular contraction) Other premature beats documented in this encounter [facility] noteNo assessment information [facility] Work Phone: Evaluation note* Diagnosis Chronic systolic (congestive) heart failure (HCC)- Primary PVC (premature ventricular contraction) Other premature beats Hyperlipidemia LDL goal <70 Other and unspecified hyperlipidemia Cardiomyopathy, nonischemic (HCC) Other primary cardiomyopathies Complex medical condition documented in this encounter [facility] for referral (narrative)* Outpatient Procedure (Routine) - Pending Review Specialty Diagnoses / Procedures Referred By Contac t Referred To [facility] Diagnoses Chronic systolic (congestive) heart failure (HCC) Procedures ECHO ECHO TTHRC R-T 2D W/WOM-MODE COMPL SPEC&COLR D Emanuel Ledbetter MD [address] [place] [address] [facility] [address] [place] [address] Referral ID Status Reason Start Date Expiration Date Visits Requested Visits Authorized [id number] Pending Review Auto-Generat ed Referral 02/15/2023 02/15/2024 1 1 * Transition of Care (Routine) - Ref Not Required Specialty Diagnoses / Procedures Referred By Contac t Referred To Contact Procedures CARDIOVASCULAR MEDICINE OP FOLLOW UP APPT ORDER Emanuel Ledbetter MD [address] [place] [address] Referral ID Status Reason Start Date Expiration Date Visits Requested Visits Authorized [id number] Ref Not Required PCP Requested Referral 05/17/2023 02/15/2024 1 1 [facility] for referral (narrative)* Outpatient Procedure (Routine) - Pending Review Specialty Diagnoses / Procedures Referred By Indy alfredo Referred To Contact [facility] [place] Diagnoses Chronic systolic (congestive) heart failure (HCC) Procedures ECHO ECHO TTHRC R-T 2D W/WOM-MODE COMPL SPEC&COLR D Emanuel Ledbetter MD [address] [place] [address] [facility] [address] [address] Referral ID Status Reason Start Date Expiration Date Visits Requested Visits Authorized [id number] Pending Review Auto-Generat ed Referral 06/14/2023 06/13/2024 1 1 * Outpatient Procedure (Routine) - Authorized Specialty Diagnoses / Procedures Referred By Indy alfredo Referred To Contact [facility] [place] Diagnoses Chronic systolic (congestive) heart failure (HCC) Procedures ECG COMPLETE ECG ROUTINE ECG W/LEAST 12 LDS W/I&R Emanuel Ledbetter MD [address] [place] [address] [facility] [address] [address] Referral ID Status Reason Start Date Expiration Date Visits Requested Visits Authorized [id number] Authorized Auto-Generat ed Referral 06/14/2023 06/13/2024 1 1 * Transition of Care (Routine) - Ref Not Required Specialty Diagnoses / Procedures Referred By Indy alfredo Referred To [facility] Procedures CARDIOVASCULAR MEDICINE OP FOLLOW UP APPT ORDER Emanuel Ledbetter MD [address] [place] [address] [facility] [address] [place] [address] Referral ID Status Reason Start Date Expiration Date Visits Requested Visits Authorized [id number] Ref Not Required PCP Requested Referral 09/13/2023 06/13/2024 1 1 [facility] Summary Purpose Family History Relationship Condition Age at Onset Recorded Date/T bayron Not Specified Pulmonary emphysema Unknown brother Coronary artery disease Unknown History of coronary artery bypass surgery Unknown brother Heart disease Unknown Rheumatoid arthritis Unknown father Unknown Not Specified Unknown sister Rheumatoid arthritis Unknown Advance Directives Advance Directive Response Recorded Date/ Time Advance Directives No February 12:17pm Chief Complaint and Reason for Visit Chief Complaint Poss uti Chief Complaint Poss uti Dysuria r30.0 Additional Source Comments INFORMATION SOURCE (unrecogn ized section and content) DATE CREATED AUTHOR 12/23/2019 [facility] DATE CREATED AUTHOR AUTHOR'S ORGANIZ ATION 06/07/2023 [facility] DATE CREATED AUTHOR AUTHOR'S ORGANIZ ATION 06/23/2023 [facility] REASON FOR VISIT (unrecogniz ed section and [...] INSERT INTRACORONARY STENT-PER MAJOR VESSEL OR BRANCH [facility]osp [facility] [address] [place] [address] Referral ID Status Reason Start Date Expiration Date Visits Re quested Visits Authorized [id number] 1 1 Reason Comments Follow Up Reason Comments Advice Only Source Comments (unrecognize d section and content) In the event this informatio n is protected by the Federal Confidentiality of Alcohol and Drug Abuse Patient Records regulations: The Federal rules restrict any use of the information to criminally investigate or prosecute any alcohol or drug abuse patient.[facility] the event this information is protected by the Federal Confidentiality of Alcohol and Drug Abuse Patient Records regulations: The Federal rules restrict any use of the information to criminally investigate or prosecute any alcohol or drug abuse patient.[facility] the event this information is protected by the Federal Confidentiality of Alcohol and Drug Abuse Patient Records regulations: The Federal rules restrict any use of the information to criminally investigate or prosecute any alcohol or drug abuse patient.[facility] the event this information is protected by the Federal Confidentiality of Alcohol and Drug Abuse Patient Records regulations: The Federal rules restrict any use of the information to criminally investigate or prosecute any alcohol or drug abuse patient.[facility] the event this information is protected by the Federal Confidentiality of Alcohol and Drug Abuse Patient Records regulations: The Federal rules restrict any use of the information to criminally investigate or prosecute any alcohol or drug abuse patient.[facility] the event this information is protected by the Federal Confidentiality of Alcohol and Drug Abuse Patient Records regulations: The Federal rules restrict any use of the information to criminally investigate or prosecute any alcohol or drug abuse patient.[facility] the event this information is protected by the Federal Confidentiality of Alcohol and Drug Abuse Patient Records regulations: The Federal rules restrict any use of the information to criminally investigate or prosecute any alcohol or drug abuse patient.[facility] the event this information is protected by the Federal Confidentiality of Alcohol and Drug Abuse Patient Records regulations: The Federal rules restrict any use of the information to criminally investigate or prosecute any alcohol or drug abuse patient.[facility] the event this information is protected by the Federal Confidentiality of Alcohol and Drug Abuse Patient Records regulations: The Federal rules restrict any use of the information to criminally investigate or prosecute any alcohol or drug abuse patient.[facility] the event this information is protected by the Federal Confidentiality of Alcohol and Drug Abuse Patient Records regulations: The Federal rules restrict any use of the information to criminally investigate or prosecute any alcohol or drug abuse patient.[facility] the event this information is protected by the Federal Confidentiality of Alcohol and Drug Abuse Patient Records regulations: The Federal rules restrict any use of the information to criminally investigate or prosecute any alcohol or drug abuse patient.[facility] Care Teams (unrecognized sec tion and content) Production Foreman Relationship Specialty Start Date End Date Carmen Evans, DO [address] [place] [address] PCP - General 03/17/05 Emanuel Ledbetter MD [address] [place], [place] [id number] Primary Staff Physician Cardiology 05/28/18 Production Foreman Relationship Specialty Start Date End Date Carmen Evans DO [address] [place] [address] PCP - General 03/17/05 Emanuel Ledbetter MD [address] [place], [place] [id number] Primary Staff Physician Cardiology 05/28/18 Production Foreman Relationship Specialty Start Date End Date Carmen Evans DO [address] [place] [address] PCP - General 03/17/05 Emanuel Ledbetter MD [address] [place], [place] [id number] Primary Staff Physician Cardiology 05/28/18 Production Foreman Relationship Specialty Start Date End Date Carmen Evans DO [address] [place] [address] PCP - General 03/17/05 Emanuel Ledbetter MD [address] [place] [address] Primary Staff Physician Cardiology 05/28/18 Team Status: [...] Status: Inactive Member Role Status Dates Bev Duncan GRETCHEN Casiano Attending Provider Active Start: June 05, 2023 End: June 05, 2023 Production Foreman Relationship Specialty Start Date End Date Carmen Evans DO [address] [place] [id number] PCP - General 03/17/05 Emanuel Ledbetter MD [address] [place] [address] Primary Staff Physician Cardiology 05/28/18 Production Foreman Relationship Specialty Start Date End Date Carmen Evans DO [address] [place] [address] PCP - General 03/17/05 Emanuel Ledbetter MD [address] [place] [address] Primary Staff Physician Cardiology 05/28/18 Production Foreman Relationship Specialty Start Date End Date Carmen Evans DO [address] [place] [address] PCP - General 03/17/05 Emanuel Ledbetter MD [address] [place] [address] Primary Staff Physician Cardiology 05/28/18 Goals (unrecognized [...] BE BASED ON THE PRIMARY CLINICAL RECORDS. [facility]. provides no warranty or guarantee of the accuracy or completeness of information in this document.
== END 2023-12-31 08:53 | disposition home or self-care (01) ==
LOC: CT 08:52
PROVIDERS: PCP Family Medicine; Visit Provider Internal Medicine
DX: R91.8 Other nonspecific abnormal finding of lung field (principal)
CPT/HCPCS: 71250

== ENCOUNTER 2024-02-22 07:06 | Outpatient (OUT) | payer OTHER, SELFPAY ==
--- NOTE | 2024-02-22 | MM_ITS ---
Patient Name: RICHIE HOPPER MR#: [id number] : 1960 Exam Date: 02/22/2024 Ordering Doctor: MRS. Leeanne Rizvi NP RADIOLOGY REPORT PROCEDURE: MM TOMOSYNTHESIS SCREENING BI COMPARISON: MG MAMM SCREEN OMA W CAD, 03/18/2018. INDICATIONS: SCREENING Calculator Name NCI Breast Cancer Risk Assessment Tool 5 Year Breast Cancer Risk 1.60% Lifetime Breast Cancer Risk 6.40% Personal Breast Cancer No Personal Ovarian Cancer No Treatments None Family Cancers None LOCATION: [facility] BREAST COMPOSITION: There are scattered areas of fibroglandular density. FINDINGS: DIAGNOSTIC CATEGORY 1--NEGATIVE. NO CHANGE FROM COMPARISON ASSESSMENT. Scattered benign-appearing calcifications are present. Scattered benign-appearing lymph nodes are present. RIGHT BREAST: No significant suspicious finding. LEFT BREAST: No significant suspicious finding. RECOMMENDATIONS: ROUTINE MAMMOGRAM AND CLINICAL EVALUATION IN 12 MONTHS. PLEASE NOTE: A NORMAL MAMMOGRAM DOES NOT EXCLUDE THE POSSIBILITY OF BREAST CANCER. A CLINICALLY SUSPICIOUS PALPABLE LUMP SHOULD BE BIOPSIED. Dictated by: Sky Capps MD on 02/25/2024 at 10:19 Approved by: Sky Capps MD on 02/25/2024 at 10:20
--- OUTSIDE RECORDS SUMMARY | 2024-02-22 07:09 | XMS_ITS | CCD ---
Author Organization [facility] Care Team Providers Care Sales And Leasing Agent Name Role Phone CARMEN EVANS Admitting Unavailable CARMEN EVANS Attending Unavailable Carmen Evans Unavailable Carmen Evans DO Primary Care Provider Emanuel Ledbetter MD Unavailable Carmen Evans DO Primary Care Provider Emanuel Ledbetter MD Unavailable [phone] Carmen Evans DO Primary Care Provider Emanuel Ledbetter MD Unavailable GRETCHEN Casiano Attending Provider Bev Casiano Attending Unavailable Bev Casiano Admitting Unavailable Carmen Evans DO Primary Care Provider CARMEN EVANS Primary Care Unavailable EMANUEL LEDBETTER Referring Unavailable EMANUEL LEDBETTER Attending Unavailable CARMEN EVANS Primary Care Unavailable EMANUEL LEDBETTER Referring Unavailable CARMEN EVANS Primary Care Unavailable EMANUEL LEDBETTER Referring Unavailable LUANNE BANKS Attending EMANUEL Rosenthal Referring Unavailable CARMEN EVANS Primary Care Unavailable EMANUEL LEDBETTER Attending Unavailable CARMEN EVANS Primary Care Unavailable EMANUEL LEDBETTER Referring Unavailable CARMEN EVANS Primary Care Unavailable LUANNE [...] Primary Care Unavailable EMANUEL LEDBETTER Referring Unavailable Carmen Evans MD Primary Care Provider Allergies Allergy Classification Reported Allergen(s) Allergy Type Date of Onset Reaction(s) Facility (4 sources) Lisinopril Drug Allergy COUGH [facility]olve Other (13 sources) Angiotensin-con verting enzyme inhibitor agent; Translations: [LUISA INHIBITORS] Propensity to adverse reactions 03-17-19 Cough [facility] (1 source) Lisinopril Drug Allergy 06-05-19 24 [facility] (2 sources) Angiotensin-con verting enzyme inhibitor agent Drug Intolerance 03-17-19 06 Cough, Unknown [facility] Medications Current Medications Medication Drug Class(es) Dates Sig (Normalized) Sig (Original) amoxicillin 875 mg / clavulanate 125 mg oral tablet (6 sources) Penicillin-class Antibacterial Start: 08-01-2021 take 1 tablet by mouth twice daily at mealtime Amoxicillin-Pot Clavulanate 875-125 MG 1 tablet Orally bid with food for 10 day(s) Jan, Active Fish Oils (4 sources) CO-Q 10 [place]-3 Fish Oil Active losartan potassium 25 mg oral tablet (20 sources) Angiotensin 2 Receptor Zeferino Start: 01-17-2024 losartan (Cozaar) 25 MG tablet Take 12.5 mg by mouth in the morning. 01/17/2024 Active Start: 01-17-2024 take 0.5 tablet by mouth once losartan (COZAAR) 25 mg tablet Take 0.5 tablets by mouth every afternoon. 90 tablet 3 01/17/2024 Active Start: 03-07-2019 End: 01-17-2024 take 1 tablet by mouth once daily losartan (COZAAR) 25 mg tablet take 1 tablet by mouth every day 90 tablet 3 11/30/2023 01/17/2024 Discontinued Comment on above: TAKE 1 TABLET BY [facility] EVERY DAY Take 1 tablet by [facility] once daily. 24 hr metoprolol succinate 50 mg extended release oral tablet (20 sources) beta-Adrenergic Zeferino Start: 06-14-2023 take 1 [...] DAY 90 tablet 3 10/18/2022 06/14/2023 Discontinued take 1 tablet by navi [facility] every twenty-four hours in the morning metoprolol succinate XL (Toprol-XL) 50 MG 24 hr tablet Take 50 mg by mouth in the morning and 50 mg before bedtime. Active Comment on above: TAKE 1 TABLET BY [facility] EVERY DAY Take 1 tablet by navi [facility] two times a day. nitroglycerin 0.4 mg sublingual tablet (9 sources) Nitrate Vasodilator Start: 02-15-2023 nitroglycerin (Nitrostat) 0.4 MG SL tablet DISSOLVE 1 TABLET UNDER THE TONGUE NEEDED FOR CHEST PAIN. IF NO PAIN RELIEF CALL 911. 02/15/2023 Active Start: 02-15-2023 nitroglycerin sublingual (NITROQUICK) 0.4 mg [...] (4 sources) Red Yeast Rice A ctive red yeast rice 600 mg / ubidecarenone 60 mg oral capsule (9 sources) take 60-600 mg by mo uth in the morning Coenzyme Q10-Red Yeast Rice 60-600 MG capsule Take 1 capsule by mouth in the morning. Active take 1 capsule by mouth once yayo ly ubidecarenone/red yeast rice (CO Q10-RED YEAST RICE) 60-600 mg cap Take 1 capsule by mouth once daily. Active Comment on above: Take 1 capsule by mo uth once daily. 125 ml sodium chloride 9 mg/ml prefilled syringe (11 sources) Start: 07-03-2022 End: 10-02-2023 sodium chloride 0.9 % (flush) 10 mL [...] Comment on above: [facility] Pt takes vitamin c complex 1000 mg one tablet daily by mouth. aspirin 81 mg delayed release oral tablet (4 sources) Platelet Aggregation Inhibitor, Nonsteroidal Anti-inflammatory Drug End: take 1 tablet by mouth once daily aspirin, enteric coated (ASPIRIN, ENTERIC COATED) 81 mg EC tablet Take 81 mg by mouth once daily. 0 06/14/2023 Discontinued Comment on above: Take 81 mg by mouth once daily. biotin 10 mg oral capsule (4 sources) Start: 9 End: 4 take 1 capsule by mouth once daily Biotin (Robert Biotin) 10,000 mcg Capsule Discontinued 78832 MCG PO Daily March 07, 2019 1:00am [...] 07, 2019 1:00am June 05, 2023 1:21pm Xqgxfmdsvbnj-Epe-Mz on-Fa-Vit K (Multi For Her) 18 mg iron-600 mcg-40 mcg Capsule (2 sources) Start: 03-07-2019 End: 06-05-2023 take 1 capsule by mouth once daily Womqbboyokxj-War-Dfic- Fa-Vit K (Multi For Her) 18 mg [...] Sentry multivitamin vitamin one by mouth daily. [place] 2-Lfl-Gzc-Fish Oil (Fish Oil) 1,000 mg (120 mg-180 mg) Capsule (2 sources) Start: 03-07-20 End: 06-05-19 take 1 capsule by mouth once daily [place] 6-Knb-Uqa-Fish Oil (Fish Oil) 1,000 mg (120 mg-180 mg) Capsule Discontinued 1000 MG PO Daily March 07, 2019 1:00am June 05, 2023 1:21pm rosuvastatin calcium 20 mg oral tablet (11 sources) HMG-CoA Reductase Inhibitor Start: 07-04-19 End: 01-17-20 take 1 tablet by mouth once daily rosuvastatin (CRESTOR) 20 mg tablet Take 1 tablet by mouth once daily. 90 tablet 3 07/03/2022 01/17/2024 Discontinued (Discontinued by Patient) Comment on above: Take 1 tablet by [facility] once daily. Selenium (2 sources) Start: 03-07-20 [...] Comment on above: Take 1,000 mcg by [facility] once daily. Vitamin C 1000 MG [...] Comment on above: Take 400 Units by [facility] once daily. Problems Active Problems Problem Classification Problem Date Documented Da te Episodic/Chronic Cardiac dysrhythmias (4 sources) Multiple premature ventricular complexes; Translations: [Ventricular premature depolarization] 02-15-2023 Chronic Conduction disorders (1 source) Left bundle branch block; Translations: [Left bundle-branch block, unspecified] 01-17-2024 Chronic Congestive heart failure; nonhypertensive (18 sources) Congestive heart failure; Translations: [Heart failure, unspecified] Onset: 03-24-2005 01-15-2017 Chronic Disorders of lipid metabolism (9 sources) Hyperlipidemia; Translations: [Hyperlipidemia, unspecified] Onset: 08-01-2021 Resolved: 08-01-2021 Chronic Esophageal disorders (4 sources) Acid reflux; Translations: [Gastro-esophageal reflux disease without esophagitis] Chronic Genitourinary symptoms and ill-defined conditions (2 sources) Urge incontinence of urine; Translations: [Urge incontinence] 02-14-2024 Chronic Genitourinary symptoms and ill-defined conditions (3 sources) Dysuria; Translations: [Urgent desire to urinate] Onset: 06-05-2023 02-13-2024 Episodic Nonspecific chest pain (1 source) Precordial pain; Translations: [Precordial pain] 02-15-2023 Episodic Other gastrointestinal disorders (4 sources) Dysphagia; Translations: [Dysphagia, unspecified] Episodic Other liver diseases (4 sources) Steatosis of liver; Translations: [Fatty (change of) liver, not elsewhere classified] Chronic Other liver diseases (1 source) Fatty (change of) liver, not elsewhere classified Onset: 08-01-2021 Resolved: 08-01-2021 Chronic Other screening for suspected conditions (not mental disorders or infectious disease) (3 sources) Encounter for screening for cardiovascular disorders; Translations: [Breast neoplasm screening status] Onset: 02-15-2023 02-13-2024 Episodic Dayanara-; endo-; and myocarditis; cardiomyopathy (except that caused by tuberculosis or sexually transmitted disease) (16 sources) Cardiomyopathy, unspecified; Translations: [Cardiomyopathy] Onset: 08-01-2021 Resolved: 08-01-2021 Chronic Residual codes; unclassified (2 sources) Other specified health status; Translations: [Other specified conditions influencing health status] 06-14-2023 Episodic Spondylosis; intervertebral disc disorders; other back problems (4 sources) Degeneration of cervical intervertebral disc; Translations: [Other cervical disc degeneration, unspecified cervical region] Chronic Past or Other Problems Problem Classification Problem Date Documented Da te Episodic/Chronic Other lower respiratory disease (1 source) Shortness of breath; Translations: [SOB (shortness of breath)] Onset: 02-15-2023 Episodic Skin and subcutaneous tissue infections (1 source) Cutaneous abscess, unspecified Onset: 08-01-2021 Resolved: 08-01-2021 Episodic Results Test Name Value Interpretation Reference Range Facility [facility] 01-17-2024 OV Office Visit (JUNITO Castañeda HF ANJALI) RICHIE HOPPER ([id number]) 1960 F Date Time Provider Department 01/17/24 10:15 AM EMANUEL LEDBETTER CARD CHF ANJALI During your visit today, we recorded the following information about you: Pulse Blood pressure Weight Height 64/minute 116/74 77.9 kg 1.676 m Emanuel Ledbetter MD 01/17/2024 2:06 PM Signed Heart [facility] Vascular [facility] SECTION OF HEART FAILURE and CARDIAC TRANSPLANT MEDICINE OUTPATIENT VISIT DATE January 17, 2024 OUTPATIENT VISIT TYPE Established Patient PRIMARY CARE PHYSICIAN: Carmen Evans [address] [place] [address] CHIEF COMPLAINT: HF f/u NURSING INTAKE (Patient?s concerns and/or recent hospitalizations/ER visits): HF Nursing Assessment: Interim Hospitalizations and/or ER visits:no Chest Pain: no Skipping or irregular heartbeats: no Shortness of breath at rest: no Shortness of breath with activity: no Cough: no Waking up in the middle of the night gasping for air: no Lightheadedness or dizziness: no Feeling like you are going to pass out: no Actually passing out: no Poor energy level: no Unintentional weight gain: no Unintentional weight loss: no Swelling in your legs,feet, abdomen: no Filling up quickly when you eat: no HISTORY OF PRESENT ILLNESS: Pt had 6 mo of feeling unwell with + fatigue and now feels back to baseline Completed cardiac rehab Had extensive cardiac evaluation PAST MEDICAL HISTORY Diagnosis Date Bundle branch [...] Cough CURRENT MEDICATIONS: losartan (COZAAR) 25 mg tablet take 1 tablet by mouth every day (Patient taking differently: Take 12.5 mg by mouth every afternoon.) metoprolol succinate ER (TOPROL XL) 50 mg 24 hr tablet Take 1 tablet by mouth two times a day. ubidecarenone/red yeast rice (CO Q10-RED YEAST RICE) 60-600 mg cap Take 1 capsule by mouth once daily. nitroglycerin sublingual (NITROQUICK) 0.4 mg SL tablet Dissolve 1 tablet under the tongue as needed for chest pain. If no pain relief call 911. REVIEW OF SYSTEMS: ROS HEART FAILURE PATIENT ENTERED DATA: 06/13/2023 KCCQ-12 Scores Physical Limitation Score 100 (Class I Heart Failure ) Symptom Frequency Score 79.17 (Class II Heart Failure ) Quality of Life Score 75 (Good to Excellent Quality of Life) Social Limitation Score 91.67 (Class I Heart Failure) Overall Summary Score 86.46 (Class I Heart Failure ) 06/13/2023 PHQ-9 Score 6 06/13/2023 PROMIS Global Health - (T-Scores - the mean of general population = 50. Five points is a clinically meaningful difference.) Physical T-Score 47.7 Mental T-Score 53.3 PHYSICAL EXAMINATION: BP 116/74 (BP Site: Left Arm) Pulse 64 Ht 167.6 cm (5' 6 ) Wt 77.9 kg (171 lb 11.2 oz) SpO2 98% BMI 27.71 kg/m? which is 1 lbs less than last visit. General appearance:Healthy [...] 220, HDL 39, Trig 80, LDL 165 Latest Ref Rng 07/03/2022 02/14/2023 Protein, Total 6.3 - 8.0 g/dL 7.1 7.3 Albumin 3.9 - 4.9 g/dL 4.3 4.5 Calcium 8.5 - 10.2 mg/dL 9.3 9.9 Bilirubin, Total 0.2 - 1.3 mg/dL 0.5 0.6 Alkaline Phosphatase 34 - 123 U/L 66 73 AST 13 - 35 U/L 55 (H) 25 ALT 7 - 38 U/L 59 (H) 32 Glucose 74 - 99 mg/dL 86 104 (H) BUN 7 - 21 mg/dL 10 16 Creatinine 0.58 - 0.96 mg/dL 0.74 0.87 Sodium 136 - 144 mmol/L 138 144 Potassium 3.7 - 5.1 mmol/L -- 4.8 Chloride 97 - 105 mmol/L 105 108 (H) CO2 22 - 30 mmol/L 22 29 Anion Gap 9 - 18 mmol/L 11 7 (L) eGFR >=60 mL/min/1.73m? 92 75 WBC 3.70 - 11.00 k/uL 6.60 6.74 RBC 3.90 - 5.20 m/uL 4.49 4.52 Hemoglobin 11.5 - 15.5 g/dL 13.9 14.3 Hematocrit 36.0 - 46.0 % 43.5 42.2 MCV 80.0 - 100.0 fL 96.9 93.4 MCH 26.0 - 34.0 pg 31.0 31.6 MCHC 30.5 - 36.0 g/dL 32.0 (more content not included)... [facility] ECHOon 01-17-2024 Echocardiography Echocardiography Report: Transthoracic Echo [facility] J35 Date of service: 01/17/2024 9:18:16 AM PREP Ordering physician: EMANUEL LEDBETTER Indication: Heart Failure Technologist: Taylor Simon and Davon Russell Interpreting physician: Urbano Hodge MD PATIENT: Name: MRS. RICHIE HOPPER : 1960 Age: 63 years Gender: F Primary rhythm: sinus. Height: 168.90 cm BSA: 1.92 m Weight: 78.24 kg BMI: 27.4 kg/m Heart rate 57 bpm Blood pressure 128/60 mmHg Color Doppler was utilized to interrogate the cardiac valves assessed and spectral Doppler was utilized to determine the flow velocities and pressure gradients reported in this exam. Myocardial strain analysis was performed in this exam to aid in the assessment of cardiac function. MEASUREMENTS: Value Indexed Normal Max aortic dimension 3.5 cm Ao < 3.8 Left atrial volume 47 ml (biplane A-L) 24 ml/m Shlomo <= 34 LV ID (diastole) 5.4 cm (2D) 2.80 cm/m LV ID (systole) 3.7 cm (2D) 1.93 cm/m IVS, leaflet tips 1.0 cm (2D) Posterior wall thickness 0.9 cm (2D) Left ventricular mass 190 g (2D) 99 g/m Global peak long strain -14.8 % LV stroke volume 50 ml (2D biplane) LV end diastolic volume 109 ml (2D biplane) 56.8 ml/m 29<=EDVi<62 LV end systolic volume 59 ml (2D biplane) 30.9 ml/m Ejection Fraction 46 % (2D biplane) EF > 54 FINDINGS: LEFT VENTRICLE The left ventricle is normal in size. Left ventricular systolic function is mildly decreased. Global LV myocardial strain is borderline abnormal. Grade I left ventricular diastolic dysfunction. Mitral annular lateral E/e': 4.4. Mitral annular septal E/e': 10.9. Wall Motion: The entire septum, apical anterior segment, apical inferior segment, and apex are severely hypokinetic. The inferior wall is mildly hypokinetic. All remaining scored segments are normal. RIGHT VENTRICLE The right ventricle is normal in size. Right ventricular systolic function is normal. RV systolic tissue Doppler velocity is 11.0 cm/s. Tricuspid annular displacement is 1.8 cm. Estimated right ventricular systolic pressure is 22 mmHg consistent with normal pulmonary artery pressures. Estimated right atrial pressure is 3 mmHg based on IVC assessment. LEFT ATRIUM The left atrial cavity is normal in size. Pulmonary Veins: The pulmonary venous pattern showed normal systolic flow. RIGHT ATRIUM The right atrial cavity is normal in size. Inferior Vena Cava: The inferior vena cava appears normal measuring 1.3 cm. The vessel decreases greater than 50 percent with inspiration. MITRAL VALVE There is mild (1+) mitral valve regurgitation. There is mild thickening. The pressure half time is 47 msec. The peak mitral E/A ratio is 0.76. The average mitral E/e' ratio is 7.6. The mitral flow deceleration time is 163 msec. TRICUSPID VALVE The tricuspid valve leaflets are structurally normal. There is trace (trace - 1+) tricuspid valve regurgitation. AORTIC VALVE There is trace aortic valve regurgitation. Tricuspid aortic valve. There is mild thickening. PULMONIC VALVE The pulmonic valve cusps are structurally normal. There is trace pulmonic valve regurgitation. AORTA The visualized aorta is normal in size. Measurements - Sinus: 3.5 cm. Mid ascending aorta 3.1 cm. PERICARDIUM There is no pericardial effusion. There is an epicardial fat pad. CONCLUSIONS: - Exam indication: Heart Failure - The abnormal regional wall motion pattern in conjunction with normal regional wall thickness is consistent with a LBBB abnormal conduction delay. - The left ventricle is normal in size. Left ventricular systolic function is mildly decreased. EF = 46 5% (2D biplane) - The right ventricle is normal in size. Right ventricular systolic function is normal. - 1+ MR. - Exam was compared with the prior CC echocardiographic exam performed on 06/14/2023. LVEF improved. * * * Final * * * [employer] [facility] : [id number] sSISUID [facility] CNOVon 06-14-2023 CNOV Office Visit (JUNITO Castañeda HF ANJALI) RICHIE HOPPER ([id number]) 1960 F Date Time Provider Department 06/14/23 11:45 AM EMANUEL LEDBETTER CHF ANJALI During your visit today, we recorded the following information about you: Pulse Blood pressure Weight Height 88/minute 111/65 78.2 kg 1.689 m Emanuel Ledbetter MD 06/14/2023 5:19 PM Signed Heart and Vascular [facility] SECTION OF HEART FAILURE and CARDIAC TRANSPLANT MEDICINE OUTPATIENT VISIT DATE June 14, 2023 OUTPATIENT VISIT TYPE Established Patient PRIMARY CARE PHYSICIAN: Carmen Evans [address] [place] [address] CHIEF COMPLAINT: HF f/u NURSING INTAKE (Patient?s [...] mmol/L 3. (more content not included)... [facility] ECHOon 06-14-2023 Echocardiography Echocardiography Report: Transthoracic Echo [facility] J1-5 Date of service: 06/14/2023 10:29:30 AM PREP Ordering physician: EMANUEL LEDBETTER Indication: CHF Technologist: [...] * * * Final * * * [employer] : [id number] sSISUID [facility] Urine Cultureon 06-05-2023 Bacteria identified Cx Nom (U) 15,000 colonies/ml mixed bacterial skin contaminants 1 Day PERFORMED BY: [place] [address] PATHOLOGIST HAND LEATHER TRIMMER GLORIA ALMEIDA M.D. [facility] Comment on above: Performed By: #### C UU #### [address] CNPNon 03-06-2023 CNPN Telephone (CARD CHF ANJALI) RICHIE HOPPER ([id number]) 1960 F Date Time Provider Department 03/06/23 EMANUEL LEDBETTER CARD CHF ANJALI During your visit today, we recorded the following information about you: Marcus FátimaKriss 03/06/2023 2:17 PM Signed Patient has a cold/flu x 2 days and wants to know what she can take. Please call her at [phone]. Thank you, kriss Allergies As of Date: [...] Encounter Status:Closed by ROSSANA BLOUNT on 03/06/23 [facility] ANJALI) RICHIE HOPPER ([id number]) 1960 F Date Time Provider Department 02/19/23 EMANUEL LEDBETTER CARD [facility] ANJALI During your visit today, we recorded the following information about you: Damaris Cuellar 02/19/2023 3:11 PM Signed February 19, 2023 Name: Richie Hopper Patient Contact Number: [phone] (home) [phone] (cell) Date of last office visit: 02/15/2023 [...] Fully Assessed Reason for Visit: Advice Only [[id number]] Prescriptions as of 06/22/2023 - metoprolol succinate [...] Status:Closed by DAMARIS CUELLAR on 06/22/23 [facility] CARD CATH DIAGNOSTICon 02-16 CARD CATH DIAGNOSTIC Site Id: CC Lab #: [facility] Jewel Stringer 2 Study Date: 02/16/2023 Start Time: 02/16/2023 [...] 63 yoF with PMH HLD presenting for [facility] +/- PCI for investigation of cardiomyopathy and [...] On: 02/16/2023 at 2:26:17 PM Final CC [facility] [facility] : [id number] SISUID See Link below for Image [facility] CNOVon 02-15-2023 CNOV Office Visit (CARD C HF ANJALI) RICHIE HOPPER ([id number]) 1960 F Date Time Provider Department 02/15/23 11:45 AM EMANUEL LEDBETTER CARD CHF ANJALI During your visit today, we recorded the following information about you: Pulse Blood pressure Weight Height 69/minute 111/74 81.5 kg 1.702 m Emanuel Ledbetter MD 02/15/2023 5:05 PM Signed Heart [facility] V[facility] SECTION OF HEART FAILURE and CARDIAC TRANSPLANT MEDICINE OUTPATIENT VISIT DATE February 15, 2023 OUTPATIENT VISIT TYPE Established Patient PRIMARY CARE PHYSICIAN: Carmen Evans [address] [place] [address] CHIEF COMPLAINT: CP NURSING INTAKE (Patient?s concerns [...] 12.7 fL (more content not included)... [facility] Vick 02-15-2023 CNPN Telephone (MARIAM) RICHIE HOPPER ([id number]) 1960 F Date Time Provider Department 02/15/23 [...] by DEBBIE SALGUERO RN on 02/15/23 [facility] ECHOon 02-15-2023 Echocardiography Echocardiography Report: Transthoracic Echo [facility] J1-5 Date of service: 02/15/2023 7:58:30 AM PREP Ordering physician: EMANUEL LEDBETTER Indication: Diastolic CHF [...] * * * Final * * * [employer] : [id number] sSISUID [facility] CARDIAC PERF STRESS/PHARM on 02-15-2023 NM CARDIAC PERF STRESS/PHARM * * *Final Report* * * DATE OF EXAM: Feb 15 2023 11:34AM N 0006 - NM CARDIAC PERF STRESS/PHARM / PROCEDURE REASON: Encounter for screening for cardiovascular disorders * * * * Physician Interpretation * * * * Stress Daycare Assistant Report: [facility] NORI-2 Date of service: 02/15/2023 9:49:58 AM [...] later. See administered radiotracer and doses below. Main [place] Date of service: 02/15/2023 9:49:58 AM Ordering [...] * * Final * * * ------ MA CTAC Report: [facility] Date of service: 02/15/2023 9:49:58 AM CTAC interpreting physician: Sebastian Norris MD PATIENT: Name: MRS. RICHIE HOPPER Age: 63 years Gender: F 1. Incidental Findings from limited non-diagnostic CTAC: - No distinct coronary calcifications. * * * Final * * * (more content not included)... [facility] CBC panel Auto (Bld)on 02-14 Erythrocyte distribution width (RBC) [Ratio] 12.4 % [facility] 11.5-15.0 [facility] Comment on above: Order Comment: Speci men Type: BLOOD SPECIMENOrdering Facility: [facility] Address: [address] [place] [address] Performed By: #### 5 8410-2 ####[facility] LABCLIA [id number] [place] [address] Hematocrit (Bld) [Volume fraction] 42.2 % Normal 36.0-46.0 [facility] Comment on above: Order Comment: Speci men Type: BLOOD SPECIMENOrdering Facility: [facility] Address: [address] [place] [address] Performed By: #### 5 8410-2 ####[facility] LABIA [id number] [place] [address] Hemoglobin (Bld) [Mass/Vol] 14.3 g/dL Normal 11.5-15.5 [facility] Comment on above: Order Comment: Speci men Type: BLOOD SPECIMENOrdering Facility: [facility] Address: [address] [place] [address] Performed By: #### 5 8410-2 ####[facility] LABIA [id number] [place] [address] MCH (RBC) [Entitic mass] 31.6 pg Normal 26.0-34.0 [facility] Comment on above: Order Comment: Speci men Type: BLOOD SPECIMENOrdering Facility: [facility] Address: [address] [place] [address] Performed By: #### 5 8410-2 ####[facility] LABIA [id number] [place] [address] MCHC (RBC) [Mass/Vol] 33.9 g/dL Normal 30.5-36.0 [facility] Comment on above: Order Comment: Speci men Type: BLOOD SPECIMENOrdering Facility: [facility] Address: [address] [place] [address] Performed By: #### 5 8410-2 ####[facility] LABCLIA [id number] [place] [address] MCV (RBC) [Entitic vol] 93.4 fL Normal 80.0-100.0 [facility] Comment on above: Order Comment: Speci men Type: BLOOD SPECIMENOrdering Facility: [facility] Address: [address] [place] [address] Performed By: #### 5 8410-2 ####[facility] LABCLIA [id number] [place] [address] Nucleated RBC (Bld) [#/Vol] 10*3/uL Normal <0.01 [facility] Comment on above: Order Comment: Speci men Type: BLOOD SPECIMENOrdering Facility: [facility] Address: [address] [place] [address] Performed By: #### 5 8410-2 ####[facility] LABIA [id number] [place] [address] Platelet mean volume (Bld) [Entitic vol] 9.6 fL Normal 9.0-12.7 [facility] Comment on above: Order Comment: Speci men Type: BLOOD SPECIMENOrdering Facility: [facility] Address: [address] [place] [address] Performed By: #### 5 8410-2 ####[facility] LABCLIA [id number] [place] [address] Platelets (Bld) [#/Vol] 226 10*3/uL Normal 150-400 [facility] Comment on above: Order Comment: Speci men Type: BLOOD SPECIMENOrdering Facility: [facility] Address: [address] [place] [address] Performed By: #### 5 8410-2 ####[facility] LABIA [id number] [place] [address] RBC (Bld) [#/Vol] 4.52 10*6/uL Normal 3.90-5.[address] [facility] Comment on above: Order Comment: Speci men Type: BLOOD SPECIMENOrdering Facility: [facility] Address: [address] [place] [address] Performed By: #### 5 8410-2 ####[facility] LABCLIA [id number] [place] [address] WBC (Bld) [#/Vol] 6.74 10*3/uL Normal 3.70-11.[address] [facility] Comment on above: Order Comment: Speci men Type: BLOOD SPECIMENOrdering Facility: [facility] Address: [address] [place] [address] Performed By: #### 5 8410-2 ####[facility] LABCLIA [id number] [place] [address] Comprehensive metabolic 2000 panelon 02-14-2023 Albumin [Mass/Vol] 4.5 g/dL Normal 3.9-4.9 [facility] Comment on above: Order Comment: Speci men Type: BLOOD SPECIMENOrdering Facility: [facility] Address: [address] [place] [address] Performed By: #### 2 4323-8 ####[facility] LABCLIA [id number] [place] [address] ALP [Catalytic activity/Vol] 73 U/L Normal 34-123 [facility] Comment on above: Order Comment: Speci men Type: BLOOD SPECIMENOrdering Facility: [facility] Address: [address] [place] [address] Performed By: #### 2 4323-8 ####[facility] LABCLIA [id number] [place] [address] ALT [Catalytic activity/Vol] 32 U/L Normal 7-38 [facility] Comment on above: Order Comment: Speci men Type: BLOOD SPECIMENOrdering Facility: [facility] Address: [address] [place] [address] Performed By: #### 2 4323-8 ####[facility] LABCLIA [id number] [place] [address] Anion gap [Moles/Vol] 7 mmol/L Low 9-18 [facility] Comment on above: Order Comment: Speci men Type: BLOOD SPECIMENOrdering Facility: [facility] Address: [address] [place] [address] Performed By: #### 2 4323-8 ####[facility] LABCLIA [id number] [place] [address] AST [Catalytic activity/Vol] 25 U/L Normal 13-35 [facility] Comment on above: Order Comment: Speci men Type: BLOOD SPECIMENOrdering Facility: [facility] Address: [address] [place] [address] Performed By: #### 2 4323-8 ####[facility] LABCLIA [id number] [place] [address] Bilirubin [Mass/Vol] 0.6 mg/dL Normal 0.2-1.3 [facility] Comment on above: Order Comment: Speci men Type: BLOOD SPECIMENOrdering Facility: [facility] Address: [address] [place] [address] Performed By: #### 2 4323-8 ####[facility] LABCLIA [id number] [place] [address] Calcium [Mass/Vol] 9.9 mg/dL Normal 8.5-10.2 [facility] Comment on above: Order Comment: Speci men Type: BLOOD SPECIMENOrdering Facility: [facility] Address: [address] [place] [address] Performed By: #### 2 4323-8 ####[facility] LABCLIA [id number] [place] [address] Chloride [Moles/Vol] 108 mmol/L High 97-105 [facility] Comment on above: Order Comment: Speci men Type: BLOOD SPECIMENOrdering Facility: [facility] Address: [address] [place] [address] Performed By: #### 2 4323-8 ####[facility] LABCLIA [id number] [place] [address] CO2 [Moles/Vol] 29 mmol/L Normal 22-30 [facility] Comment on above: Order Comment: Speci men Type: BLOOD SPECIMENOrdering Facility: [facility] Address: [address] [place] [address] Performed By: #### 2 4323-8 ####[facility] LABCLIA [id number] [place] [address] Creatinine [Mass/Vol] 0.87 mg/dL Normal 0.58-0.96 [facility] Comment on above: Order Comment: Speci men Type: BLOOD SPECIMENOrdering Facility: [facility] Address: [address] [place] [address] Performed By: #### 2 4323-8 ####[facility] LABCLIA [id number] [place] [address] Creatinine and Glomerular filtration rate.predicted panel (S/P/Bld) 75 mL/min/1.73m??? Normal >=60 [facility] Comment on above: Order Comment: Speci men Type: BLOOD SPECIMENOrdering Facility: [facility] Address: [address] [place] [address] Result Comment: Delilah mated Glomerular Filtration Rate [...] actual GFR. Performed By: #### 2 4323-8 ####[facility] LABCLIA [id number] [place] [address] Glucose [Mass/Vol] 104 mg/dL High 74-99 [facility] Comment on above: Order Comment: Speci men Type: BLOOD SPECIMENOrdering Facility: [facility] Address: [address] [id number] Result Comment: The [place] Diabetes Association (ADA) provides guidance for cutoff [...] Standards of Medical Care in Diabetes 2016, [place] [employer]. Diabetes Care. 2016.39(Suppl 1). Performed By: #### 2 4323-8 ####[facility] LABCLIA [id number] [place] [address] Potassium [Moles/Vol] 4.8 mmol/L Normal 3.7-5.1 [facility] Comment on above: Order Comment: Speci men Type: BLOOD SPECIMENOrdering Facility: [facility] Address: [address] [place] [address] Performed By: #### 2 4323-8 ####[facility] LABCLIA [id number] [place] [address] Protein [Mass/Vol] 7.3 g/dL Normal 6.3-8.0 [facility] Comment on above: Order Comment: Speci men Type: BLOOD SPECIMENOrdering Facility: [facility] Address: [address] [place] [address] Performed By: #### 2 4323-8 ####[facility] LABCLIA [id number] [place] [address] Sodium [Moles/Vol] 144 mmol/L Normal 136-144 [facility] Comment on above: Order Comment: Speci men Type: BLOOD SPECIMENOrdering Facility: [facility] Address: [address] [place] [address] Performed By: #### 2 4323-8 ####[facility] LABCLIA [id number] [place] [address] Urea nitrogen [Mass/Vol] 16 mg/dL Normal 7-21 [facility] Comment on above: Order Comment: Speci men Type: BLOOD SPECIMENOrdering Facility: [facility] Address: [address] [place] [address] Performed By: #### 2 4323-8 ####[facility] LABCLIA [id number] [place] [address] NT-proBNP [facility] 02-14 Natriuretic peptide.B prohormone N-Terminal [Mass/Vol] 181 pg/mL High <125 [facility] Comment on above: Order Comment: Speci men Type: BLOOD SPECIMENOrdering Facility: [facility] Address: [address] [place] [address] Performed By: #### 3 3762-6 ####[facility] LABCLIA [id number] [address] [facility] CNPNon 02-12-2023 CNPN Telephone (CARD CHF ANJALI) RICHIE HOPPER ([id number]) 1960 F Date Time Provider Department 02/12/23 EMANUEL LEDBETTER CARD CHF ANJALI During your visit today, we recorded the following information about you: Damaris Cuellar 02/12/2023 1:20 PM Signed February 12, 2023 Name: Richie Hopper Patient Contact Number: [phone] (home) [phone] (cell) Date of last office visit: 07/03/2022 [...] Cough Date Reviewed: 07/03/2022 Reviewed by: Rossana Bluont, RN - Fully Assessed Reason for Visit: Advice Only [[id number]] Prescriptions as of 06/22/2023 - metoprolol succinate [...] Status:Closed by DAMARIS CUELLAR on 06/22/23 Normal [facility] Vital Signs Date Time Vital Sign Value Performing Clinician Facility 02-13-2024 11:06-0500 Body height 165.1 cm Leeanne Rizvi NP Work Phone: [facility] 02-13-2024 11:06-0500 Body mass index (BMI) [Ratio] 29.89 kg/m2 Leeanne Rizvi NP Work Phone: [facility] 02-13-2024 11:06-0500 Body weight 81.47 kg Leeanne Garciaman WORKFORCE STAFFING ADVISOR Work Phone: [facility] 02-13-2024 11:06-0500 Diastolic blood pressure 78 mm[Hg] Leeanne Garciaman WORKFORCE STAFFING ADVISOR Work Phone: [facility] 02-13-2024 11:06-0500 Systolic blood pressure 122 mm[Hg] Leeanne Garciaman WORKFORCE STAFFING ADVISOR Work Phone: [facility] 01-17-2024 10:20-0500 Body height 167.6 cm Emanuel Ledbetter MD Work Phone: [facility] 01-17-2024 10:20-0500 Body mass index (BMI) [Ratio] 27.71 kg/m2 Emanuel Ledbetter MD Work Phone: [facility] 01-17-2024 10:20-0500 Body weight 77.88 kg Emanuel Ledbetter MD Work Phone: [facility] 01-17-2024 10:20-0500 Diastolic blood pressure 74 mm[Hg] Emanuel Ledbetter MD Work Phone: [facility] 01-17-2024 10:20-0500 Heart rate 64 /min Emanuel Ledbetter MD Work Phone: [facility] 01-17-2024 10:20-0500 SaO2% (BldA) [Mass fraction] 98 % Emanuel Ledbetter MD Work Phone: [facility] Comment on above: RA 01-17-2024 10:20-0500 Systolic blood pressure 116 mm[Hg] Emanuel Ledbetter MD Work Phone: [facility] 06-14-2023 11:52-0400 Body height 168.9 cm Emanuel Ledbetter MD Work Phone: [facility] 06-14-2023 11:52-0400 Body weight 78.25 kg Emanuel Ledbetter MD Work Phone: [facility] 06-14-2023 11:52-0400 Diastolic blood pressure 65 mm[Hg] Emanuel Ledbetter MD Work Phone: [facility] 06-14-2023 11:52-0400 Heart rate 88 /min Emanuel Ledbetter MD Work Phone: [facility] 06-14-2023 11:52-0400 SaO2% (BldA) [Mass fraction] 98 % Emanuel Ledbetter MD Work Phone: [facility] 06-14-2023 11:52-0400 Systolic blood pressure 111 mm[Hg] Emanuel Ledbetter MD Work Phone: [facility] 06-05-2023 13:16-0400 Body height 168.91 cm [facility] 06-05-2023 13:16-0400 Body mass index (BMI) [Ratio] 28.5 kg/m2 [facility] 06-05-2023 13:16-0400 Body temperature 98 [degF] [facility] 06-05-2023 13:16-0400 Body weight 81.36 kg [facility] 06-05-2023 13:16-0400 Respiratory rate 18 /min [facility] 06-05-2023 13:16-0400 SaO2% (BldA) [Mass fraction] 98 % [facility] 02-15-2023 12:26-0500 Body height 170.2 cm Emanuel Ledbetter MD Work Phone: [facility] 02-15-2023 12:26-0500 Body weight 81.51 kg Emanuel Ledbetter MD Work Phone: [facility] 02-15-2023 12:26-0500 Diastolic blood pressure 74 mm[Hg] Emanuel Ledbetter MD Work Phone: [facility] 02-15-2023 12:26-0500 Heart rate 69 /min Emanuel Ledbetter MD Work Phone: [facility] 02-15-2023 12:26-0500 SaO2% (BldA) [Mass fraction] 97 % Emanuel Ledbetter MD Work Phone: [facility] 02-15-2023 12:26-0500 Systolic blood pressure 111 mm[Hg] Emanuel Ledbetter MD Work Phone: [facility] 07-03-2022 14:28-0400 Body height 168.9 cm Emanuel Ledbetter MD Work Phone: [facility] 07-03-2022 14:28-0400 Body weight 84.64 kg Emanuel Ledbetter MD Work Phone: [facility] 07-03-2022 14:28-0400 Diastolic blood pressure 85 mm[Hg] Emanuel Ledbetter MD Work Phone: [facility] 07-03-2022 14:28-0400 Heart rate 72 /min Emanuel Ledbetter MD Work Phone: [facility] 07-03-2022 14:28-0400 SaO2% (BldA) [Mass fraction] 95 % Emanuel Ledbetter MD Work Phone: [facility] 07-03-2022 14:28-0400 Systolic blood pressure 135 mm[Hg] Emanuel Ledbetter MD Work Phone: [facility] 08-01-2021 17:20-0400 Body height 168.91 cm Carmen Evans Other [employer] Other 08-01-2021 17:20-0400 Body mass index (BMI) [Ratio] 29.73 kg/m2 Carmen Evans Other [employer] Other 08-01-2021 17:20-0400 Body temperature 96.6 [degF] Carmen Evans Other [employer] Other 08-01-2021 17:20-0400 Body weight 84.82 kg Carmen Evans Other [employer] Other 08-01-2021 17:20-0400 Diastolic blood pressure 72 mm[Hg] Carmen Evans Other [facility] Other 08-01-2021 17:20-0400 SaO2% (BldA) [Mass fraction] 96 % Carmen Evans Other [facility] Other 08-01-2021 17:20-0400 Systolic blood pressure 106 mm[Hg] Carmen Evans Other [employer] Other Encounters Encounter Date Encounter Type Care Provider Facility Start: 02-13-2024 End: 02-13-2024 Bamboo flowsheet Leeanne Rizvi WORKFORCE STAFFING ADVISOR Work Phone: [facility] Start: 02-13-2024 End: 02-13-2024 Bamboo Contact Solutionsheet Leeanne Rizvi WORKFORCE STAFFING ADVISOR Work Phone: [facility] Start: 02-13-2024 End: 02-13-2024 Initial preventive medicine new patient 40-64yrs Leeanne Rizvi WORKFORCE STAFFING ADVISOR Work Phone: [facility] Comment on above: Encounter for gyneco logical examination without abnormal finding (Primary Dx); Other screening mammogram; S/P hysterectomy; Urinary urgency; Urge incontinence Start: 02-13-2024 End: 02-13-2024 Patient encounter status Leeanne Rizvi WORKFORCE STAFFING ADVISOR Work Phone: [facility] Work Phone: Start: 01-17-2024 End: 01-17-2024 Patient encounter procedure Emanuel Ledbetter MD Work Phone: Cardiology Comment on above: Chronic systolic (co ngestive) heart failure (HCC) (Primary Dx); PVC (premature ventricular contraction); Hyperlipidemia LDL goal <70; Cardiomyopathy, nonischemic (HCC); Complex medical condition; LBBB (left bundle branch block) Start: 01-17-2024 End: 01-17-2024 ambulatory EMANUEL LEDBETTER Facility:[facility] Start: 01-17-2024 End: 01-17-2024 ambulatory CARMEN EVANS Facility:[facility] Start: 11-30-2023 End: 11-30-2023 Refill Emanuel Ledbetter MD Work Phone: Cardiology Comment on above: Refill Request Start: 06-14-2023 End: 06-14-2023 Patient encounter procedure Emanuel Ledbetter MD Work Phone: Cardiology Comment on above: Chronic systolic (co ngestive) heart failure (HCC) (Primary Dx); PVC (premature ventricular contraction); Hyperlipidemia LDL goal <70; Cardiomyopathy, nonischemic (HCC); Complex medical condition Start: 06-14-2023 End: 06-14-2023 ambulatory CARMEN EVANS Facility:[facility] Start: 06-05-2023 End: 06-05-2023 ambulatory Bev Casiano Facility:[facility] Start: 06-05-2023 End: 06-05-2023 Departed Referred RUBBER THREAD SPOOLER Bev Casiano Work Phone: [facility] [place] Work Phone: Start: 06-05-2023 End: 06-05-2023 ambulatory [facility] Work Phone: Start: 06-05-2023 End: 06-05-2023 Patient encounter procedure [facility] Work Phone: [...] Start: 02-15-2023 End: 02-15-2023 ambulatory EMANUEL LEDBETTER Facility:[facility] Start: 02-14-2023 End: 02-14-2023 ambulatory EMANUEL LEDBETTER Facility:[facility] Start: 02-12-2023 End: 02-12-2023 ambulatory Carmen Evans Other [employer] Other Start: 02-12-2023 Telephone encounter Carmen Evans [facility] Comment on above: Advice Only Start: 11-04-2022 Refill Emanuel Ledbetter MD Work Phone: Cardiology Comment on above: Refill Request Start: 10-18-2022 Refill Emanuel Ledbetter MD Work Phone: Cardiology Comment on above: Refill Request Start: 07-03-2022 End: 07-03-2022 Patient encounter procedure Emanuel Ledbetter MD Work Phone: Cardiology Comment on above: Hyperlipidemia LDL g oal <70 (Primary Dx); Cardiomyopathy, nonischemic (HCC); Chronic systolic (congestive) heart failure (HCC) Start: 01-27-2022 End: 01-27-2022 ambulatory Carmen Evans Other [employer] Other Start: 01-27-2022 Telephone encounter Carmen Evans [facility] Start: 10-10-2021 Refill Emanuel Ledbetter MD Work Phone: Cardiology Comment on above: Refill Request Start: 08-16-2021 End: 08-16-2021 ambulatory Carmen Evans Other [facility] Other Start: 08-16-2021 Telephone encounter Carmen Evans [facility] Start: 08-01-2021 End: 08-01-2021 ambulatory Carmen Evans Other [facility] [employer] Other Start: 08-01-2021 Office outpatient vi sit 15 minutes Carmen Evans [facility] [place] Start: 04-19-2019 Patient encounter procedure CARMEN EVANS Facility:[facility] Procedures Date Procedure Procedure Detail Performing Clinician Start: 07-03-2022 Lipid 1996 panel - S vikas or Plasma Luanne Banks MD Work Phone: H/O: hysterectomy S/P hysterectomy Kaleb Rizvi NP Work Phone: Plan of Treatment Date Care Activity Detail Author Start: 07-04-2027 Lipid 1996 panel - S vikas or Plasma Lipid Screening [facility] Start: 07-04-2027 Lipid panel Lipid Screening [facility] Start: 07-04-2027 LIPID SCREEN LIPID SCREEN [facility] Start: 02-14-2026 Diabetes Screening Diabetes Screenin g [facility] Start: 08-10-2025 LIPID SCREEN LIPID SCREEN [facility] Start: 07-03-2025 DIABETES SCREEN DIABETES SCREEN [facility] Start: 02-18-2025 End: 02-18-2025 Patient encounter procedure 02/18/2025 10:20 AM EST Office Visit [facility] [address] [id number] Leeanne Rizvi NP [address] [place] [address] [facility] Start: 07-22-2024 End: 07-22-2024 Patient encounter procedure [facility] Comment on above: DX: chronic heart fa ilure Start: 07-16-2024 End: 01-16-2025 Echocardiography ECHO Cardiology Routine Chronic systolic (congestive) heart failure (HCC) Expected: 07/16/2024, Expires: 01/16/2025 [facility] Work Phone: Comment on above: Expected: 07/16/2024 , Expires: 01/16/2025 Start: 02-13-2024 End: 2026 MG Breast - bilateral Screening Bilateral screening mammogram Imaging Routine Other screening mammogram Expected: 02/13/2024, Expires: 04/15/2025 [facility] Work Phone: Comment on above: Expected: 02/13/2024 , Expires: 04/15/2025 Start: 02-13-2024 End: 02-12-2025 Urinalysis complete panel - Urine Urinalysis with reflex microscopic Lab Routine Urinary urgency Expected: 02/13/2024 (Approximate), Expires: 02/12/2025 [facility] Comment on above: Expected: 02/13/2024 (Approximate), Expires: 02/12/2025 Start: 01-17-2024 End: 01-17-2024 Patient encounter procedure [facility] Comment on above: DX: Chronic diastoli c (congestive) heart failure Start: 01-17-2024 End: 01-17-2024 ambulatory 01/17/2024 8:15 AM EST Results Only Cardiology [address] [place] [address] DX: Chronic diastolic (congestive) heart failure Cardiology Comment on above: DX: Chronic diastoli c (congestive) heart failure Start: 11-11-2023 Covid-19 Vaccine () Covid-19 Vaccine () [facility] Start: 11-11-2023 Covid-19 Vaccine () Covid-19 Vaccine () [facility] Start: 11-11-2023 Influenza vaccination [facility] Start: 08-11-2023 DIABETES SCREEN DIABETES SCREEN [facility] Start: 06-06-2023 Bacteria identified in Urine by Culture [facility] Start: 06-05-2023 Bacteria identified in Urine by Culture [facility] Start: 03-12-2023 Behavioral Health Screening Behavioral Health Screening [facility] Start: 11-10-2022 Covid-19 Vaccine () Covid-19 Vaccine () [facility] Start: 11-10-2022 Influenza vaccination [facility] Start: 07-03-2022 End: 09-02-2022 Comprehensive metabolic 2000 panel - Serum or Plasma COMP METABOLIC PANEL Lab STAT Hyperlipidemia LDL goal <70 Expected: 07/03/2022, Expires: 09/02/2022 [facility] Work Phone: Comment on above: Expected: 07/03/2022 , Expires: 09/02/2022 Start: 07-03-2022 End: 09-02-2022 Lipid 1996 panel - Serum or Plasma LIPID PANEL BASIC Lab Routine Hyperlipidemia LDL goal <70 Expected: 07/03/2022, Expires: 09/02/2022 [facility] Work Phone: Comment on above: Expected: 07/03/2022 , Expires: 09/02/2022 Start: 03-12-2022 DEPRESSION ASSESSMENT DEPRESSION ASS ESSMENT [facility] Start: 11-10-2021 Influenza vaccination INFLUENZA (#1) [facility] Start: 2020 RSV Vaccine (1 - 1-d ose 60+ series) RSV Vaccine (1 - 1-dose 60+ series) [facility] Start: 2020 RSV Vaccine (1 - Ris k 60-74 years 1-dose series) RSV Vaccine (1 - Risk 60-74 years 1-dose series) [facility] Start: 03-18-2019 Screening for malign ant neoplasm of breast Mammogram Screening [facility] Start: 02-03-2010 SHINGRIX VACCINE (1 of 2) MARADIAGA GRIX VACCINE (1 of 2) [facility] Start: 02-03-2005 COLOGUARD (FIT-DNA) COLOGUARD (FIT-D NA) [facility] Start: 02-03-2005 Colonoscopy COLONOSCOPY [facility] Start: 02-03-2005 COLORECTAL CANCER SCREENING COLORECTAL CANCER SCREENING [facility] Start: 02-03-[address] COLONOGRAPHY [facility] Start: 02-03-2005 FECAL OCCULT BLOOD FECAL OCCULT BLOO D [facility] Start: 02-03-2005 Screening for malign ant neoplasm of colon [facility] Start: 02-03-2005 SIGMOIDOSCOPY SIGMOIDOSCOPY [facility] Start: 2000 Mammography [facility] Start: 02-03-1990 HPV TESTING HPV TESTING [facility] Start: 02-03-1990 Screening for malign ant neoplasm of cervix HPV Testing [facility] Start: 02-03-1981 PAP TESTING PAP TESTING [facility] Start: 02-03-1981 Screening for malign ant neoplasm of cervix [facility] Start: 02-03-1979 Urine microalbumin profile [facility] Start: 02-03-1978 ANNUAL PCP TEAM AIR CONDITIONING 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 Start: 02-03-1978 Hepatitis C screening Hepatitis C [facility] Start: 02-03-1978 HIV SCREENING HIV SCREENING [facility] Start: 02-03-1978 HIV screening HIV Screening [facility] Start: 1972 Adult depression scr eening assessment DEPRESSION SCREENING [facility] Start: 02-03-1966 PNEUMOCOCCAL (1 - PCV) PNEUMOCOCCAL (1 - PCV) [facility] Start: 02-03-1966 Pneumococcal vaccination [facility] Start: 1960 COVID-19 VACCINE (#1) COVID-19 VACCI NE (#1) [facility] End: 06-13-2024 ECG COMPLETE ECG COMPLETE ECG Routine Chronic systolic (congestive) heart failure (HCC) 1 Occurrences starting 06/14/2023 until 06/13/2024 [facility] Work Phone: Comment on above: 1 Occurrences starti ng 06/14/2023 until 06/13/2024 End: 02-16-2024 Echocardiography ECHO Cardiology Routine Chronic systolic (congestive) heart failure (HCC) 1 Occurrences starting 02/15/2023 until 02/16/2024 [facility] Work Phone: Comment on above: 1 Occurrences starti ng 02/15/2023 until 02/16/2024 End: 06-13-2024 Echocardiography ECHO Cardiology Routine Chronic systolic (congestive) heart failure (HCC) 1 Occurrences starting 06/14/2023 until 06/13/2024 [facility] Work Phone: Comment on above: 1 Occurrences starti ng 06/14/2023 until 06/13/2024 End: 02-16-2024 HOLTER MONITOR 48 HOUR HOLTER MONITOR 48 HOUR ECG Routine PVC (premature ventricular contraction) 1 Occurrences starting 02/15/2023 until 02/16/2024 [facility] Work Phone: Comment on above: 1 Occurrences starti ng 02/15/2023 until 02/16/2024 [facility] Immun[facility] Immunization Date Immunization Notes Care Provider Marci degroot NEGATED: Highlighted row has not occurred!12-20-2018 influenza, seasonal, injectable Patient Objection Carmen Evans Other [employer] Other Payers Date Payer Category Payer Private Health Insurance [facility] UMR CHOICE PLUS [id number] 2012-Present [phone] [address] [address] [place] [address] HMO [id number] 2012 Private Health Insurance [id number] 2012 Private Health Insurance [id number] 1960 Unknown [id number] 1959 Self-pay Unknown [id number] Social History Date Type Detail Facility Start: 02-12-2019 End: 02-13-2024 Sex Assigned At [facility] Start: 02-12-2019 End: 02-13-2024 Tobacco smoking status NHIS Never smoked tobacco [facility] Start: 02-12-2019 End: 01-17-2024 Alcohol intake Current drinker of alcohol (finding) [facility] Start: 1960 Sex Assigned At Not on file [facility] Start: 02-12-2019 End: 02-13-2024 Tobacco use and exposure Smokeless tobacco non-user [facility] Start: 02-12-2019 End: 02-13-2024 History of Social function [facility] National Score (1-10 0), lower number is lower risk 60 [facility] Start: 1960 Sex Assigned At [facility] consumption unknown [facility] Start: 02-13-2024 Alcoholic beverage intake Life time non-drinker (finding) [facility] How often to you hav e a drink containing alcohol? Never [facility] How many standard dr inks containing alcohol do you have on a typical day? 1 or 2 [facility] Goals Date Patient Goal Desired Activity /State Personal health goal Clinical Notes 08-07-2013 to 02-13-2024 Leeanne Rizvi, LUKAS - 02/13/2024 11:00 AM Emanuel Abebe MD - 01/17/2024 10:15 AM Emanuel Abebe MD - 06/14/2023 11:45 AM Sandy Nguyen - 02/16/2023 4:24 PM EST Note Date & Type Note Facility 02-13-2024 History of Present illness Narrative Name: Richie Hopper Date/Time of Service:02/14/2024 9:18 AM :1960 Age: 64 y.o. SUBJECTIVE: History of Present Illness Richie Hopper is a 64 y.o. new pt here for annual exam. Last salomon 02-04-18 NILM. Hx hyst with A&P repair in 2002, has ovaries. Hx large babies - uterus and bladder had prolapsed. She feels her bladder is getting weaker. She is fine until she gets to the toilet, and then she can have some leakage. She had some low back pain x3 days, has resolved, but in the past that had been symptom of UTI for her. She had 7 babies, larges 11lbs 13 oz. Denies breast problems. She has not had mammogram since approx 2018, R[place]e. She had colonoscopy approx 2018. Past Medical History: Diagnosis Date Cardiomyopathy (CMS/HCC) Chronic systolic (congestive) heart failure (CMS/HCC) Hyperlipemia (CMS/HCC) LBBB (left bundle branch block) PVC (premature ventricular contraction) Review of Systems All others negative except those mentioned in HPI. Past Medical / Surgical History Past Medical History: Diagnosis Date Cardiomyopathy (CMS/HCC) Chronic systolic (congestive) heart failure (CMS/HCC) Hyperlipemia (CMS/HCC) LBBB (left bundle branch block) PVC (premature ventricular contraction) Past Surgical History: Procedure Laterality Date HEMORRHOID SURGERY TOTAL ABDOMINAL HYSTERECTOMY has ovaries, Had large babies. Family History No family history on file. Social History reports that she has never smoked. She has never used smokeless tobacco. She reports that she does not drink alcohol and does not use drugs. MEDICATIONS: Current Outpatient Medications on File Prior to Visit Medication Sig Dispense Refill losartan (Cozaar) 25 MG tablet Take 12.5 mg by mouth in the morning. nitroglycerin (Nitrostat) 0.4 MG SL tablet DISSOLVE 1 TABLET UNDER THE TONGUE NEEDED FOR CHEST PAIN. IF NO PAIN RELIEF CALL 911. Coenzyme Q10-Red Yeast Rice 60-600 MG capsule Take 1 capsule by mouth in the morning. metoprolol succinate XL (Toprol-XL) 50 MG 24 hr tablet Take 50 mg by mouth in the morning and 50 mg before bedtime. No current facility-administered medications on file prior to visit. Allergies Allergen Reactions Luisa Inhibitors Cough and Unknown Review of Systems PHYSICAL EXAM: Vitals: 02/13/24 1106 BP: 122/78 Body mass index is 29.89 kg/m . Physical Exam Constitutional: Appearance: Normal appearance. Genitourinary: Normal external female genitalia. Normal vaginal mucosa. Cervix and uterus surgically absent. Right and left adnexa are non-tender, no masses. Some pelvic floor relaxation, no cystocele or rectocele. Breasts: No nipple discharge, skin changes, lumps, masses. Right: Normal. Left: Normal. HENT: Head: Normocephalic. Eyes: Extraocular Movements: Extraocular movements intact. Conjunctiva/sclera: Conjunctivae normal. Pulmonary: Effort: Pulmonary effort is normal. Neurological: Mental Status: She is alert and oriented to person, place, and time. Skin: General: Skin is warm and dry. Psychiatric: Mood and Affect: Mood normal. Behavior: Behavior normal. ASSESSMENT / PLAN Recommend monthly self breast exams. Recommend pelvic floor strengthening exercises and bladder training. If no improvement, can refer to pelvic floor PT. Pt wanted to be checked for UTI today, unable to leave urine, order provided for [facility]. Diagnosis Plan 1. Encounter for gynecological examination without abnormal finding 2. Other screening mammogram Bilateral screening mammogram Bilateral screening mammogram 3. S/P hysterectomy 4. Urinary urgency Urinalysis with reflex microscopic Urinalysis with reflex microscopic 5. Urge incontinence Follow up in about 1 year (around 02/12/2025) for Annual exam. documented in this encounter [facility] 01-17-2024 History of Present illness Narrative Images from the original note were not included. [facility] SECTION OF HEART FAILURE and CARDIAC TRANSPLANT MEDICINE OUTPATIENT VISIT DATE January 17, 2024 OUTPATIENT VISIT TYPE Established Patient PRIMARY CARE PHYSICIAN: Carmen Evans [address] [place] [address] CHIEF COMPLAINT: HF f/u NURSING INTAKE (Patient s concerns and/or recent hospitalizations/ER visits): HF Nursing Assessment: Interim Hospitalizations and/or ER visits:no Chest Pain: no Skipping or irregular heartbeats: no Shortness of breath at rest: no Shortness of breath with activity: no Cough: no Waking up in the middle of the night gasping for air: no Lightheadedness or dizziness: no Feeling like you are going to pass out: no Actually passing out: no Poor energy level: no Unintentional weight gain: no Unintentional weight loss: no Swelling in your legs,feet, abdomen: no Filling up quickly when you eat: no HISTORY OF PRESENT ILLNESS: Pt had 6 mo of feeling unwell with + fatigue and now feels back to baseline Completed cardiac rehab Had extensive cardiac evaluation PAST MEDICAL HISTORY Diagnosis Date Bundle branch [...] Cough CURRENT MEDICATIONS: losartan (COZAAR) 25 mg tablet take 1 tablet by mouth every day (Patient taking differently: Take 12.5 mg by mouth every afternoon.) metoprolol succinate ER (TOPROL XL) 50 mg 24 hr tablet Take 1 tablet by mouth two times a day. ubidecarenone/red yeast rice (CO Q10-RED YEAST RICE) 60-600 mg cap Take 1 capsule by mouth once daily. nitroglycerin sublingual (NITROQUICK) 0.4 mg SL tablet Dissolve 1 tablet under the tongue as needed for chest pain. If no pain relief call 911. REVIEW OF SYSTEMS: ROS HEART FAILURE PATIENT ENTERED DATA: 06/13/2023 KCCQ-12 Scores Physical Limitation Score 100 (Class I Heart Failure ) Symptom Frequency Score 79.17 (Class II Heart Failure ) Quality of Life Score 75 (Good to Excellent Quality of Life) Social Limitation Score 91.67 (Class I Heart Failure) Overall Summary Score 86.46 (Class I Heart Failure ) 06/13/2023 PHQ-9 Score 6 06/13/2023 PROMIS Global Health - (T-Scores - the mean of general population = 50. Five points is a clinically meaningful difference.) Physical T-Score 47.7 Mental T-Score 53.3 PHYSICAL EXAMINATION: BP 116/74 (BP Site: Left Arm) Pulse 64 Ht 167.6 cm (5' 6 ) Wt 77.9 kg (171 lb 11.2 oz) SpO2 98% BMI 27.71 kg/m which is 1 lbs less than last visit. General appearance:Healthy [...] 220, HDL 39, Trig 80, LDL 165 Latest Ref Rng 07/03/2022 02/14/2023 Protein, Total 6.3 - 8.0 g/dL 7.1 7.3 Albumin 3.9 - 4.9 g/dL 4.3 4.5 Calcium 8.5 - 10.2 mg/dL 9.3 9.9 Bilirubin, Total 0.2 - 1.3 mg/dL 0.5 0.6 Alkaline Phosphatase 34 - 123 U/L 66 73 AST 13 - 35 U/L 55 (H) 25 ALT 7 - 38 U/L 59 (H) 32 Glucose 74 - 99 mg/dL 86 104 (H) BUN 7 - 21 mg/dL 10 16 Creatinine 0.58 - 0.96 mg/dL 0.74 0.87 Sodium 136 - 144 mmol/L 138 144 Potassium 3.7 - 5.1 mmol/L -- 4.8 Chloride 97 - 105 mmol/L 105 108 (H) CO2 22 - 30 mmol/L 22 29 Anion Gap 9 - 18 mmol/L 11 7 (L) eGFR >=60 mL/min/1.73m 92 75 WBC 3.70 - 11.00 k/uL 6.60 6.74 RBC 3.90 - 5.20 m/uL 4.49 4.52 Hemoglobin 11.5 - 15.5 g/dL 13.9 14.3 Hematocrit 36.0 - 46.0 % 43.5 42.2 MCV 80.0 - 100.0 fL 96.9 93.4 MCH 26.0 - 34.0 pg 31.0 31.6 MCHC 30.5 - 36.0 g/dL 32.0 33.9 RDW-CV 11.5 - 15.0 % 12.5 12.4 Platelet Count 150 - 400 k/uL 160 226 MPV 9.0 - 12.7 fL 10.9 9.6 Absolute nRBC <0.01 k/uL <0.01 <0.01 Total Cholesterol, Nonfasting <200 mg/dL 249 (H) Triglycerides, Nonfasting <150 mg/dL 138 HDL Cholesterol, Nonfasting >39 mg/dL 43 LDL Cholesterol, Nonfasting <100 mg/dL 178 (H) Non HDL Cholesterol, Nonfasting <130 mg/dL 206 (H) VLDL Cholesterol, Nonfasting <30 mg/dL 28 Total Chol/HDL Ratio, Nonfasting <5.10 mg/dL 5.79 (H) LDL/HDL Ratio, Nonfasting <2.54 mg/dL 4.14 (H) NT Pro BNP <125 pg/mL 181 (H) Legend: (H) High (L) Low Holter 03/31/23:Underlying sinus rhythm/sinus arrhythmia with IVCD; [...] correlated with sinus rhythm,sinus arrhythmia,tachycardia,SVE,PVC. Scanned on 02/21/2023.PRX. ECG today: Diagnosis: NORMAL SINUS RHYTHM COMPLETE LEFT BUNDLE BRANCH BLOCK ABNORMAL ECG QRS 150 ms Echocardiogram 04/05/15: The left ventricle is mildly dilated. LVEF = 49 5% (2D biplane) Echo 02/15/17: LVEF = 55 5% (2D biplane). Echo 06/17/18: LVEF = 50 5% (3D) Echo 07/03/22 The left ventricle is dilated. LVEF = 48 5% (3D) Echo 02/15/23: he left ventricle is normal in size. LVEF = 36 5% (2D biplane) Echo 06/14/23: left ventricle is normal in size. LVEF = 39 5% (2D biplane) Echo on 01/17/24: The abnormal regional wall motion pattern in conjunction with normal regional wall thickness is consistent with a LBBB abnormal conduction delay. The left ventricle is normal in size. LVEF = 46 5% (2D biplane) The right ventricle is normal in size. Right ventricular systolic function is normal. 1+ MR. Exam was compared with the prior echocardiographic exam performed on 06/14/2023. LVEF improved. Stress SPECT on 02/15/23: SPECT Perfusion Study: Abnormal. 2. There is [...] 7. This is an intermediate risk scan. Catheterization 02/16/23: No significant CAD IMPRESSION: 63 yo women who was diagnosed [...] 2022. Due to chest pain she had C with no significant coronary artery disease. Holter showed higher frequency of PAC but not PVC. LBBB can lead to worsening cardiomyopathy and QRS fit563 ms but unlikely cause since LVEF improved today by increasing ToproL XL at last , decreasing losartan to tolerate increase B-zeefrino, and stopping usage of fluorouracil cream. Currently euvolemic on examination and feeling great. NYHA class II, stage B PLAN: 1. Labs done locally already 2 Continue current medication 3. Follow-up with me in 6 mo with echo (may make that an annual visit0 Emanuel Ledbetter MD January 17, 2024 11:05 AM CC: CARMEN EVANS documented in this encounter [facility] 01-17-2024 Note HNO ID: [id number] Author: EMANUEL LEDBETTER MD Service: ? Author Type: Physician Type: Progress Notes Filed: 01/17/2024 14:06 Note Text: [facility] SECTION OF HEART FAILURE and CARDIAC TRANSPLANT MEDICINE OUTPATIENT VISIT DATE January 17, 2024 OUTPATIENT VISIT TYPE Established Patient PRIMARY CARE PHYSICIAN: Carmen Evans [address] [place] [address] CHIEF COMPLAINT: HF f/u NURSING INTAKE (Patient?s concerns and/or recent hospitalizations/ER visits): HF Nursing Assessment: Interim Hospitalizations and/or ER visits:no Chest Pain: no Skipping or irregular heartbeats: no Shortness of breath at rest: no Shortness of breath with activity: no Cough: no Waking up in the middle of the night gasping for air: no Lightheadedness or dizziness: no Feeling like you are going to pass out: no Actually passing out: no Poor energy level: no Unintentional weight gain: no Unintentional weight loss: no Swelling in your legs,feet, abdomen: no Filling up quickly when you eat: no HISTORY OF PRESENT ILLNESS: Pt had 6 mo of feeling unwell with + fatigue and now feels back to baseline Completed cardiac rehab Had extensive cardiac evaluation PAST MEDICAL HISTORY Diagnosis Date Bundle branch [...] Cough CURRENT MEDICATIONS: losartan (COZAAR) 25 mg tablet take 1 tablet by mouth every day (Patient taking differently: Take 12.5 mg by mouth every afternoon.) metoprolol succinate ER (TOPROL XL) 50 mg 24 hr tablet Take 1 tablet by mouth two times a day. ubidecarenone/red yeast rice (CO Q10-RED YEAST RICE) 60-600 mg cap Take 1 capsule by mouth once daily. nitroglycerin sublingual (NITROQUICK) 0.4 mg SL tablet Dissolve 1 tablet under the tongue as needed for chest pain. If no pain relief call 911. REVIEW OF SYSTEMS: ROS HEART FAILURE PATIENT ENTERED DATA: 06/13/2023 KCCQ-12 Scores Physical Limitation Score 100 (Class I Heart Failure ) Symptom Frequency Score 79.17 (Class II Heart Failure ) Quality of Life Score 75 (Good to Excellent Quality of Life) Social Limitation Score 91.67 (Class I Heart Failure) Overall Summary Score 86.46 (Class I Heart Failure ) 06/13/2023 PHQ-9 Score 6 06/13/2023 PROMIS Global Health - (T-Scores - the mean of general population = 50. Five points is a clinically meaningful difference.) Physical T-Score 47.7 Mental T-Score 53.3 PHYSICAL EXAMINATION: BP 116/74 (BP Site: Left Arm) Pulse 64 Ht 167.6 cm (5' 6 ) Wt 77.9 kg (171 lb 11.2 oz) SpO2 98% BMI 27.71 kg/m? which is 1 lbs less than last visit. General appearance:Healthy [...] 220, HDL 39, Trig 80, LDL 165 Latest Ref Rng 07/03/2022 02/14/2023 Protein, Total 6.3 - 8.0 g/dL 7.1 7.3 Albumin 3.9 - 4.9 g/dL 4.3 4.5 Calcium 8.5 - 10.2 mg/dL 9.3 9.9 Bilirubin, Total 0.2 - 1.3 mg/dL 0.5 0.6 Alkaline Phosphatase 34 - 123 U/L 66 73 AST 13 - 35 U/L 55 (H) 25 ALT 7 - 38 U/L 59 (H) 32 Glucose 74 - 99 mg/dL 86 104 (H) BUN 7 - 21 mg/dL 10 16 Creatinine 0.58 - 0.96 mg/dL 0.74 0.87 Sodium 136 - 144 mmol/L 138 144 Potassium 3.7 - 5.1 mmol/L -- 4.8 Chloride 97 - 105 mmol/L 105 108 (H) CO2 22 - 30 mmol/L 22 29 Anion Gap 9 - 18 mmol/L 11 7 (L) eGFR >=60 mL/min/1.73m? 92 75 WBC 3.70 - 11.00 k/uL 6.60 6.74 RBC 3.90 - 5.20 m/uL 4.49 4.52 Hemoglobin 11.5 - 15.5 g/dL 13.9 14.3 Hematocrit 36.0 - 46.0 % 43.5 42.2 MCV 80.0 - 100.0 fL 96.9 93.4 MCH 26.0 - 34.0 pg 31.0 31.6 MCHC 30.5 - 36.0 g/dL 32.0 33.9 RDW-CV 11.5 - 15.0 % 12.5 12.4 Platelet Count 150 - 400 k/uL 160 226 MPV 9.0 - 12.7 fL 10.9 9.6 Absolute nRBC <0.01 k/uL <0.01 <0.01 Total Cholesterol, Nonfasting <200 mg/dL 249 (H) Triglycerides, Nonfasting <150 mg/dL 138 HDL Cholesterol, Nonfasting >39 mg/dL (more content not included)... [facility] 06-14-2023 Note HNO ID: [id number] Author: EMANUEL LEDBETTER MD Service: ? Author Type: Physician Type: Progress Notes Filed: 06/14/2023 17:19 Note Text: [facility] SECTION OF HEART FAILURE and CARDIAC TRANSPLANT MEDICINE OUTPATIENT VISIT DATE June 14, 2023 OUTPATIENT VISIT TYPE Established Patient PRIMARY CARE PHYSICIAN: Carmen Evans [address] [place] [address] CHIEF COMPLAINT: HF f/u NURSING INTAKE (Patient?s concerns and/or recent hospitalizations/ER visits): HF Nursing Assessment: Interim Hospitalizations and/or ER visits:02/16/2023 [facility] W/POSS PCI Chest Pain: no Skipping [...] 6.83 6.60 6.7 (more content not included)... [facility] 06-14-2023 History of Present illness Narrative Images from the original note were not included. [facility] SECTION OF HEART FAILURE and CARDIAC TRANSPLANT MEDICINE OUTPATIENT VISIT DATE June 14, 2023 OUTPATIENT VISIT TYPE Established Patient PRIMARY CARE PHYSICIAN: Carmen Evans [address] [place] [address] CHIEF COMPLAINT: HF f/u NURSING INTAKE (Patient [...] correlated with sinus rhythm,sinus arrhythmia,tachycardia,SVE,PVC. Scanned on 02/21/2023.PRX. ECG today: Diagnosis: NORMAL SINUS RHYTHM COMPLETE [...] CC: CARMEN EVANS documented in this encounter [facility] 02-19-2023 Miscellaneous Notes February 19, 2023 Name: Richie Hopper Patient Contact Number: [phone] (home) [phone] (cell) Date of last office visit: 02/15/2023 [...] Yes Damaris Cuellar documented in this encounter [facility] 02-16-2023 Note HNO ID: [id number] Author: Sandy Flower Service: ? Author Type: ? Type: Progress Notes Filed: 02/16/2023 4:24 PM Note Text: HOLTER MONITOR APPLICATION Patient Name: Richie Hopper [facility] Number: [id number] Chest is cleansed with alcohol Skin prep [...] or 48 hours 6.) Call with problems [phone] OR [phone] Patient expresses good verbal understanding of instructions Sandy Costa [facility] 02-16-2023 History of Present illness Narrative HOLTER MONITOR APPLICATION Patient Name: Richie Hopper [facility] Number: [id number] Chest is cleansed with alcohol Skin prep [...] or 48 hours 6.) Call with problems [phone] OR [phone] Patient expresses good verbal understanding of instructions Sandy Costa documented in this encounter [facility] 02-16-2023 Note Education (CARDMN) RICHIE HOPPER ([id number]) 1960 F Date Time Provider Department 02/16/23 7:00 AM ARRHYTHMIA MONITORING LAB [facility] Reason for Visit: Holter Monitor Application [261] Visit Diagnosis:PVC (premature ventricular contraction) [I49.3] Order(s):HOLTER MONITOR 48 HOUR [1918039] Order #: [id number] During your visit today, we recorded the [...] Encounter Status:Closed by SANDY FLOWER on 02/16/23 [facility] 02-15-2023 Miscellaneous Notes CARDIOVASCULAR LAB INSTRUCTIONS: [...] Department of CARDIOLOGY. documented in this encounter [facility] 02-15-2023 Note HNO ID: [id number] Author: Emanule Ledbetter MD Service: ? Author Type: Physician Type: Progress Notes Filed: 02/15/2023 5:05 PM Note Text: [facility] SECTION OF HEART FAILURE and CARDIAC TRANSPLANT MEDICINE OUTPATIENT VISIT DATE February 15, 2023 OUTPATIENT VISIT TYPE Established Patient PRIMARY CARE PHYSICIAN: Carmen Evans [address] [place] [address] CHIEF COMPLAINT: CP NURSING INTAKE (Patient?s concerns [...] (H) Non H (more content not included)... [facility] 02-15-2023 History of Present illness Narrative Images from the original note were not included. [facility] SECTION OF HEART FAILURE and CARDIAC TRANSPLANT MEDICINE OUTPATIENT VISIT DATE February 15, 2023 OUTPATIENT VISIT TYPE Established Patient PRIMARY CARE PHYSICIAN: Carmen Evans [address] [place] [address] CHIEF COMPLAINT: CP NURSING INTAKE (Patient s [...] CC: CARMEN EVANS documented in this encounter [facility] 02-15-2023 Note HNO ID: [id number] Author: Mo Renteria [employer] Service: Nuclear Medicine Author Type: Icing Coater Type: Progress Notes Filed: 02/15/2023 10:44 AM [...] STATUS: Discontinued PROCEDURE TYPE: NM Stress: 11.9mCi [id number] was administered IV for Rest Imaging at 0921 by RT Demetria(R). 32.1 mCi [id number] was administered IV for Stress Imaging at 1044 by Mo Renteria [facility]. PATIENT DISCHARGED TO: Ambulatory patient, left [place] department area. A Diagnostic radioactive procedure has taken place, with no further precautions necessary other than routine body substance precautions. More information regarding radiation safety can be found using this link: [email or web address] SIGNATURE: RT Demetria(R) PATIENT NAME: Richie Hopper DATE: February 15, 2023 TIME: 9:22 AM PAGER/CONTACT #: [phone] [facility] 02-15-2023 Note HNO ID: [id number] Author: Juliana Lozano RN Service: Radiology Author [...] ALLERGIES: Reviewed and unchanged MEDICATIONS REVIEWED BY: Biological Science Technician PROCEDURE TYPE: NM STRESS: 0.4 mg of [...] 15, 2023 TIME: 10:44 AM PAGER/CONTACT #: [phone] [facility] 02-14-2023 Miscellaneous Notes Spoke to patient got her schedule with for appointment. February 12, 2023 Name: Richie Hopper Patient Contact Number: [phone] (home) [phone] (cell) Date of last office visit: 07/03/2022 [...] Yes Damaris Cuellar documented in this encounter [facility] 07-03-2022 History of Present illness Narrative Images from the original note were not included. [facility] SECTION OF HEART FAILURE and CARDIAC TRANSPLANT MEDICINE OUTPATIENT VISIT DATE July 03, 2022 OUTPATIENT VISIT TYPE Established Patient PRIMARY CARE PHYSICIAN: Carmen Evans [address] [place] [address] CHIEF COMPLAINT: HF F/u NURSING INTAKE (Patient [...] level: yes, super tired. 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 [employer] Other [id number] History general Narrative - Reported* Type Description Date Medical History HEART-CARDIAL MYOPATHY Medical History Refuses Colonoscopy 08-07-13 Surgical History hysterectomy 2001 Surgical History colonoscopy [facility] [address] [place] cleared left ear 2015 Surgical History Hemorrhoidectomy 02/2019 [employer] Other Evaluation noteNo InformationNort Ge.tt Other evalutoohg note* Diagnosis Hyperlipidemia LDL goal <70- Primary Other and unspecified hyperlipidemia Cardiomyopathy, nonischemic (HCC) Other primary cardiomyopathies Chronic systolic (congestive) heart failure (HCC) [facility] Diagnosis Chronic systolic (congestive) heart failure (HCC)- Primary Precordial pain PVC (premature ventricular contraction) Other premature beats Hyperlipidemia LDL goal <70 Other and unspecified hyperlipidemia [facility] Diagnosis PVC (premature ventricular contraction) Other premature beats [facility] noteNo assessment information [facility] Work Phone: Evaluation note* Diagnosis Chronic systolic (congestive) heart failure (HCC)- Primary PVC (premature ventricular contraction) Other premature beats Hyperlipidemia LDL goal <70 Other and unspecified hyperlipidemia Cardiomyopathy, nonischemic (HCC) Other primary cardiomyopathies Complex medical condition [facility] Diagnosis Chronic systolic (congestive) heart failure (HCC)- Primary PVC (premature ventricular contraction) Other premature beats Hyperlipidemia LDL goal <70 Other and unspecified hyperlipidemia Cardiomyopathy, nonischemic (HCC) Other primary cardiomyopathies Complex medical condition LBBB (left bundle branch block) Other left bundle branch block [facility] Diagnosis Encounter for gynecological examination without abnormal finding- Primary Other screening mammogram S/P hysterectomy Acquired absence of both cervix and uterus Urinary urgency Urgency of urination Urge incontinence documented in this encounter [facility] HealthcareReason for referral (narrative)* Outpatient Procedure (Routine) - Pending Review Specialty Diagnoses / Procedures Referred By Indy t [facility] Diagnoses Chronic systolic (congestive) heart failure (HCC) Procedures ECHO ECHO TTHRC R-T 2D W/WOM-MODE COMPL SPEC&COLR D Emanuel Ledbetter MD [address] [place] [address] [address] Referral ID Status Reason Start Date Expiration Date Visits Requested Visits Authorized [id number] Pending Review Auto-Generat ed Referral 02/15/2023 02/15/2024 1 1 * Transition of Care (Routine) - Ref Not Required Specialty Diagnoses / Procedures Referred By Indy t Referred To [facility] CARDIOVASCULAR MEDICINE OP [place]LLOW [place] [address] [place] [address] Referral ID Status Reason Start Date Expiration Date Visits Requested Visits Authorized [id number] Ref Not Required PCP Requested Referral 05/17/2023 02/15/2024 1 1 [facility] for referral (narrative)* Outpatient Procedure (Routine) - Pending Review Specialty Diagnoses / Procedures Referred By Indy t Referred To [facility] Diagnoses Chronic systolic (congestive) heart failure (HCC) Procedures ECHO ECHO TTHRC R-T 2D W/WOM-MODE COMPL SPEC&COLR Emanuel Martinez MD [address] [facility] [address] [address] Referral ID Status Reason Start Date Expiration Date Visits Requested Visits Authorized [id number] Pending Review Auto-Generat ed Referral 06/14/2023 06/13/2024 1 1 * Outpatient Procedure (Routine) - Authorized Specialty Diagnoses / Procedures Referred By Contac t Referred To Contact [facility] Diagnoses Chronic systolic (congestive) heart failure (HCC) Procedures ECG COMPLETE ECG ROUTINE ECG W/LEAST 12 LDS W/I&R Emanuel Ledbetter MD [address] [place] [address] [address] Referral ID Status Reason Start Date Expiration Date Visits Requested Visits Authorized [id number] Authorized Auto-Generat ed Referral 06/14/2023 06/13/2024 1 1 * Transition of Care (Routine) - Ref Not Required Specialty Diagnoses / Procedures Referred By Contac t Referred To Contact [facility] Procedures CARDIOVASCULAR MEDICINE OP [place]LLOW [place] [address] [place] [address] [address] Referral ID Status Reason Start Date Expiration Date Visits Requested Visits Authorized [id number] Ref Not Required PCP Requested Referral 09/13/2023 06/13/2024 1 1 [facility] for referral (narrative)* Outpatient Procedure (Routine) - Pending Review Specialty Diagnoses / Procedures Referred By Contac t Referred To Contact [facility] Diagnoses Chronic systolic (congestive) heart failure (HCC) Procedures ECHO ECHO TTHRC R-T 2D W/WOM-MODE COMPL SPEC&COLR D Emanuel Ledbetter MD [address] [place] [address] [address] Referral ID Status Reason Start Date Expiration Date Visits Requested Visits Authorized [id number] Pending Review Auto-Generat ed Referral 07/16/2024 01/16/2025 1 1 * Transition of Care (Routine) - Ref Not Required Specialty Diagnoses / Procedures Referred By Contac t [facility] Procedures CARDIOVASCULAR MEDICINE OP FOLLOW UP APPT ORDER Emanuel Ledbetter MD [address] [place] [address] [facility] [address] [address] Referral ID Status Reason Start Date Expiration Date Visits Requested Visits Authorized [id number] Ref Not Required PCP Requested Referral 07/16/2024 01/16/2025 1 1 [facility] Summary Purpose Family History Relationship Condition [...] content) DATE CREATED AUTHOR 12/23/2019 [facility] DATE CREATED AUTHOR AUTHOR'S ORGANIZ ATION 06/07/2023 [facility] DATE CREATED AUTHOR AUTHOR'S ORGANIZ ATION 01/19/2024 [facility] REASON FOR VISIT (unrecogniz ed section and content) Reason Comments Follow Up Specialty Diagnoses / Procedures Referred By Contac t [facility] Procedures CARDIOVASCULAR MEDICINE OP FOLLOW UP APPT ORDER Emanuel Ledbetter MD [address] [facility] [place] [address] [facility] [address] [address] Referral ID Status Reason Start Date Expiration Date Visits Requested Visits Authorized [id number] Ref Not Required PCP Requested Referral 09/13/2023 06/13/2024 1 1 Reason Comments Refill Request Reason Comments Follow Up Reason Comments Patient Education Reason Comments Holter Monitor Application Specialty Diagnoses [...] INSERT INTRACORONARY STENT-PER MAJOR VESSEL OR BR[facility] Jewel Stringer [address] [place] [address] Referral ID Status Reason Start Date Expiration Date Visits Re quested Visits Authorized [id number] 1 1 Reason Comments Follow Up Reason Comments Advice Only Source Comments (unrecognize d section and content) In the event this informatio n is protected by the Federal Confidentiality of Alcohol and Drug Abuse Patient Records regulations: The Federal rules restrict any use of the information to criminally investigate or prosecute any alcohol or drug abuse patient.[facility] the event this information is protected by the Federal Confidentiality of Alcohol and Drug Abuse Patient Records regulations: The Federal rules restrict any use of the information to criminally investigate or prosecute any alcohol or drug abuse patient.[facility] the event this information is protected by the Federal Confidentiality of Alcohol and Drug Abuse Patient Records regulations: The Federal rules restrict any use of the information to criminally investigate or prosecute any alcohol or drug abuse patient.[facility] the event this information is protected by the Federal Confidentiality of Alcohol and Drug Abuse Patient Records regulations: The Federal rules restrict any use of the information to criminally investigate or prosecute any alcohol or drug abuse patient.[facility] Center[facility] the event this information is protected by the Federal Confidentiality of Alcohol and Drug Abuse Patient Records regulations: The Federal rules restrict any use of the information to criminally investigate or prosecute any alcohol or drug abuse patient.[facility] Center[facility] the event this information is protected by the Federal Confidentiality of Alcohol and Drug Abuse Patient Records regulations: The Federal rules restrict any use of the information to criminally investigate or prosecute any alcohol or drug abuse patient.[facility] Center[facility] the event this information is protected by the Federal Confidentiality of Alcohol and Drug Abuse Patient Records regulations: The Federal rules restrict any use of the information to criminally investigate or prosecute any alcohol or drug abuse patient.[facility] Center[facility] the event this information is protected by the Federal Confidentiality of Alcohol and Drug Abuse Patient Records regulations: The Federal rules restrict any use of the information to criminally investigate or prosecute any alcohol or drug abuse patient.[facility] Center[facility] the event this information is protected by the Federal Confidentiality of Alcohol and Drug Abuse Patient Records regulations: The Federal rules restrict any use of the information to criminally investigate or prosecute any alcohol or drug abuse patient.[facility] Center[facility] the event this information is protected by the Federal Confidentiality of Alcohol and Drug Abuse Patient Records regulations: The Federal rules restrict any use of the information to criminally investigate or prosecute any alcohol or drug abuse patient.[facility] Center[facility] the event this information is protected by the Federal Confidentiality of Alcohol and Drug Abuse Patient Records regulations: The Federal rules restrict any use of the information to criminally investigate or prosecute any alcohol or drug abuse patient.[facility] Center[facility] the event this information is protected by the Federal Confidentiality of Alcohol and Drug Abuse Patient Records regulations: The Federal rules restrict any use of the information to criminally investigate or prosecute any alcohol or drug abuse patient.[facility] Care Teams (unrecognized sec tion and content) Sales And Leasing Agent Relationship Specialty Start Date End Date Carmen Evans, DO [address] [place] [address] PCP - General 03/17/05 Emanuel Ledbetter MD [address] [place] [address] Primary Staff Physician Cardiology 05/28/18 Sales And Leasing Agent Relationship Specialty Start Date End Date Carmen Evans DO [address] [place] [address] PCP - General 03/17/05 Emanuel Ledbetter MD [address] [place] [address] Primary Staff Physician Cardiology 05/28/18 Sales And Leasing Agent Relationship Specialty Start Date End Date Carmen Evans DO [address] [place] [address] PCP - General 03/17/05 Emanuel Ledbetter MD [address] [place] [address] Primary Staff Physician Cardiology 05/28/18 Sales And Leasing Agent Relationship Specialty Start Date End Date Carmen Evans DO [address] [place] [address] PCP - General 03/17/05 Emanuel Ledbetter MD [address] [place] [address] Primary Staff Physician Cardiology 05/28/18 Team Status: [...] June 05, 2023 End: June 05, 2023 Sales And Leasing Agent Relationship Specialty Start Date End Date Carmen Evans DO [address] [place] [address] PCP - General 03/17/05 Emanuel Ledbetter MD [address] [place] [address] Primary Staff Physician Cardiology 05/28/18 Sales And Leasing Agent Relationship Specialty Start Date End Date Carmen Evans DO [address] [place] [address] PCP - General 03/17/05 Emanuel Ledbetter MD [address] [facility] [place] [id number] Primary Staff Physician Cardiology 05/28/18 Sales And Leasing Agent Relationship Specialty Start Date End Date Carmen Evans DO [address] [place] [address] PCP - General 03/17/05 Emanuel Ledbetter MD [address] [place] [address] Primary Staff Physician Cardiology 05/28/18 Sales And Leasing Agent Relationship Specialty Start Date End Date Carmen Evans DO [address] [place] [address] PCP - General 03/17/05 Emanuel Ledbetter MD [address] [place] [address] Primary Staff Physician Cardiology 05/28/18 Sales And Leasing Agent Relationship Specialty Start Date End Date Carmen Evans MD [address] [place], [place] [id number] PCP - General Family Medicine 02/13/24 Sales And Leasing Agent Relationship Specialty Start Date End Date Carmen Evans MD [address] [place], [place] [id number] PCP - General Family Medicine 02/13/24 Goals (unrecognized section and content) Goals may [...] BE BASED ON THE PRIMARY CLINICAL RECORDS. [facility]. provides no warranty or guarantee of the accuracy or completeness of information in this document.
[2024-02-22 07:44] LABS: Bilirubin Urine NEGATIVE (NEGATIVE); Blood Urine NEGATIVE (NEGATIVE); Clarity Urine CLEAR (CLEAR); Color Urine LT. YELLOW (YELLOW); Glucose Urine UA NEGATIVE (NEGATIVE); Ketones Urine NEGATIVE (NEGATIVE); Leukocyte Esterase Urine NEGATIVE (NEGATIVE); Nitrite Urine NEGATIVE (NEGATIVE); Protein Urine NEGATIVE (NEG/TRACE); Specific Gravity Urine 1.015 (1.005-1.025); Urobilinogen Urine 0.2 EU/dL (0.2-1.0); pH Urine 6.5 (5.0-9.0)
[2024-02-22 07:45] LABS: Urine Microscopic Indicated NO
== END 2024-02-22 07:07 | disposition home or self-care (01) ==
LOC: MAMMO 07:07
PROVIDERS: PCP Family Medicine; Visit Provider Nurse Practitioner Women's Health
DX: R39.15 Urgency of urination (principal); Z12.31 Encounter for screening mammogram for malignant neoplasm of breast
CPT/HCPCS: 77063; 77067; 81003

== ENCOUNTER 2024-07-16 13:59 | Outpatient (OUT) | payer OTHER, SELFPAY ==
[2024-07-16 14:28] LABS: Basophils Absolute Auto 0.1 10^3/uL (0.0-0.1); Basophils Percent Auto 0.9 % (0.2-2.0); Eosinophils Absolute Auto 0.4 10^3/uL (0.0-0.7); Eosinophils Percent Auto 5.8 % (0.9-7.0); Hematocrit 40.6 % (36.0-48.0); Hemoglobin 13.7 g/dL (12.0-16.0); Immature Granulocytes Abs Auto 0.01 10^3/uL (0.00-0.03); Immature Granulocytes Pct Auto 0.2 % (0.0-0.5); Lymphocytes Absolute Auto 2.6 10^3/uL (1.2-3.8); Lymphocytes Percent Auto 39.5 % (20.5-60.0); Mean Corpuscular HGB Conc 33.7 g/dL (29.9-35.2); Mean Corpuscular Hemoglobin 32.7 pg (26.7-34.0); Mean Corpuscular Volume 96.9 fL (81.0-99.0); Mean Platelet Volume 9.6 fL (9.5-13.5); Monocytes Absolute Auto 0.5 10^3/uL (0.3-0.8); Monocytes Percent Auto 7.2 % (1.7-12.0); Neutrophils Absolute Auto 3.1 10^3/uL (1.4-6.5); Neutrophils Percent Auto 46.4 % (43.0-75.0); Platelet Count 221 10^3/uL (150-450); Red Blood Count 4.19 10^6/uL (4.20-5.40); Red Cell Distribution Width 12.6 % (11.0-15.0); White Blood Count 6.6 10^3/uL (4.0-11.0)
[2024-07-16 14:59] LABS: Bilirubin Urine NEGATIVE (NEGATIVE); Blood Urine NEGATIVE (NEGATIVE); Clarity Urine CLEAR (CLEAR); Color Urine LT. YELLOW (YELLOW); Glucose Urine UA NEGATIVE (NEGATIVE); Ketones Urine NEGATIVE (NEGATIVE); Leukocyte Esterase Urine NEGATIVE (NEGATIVE); Nitrite Urine NEGATIVE (NEGATIVE); Protein Urine NEGATIVE (NEG/TRACE); Specific Gravity Urine 1.025 (1.005-1.025); Urobilinogen Urine 0.2 EU/dL (0.2-1.0)
[2024-07-16 15:06] LABS: Alanine Aminotransferase 45 U/L (14-59); Albumin Globulin Ratio 1.1; Alkaline Phosphatase 66 U/L (46-116); Anion Gap 9.8; Aspartate Amino Transferase 28 U/L (15-37); BUN Creatinine Ratio 17.2; Bilirubin Total 0.6 mg/dL (0.2-1.0); Calcium 9.1 mg/dL (8.5-10.1); Carbon Dioxide 30.5 mmol/L (21.0-32.0); Chloride 104 mmol/L (98-107); Chol HDL Ratio 4.4; Cholesterol 218 mg/dL (<=200); Estimated GFR (African America >60 (>=60 mL/min/1.73m^2); Estimated GFR (Non-African Ame >60 (>=60 mL/min/1.73m^2); Globulin 3.7 g/dL; Glucose 91 mg/dL (74-106); HDL Cholesterol 50 mg/dL (40-60); Potassium 4.3 mmol/L (3.5-5.1); Sodium 140 mmol/L (136-145); Total Protein 7.7 g/dL (6.4-8.2); Triglycerides 70 mg/dL (<=150)
== END 2024-07-16 14:00 | disposition home or self-care (01) ==
LOC: LAB 14:00
PROVIDERS: PCP Family Medicine; Visit Provider Family Medicine
DX: Z00.00 Encounter for general adult medical examination without abnormal findings (principal)
CPT/HCPCS: 36415; 80053; 80061; 81003; 84443; 85025